=== PATIENT | female | born 1945 | race American Indian/Alaskan Native ===

== ENCOUNTER 2018-09-14 03:13 | Inpatient (IN) | payer MEDICARE, OTHER ==
[2018-09-14 03:15] VITALS: BMI 18.8
--- NOTE | 2018-09-14 03:23 | ED PDOC ---
Arrival/HPI - General Time Seen by Provider: 09/14/18 03:14 Historian: Patient, [facility], EMS - History of Present Illness Narrative History of Present Illness (Text): 09/14/18 03:20 Krysten Hernandez is a 73 year old female, whose past medical history includes diabetes and hypertension, who presents to the ED sent from long term after patient was found lying on the floor next to her bed tonight. As per EMS, patient was noted to be hypoglycemic with a blood sugar of 20 and hypotensive. Patient was given 1 amp of D50 and IV fluids in the field. On arrival, patient's blood sugar was 160, Patient states she does not recall what happened. Patient denies any chest pain, abdominal pain, back pain, neck pain, headache, or any other complaints. Time/Duration: Other (tonight) Symptom Course: Unchanged Activities at Onset: Light Context: Home (prison) Past Medical History - Provider Review Nursing Documentation Reviewed: Yes Family/Social History - Physician Review Nursing Documentation Reviewed: Yes Family/Social History: No Known Family HX Allergies/Home Meds Allergies/Adverse Reactions: Allergies iodine Allergy (Verified 09/14/18 03:18) ANAPHYLAXIS shellfish derived Allergy (Verified 09/14/18 03:18) ANAPHYLAXIS Home Medications: Home Meds Medication Instructions Recorded Confirmed Amino Acids/Protein Hydr/Fiber 30 ml PO BID 09/14/18 09/14/18 [Pro-Stat with Fiber Liquid Pkt] Hydrochlorothiazide [Microzide] 12.5 mg PO DAILY 09/14/18 09/14/18 Insulin Aspart [Novolog Flexpen] 12 unit SQ BID 09/14/18 09/14/18 Insulin Glargine, Recombina 20 unit SQ HS 09/14/18 09/14/18 [Lantus] Mirtazapine [Remeron] 7.5 mg PO DAILY 09/14/18 09/14/18 RX: Acetaminophen [Athenol] 2 tab PO Q6 PRN 09/14/18 09/14/18 RX: Acetaminophen [Pain Reliever] 2 tab PO Q6 PRN 09/14/18 09/14/18 RX: Losartan [Cozaar] 25 mg PO DAILY 09/14/18 09/14/18 RX: Magnesium Hydroxide [Milk of 30 ml PO PRN PRN 09/14/18 09/14/18 Magnesia] RX: Pantoprazole Sodium [Protonix] 40 mg PO DAILY 09/14/18 09/14/18 RX: Sitagliptin Phos/Metformin HCl 1 tab PO DAILY 09/14/18 09/14/18 [Janumet 50-500 mg Tablet] RX: Vitamin B Complex [Balance 1 tab PO DAILY 09/14/18 09/14/18 B-100] RX: amLODIPine [Norvasc] 10 mg PO DAILY 09/14/18 09/14/18 metFORMIN [glucOPHAGE] 500 mg PO BID 09/14/18 09/14/18 Review of Systems - Physician Review All systems were reviewed & negative as marked: Yes - Review of Systems Cardiovascular: Other (+hypotensive). absent: Chest Pain Gastrointestinal: absent: Abdominal Pain Musculoskeletal: absent: Back Pain, Neck Pain Neurological: absent: Headache Endocrine: Other (+hypoglycemia) Physical Exam Vital Signs Reviewed: Yes Temperature: Hypothermic Blood Pressure: Hypotensive Pulse: Regular Respiratory Rate: Normal Appearance: Positive for: Well-Appearing, Non-Toxic, Comfortable Pain Distress: None Mental Status: Positive for: Alert and Oriented X 3 - Systems Exam Head: Present: Atraumatic, Normocephalic Pupils: Present: PERRL Extroacular Muscles: Present: EOMI Conjunctiva: Present: Normal Mouth: Present: Moist Mucous Membranes Neck: Present: Normal Range of Motion Respiratory/Chest: Present: Clear to Auscultation, Good Air Exchange. No: Respiratory Distress, Accessory Muscle Use Cardiovascular: Present: Regular Rate and Rhythm, Normal S1, S2. No: Murmurs Abdomen: No: Tenderness, Distention, Peritoneal Signs Back: Present: Normal Inspection Upper Extremity: Present: Normal Inspection. No: Cyanosis, Edema Lower Extremity: Present: Normal Inspection. No: Edema Neurological: Present: GCS=15, CN II-XII Intact, Speech Normal Skin: Present: Warm, Dry, Normal Color. No: Rashes Psychiatric: Present: Alert, Normal Insight, Normal Concentration Medical Decision Making ED Course and Treatment: 09/14/18 03:20 Impression: 73 year old female sent from long term for hypoglycemia and hypotension. Plan: -- CT Head w/o contrast -- EKG -- Chest X-ray -- Labs, VBG, blood cultures -- Urinalysis, urine cultures -- Lactated Ringer's -- Reassess and disposition Prior Visits: Notes and results from previous visits were reviewed. Progress Notes: Pt noted to be hypothermic at 93F rectal, bear hugger ordered. 09/14/18 04:11 Labs reviewed, lactate: 4.3. Pt hypotensive, hypothermic, and tachycardic. Code Sepsis called. 09/14/18 04:22 Reviewed EKG, NSR at 85 bpm. Non-specific T wave changes. Chest X-ray reviewed, shows no acute processes. 09/14/18 05:[address] Woodruff, mud mixer, who is aware and agrees to evaluate pt for possible ICU admission. sr vice president notified. 09/14/18 05:13 Repeat blood glucose < 20. 1 amp of D50 ordered. Pt placed on D10 drip. 09/14/18 05:[address] Woodruff, present in ED to evaluate pt. Pt will be admitted to the ICU for sepsis, hypoglycemia, hypotension, and hypothermia under the hospitalist service. 09/14/18 05:47 CT Head: There is normal configuration of sella turcica. There are no intra or extra- axial collections. There is no mass effect or midline shift. There is no evidence of hematoma formation. No hydrocephalus is present. The ventricles are symmetrical. No abnormal calcifications are present. There is diffuse age-appropriate cerebellar and cerebral atrophy with proportionally dilated ventricles and cortical sulci. There are bilateral periventricular and subcortical white matter hypolucencies compatible with mild chronic microvascular disease. Otherwise, no significant focal abnormalities are seen either in the posterior fossa or supratentorial compartment. IMPRESSION: 1. Age-appropriate cerebellar and cerebral atrophy. 2. Mild chronic microvascular disease. 3. No evidence of acute intracranial pathology. Thank you for your kind referral of this patient. Electronically signed on September 14, 2018 5:46:22 AM EDT by: Neri Galindo M.D., Certified by [facility], MSK, Neuroradiology - Critical Care Critical Care Minutes: 45 minutes - Lab Interpretations I have reviewed the lab results: Yes - RAD Interpretation Funeral Arranger: ED Physician, Radiologist - EKG Interpretation Interpreted by ED Physician: Yes Type: 12 lead EKG - Scribe Statement The provider has reviewed the documentation as recorded by the Renate Merino Provider Scribe Attestation: All medical record entries made by the Scribe were at my direction and personally dictated by me. I have reviewed the chart and agree that the record accurately reflects my personal performance of the history, physical exam, medical decision making, and the department course for this patient. I have also personally directed, reviewed, and agree with the discharge instructions and disposition. Disposition/Present on Arrival - Present on Arrival Any Indicators Present on Arrival: No History of DVT/PE: No History of Uncontrolled Diabetes: No Urinary Catheter: No History of Decub. Ulcer: No History Surgical Site Infection Following: None - Disposition Have Diagnosis and Disposition been Completed?: Yes Diagnosis: Sepsis, Hypotension, Hypothermia, Hypoglycemia Disposition: HOSPITALIZED Disposition Time: 05:29 Patient Plan: ICU Patient Problems: Current Active Problems Problem Status Onset Hypoglycemia Acute Hypotension Acute Hypothermia Acute Sepsis Acute Condition: GUARDED
[2018-09-14 03:48] LABS: VENOUS BLOOD GAS BASE EXCESS -1.5 mmol/L (0.0-2.0); VENOUS BLOOD GAS PO2 20 mm/Hg (30-55); VENOUS BLOOD PH 7.22 (7.32-7.43)
[2018-09-14 04:19] LABS: INR 1.09; PARTIAL THROMBOPLASTIN TIME 34.5 Seconds (26.9-38.3); PROTHROMBIN TIME 12.1 SECONDS (9.4-12.5)
[2018-09-14] MEDS ORDERED: Sodium Chloride 0.9% 1,000 ML IV SCH (04:30)
[2018-09-14 04:35] LABS: BLOOD UREA NITROGEN 15 mg/dL (7-21); CALCIUM 8.4 mg/dL (8.4-10.5); GFR NON-AFRICAN AMERICAN > 60
[2018-09-14 04:51] LABS: HEMOGLOBIN 10.9 g/dL (12.0-16.0); MEAN CELL VOLUME 93.1 fl (80.0-105.0); MEAN CORPUSCULAR HEMOGLOBIN 32.7 pg (25.0-35.0); MEAN CORPUSCULAR HGB CONC 35.2 g/dl (31.0-37.0); MEAN PLATELET VOLUME 11.7 fl (7.0-11.0); MONO % 4.7 % (1.0-6.0); RBC 3.33 10^6/uL (3.5-6.1); RED CELL DISTRIBUTION WIDTH 12.8 % (11.5-14.5)
[2018-09-14 04:52] LABS: BASO # 0.02 K/mm3 (0.0-2.0); BASO % 0.2 % (0.0-3.0); EOS % 0.4 % (1.5-5.0); MONO # 0.5 (0.1-0.6)
[2018-09-14 04:55] LABS: ALB/GLOB RATIO 0.9 (1.1-1.8); ALT/SGPT 15 U/L (7-56); AST/SGOT 69 U/L (14-36)
[2018-09-14] MEDS ORDERED: Piperacillin/Tazobact 3.375 gm 100 ML IV STA (04:59)
[2018-09-14] MEDS ORDERED: Sodium Chloride 0.9% 1,000 ML IV STA (05:11)
[2018-09-14] MEDS ORDERED: Dextrose 50% SYRINGE Inj (50 ml) IVP ONE ×2 (05:11→11:08)
[2018-09-14] MEDS ORDERED: Dextrose 50% SYRINGE Inj (50 ml) ONE (05:15)
[2018-09-14 05:49] LABS: PH,URINE 6.5 (4.7-8.0); URINE BILIRUBIN NEGATIVE (NEGATIVE); URINE BLOOD NEGATIVE (NEGATIVE); URINE GLUCOSE (UA) NEGATIVE (NEGATIVE); URINE LEUKOCYTE ESTERASE NEGATIVE Leu/uL (NEGATIVE); URINE PROTEIN NEGATIVE mg/dL (<30 mg/dL); URINE UROBILINOGEN 0.2 E.U./dL (<1 E.U./dL)
[2018-09-14 05:54] LABS: URINE APPEARANCE CLEAR (CLEAR); URINE COLOR YELLOW (YELLOW)
--- NOTE | 2018-09-14 05:54 | CP.PCM.HP ---
<Daniel Wyman - Last Filed: 09/14/18 06:44> History of Present Illness - History of Present Illness History of Present Illness: PGY-1 Medicine H&P for Dr. Woodruff CC: Hypoglycemia HPI: Patient is a 73 year old female with a past medical history includes diabetes, COPD, and hypertension, who presents to the ED sent from retirement after patient was found lying on the floor next to her bed tonight. As per EMS, patient was noted to be hypoglycemic with a blood sugar of 20 and hypotensive. Patient was given 1 amp of D50 and IV fluids in the field. On arrival, patient's blood sugar was 160, Patient states she does not recall what happened. Patient denies any chest pain, abdominal pain, back pain, neck pain, headache, or any other complaints. ROS and HPI limited due to patient's clinical condition. History obtained from EMS and chart review. PMH: hypertension, DM-2, COPD PSH: denies Allergies: No known allergies Social Hx: Smokes 1/4 PPD for 50 years. Prior alcohol abuse history. Denies drug use. Lives in [facility]. Family Hx: denies Medications: see JUL PMD: Dr. Sebastien Almeida Present on Admission - Present on Admission Any Indicators Present on Admission: No History of DVT/PE: No History of Uncontrolled Diabetes: No Urinary Catheter: No Decubitus Ulcer Present: No Review of Systems - Review of Systems Systems not reviewed;Unavailable: Acuity of Condition Past Patient History - Past Social History Smoking Status: Unknown If Ever Smoked - CARDIAC Hx Hypertension: Yes - NEUROLOGICAL Hx Syncope: Yes - ENDOCRINE/METABOLIC Hx Diabetes Mellitus Type 2: Yes - MUSCULOSKELETAL/RHEUMATOLOGICAL Hx Falls: Yes Hx Fractures: Yes (bimalleolar fx of lower leg) - PSYCHIATRIC Hx Substance Use: No Meds Allergies/Adverse Reactions: Allergies Allergy/AdvReac Type Severity Reaction Status Date / Time iodine Allergy ANAPHYLAXIS Verified 09/14/18 03:18 shellfish derived Allergy ANAPHYLAXIS Verified 09/14/18 03:18 Physical Exam - Constitutional Appears: No Acute Distress - Head Exam Head Exam: ATRAUMATIC, NORMAL INSPECTION - Eye Exam Eye Exam: EOMI, Normal appearance, PERRL - ENT Exam ENT Exam: Mucous Membranes Dry - Neck Exam Neck exam: Positive for: Normal Inspection - Respiratory Exam Respiratory Exam: Clear to Auscultation Bilateral, NORMAL BREATHING PATTERN. absent: Rales, Rhonchi, Wheezes, Respiratory Distress - Cardiovascular Exam Cardiovascular Exam: REGULAR RHYTHM, +S1, +S2. absent: Bradycardia, Tachycardia, Gallop, Rubs, Systolic Murmur - GI/Abdominal Exam GI & Abdominal Exam: Normal Bowel Sounds, Soft. absent: Distended, Firm, Guarding, Tenderness - Extremities Exam Extremities exam: Positive for: normal inspection. Negative for: calf tenderness, pedal edema - Neurological Exam Additional comments: Neurological exam limited due to patient's clinical condition - Psychiatric Exam Psychiatric exam: Flat Affect - Skin Skin Exam: Dry, Intact, Pallor Results - Vital Signs Recent Vital Signs: Last Vital Signs Temp 92.5 F L 09/14/18 05:45 Pulse 106 H 09/14/18 05:45 Resp 13 09/14/18 05:45 BP 99/56 L 09/14/18 05:45 Pulse Ox 98 09/14/18 05:45 - Labs Result Diagrams: 09/14/18 03:34 09/14/18 03:34 Labs: Laboratory Results - last 24 hr 09/14/18 09/14/18 09/14/18 03:34 03:34 03:34 WBC 11.0 RBC 3.33 L Hgb 10.9 L Hct 31.0 L MCV 93.1 MCH 32.7 MCHC 35.2 RDW 12.8 Plt Count 316 MPV 11.7 H Neut % (Auto) 76.7 H Lymph % (Auto) 18.0 L [place] % (Auto) 4.7 Eos % (Auto) 0.4 L Baso % (Auto) 0.2 Lymph # (Auto) 2.0 [place] # (Auto) 0.5 Eos # (Auto) 0.0 Baso # (Auto) 0.02 Absolute Neuts (auto) 8.42 H PT 12.1 INR 1.09 APTT 34.5 pO2 VBG pH VBG pCO2 VBG HCO3 VBG Total CO2 VBG O2 Sat (Calc) VBG Base Excess VBG Potassium Glucose Lactate FiO2 Crit Value Called To Crit Value Called By Blood Gas Notified Time Sodium 138 Potassium 5.1 H Chloride 105 Carbon Dioxide 27 Anion Gap 11 BUN 15 Creatinine 0.7 Est GFR ( Amer) > 60 Est GFR (Non-Af Amer) > 60 POC Glucose (mg/dL) Random Glucose 69 L Calcium 8.4 Phosphorus 4.1 Magnesium 1.9 Total Bilirubin 1.3 AST 69 H ALT 15 Alkaline Phosphatase 76 Total Protein 6.2 Albumin 3.0 Globulin 3.2 Albumin/Globulin Ratio 0.9 L Venous Blood Potassium 09/14/18 09/14/18 03:40 05:10 WBC RBC Hgb Hct MCV MCH MCHC RDW Plt Count MPV Neut % (Auto) Lymph % (Auto) [place] % (Auto) Eos % (Auto) Baso % (Auto) Lymph # (Auto) [place] # (Auto) Eos # (Auto) Baso # (Auto) Absolute Neuts (auto) PT INR APTT pO2 20 L VBG pH 7.22 L VBG pCO2 68.0 H* VBG HCO3 27.8 VBG Total CO2 29.9 H VBG O2 Sat (Calc) 35.4 L VBG Base Excess -1.5 L VBG Potassium 4.2 Glucose 72 Lactate 4.3 H* FiO2 21.0 Crit Value Called To [place] Crit Value Called By [facility] Blood Gas Notified Time 347 Sodium 137.0 Potassium Chloride 105.0 Carbon Dioxide Anion Gap BUN Creatinine Est GFR ( Amer) Est GFR (Non-Af Amer) POC Glucose (mg/dL) < 20 L* Random Glucose Calcium Phosphorus Magnesium Total Bilirubin AST ALT Alkaline Phosphatase Total Protein Albumin Globulin Albumin/Globulin Ratio Venous Blood Potassium 4.2 Assessment & Plan - Assessment and Plan (Free Text) Assessment: Patient is a 73 year old female with a past medical history includes diabetes, COPD, and hypertension, presenting with hypoglycemia. Patient will be admitted to the ICU for hypoglycemia and sepsis. Plan: SIRS, likely sepsis - Lactate: 4.3. Pt hypotensive, hypothermic, and tachycardic. Code Sepsis called in ED - Start Levophed drip, titrate to MAP>65 - 1 X bolus of NS and LR given in ED - Follow up blood and urine cultures - CXR: pending official read - UA: negative - Start Vancomycin and Zosyn - ID consulted, Dr. Ruffin Hypoglycemia - Patient on D5 drip - Hypoglycemia protocol - Accuchecks Q4H Mechanical fall: - Head CT: No evidence of acute intracranial pathology. - Neurological ecam limited due to patient's condition - Repeat neuro exam once patient's condition improved Lactic acidosis - 2/2 to sepsis vs Metformin use - Consider discontinuing Metformin upon discharge Respiratory acidosis, resolved - Start patient on BIPAP - Keep O2 >92% COPD - Duoneb Q4 PRN for SOB Prophylaxis: - DVT: Lovenox 40mg SC - GI: Protonix 40mg IVP QD Case discussed with attending, Dr. Woodruff. Daniel Wyman, PGY-1 <Wendie Woodruff - Last Filed: 09/15/18 06:07> Results - Vital Signs Recent Vital Signs: Last Vital Signs Temp 97.5 F L 09/15/18 05:00 Pulse 79 09/15/18 05:40 Resp 19 09/15/18 05:40 BP 107/53 L 09/15/18 05:40 Pulse Ox 100 09/14/18 18:10 - Labs Result Diagrams: 09/14/18 03:34 09/14/18 23:56 Labs: Laboratory Results - last 24 hr 09/14/18 09/14/18 09/14/18 06:35 06:54 07:28 pO2 34 VBG pH 7.37 VBG pCO2 43.0 VBG HCO3 24.9 VBG Total CO2 26.2 VBG O2 Sat (Calc) 58.1 VBG Base Excess -0.6 L VBG Potassium 6.6 H* Sodium 134.0 Chloride 108.0 H Glucose 58 L Lactate 2.3 H FiO2 21.0 Crit Value Called To Andres Crit Value Called By [facility] Blood Gas Notified Time 643 Potassium Carbon Dioxide Anion Gap BUN Creatinine Est GFR ( Amer) Est GFR (Non-Af Amer) POC Glucose (mg/dL) 62 L 131 H Random Glucose Calcium Procalcitonin Free T4 Free T3 pg/mL TSH 3rd Generation Venous Blood Potassium 6.6 H* 09/14/18 09/14/18 09/14/18 09:00 10:40 11:57 pO2 49 VBG pH 7.40 VBG pCO2 44.0 VBG HCO3 27.3 VBG Total CO2 28.7 H VBG O2 Sat (Calc) 88.7 H VBG Base Excess 2.0 VBG Potassium 3.1 L Sodium 136.0 Chloride 108.0 H Glucose 30 L* D Lactate 1.0 FiO2 21.0 Crit Value Called To Crit Value Called By [facility] Blood Gas Notified Time 1102 Potassium Carbon Dioxide Anion Gap BUN Creatinine Est GFR ( Amer) Est GFR (Non-Af Amer) POC Glucose (mg/dL) 138 H Random Glucose Calcium Procalcitonin Free T4 Free T3 pg/mL TSH 3rd Generation 5.93 H Venous Blood Potassium 3.1 L 09/14/18 09/14/18 09/14/18 12:58 14:09 15:00 pO2 VBG pH VBG pCO2 VBG HCO3 VBG Total CO2 VBG O2 Sat (Calc) VBG Base Excess VBG Potassium Sodium Chloride Glucose Lactate FiO2 Crit Value Called To Crit Value Called By Blood Gas Notified Time Potassium Carbon Dioxide Anion Gap BUN Creatinine Est GFR ( Amer) Est GFR (Non-Af Amer) POC Glucose (mg/dL) 77 98 113 H Random Glucose Calcium Procalcitonin Free T4 Free T3 pg/mL TSH 3rd Generation Venous Blood Potassium 09/14/18 09/14/18 09/14/18 15:20 15:20 15:20 pO2 VBG pH VBG pCO2 VBG HCO3 VBG Total CO2 VBG O2 Sat (Calc) VBG Base Excess VBG Potassium Sodium 133 Chloride 105 Glucose Lactate FiO2 Crit Value Called To Crit Value Called By Blood Gas Notified Time Potassium 2.8 L* D Carbon Dioxide 24 Anion Gap 7 L BUN 10 Creatinine 0.5 L Est GFR ( Amer) > 60 Est GFR (Non-Af Amer) > 60 POC Glucose (mg/dL) Random Glucose 94 Calcium 6.9 L* Procalcitonin 0.98 H Free T4 0.78 Free T3 pg/mL 2.63 L TSH 3rd Generation Venous Blood Potassium 09/14/18 09/14/18 09/14/18 16:00 18:12 20:23 pO2 VBG pH VBG pCO2 VBG HCO3 VBG Total CO2 VBG O2 Sat (Calc) VBG Base Excess VBG Potassium Sodium Chloride Glucose Lactate FiO2 Crit Value Called To Crit Value Called By Blood Gas Notified Time Potassium Carbon Dioxide Anion Gap BUN Creatinine Est GFR ( Amer) Est GFR (Non-Af Amer) POC Glucose (mg/dL) 137 H 204 H 285 H Random Glucose Calcium Procalcitonin Free T4 Free T3 pg/mL TSH 3rd Generation Venous Blood Potassium 09/14/18 09/14/18 21:57 23:56 pO2 VBG pH VBG pCO2 VBG HCO3 VBG Total CO2 VBG O2 Sat (Calc) VBG Base Excess VBG Potassium Sodium 128 L Chloride 102 Glucose Lactate FiO2 Crit Value Called To Crit Value Called By Blood Gas Notified Time Potassium 4.4 Carbon Dioxide 21 Anion Gap 10 BUN 8 Creatinine 0.6 L Est GFR ( Amer) > 60 Est GFR (Non-Af Amer) > 60 POC Glucose (mg/dL) 283 H Random Glucose 340 H* D Calcium 7.2 L Procalcitonin Free T4 Free T3 pg/mL TSH 3rd Generation Venous Blood Potassium Attending/Attestation - Attestation I have personally seen and examined this patient.: Yes I have fully participated in the care of the patient.: Yes I have reviewed all pertinent clinical information: Yes Notes (Text): 09/15/18 06:05 Seen and examined. Discussed with resident. Admit to ICU. Lactic acidosis can be due to sepsis or metformin side effects. started on Levophed and gave another 1 L bolus NS. On broad spectrum ABX.
[2018-09-14] MEDS: Vancomycin 1gm in NS 250ml 1 GM/250 ML BAG IVPB STA ×2 (06:19→06:34)
[2018-09-14] MEDS: NOREPINEPHRINE BIT/0.9 % NACL 4 MG/250 ML BAG IV PRN ×3 (06:19→20:40)
--- NOTE | 2018-09-14 06:29 | PCM.PROC ---
<Gustavo Adamson - Last Filed: 09/14/18 06:48> Procedures Attestation:: I certify that I have explained the specified Operation(s) or Procedure(s), risks, benefits and reasonable alternatives to the Patient and/or other person responsible. The opportunity was given to ask questions and all questions answered - Central Line Placement Right Internal Jugular Triple Lumen Catheter Aseptic technique was employed throughout the procedure: Hand Hygiene done prior to procedure, Full sterile barriers (mask, hair cover, sterile gown, sterile gloves), Full body sterile drape, Chloraprep Antiseptic: 30 second prep for IJ or SC sites CVP Time Out Performed: Yes Pt. Placed on Pulse Ox Monitor: Yes Central Line Prep: Chlorhexidine-Alcohol Combination Local Anesthesia Used: Lidocaine 1% Amount of Anesthesia Used (mls): 5 Ultrasound Used for Placement: Yes Central Line Lumen Inserted: triple Central Line Length: 20 cm Post Procedure: Sutured in Place, Good Blood Return, All Ports Aspirated, Flushed, Capped, Sterile Dressing Applied Secured by: Securement device (sutured) Post procedure dressing: Clear vapor permeable, Chlorhexidine disc (Biopatch) Post Procedure X-Ray: Yes Patient Tolerated Procedure: Well Immediate Complications: None <Wendie Woodruff - Last Filed: 09/15/18 06:08> Attending/Attestation - Attestation I have personally seen and examined this patient.: Yes I have fully participated in the care of the patient.: Yes I have reviewed all pertinent clinical information, including history, physical exam and plan: Yes
[2018-09-14 06:43] LABS: VENOUS BLOOD GAS BASE EXCESS -0.6 mmol/L (0.0-2.0); VENOUS BLOOD GAS PO2 34 mm/Hg (30-55); VENOUS BLOOD PH 7.37 (7.32-7.43)
[2018-09-14] MEDS ORDERED: Albuterol-Ipratrop 3 mg / 0.5 (3 ml) UD IH PRN (06:49)
--- NOTE | 2018-09-14 09:40 | CT ---
Date of service: 09/14/2018 PROCEDURE: CT HEAD WITHOUT CONTRAST. HISTORY: syncope COMPARISON: None available. TECHNIQUE: Axial computed tomography images were obtained through the head/brain without intravenous contrast. Radiation dose: Total exam DLP = 907.12 mGy-cm. This CT exam was performed using one or more of the following dose reduction techniques: Automated exposure control, adjustment of the mA and/or kV according to patient size, and/or use of iterative reconstruction technique. FINDINGS: HEMORRHAGE: No intracranial hemorrhage. BRAIN: No mass effect or edema. Moderate atrophy. Mild microvascular changes VENTRICLES: Unremarkable. No hydrocephalus. CALVARIUM: Unremarkable. PARANASAL SINUSES: Unremarkable as visualized. No significant inflammatory changes. MASTOID AIR CELLS: Unremarkable as visualized. No inflammatory changes. OTHER FINDINGS: The report concurs with the preliminary [facility] report IMPRESSION: No acute intracranial findings
[2018-09-14] MEDS ORDERED: Dextrose 5%/0.45% NS 1,000 ML IV SCH (10:00)
--- NOTE | 2018-09-14 10:19 | RAD ---
Date of service: 09/14/2018 HISTORY: TLC placement COMPARISON: 09/14/2018 TECHNIQUE: 1 view obtained. FINDINGS: LUNGS: No active pulmonary disease. PLEURA: No significant pleural effusion identified, no pneumothorax apparent. CARDIOVASCULAR: No aortic atherosclerotic calcification present. Normal cardiac size. No pulmonary vascular congestion. OSSEOUS STRUCTURES: No significant abnormalities. VISUALIZED UPPER ABDOMEN: Normal. OTHER FINDINGS: None. IMPRESSION: Right IJ line at the junction of the SVC and right atrium. No pneumothorax
--- NOTE | 2018-09-14 10:19 | RAD ---
Date of service: 09/14/2018 HISTORY: Sepsis Patient COMPARISON: No prior. TECHNIQUE: 1 view obtained. FINDINGS: LUNGS: No active pulmonary disease. PLEURA: No significant pleural effusion identified, no pneumothorax apparent. CARDIOVASCULAR: No aortic atherosclerotic calcification present. Normal cardiac size. No pulmonary vascular congestion. OSSEOUS STRUCTURES: No significant abnormalities. VISUALIZED UPPER ABDOMEN: Normal. OTHER FINDINGS: None. IMPRESSION: No active disease.
[2018-09-14] MEDS: Enoxaparin 40 mg Syringe SC SCH (10:27)
--- NOTE | 2018-09-14 10:47 | CARD ---
APPROVED REPORT Date of service: 09/14/2018 EKG Measurement Heart [id number] <Conclusion> Normal sinus rhythm Nonspecific T wave abnormality Abnormal ECG
[2018-09-14 11:05] LABS: VENOUS BLOOD GAS PO2 49 mm/Hg (30-55)
--- NOTE | 2018-09-14 11:20 | CP.CCUPN ---
<ToreyRománlyudmila Delacruz - Last Filed: 09/14/18 12:36> CCU Subjective - Physician Review Events Since Last Encounter (Free Text): 09/14/18 11:02 pt brought into the ED and admitted to the ICU Subjective (Free Text): 09/14/18 11:02 Pt seen and examined this morning at bedside, no new complaints at this time CCU Objective - Vital Signs / Intake & Output Vital Signs (Last 4 hours): Vital Signs Temp Pulse Resp BP Pulse Ox 09/14/18 09:05 87 09/14/18 08:44 97.5 F L 94 H 100 09/14/18 08:40 90 15 102/49 L 100 09/14/18 08:30 93 H 13 100 09/14/18 08:20 94 H 15 106/51 L 100 09/14/18 08:11 99 H 23 107/55 L 100 09/14/18 08:10 106 H 09/14/18 08:07 84 43 H 09/14/18 07:45 93 H 14 103/49 L 100 09/14/18 07:37 89 18 94/56 L 100 09/14/18 07:25 95.9 F L 94 H 20 86/52 L 100 09/14/18 07:14 87 18 91/53 L 100 Intake and Output (Last 8hrs): Intake & Output 09/13/18 09/14/18 09/14/18 22:59 06:59 14:59 Output Total 700 Balance -700 Weight 110 lb Output: Urine 700 - Physical Exam Head: Positive for: Atraumatic, Normocephalic Pupils: Positive for: PERRL Extroacular Muscles: Positive for: EOMI Conjunctiva: Positive for: Normal Mouth: Positive for: Moist Mucous Membranes Neck: Positive for: Normal Range of Motion Respiratory/Chest: Positive for: Clear to Auscultation, Good Air Exchange. Negative for: Respiratory Distress, Accessory Muscle Use Cardiovascular: Positive for: Regular Rate and Rhythm, Normal S1, S2. Negative for: Murmurs Abdomen: Negative for: Tenderness, Distention, Peritoneal Signs Back: Positive for: Normal Inspection Upper Extremity: Positive for: Normal Inspection. Negative for: Cyanosis, Edema Lower Extremity: Positive for: Normal Inspection. Negative for: Edema Neurological: Positive for: GCS=15, CN II-XII Intact, Speech Normal Skin: Positive for: Warm, Dry, Normal Color. Negative for: Rashes Psychiatric: Positive for: Alert, Normal Insight, Normal Concentration - Medications Active Medications: Active Medications Generic Name Dose Route Start Last Admin Trade Name Freq PRN Reason Stop Dose Admin Albuterol/Ipratropium 3 ml 09/14/18 06:49 Duoneb 3 Mg/0.5 Mg (3 Ml) Ud IH Q4H PRN Shortness of Breath Dextrose 0 ml 09/14/18 06:29 Dextrose 50% Inj IV STAT PRN Hypoglycemia Protocol Protocol Enoxaparin Sodium 40 mg 09/14/18 10:00 09/14/18 10:27 Lovenox SC 40 mg DAILY ALFREDO Administration Protocol Hydrocortisone Sodium Succinate 100 mg 09/14/18 10:00 09/14/18 10:33 Solu-Cortef IVP 100 mg Q8 ALFREDO Administration NOREPINEPHRINE BIT/0.9 % NACL 4 mg in 250 mls @ 18.75 mls/hr 09/14/18 05:25 09/14/18 06:55 Levophed 4 Mg/ 250 Ml Ns Premixed IV 5 mcg/min .[id number] PRN 18.75 mls/hr TITRATE PER MD ORDER Administration Protocol 5 MCG/MIN Vancomycin HCl 1 gm in 250 mls @ 167 mls/hr 09/15/18 10:00 Vancomycin 1gm IVPB DAILY ALFREDO Protocol Piperacillin Sod/Tazobactam Sod 100 mls @ 25 mls/hr 09/14/18 14:00 Zosyn 3.375 In Ns 100ml IVPB 09/15/18 01:59 Q8 ALFREDO Protocol Dextrose 1,000 mls @ 0 mls/hr 09/14/18 06:29 Dextrose 5% In Water 1000 Ml IV .Q0M PRN Hypoglycemia Protocol Protocol Per Protocol Dextrose/Sodium Chloride 1,000 mls @ 100 mls/hr 09/14/18 10:00 09/14/18 10:33 Dextrose 5%/0.45% Ns 1000 Ml IV 100 mls/hr .Q10H ALFREDO Administration Pantoprazole Sodium 40 mg 09/14/18 10:00 09/14/18 10:27 Protonix Inj IVP 40 mg DAILY ALFREDO Administration - Patient Studies Lab Studies: Lab Studies 09/14/18 09/14/18 09/14/18 Range/Units 09:00 07:28 06:54 WBC (4.5-11.0) 10^3/uL RBC (3.5-6.1) 10^6/uL Hgb (12.0-16.0) g/dL Hct (36.0-48.0) % MCV (80.0-105.0) fl MCH (25.0-35.0) pg MCHC (31.0-37.0) g/dl RDW (11.5-14.5) % Plt Count (120.0-450.0) 10^3/uL MPV (7.0-11.0) fl Neut % (Auto) (50.0-68.0) % Lymph % (Auto) (22.0-35.0) % [place] % (Auto) (1.0-6.0) % Eos % (Auto) (1.5-5.0) % Baso % (Auto) (0.0-3.0) % Lymph # (Auto) (1.2-3.4) [place] # (Auto) (0.1-0.6) Eos # (Auto) (0.0-0.7) Baso # (Auto) (0.0-2.0) K/mm3 Absolute Neuts (auto) (1.4-6.5) PT (9.4-12.5) SECONDS INR APTT (26.9-38.3) Seconds pO2 (30-55) mm/Hg VBG pH (7.32-7.43) VBG pCO2 (40-60) VBG HCO3 (21-28) mmol/l VBG Total CO2 (22-28) mmol.L VBG O2 Sat (Calc) (40-65) % VBG Base Excess (0.0-2.0) mmol/L VBG Potassium (3.6-5.2) mmol/L Glucose (65-105) mg/dl Lactate (0.7-2.1) mmol/L FiO2 % Crit Value Called To Crit Value Called By Blood Gas Notified Time Sodium (132-148) mmol/L Potassium (3.6-5.0) mmol/L Chloride (98-107) mmol/L Carbon Dioxide (21-33) mmol/L Anion Gap (10-20) BUN (7-21) mg/dL Creatinine (0.7-1.2) mg/dl Est GFR ( Amer) Est GFR (Non-Af Amer) POC Glucose (mg/dL) 131 H 62 L (65-110) mg/dL Random Glucose (70-110) mg/dL Calcium (8.4-10.5) mg/dL Phosphorus (2.5-4.5) mg/dL Magnesium (1.7-2.2) mg/dL Total Bilirubin (0.2-1.3) mg/dL AST (14-36) U/L ALT (7-56) U/L Alkaline Phosphatase (38-126) U/L Total Protein (5.8-8.3) g/dL Albumin (3.0-4.8) g/dL Globulin gm/dL Albumin/Globulin Ratio (1.1-1.8) TSH 3rd Generation 5.93 H (0.46-4.68) mIU/mL Venous Blood Potassium (3.6-5.2) mmol/L Urine Color (YELLOW) Urine Appearance (CLEAR) Urine pH (4.7-8.0) Ur Specific [place] (1.005-1.035) Urine Protein (<30 mg/dL) mg/dL Urine Glucose (UA) (NEGATIVE) mg/dL Urine Ketones (NEGATIVE) mg/dL Urine Blood (NEGATIVE) Urine Nitrate (NEGATIVE) Urine Bilirubin (NEGATIVE) Urine Urobilinogen (<1 E.U./dL) E.U./dL Ur Leukocyte Esterase (NEGATIVE) Zoya/uL 09/14/18 09/14/18 09/14/18 Range/Units 06:35 05:10 04:00 WBC (4.5-11.0) 10^3/uL RBC (3.5-6.1) 10^6/uL Hgb (12.0-16.0) g/dL Hct (36.0-48.0) % MCV (80.0-105.0) fl MCH (25.0-35.0) pg MCHC (31.0-37.0) g/dl RDW (11.5-14.5) % Plt Count (120.0-450.0) 10^3/uL MPV (7.0-11.0) fl Neut % (Auto) (50.0-68.0) % Lymph % (Auto) (22.0-35.0) % [place] % (Auto) (1.0-6.0) % Eos % (Auto) (1.5-5.0) % Baso % (Auto) (0.0-3.0) % Lymph # (Auto) (1.2-3.4) [place] # (Auto) (0.1-0.6) Eos # (Auto) (0.0-0.7) Baso # (Auto) (0.0-2.0) K/mm3 Absolute Neuts (auto) (1.4-6.5) PT (9.4-12.5) SECONDS INR APTT (26.9-38.3) Seconds pO2 34 (30-55) mm/Hg VBG pH 7.37 (7.32-7.43) VBG pCO2 43.0 (40-60) VBG HCO3 24.9 (21-28) mmol/l VBG Total CO2 26.2 (22-28) mmol.L VBG O2 Sat (Calc) 58.1 (40-65) % VBG Base Excess -0.6 L (0.0-2.0) mmol/L VBG Potassium 6.6 H* (3.6-5.2) mmol/L Glucose 58 L (65-105) mg/dl Lactate 2.3 H (0.7-2.1) mmol/L FiO2 21.0 % Crit Value Called To Andres Crit Value Called By [facility] Blood Gas Notified Time 643 Sodium 134.0 (132-148) mmol/L Potassium (3.6-5.0) mmol/L Chloride 108.0 H (98-107) mmol/L Carbon Dioxide (21-33) mmol/L Anion Gap (10-20) BUN (7-21) mg/dL Creatinine (0.7-1.2) mg/dl Est GFR ( Amer) Est GFR (Non-Af Amer) POC Glucose (mg/dL) < 20 L* (65-110) mg/dL Random Glucose (70-110) mg/dL Calcium (8.4-10.5) mg/dL Phosphorus (2.5-4.5) mg/dL Magnesium (1.7-2.2) mg/dL Total Bilirubin (0.2-1.3) mg/dL AST (14-36) U/L ALT (7-56) U/L Alkaline Phosphatase (38-126) U/L Total Protein (5.8-8.3) g/dL Albumin (3.0-4.8) g/dL Globulin gm/dL Albumin/Globulin Ratio (1.1-1.8) TSH 3rd Generation (0.46-4.68) mIU/mL Venous Blood Potassium 6.6 H* (3.6-5.2) mmol/L Urine Color Yellow (YELLOW) Urine Appearance Clear (CLEAR) Urine pH 6.5 (4.7-8.0) Ur Specific [place] <= 1.005 (1.005-1.035) Urine Protein Negative (<30 mg/dL) mg/dL Urine Glucose (UA) Negative (NEGATIVE) mg/dL Urine Ketones Negative (NEGATIVE) mg/dL Urine Blood Negative (NEGATIVE) Urine Nitrate Negative (NEGATIVE) Urine Bilirubin Negative (NEGATIVE) Urine Urobilinogen 0.2 (<1 E.U./dL) E.U./dL Ur Leukocyte Esterase Negative (NEGATIVE) Zoya/uL 09/14/18 09/14/18 09/14/18 Range/Units 03:40 03:34 03:34 WBC (4.5-11.0) 10^3/uL RBC (3.5-6.1) 10^6/uL Hgb (12.0-16.0) g/dL Hct (36.0-48.0) % MCV (80.0-105.0) fl MCH (25.0-35.0) pg MCHC (31.0-37.0) g/dl RDW (11.5-14.5) % Plt Count (120.0-450.0) 10^3/uL MPV (7.0-11.0) fl Neut % (Auto) (50.0-68.0) % Lymph % (Auto) (22.0-35.0) % [place] % (Auto) (1.0-6.0) % Eos % (Auto) (1.5-5.0) % Baso % (Auto) (0.0-3.0) % Lymph # (Auto) (1.2-3.4) [place] # (Auto) (0.1-0.6) Eos # (Auto) (0.0-0.7) Baso # (Auto) (0.0-2.0) K/mm3 Absolute Neuts (auto) (1.4-6.5) PT 12.1 (9.4-12.5) SECONDS INR 1.09 APTT 34.5 (26.9-38.3) Seconds pO2 20 L (30-55) mm/Hg VBG pH 7.22 L (7.32-7.43) VBG pCO2 68.0 H* (40-60) VBG HCO3 27.8 (21-28) mmol/l VBG Total CO2 29.9 H (22-28) mmol.L VBG O2 Sat (Calc) 35.4 L (40-65) % VBG Base Excess -1.5 L (0.0-2.0) mmol/L VBG Potassium 4.2 (3.6-5.2) mmol/L Glucose 72 (65-105) mg/dl Lactate 4.3 H* (0.7-2.1) mmol/L FiO2 21.0 % Crit Value Called To Su Crit Value Called By [facility] Blood Gas Notified Time 347 Sodium 137.0 138 (132-148) mmol/L Potassium 5.1 H (3.6-5.0) mmol/L Chloride 105.0 105 (98-107) mmol/L Carbon Dioxide 27 (21-33) mmol/L Anion Gap 11 (10-20) BUN 15 (7-21) mg/dL Creatinine 0.7 (0.7-1.2) mg/dl Est GFR ( Amer) > 60 Est GFR (Non-Af Amer) > 60 POC Glucose (mg/dL) (65-110) mg/dL Random Glucose 69 L (70-110) mg/dL Calcium 8.4 (8.4-10.5) mg/dL Phosphorus 4.1 (2.5-4.5) mg/dL Magnesium 1.9 (1.7-2.2) mg/dL Total Bilirubin 1.3 (0.2-1.3) mg/dL AST 69 H (14-36) U/L ALT 15 (7-56) U/L Alkaline Phosphatase 76 (38-126) U/L Total Protein 6.2 (5.8-8.3) g/dL Albumin 3.0 (3.0-4.8) g/dL Globulin 3.2 gm/dL Albumin/Globulin Ratio 0.9 L (1.1-1.8) TSH 3rd Generation (0.46-4.68) mIU/mL Venous Blood Potassium 4.2 (3.6-5.2) mmol/L Urine Color (YELLOW) Urine Appearance (CLEAR) Urine pH (4.7-8.0) Ur Specific [place] (1.005-1.035) Urine Protein (<30 mg/dL) mg/dL Urine Glucose (UA) (NEGATIVE) mg/dL Urine Ketones (NEGATIVE) mg/dL Urine Blood (NEGATIVE) Urine Nitrate (NEGATIVE) Urine Bilirubin (NEGATIVE) Urine Urobilinogen (<1 E.U./dL) E.U./dL Ur Leukocyte Esterase (NEGATIVE) Zoya/uL 09/14/18 Range/Units 03:34 WBC 11.0 (4.5-11.0) 10^3/uL RBC 3.33 L (3.5-6.1) 10^6/uL Hgb 10.9 L (12.0-16.0) g/dL Hct 31.0 L (36.0-48.0) % MCV 93.1 (80.0-105.0) fl MCH 32.7 (25.0-35.0) pg MCHC 35.2 (31.0-37.0) g/dl RDW 12.8 (11.5-14.5) % Plt Count 316 (120.0-450.0) 10^3/uL MPV 11.7 H (7.0-11.0) fl Neut % (Auto) 76.7 H (50.0-68.0) % Lymph % (Auto) 18.0 L (22.0-35.0) % [place] % (Auto) 4.7 (1.0-6.0) % Eos % (Auto) 0.4 L (1.5-5.0) % Baso % (Auto) 0.2 (0.0-3.0) % Lymph # (Auto) 2.0 (1.2-3.4) [place] # (Auto) 0.5 (0.1-0.6) Eos # (Auto) 0.0 (0.0-0.7) Baso # (Auto) 0.02 (0.0-2.0) K/mm3 Absolute Neuts (auto) 8.42 H (1.4-6.5) PT (9.4-12.5) SECONDS INR APTT (26.9-38.3) Seconds pO2 (30-55) mm/Hg VBG pH (7.32-7.43) VBG pCO2 (40-60) VBG HCO3 (21-28) mmol/l VBG Total CO2 (22-28) mmol.L VBG O2 Sat (Calc) (40-65) % VBG Base Excess (0.0-2.0) mmol/L VBG Potassium (3.6-5.2) mmol/L Glucose (65-105) mg/dl Lactate (0.7-2.1) mmol/L FiO2 % Crit Value Called To Crit Value Called By Blood Gas Notified Time Sodium (132-148) mmol/L Potassium (3.6-5.0) mmol/L Chloride (98-107) mmol/L Carbon Dioxide (21-33) mmol/L Anion Gap (10-20) BUN (7-21) mg/dL Creatinine (0.7-1.2) mg/dl Est GFR ( Amer) Est GFR (Non-Af Amer) POC Glucose (mg/dL) (65-110) mg/dL Random Glucose (70-110) mg/dL Calcium (8.4-10.5) mg/dL Phosphorus (2.5-4.5) mg/dL Magnesium (1.7-2.2) mg/dL Total Bilirubin (0.2-1.3) mg/dL AST (14-36) U/L ALT (7-56) U/L Alkaline Phosphatase (38-126) U/L Total Protein (5.8-8.3) g/dL Albumin (3.0-4.8) g/dL Globulin gm/dL Albumin/Globulin Ratio (1.1-1.8) TSH 3rd Generation (0.46-4.68) mIU/mL Venous Blood Potassium (3.6-5.2) mmol/L Urine Color (YELLOW) Urine Appearance (CLEAR) Urine pH (4.7-8.0) Ur Specific [place] (1.005-1.035) Urine Protein (<30 mg/dL) mg/dL Urine Glucose (UA) (NEGATIVE) mg/dL Urine Ketones (NEGATIVE) mg/dL Urine Blood (NEGATIVE) Urine Nitrate (NEGATIVE) Urine Bilirubin (NEGATIVE) Urine Urobilinogen (<1 E.U./dL) E.U./dL Ur Leukocyte Esterase (NEGATIVE) Zoya/uL Laboratory Results - last 24 hr 09/14/18 09/14/18 09/14/18 03:34 03:34 03:34 WBC 11.0 RBC 3.33 L Hgb 10.9 L Hct 31.0 L MCV 93.1 MCH 32.7 MCHC 35.2 RDW 12.8 Plt Count 316 MPV 11.7 H Neut % (Auto) 76.7 H Lymph % (Auto) 18.0 L [place] % (Auto) 4.7 Eos % (Auto) 0.4 L Baso % (Auto) 0.2 Lymph # (Auto) 2.0 [place] # (Auto) 0.5 Eos # (Auto) 0.0 Baso # (Auto) 0.02 Absolute Neuts (auto) 8.42 H PT 12.1 INR 1.09 APTT 34.5 pO2 VBG pH VBG pCO2 VBG HCO3 VBG Total CO2 VBG O2 Sat (Calc) VBG Base Excess VBG Potassium Glucose Lactate FiO2 Crit Value Called To Crit Value Called By Blood Gas Notified Time Sodium 138 Potassium 5.1 H Chloride 105 Carbon Dioxide 27 Anion Gap 11 BUN 15 Creatinine 0.7 Est GFR ( Amer) > 60 Est GFR (Non-Af Amer) > 60 POC Glucose (mg/dL) Random Glucose 69 L Calcium 8.4 Phosphorus 4.1 Magnesium 1.9 Total Bilirubin 1.3 AST 69 H ALT 15 Alkaline Phosphatase 76 Total Protein 6.2 Albumin 3.0 Globulin 3.2 Albumin/Globulin Ratio 0.9 L TSH 3rd Generation Venous Blood Potassium Urine Color Urine Appearance Urine pH Ur Specific [place] Urine Protein Urine Glucose (UA) Urine Ketones Urine Blood Urine Nitrate Urine Bilirubin Urine Urobilinogen Ur Leukocyte Esterase 09/14/18 09/14/18 09/14/18 03:40 04:00 05:10 WBC RBC Hgb Hct MCV MCH MCHC RDW Plt Count MPV Neut % (Auto) Lymph % (Auto) [place] % (Auto) Eos % (Auto) Baso % (Auto) Lymph # (Auto) [place] # (Auto) Eos # (Auto) Baso # (Auto) Absolute Neuts (auto) PT INR APTT pO2 20 L VBG pH 7.22 L VBG pCO2 68.0 H* VBG HCO3 27.8 VBG Total CO2 29.9 H VBG O2 Sat (Calc) 35.4 L VBG Base Excess -1.5 L VBG Potassium 4.2 Glucose 72 Lactate 4.3 H* FiO2 21.0 Crit Value Called To Su Crit Value Called By [facility] Blood Gas Notified Time 347 Sodium 137.0 Potassium Chloride 105.0 Carbon Dioxide Anion Gap BUN Creatinine Est GFR ( Amer) Est GFR (Non-Af Amer) POC Glucose (mg/dL) < 20 L* Random Glucose Calcium Phosphorus Magnesium Total Bilirubin AST ALT Alkaline Phosphatase Total Protein Albumin Globulin Albumin/Globulin Ratio TSH 3rd Generation Venous Blood Potassium 4.2 Urine Color Yellow Urine Appearance Clear Urine pH 6.5 Ur Specific [place] <= 1.005 Urine Protein Negative Urine Glucose (UA) Negative Urine Ketones Negative Urine Blood Negative Urine Nitrate Negative Urine Bilirubin Negative Urine Urobilinogen 0.2 Ur Leukocyte Esterase Negative 09/14/18 09/14/18 09/14/18 06:35 06:54 07:28 WBC RBC Hgb Hct MCV MCH MCHC RDW Plt Count MPV Neut % (Auto) Lymph % (Auto) [place] % (Auto) Eos % (Auto) Baso % (Auto) Lymph # (Auto) [place] # (Auto) Eos # (Auto) Baso # (Auto) Absolute Neuts (auto) PT INR APTT pO2 34 VBG pH 7.37 VBG pCO2 43.0 VBG HCO3 24.9 VBG Total CO2 26.2 VBG O2 Sat (Calc) 58.1 VBG Base Excess -0.6 L VBG Potassium 6.6 H* Glucose 58 L Lactate 2.3 H FiO2 21.0 Crit Value Called To Andres Crit Value Called By [facility] Blood Gas Notified Time 643 Sodium 134.0 Potassium Chloride 108.0 H Carbon Dioxide Anion Gap BUN Creatinine Est GFR ( Amer) Est GFR (Non-Af Amer) POC Glucose (mg/dL) 62 L 131 H Random Glucose Calcium Phosphorus Magnesium Total Bilirubin AST ALT Alkaline Phosphatase Total Protein Albumin Globulin Albumin/Globulin Ratio TSH 3rd Generation Venous Blood Potassium 6.6 H* Urine Color Urine Appearance Urine pH Ur Specific [place] Urine Protein Urine Glucose (UA) Urine Ketones Urine Blood Urine Nitrate Urine Bilirubin Urine Urobilinogen Ur Leukocyte Esterase 09/14/18 09:00 WBC RBC Hgb Hct MCV MCH MCHC RDW Plt Count MPV Neut % (Auto) Lymph % (Auto) [place] % (Auto) Eos % (Auto) Baso % (Auto) Lymph # (Auto) [place] # (Auto) Eos # (Auto) Baso # (Auto) Absolute Neuts (auto) PT INR APTT pO2 VBG pH VBG pCO2 VBG HCO3 VBG Total CO2 VBG O2 Sat (Calc) VBG Base Excess VBG Potassium Glucose Lactate FiO2 Crit Value Called To Crit Value Called By Blood Gas Notified Time Sodium Potassium Chloride Carbon Dioxide Anion Gap BUN Creatinine Est GFR ( Amer) Est GFR (Non-Af Amer) POC Glucose (mg/dL) Random Glucose Calcium Phosphorus Magnesium Total Bilirubin AST ALT Alkaline Phosphatase Total Protein Albumin Globulin Albumin/Globulin Ratio TSH 3rd Generation 5.93 H Venous Blood Potassium Urine Color Urine Appearance Urine pH Ur Specific [place] Urine Protein Urine Glucose (UA) Urine Ketones Urine Blood Urine Nitrate Urine Bilirubin Urine Urobilinogen Ur Leukocyte Esterase Radiology Impressions: Radiology Impressions Chest X-Ray 09/14/18 03:29 IMPRESSION: No active disease. Head CT 09/14/18 04:25 IMPRESSION: No acute intracranial findings Chest X-Ray 09/14/18 06:18 IMPRESSION: Right IJ line at the junction of the SVC and right atrium. No pneumothorax EKG/Cardiology Studies: Cardiology / EKG Studies 09/14/18 03:29 ELECTROCARDIOGRAM Stat Comment: Reason For Exam: Sepsis Patient Fingerstick Blood Sugar Results: 131 Critical Care Progress Note - Nutrition Nutrition: Nutrition Category Date Time Status NPO Diet [DIET] Diets 09/14/18 Breakfast Ordered Assessment/Plan - Assessment and Plan (Free Text) Assessment: Pt is a 73 yo female with a PMH of DM, COPD, and HTN, who was found down by her and brought in by EMS and was later found to be hypoglycemic and hypotensive. Plan: Neuro - continue to monitor neuro status - Head CT: No evidence of acute intracranial pathology. Cardio - HTN - pt on levophed drip - started hydrocortisone 100 q8, possible renal insufficiency - digoxin <0.4 Pulm - COPD - duonebs GI - protonix Nephro/ - BUN/Cr 18/0.6 - continue to monitor electrolytes Endo - DM - hypoglycemia on admission - accuchecks q1 - HA1C 6.9 - pt started on D10, given 1 amp of D50, will continue to monitor and adjust PRN Heme/ Onc - lovenox ID - Sepsis Vs adrenal insufficiency - Lactate: 4.3. Pt hypotensive, hypothermic, and tachycardic. Code Sepsis called in ED - blood cultures follow up - UA: negative - Vanc - Zosyn - ID consulted, Dr. Ruffin Pt seen, examined, assessment and plan discussed with Dr Leland Lema PGY1 - Date & Time Date: 09/14/18 Time: 08:00 <Jonny Ha - Last Filed: 09/14/18 14:21> CCU Objective - Vital Signs / Intake & Output Intake and Output (Last 8hrs): Intake & Output 09/13/18 09/14/18 09/14/18 22:59 06:59 14:59 Output Total 700 Balance -700 Weight 110 lb 110 lb Output: Urine 700 Other: Voiding Method Indwelling Catheter - Medications Active Medications: Active Medications Generic Name Dose Route Start Last Admin Trade Name Freq PRN Reason Stop Dose Admin Albuterol/Ipratropium 3 ml 09/14/18 06:49 Duoneb 3 Mg/0.5 Mg (3 Ml) Ud IH Q4H PRN Shortness of Breath Dextrose 0 ml 09/14/18 06:29 Dextrose 50% Inj IV STAT PRN Hypoglycemia Protocol Protocol Enoxaparin Sodium 40 mg 09/14/18 10:00 09/14/18 10:27 Lovenox SC 40 mg DAILY ALFREDO Administration Protocol Hydrocortisone Sodium Succinate 100 mg 09/14/18 10:09/14/18 10:33 Solu-Cortef IVP 100 mg Q8 ALFREDO Administration NOREPINEPHRINE BIT/0.9 % NACL 4 mg in 250 mls @ 18.75 mls/hr 09/14/18 05:25 09/14/18 06:55 Levophed 4 Mg/ 250 Ml Ns Premixed IV 5 mcg/min .[id number] PRN 18.75 mls/hr TITRATE PER MD ORDER Administration Protocol 5 MCG/MIN Vancomycin HCl 1 gm in 250 mls @ 167 mls/hr 09/15/18 10:00 Vancomycin 1gm IVPB DAILY ALFREDO Protocol Piperacillin Sod/Tazobactam Sod 100 mls @ 25 mls/hr 09/14/18 14:00 Zosyn 3.375 In Ns 100ml IVPB 09/15/18 01:59 Q8 ALFREDO Protocol Dextrose 500 mls @ 125 mls/hr 09/14/18 12:00 09/14/18 12:50 Dextrose 10% In Water IV 125 mls/hr .Q4H ALFREDO Administration Pantoprazole Sodium 40 mg 09/14/18 10:00 09/14/18 10:27 Protonix Inj IVP 40 mg DAILY ALFREDO Administration - Patient Studies Lab Studies: Lab Studies 09/14/18 09/14/18 09/14/18 Range/Units 11:57 10:40 09:00 WBC (4.5-11.0) 10^3/uL RBC (3.5-6.1) 10^6/uL Hgb (12.0-16.0) g/dL Hct (36.0-48.0) % MCV (80.0-105.0) fl MCH (25.0-35.0) pg MCHC (31.0-37.0) g/dl RDW (11.5-14.5) % Plt Count (120.0-450.0) 10^3/uL MPV (7.0-11.0) fl Neut % (Auto) (50.0-68.0) % Lymph % (Auto) (22.0-35.0) % [place] % (Auto) (1.0-6.0) % Eos % (Auto) (1.5-5.0) % Baso % (Auto) (0.0-3.0) % Lymph # (Auto) (1.2-3.4) [place] # (Auto) (0.1-0.6) Eos # (Auto) (0.0-0.7) Baso # (Auto) (0.0-2.0) K/mm3 Absolute Neuts (auto) (1.4-6.5) PT (9.4-12.5) SECONDS INR APTT (26.9-38.3) Seconds pO2 49 (30-55) mm/Hg VBG pH 7.40 (7.32-7.43) VBG pCO2 44.0 (40-60) VBG HCO3 27.3 (21-28) mmol/l VBG Total CO2 28.7 H (22-28) mmol.L VBG O2 Sat (Calc) 88.7 H (40-65) % VBG Base Excess 2.0 (0.0-2.0) mmol/L VBG Potassium 3.1 L (3.6-5.2) mmol/L Glucose 30 L* D (65-105) mg/dl Lactate 1.0 (0.7-2.1) mmol/L FiO2 21.0 % Crit Value Called To Crit Value Called By Guillermo Blood Gas Notified Time 1102 Sodium 136.0 (132-148) mmol/L Potassium (3.6-5.0) mmol/L Chloride 108.0 H (98-107) mmol/L Carbon Dioxide (21-33) mmol/L Anion Gap (10-20) BUN (7-21) mg/dL Creatinine (0.7-1.2) mg/dl Est GFR ( Amer) Est GFR (Non-Af Amer) POC Glucose (mg/dL) 138 H (65-110) mg/dL Random Glucose (70-110) mg/dL Calcium (8.4-10.5) mg/dL Phosphorus (2.5-4.5) mg/dL Magnesium (1.7-2.2) mg/dL Total Bilirubin (0.2-1.3) mg/dL AST (14-36) U/L ALT (7-56) U/L Alkaline Phosphatase (38-126) U/L Total Protein (5.8-8.3) g/dL Albumin (3.0-4.8) g/dL Globulin gm/dL Albumin/Globulin Ratio (1.1-1.8) TSH 3rd Generation 5.93 H (0.46-4.68) mIU/mL Venous Blood Potassium 3.1 L (3.6-5.2) mmol/L Urine Color (YELLOW) Urine Appearance (CLEAR) Urine pH (4.7-8.0) Ur Specific [place] (1.005-1.035) Urine Protein (<30 mg/dL) mg/dL Urine Glucose (UA) (NEGATIVE) mg/dL Urine Ketones (NEGATIVE) mg/dL Urine Blood (NEGATIVE) Urine Nitrate (NEGATIVE) Urine Bilirubin (NEGATIVE) Urine Urobilinogen (<1 E.U./dL) E.U./dL Ur Leukocyte Esterase (NEGATIVE) Zoya/uL 09/14/18 09/14/18 09/14/18 Range/Units 07:28 06:54 06:35 WBC (4.5-11.0) 10^3/uL RBC (3.5-6.1) 10^6/uL Hgb (12.0-16.0) g/dL Hct (36.0-48.0) % MCV (80.0-105.0) fl MCH (25.0-35.0) pg MCHC (31.0-37.0) g/dl RDW (11.5-14.5) % Plt Count (120.0-450.0) 10^3/uL MPV (7.0-11.0) fl Neut % (Auto) (50.0-68.0) % Lymph % (Auto) (22.0-35.0) % [place] % (Auto) (1.0-6.0) % Eos % (Auto) (1.5-5.0) % Baso % (Auto) (0.0-3.0) % Lymph # (Auto) (1.2-3.4) [place] # (Auto) (0.1-0.6) Eos # (Auto) (0.0-0.7) Baso # (Auto) (0.0-2.0) K/mm3 Absolute Neuts (auto) (1.4-6.5) PT (9.4-12.5) SECONDS INR APTT (26.9-38.3) Seconds pO2 34 (30-55) mm/Hg VBG pH 7.37 (7.32-7.43) VBG pCO2 43.0 (40-60) VBG HCO3 24.9 (21-28) mmol/l VBG Total CO2 26.2 (22-28) mmol.L VBG O2 Sat (Calc) 58.1 (40-65) % VBG Base Excess -0.6 L (0.0-2.0) mmol/L VBG Potassium 6.6 H* (3.6-5.2) mmol/L Glucose 58 L (65-105) mg/dl Lactate 2.3 H (0.7-2.1) mmol/L FiO2 21.0 % Crit Value Called To Andres Crit Value Called By [facility] Blood Gas Notified Time 643 Sodium 134.0 (132-148) mmol/L Potassium (3.6-5.0) mmol/L Chloride 108.0 H (98-107) mmol/L Carbon Dioxide (21-33) mmol/L Anion Gap (10-20) BUN (7-21) mg/dL Creatinine (0.7-1.2) mg/dl Est GFR ( Amer) Est GFR (Non-Af Amer) POC Glucose (mg/dL) 131 H 62 L (65-110) mg/dL Random Glucose (70-110) mg/dL Calcium (8.4-10.5) mg/dL Phosphorus (2.5-4.5) mg/dL Magnesium (1.7-2.2) mg/dL Total Bilirubin (0.2-1.3) mg/dL AST (14-36) U/L ALT (7-56) U/L Alkaline Phosphatase (38-126) U/L Total Protein (5.8-8.3) g/dL Albumin (3.0-4.8) g/dL Globulin gm/dL Albumin/Globulin Ratio (1.1-1.8) TSH 3rd Generation (0.46-4.68) mIU/mL Venous Blood Potassium 6.6 H* (3.6-5.2) mmol/L Urine Color (YELLOW) Urine Appearance (CLEAR) Urine pH (4.7-8.0) Ur Specific [place] (1.005-1.035) Urine Protein (<30 mg/dL) mg/dL Urine Glucose (UA) (NEGATIVE) mg/dL Urine Ketones (NEGATIVE) mg/dL Urine Blood (NEGATIVE) Urine Nitrate (NEGATIVE) Urine Bilirubin (NEGATIVE) Urine Urobilinogen (<1 E.U./dL) E.U./dL Ur Leukocyte Esterase (NEGATIVE) Zoya/uL 09/14/18 09/14/18 09/14/18 Range/Units 05:10 04:00 03:40 WBC (4.5-11.0) 10^3/uL RBC (3.5-6.1) 10^6/uL Hgb (12.0-16.0) g/dL Hct (36.0-48.0) % MCV (80.0-105.0) fl MCH (25.0-35.0) pg MCHC (31.0-37.0) g/dl RDW (11.5-14.5) % Plt Count (120.0-450.0) 10^3/uL MPV (7.0-11.0) fl Neut % (Auto) (50.0-68.0) % Lymph % (Auto) (22.0-35.0) % [place] % (Auto) (1.0-6.0) % Eos % (Auto) (1.5-5.0) % Baso % (Auto) (0.0-3.0) % Lymph # (Auto) (1.2-3.4) [place] # (Auto) (0.1-0.6) Eos # (Auto) (0.0-0.7) Baso # (Auto) (0.0-2.0) K/mm3 Absolute Neuts (auto) (1.4-6.5) PT (9.4-12.5) SECONDS INR APTT (26.9-38.3) Seconds pO2 20 L (30-55) mm/Hg VBG pH 7.22 L (7.32-7.43) VBG pCO2 68.0 H* (40-60) VBG HCO3 27.8 (21-28) mmol/l VBG Total CO2 29.9 H (22-28) mmol.L VBG O2 Sat (Calc) 35.4 L (40-65) % VBG Base Excess -1.5 L (0.0-2.0) mmol/L VBG Potassium 4.2 (3.6-5.2) mmol/L Glucose 72 (65-105) mg/dl Lactate 4.3 H* (0.7-2.1) mmol/L FiO2 21.0 % Crit Value Called To Su Crit Value Called [facility] [facility] Blood Gas Notified Time 347 Sodium 137.0 (132-148) mmol/L Potassium (3.6-5.0) mmol/L Chloride 105.0 (98-107) mmol/L Carbon Dioxide (21-33) mmol/L Anion Gap (10-20) BUN (7-21) mg/dL Creatinine (0.7-1.2) mg/dl Est GFR ( Amer) Est GFR (Non-Af Amer) POC Glucose (mg/dL) < 20 L* (65-110) mg/dL Random Glucose (70-110) mg/dL Calcium (8.4-10.5) mg/dL Phosphorus (2.5-4.5) mg/dL Magnesium (1.7-2.2) mg/dL Total Bilirubin (0.2-1.3) mg/dL AST (14-36) U/L ALT (7-56) U/L Alkaline Phosphatase (38-126) U/L Total Protein (5.8-8.3) g/dL Albumin (3.0-4.8) g/dL Globulin gm/dL Albumin/Globulin Ratio (1.1-1.8) TSH 3rd Generation (0.46-4.68) mIU/mL Venous Blood Potassium 4.2 (3.6-5.2) mmol/L Urine Color Yellow (YELLOW) Urine Appearance Clear (CLEAR) Urine pH 6.5 (4.7-8.0) Ur Specific [place] <= 1.005 (1.005-1.035) Urine Protein Negative (<30 mg/dL) mg/dL Urine Glucose (UA) Negative (NEGATIVE) mg/dL Urine Ketones Negative (NEGATIVE) mg/dL Urine Blood Negative (NEGATIVE) Urine Nitrate Negative (NEGATIVE) Urine Bilirubin Negative (NEGATIVE) Urine Urobilinogen 0.2 (<1 E.U./dL) E.U./dL Ur Leukocyte Esterase Negative (NEGATIVE) Zoya/uL 09/14/18 09/14/18 09/14/18 Range/Units 03:34 03:34 03:34 WBC 11.0 (4.5-11.0) 10^3/uL RBC 3.33 L (3.5-6.1) 10^6/uL Hgb 10.9 L (12.0-16.0) g/dL Hct 31.0 L (36.0-48.0) % MCV 93.1 (80.0-105.0) fl MCH 32.7 (25.0-35.0) pg MCHC 35.2 (31.0-37.0) g/dl RDW 12.8 (11.5-14.5) % Plt Count 316 (120.0-450.0) 10^3/uL MPV 11.7 H (7.0-11.0) fl Neut % (Auto) 76.7 H (50.0-68.0) % Lymph % (Auto) 18.0 L (22.0-35.0) % [place] % (Auto) 4.7 (1.0-6.0) % Eos % (Auto) 0.4 L (1.5-5.0) % Baso % (Auto) 0.2 (0.0-3.0) % Lymph # (Auto) 2.0 (1.2-3.4) [place] # (Auto) 0.5 (0.1-0.6) Eos # (Auto) 0.0 (0.0-0.7) Baso # (Auto) 0.02 (0.0-2.0) K/mm3 Absolute Neuts (auto) 8.42 H (1.4-6.5) PT 12.1 (9.4-12.5) SECONDS INR 1.09 APTT 34.5 (26.9-38.3) Seconds pO2 (30-55) mm/Hg VBG pH (7.32-7.43) VBG pCO2 (40-60) VBG HCO3 (21-28) mmol/l VBG Total CO2 (22-28) mmol.L VBG O2 Sat (Calc) (40-65) % VBG Base Excess (0.0-2.0) mmol/L VBG Potassium (3.6-5.2) mmol/L Glucose (65-105) mg/dl Lactate (0.7-2.1) mmol/L FiO2 % Crit Value Called To Crit Value Called By Blood Gas Notified Time Sodium 138 (132-148) mmol/L Potassium 5.1 H (3.6-5.0) mmol/L Chloride 105 (98-107) mmol/L Carbon Dioxide 27 (21-33) mmol/L Anion Gap 11 (10-20) BUN 15 (7-21) mg/dL Creatinine 0.7 (0.7-1.2) mg/dl Est GFR ( Amer) > 60 Est GFR (Non-Af Amer) > 60 POC Glucose (mg/dL) (65-110) mg/dL Random Glucose 69 L (70-110) mg/dL Calcium 8.4 (8.4-10.5) mg/dL Phosphorus 4.1 (2.5-4.5) mg/dL Magnesium 1.9 (1.7-2.2) mg/dL Total Bilirubin 1.3 (0.2-1.3) mg/dL AST 69 H (14-36) U/L ALT 15 (7-56) U/L Alkaline Phosphatase 76 (38-126) U/L Total Protein 6.2 (5.8-8.3) g/dL Albumin 3.0 (3.0-4.8) g/dL Globulin 3.2 gm/dL Albumin/Globulin Ratio 0.9 L (1.1-1.8) TSH 3rd Generation (0.46-4.68) mIU/mL Venous Blood Potassium (3.6-5.2) mmol/L Urine Color (YELLOW) Urine Appearance (CLEAR) Urine pH (4.7-8.0) Ur Specific [place] (1.005-1.035) Urine Protein (<30 mg/dL) mg/dL Urine Glucose (UA) (NEGATIVE) mg/dL Urine Ketones (NEGATIVE) mg/dL Urine Blood (NEGATIVE) Urine Nitrate (NEGATIVE) Urine Bilirubin (NEGATIVE) Urine Urobilinogen (<1 E.U./dL) E.U./dL Ur Leukocyte Esterase (NEGATIVE) Zoya/uL Laboratory Results - last 24 hr 09/14/18 09/14/18 09/14/18 03:34 03:34 03:34 WBC 11.0 RBC 3.33 L Hgb 10.9 L Hct 31.0 L MCV 93.1 MCH 32.7 MCHC 35.2 RDW 12.8 Plt Count 316 MPV 11.7 H Neut % (Auto) 76.7 H Lymph % (Auto) 18.0 L [place] % (Auto) 4.7 Eos % (Auto) 0.4 L Baso % (Auto) 0.2 Lymph # (Auto) 2.0 [place] # (Auto) 0.5 Eos # (Auto) 0.0 Baso # (Auto) 0.02 Absolute Neuts (auto) 8.42 H PT 12.1 INR 1.09 APTT 34.5 pO2 VBG pH VBG pCO2 VBG HCO3 VBG Total CO2 VBG O2 Sat (Calc) VBG Base Excess VBG Potassium Glucose Lactate FiO2 Crit Value Called To Crit Value Called By Blood Gas Notified Time Sodium 138 Potassium 5.1 H Chloride 105 Carbon Dioxide 27 Anion Gap 11 BUN 15 Creatinine 0.7 Est GFR ( Amer) > 60 Est GFR (Non-Af Amer) > 60 POC Glucose (mg/dL) Random Glucose 69 L Calcium 8.4 Phosphorus 4.1 Magnesium 1.9 Total Bilirubin 1.3 AST 69 H ALT 15 Alkaline Phosphatase 76 Total Protein 6.2 Albumin 3.0 Globulin 3.2 Albumin/Globulin Ratio 0.9 L TSH 3rd Generation Venous Blood Potassium Urine Color Urine Appearance Urine pH Ur Specific [place] Urine Protein Urine Glucose (UA) Urine Ketones Urine Blood Urine Nitrate Urine Bilirubin Urine Urobilinogen Ur Leukocyte Esterase 09/14/18 09/14/18 09/14/18 03:40 04:00 05:10 WBC RBC Hgb Hct MCV MCH MCHC RDW Plt Count MPV Neut % (Auto) Lymph % (Auto) [place] % (Auto) Eos % (Auto) Baso % (Auto) Lymph # (Auto) [place] # (Auto) Eos # (Auto) Baso # (Auto) Absolute Neuts (auto) PT INR APTT pO2 20 L VBG pH 7.22 L VBG pCO2 68.0 H* VBG HCO3 27.8 VBG Total CO2 29.9 H VBG O2 Sat (Calc) 35.4 L VBG Base Excess -1.5 L VBG Potassium 4.2 Glucose 72 Lactate 4.3 H* FiO2 21.0 Crit Value Called To Su Crit Value Called By [facility] Blood Gas Notified Time 347 Sodium 137.0 Potassium Chloride 105.0 Carbon Dioxide Anion Gap BUN Creatinine Est GFR ( Amer) Est GFR (Non-Af Amer) POC Glucose (mg/dL) < 20 L* Random Glucose Calcium Phosphorus Magnesium Total Bilirubin AST ALT Alkaline Phosphatase Total Protein Albumin Globulin Albumin/Globulin Ratio TSH 3rd Generation Venous Blood Potassium 4.2 Urine Color Yellow Urine Appearance Clear Urine pH 6.5 Ur Specific [place] <= 1.005 Urine Protein Negative Urine Glucose (UA) Negative Urine Ketones Negative Urine Blood Negative Urine Nitrate Negative Urine Bilirubin Negative Urine Urobilinogen 0.2 Ur Leukocyte Esterase Negative 09/14/18 09/14/18 09/14/18 06:35 06:54 07:28 WBC RBC Hgb Hct MCV MCH MCHC RDW Plt Count MPV Neut % (Auto) Lymph % (Auto) [place] % (Auto) Eos % (Auto) Baso % (Auto) Lymph # (Auto) [place] # (Auto) Eos # (Auto) Baso # (Auto) Absolute Neuts (auto) PT INR APTT pO2 34 VBG pH 7.37 VBG pCO2 43.0 VBG HCO3 24.9 VBG Total CO2 26.2 VBG O2 Sat (Calc) 58.1 VBG Base Excess -0.6 L VBG Potassium 6.6 H* Glucose 58 L Lactate 2.3 H FiO2 21.0 Crit Value Called To Andres Crit Value Called By [facility] Blood Gas Notified Time 643 Sodium 134.0 Potassium Chloride 108.0 H Carbon Dioxide Anion Gap BUN Creatinine Est GFR ( Amer) Est GFR (Non-Af Amer) POC Glucose (mg/dL) 62 L 131 H Random Glucose Calcium Phosphorus Magnesium Total Bilirubin AST ALT Alkaline Phosphatase Total Protein Albumin Globulin Albumin/Globulin Ratio TSH 3rd Generation Venous Blood Potassium 6.6 H* Urine Color Urine Appearance Urine pH Ur Specific [place] Urine Protein Urine Glucose (UA) Urine Ketones Urine Blood Urine Nitrate Urine Bilirubin Urine Urobilinogen Ur Leukocyte Esterase 09/14/18 09/14/18 09/14/18 09:00 10:40 11:57 WBC RBC Hgb Hct MCV MCH MCHC RDW Plt Count MPV Neut % (Auto) Lymph % (Auto) [place] % (Auto) Eos % (Auto) Baso % (Auto) Lymph # (Auto) [place] # (Auto) Eos # (Auto) Baso # (Auto) Absolute Neuts (auto) PT INR APTT pO2 49 VBG pH 7.40 VBG pCO2 44.0 VBG HCO3 27.3 VBG Total CO2 28.7 H VBG O2 Sat (Calc) 88.7 H VBG Base Excess 2.0 VBG Potassium 3.1 L Glucose 30 L* D Lactate 1.0 FiO2 21.0 Crit Value Called To Crit Value Called By Guillermo Blood Gas Notified Time 1102 Sodium 136.0 Potassium Chloride 108.0 H Carbon Dioxide Anion Gap BUN Creatinine Est GFR ( Amer) Est GFR (Non-Af Amer) POC Glucose (mg/dL) 138 H Random Glucose Calcium Phosphorus Magnesium Total Bilirubin AST ALT Alkaline Phosphatase Total Protein Albumin Globulin Albumin/Globulin Ratio TSH 3rd Generation 5.93 H Venous Blood Potassium 3.1 L Urine Color Urine Appearance Urine pH Ur Specific [place] Urine Protein Urine Glucose (UA) Urine Ketones Urine Blood Urine Nitrate Urine Bilirubin Urine Urobilinogen Ur Leukocyte Esterase Radiology Impressions: Radiology Impressions Chest X-Ray 09/14/18 03:29 IMPRESSION: No active disease. Head CT 09/14/18 04:25 IMPRESSION: No acute intracranial findings Chest X-Ray 09/14/18 06:18 IMPRESSION: Right IJ line at the junction of the SVC and right atrium. No pneumothorax EKG/Cardiology Studies: Cardiology / EKG Studies 09/14/18 03:29 ELECTROCARDIOGRAM Stat Comment: Reason For Exam: Sepsis Patient Assessment/Plan - Assessment and Plan (Free Text) Plan: I saw and examined the patient on rounds with the resident, agree with note with following additions/exceptions: Patient is 73 yo female with a PMH of DM, COPD, and HTN, who was found down, on presentation was found to be hypothermic, hypoglycemic, and hypotensive. Given 3L NS bolus, started on D10W drip, with improvement in FS Patient also given stress dose steroids, and placed on Vasopressor support, Levophed 5mcg/min Patient is currently afebrile, HD stable MAP ranging 65-75, awake, alert CTH negative CXR no focal consolidation, UA negative, no clear source of infection Shock, likely Septic Shock Dehydration Hypothermia Hypoglycemia AMS, resolved rule out Adrenal inefficiency DM Recommend: - cont with supp o2 as needed, DC BIPAP - Broad spectrum Abx, Vanco, Zosyn, follow up ID consult, obtain Procal - HOLD BP meds - IVF, D5NS - stress dose steroids, Hydrocortisone 100mg q8hr - FS monitoring, q1hr - Endo eval - check Free T3 T4 - Obtain ECHO - Vasopressor support, goal MAP 65 - I/Os - GI ppx - DVT ppx - Monitor in MICU critical care time 40 minutes
--- NOTE | 2018-09-14 13:39 | PCM.SEPTIC ---
<Torres Stille - Last Filed: 09/14/18 13:37> Sepsis Progress Note - Reassessment Type Date of Evaluation: 09/14/18 Time of Evaluation: 06:00 Reassessment Type: Non-invasive reassessment - Non Invasive Reassessment Were the most recent vital sign reviewed: Yes Vital Sign (Latest): Temp Pulse Resp BP Pulse Ox 97.5 F L 87 15 102/49 L 100 09/14/18 08:44 09/14/18 09:05 09/14/18 08:40 09/14/18 08:40 09/14/18 08:44 Cardiovascular: Yes: Regular Rate, Rhythm. No: Murmur Respiratory: Yes: Normal Breath Sounds. No: Rales, Rhonchi, Wheezing Capillary Refill: Normal (Less than 2 sec) Pulses: Normal Radial, Normal Dorsalis Pedis, Normal Posterior Tibialis Skin: Warm <Wendie Woodruff - Last Filed: 09/15/18 06:07> Sepsis Progress Note - Non Invasive Reassessment Vital Sign (Latest): Temp Pulse Resp BP Pulse Ox 97.5 F L 79 19 107/53 L 100 09/15/18 05:00 09/15/18 05:40 09/15/18 05:40 09/15/18 05:40 09/14/18 18:10 Attending/Attestation - Attestation I have personally seen and examined this patient.: Yes I have fully participated in the care of the patient.: Yes I have reviewed all pertinent clinical information, including history, physical exam and plan: Yes
[2018-09-14] MEDS ORDERED: Piperacillin/Tazobact 3.375 gm 100 ML IVPB SCH (14:00)
[2018-09-14 15:47] LABS: BLOOD UREA NITROGEN 10 mg/dL (7-21); CALCIUM 6.9 mg/dL (8.4-10.5); GFR NON-AFRICAN AMERICAN > 60
--- NOTE | 2018-09-14 17:34 | US ---
Date of service: 09/14/2018 HISTORY: Bedside- r/o cholecystitis COMPARISON: None. TECHNIQUE: Sonographic evaluation of the right upper quadrant of the abdomen. FINDINGS: LIVER: Measures 13.1 cm in length. There is diffuse increased echogenicity of the liver parenchyma. No mass. No intrahepatic bile duct dilatation. GALLBLADDER: There are multiple gallstones. No wall thickening or pericholecystic fluid. The sonographic Allison's sign is negative. COMMON BILE DUCT: Measures 6.5 mm. No stones. No dilatation. PANCREAS: Unremarkable as visualized. No mass. No ductal dilatation. RIGHT KIDNEY: Measures 9.0 cm in length. Normal echogenicity. No calculus, mass, or hydronephrosis. AORTA: No aneurysmal dilatation. IVC: Unremarkable. OTHER FINDINGS: None . IMPRESSION: Cholelithiasis. No sonographic evidence for acute cholecystitis or biliary dilatation. Diffuse increased echogenicity in the liver may reflect hepatic steatosis however parenchymal infectious/ inflammatory etiologies cannot be entirely excluded. Clinical and laboratory correlation is advised.
[2018-09-14] MEDS: Vancomycin 1gm in NS 250ml 1 GM/250 ML BAG IVPB SCH (23:12)
[2018-09-15 00:45] LABS: BLOOD UREA NITROGEN 8 mg/dL (7-21); CALCIUM 7.2 mg/dL (8.4-10.5); GFR NON-AFRICAN AMERICAN > 60
[2018-09-15] MEDS ORDERED: Insulin Reg-HIGH-Coverage IV STA (02:36)
[2018-09-15 06:06] LABS: HEMOGLOBIN 9.9 g/dL (12.0-16.0); LYMPH % 16.7 % (22.0-35.0); MEAN CORPUSCULAR HEMOGLOBIN 31.7 pg (25.0-35.0); MEAN CORPUSCULAR HGB CONC 34.5 g/dl (31.0-37.0); MEAN PLATELET VOLUME 9.3 fl (7.0-11.0); MONO # 0.2 (0.1-0.6); RBC 3.12 10^6/uL (3.5-6.1); RED CELL DISTRIBUTION WIDTH 12.6 % (11.5-14.5); WHITE BLOOD COUNT 12.2 10^3/uL (4.5-11.0)
[2018-09-15] MEDS: Piperacill/Tazo 4.5gm in NS 4.5 GM/100 ML BAG IVPB SCH ×3 (06:06→23:27)
[2018-09-15 06:10] LABS: VENOUS BLOOD GAS BASE EXCESS -6.5 mmol/L (0.0-2.0); VENOUS BLOOD GAS PO2 53 mm/Hg (30-55); VENOUS BLOOD PH 7.26 (7.32-7.43)
[2018-09-15 06:43] LABS: ALB/GLOB RATIO 0.8 (1.1-1.8); ALBUMIN 2.2 g/dL (3.0-4.8); ALT/SGPT 29 U/L (7-56); AST/SGOT 36 U/L (14-36); BLOOD UREA NITROGEN 8 mg/dL (7-21); CALCIUM 7.3 mg/dL (8.4-10.5); GFR NON-AFRICAN AMERICAN > 60
[2018-09-15] MEDS: NOREPINEPHRINE BIT/0.9 % NACL 4 MG/250 ML BAG IV PRN (07:46)
[2018-09-15] MEDS ORDERED: Sodium Chloride 0.9% 1,000 ML IV STA (09:26)
[2018-09-15] MEDS ORDERED: Sodium Chloride 0.9% 1,000 ML IV SCH (09:30)
[2018-09-15] MEDS: Enoxaparin 40 mg Syringe SC SCH (09:55)
[2018-09-15] MEDS: Vancomycin 1gm in NS 250ml 1 GM/250 ML BAG IVPB SCH (09:55)
[2018-09-15] MEDS ORDERED: Vancomycin 1gm in NS 250ml 1 GM/250 ML BAG IVPB SCH (10:00)
[2018-09-15] MEDS ORDERED: Barium Sulfate Susp 2.1% w/v, 2.0% w/w 450 mL Bottle PO ONE (10:02)
--- NOTE | 2018-09-15 10:12 | CP.CCUPN ---
<ToreyRomán Jayme - Last Filed: 09/15/18 10:30> CCU Subjective - Physician Review Events Since Last Encounter (Free Text): 09/15/18 10:10 pt was hyperglycemic last night, will stop D10, no acute events Subjective (Free Text): 09/14/18 11:02 Pt seen and examined this morning at bedside, no new complaints at this time 09/15/18 10:11 seen and examined, no new complaints CCU Objective - Vital Signs / Intake & Output Vital Signs (Last 4 hours): Vital Signs Pulse Resp BP 09/15/18 07:10 70 22 09/15/18 07:00 65 20 107/54 L 09/15/18 06:50 71 15 09/15/18 06:40 71 12 111/45 L 09/15/18 06:30 67 14 09/15/18 06:20 68 14 111/55 L 09/15/18 06:10 66 11 L Intake and Output (Last 8hrs): Intake & Output 09/14/18 09/15/18 09/15/18 22:59 06:59 14:59 Intake Total 5770 2206 Output Total 701 900 Balance 5069 1306 Intake: IV 5770 2206 Left Hand 0 Right Internal Jugular 5500 1976 Oral 0 0 Output: Urine 700 900 Urethral (Pacheco) 700 900 Stool 1 Other: # Bowel Movements 1 3 - Physical Exam Head: Positive for: Atraumatic, Normocephalic Pupils: Positive for: PERRL Extroacular Muscles: Positive for: EOMI Conjunctiva: Positive for: Normal Mouth: Positive for: Moist Mucous Membranes Neck: Positive for: Normal Range of Motion Respiratory/Chest: Positive for: Clear to Auscultation, Good Air Exchange. Negative for: Respiratory Distress, Accessory Muscle Use Cardiovascular: Positive for: Regular Rate and Rhythm, Normal S1, S2. Negative for: Murmurs Abdomen: Negative for: Tenderness, Distention, Peritoneal Signs Back: Positive for: Normal Inspection Upper Extremity: Positive for: Normal Inspection. Negative for: Cyanosis, Edema Lower Extremity: Positive for: Normal Inspection. Negative for: Edema Neurological: Positive for: Speech Normal Skin: Positive for: Warm, Dry, Normal Color. Negative for: Rashes Psychiatric: Positive for: Alert, Normal Insight, Normal Concentration - Medications Active Medications: Active Medications Generic Name Dose Route Start Last Admin Trade Name Freq PRN Reason Stop Dose Admin Albuterol/Ipratropium 3 ml 09/14/18 06:49 Duoneb 3 Mg/0.5 Mg (3 Ml) Ud IH Q4H PRN Shortness of Breath Dextrose 0 ml 09/14/18 06:29 Dextrose 50% Inj IV STAT PRN Hypoglycemia Protocol Protocol Enoxaparin Sodium 40 mg 09/14/18 10:00 09/15/18 09:55 Lovenox SC 40 mg DAILY ALFREDO Administration Protocol Hydrocortisone Sodium Succinate 50 mg 09/15/18 10:00 09/15/18 09:55 Solu-Cortef IVP 50 mg Q12 ALFREDO Administration Vancomycin HCl 1 gm in 250 mls @ 167 mls/hr 09/14/18 22:30 09/15/18 09:55 Vancomycin 1gm IVPB 09/23/18 22:31 167 mls/hr Q12H ALFREDO Administration Protocol Piperacillin Sod/Tazobactam Sod 4.5 gm in 100 mls @ 25 mls/hr 09/15/18 06:00 09/15/18 06:06 Zosyn 4.5 Gm In Ns 100ml IVPB 09/24/18 06:01 25 mls/hr Q8 ALFREDO Administration Protocol Sodium Chloride 1,000 mls @ 100 mls/hr 09/15/18 09:30 09/15/18 09:45 Sodium Chloride 0.9% IV 100 mls/hr .Q10H ALFREDO Administration Sodium Chloride 1,000 mls @ 999 mls/hr 09/15/18 09:26 09/15/18 09:45 Sodium Chloride 0.9% IV 09/15/18 10:26 999 mls/hr .Q1H1M STA Administration Pantoprazole Sodium 40 mg 09/14/18 10:00 09/15/18 09:54 Protonix Inj IVP 40 mg DAILY ALFREDO Administration - Patient Studies Lab Studies: Microbiology Studies 09/14/18 03:29 Urine Culture - Final Urine,Catheterized No Growth (<1,000 CFU/ML) 09/14/18 04:20 Blood Culture - Preliminary Blood NO GROWTH AFTER 24 HOURS 09/14/18 03:34 Blood Culture - Preliminary Blood NO GROWTH AFTER 24 HOURS Lab Studies 09/15/18 09/15/18 09/15/18 Range/Units 08:00 05:15 05:15 WBC (4.5-11.0) 10^3/uL RBC (3.5-6.1) 10^6/uL Hgb (12.0-16.0) g/dL Hct (36.0-48.0) % MCV (80.0-105.0) fl MCH (25.0-35.0) pg MCHC (31.0-37.0) g/dl RDW (11.5-14.5) % Plt Count (120.0-450.0) 10^3/uL MPV (7.0-11.0) fl Neut % (Auto) (50.0-68.0) % Lymph % (Auto) (22.0-35.0) % [place] % (Auto) (1.0-6.0) % Eos % (Auto) (1.5-5.0) % Baso % (Auto) (0.0-3.0) % Lymph # (Auto) (1.2-3.4) [place] # (Auto) (0.1-0.6) Eos # (Auto) (0.0-0.7) Baso # (Auto) (0.0-2.0) K/mm3 Absolute Neuts (auto) (1.4-6.5) pO2 53 (30-55) mm/Hg VBG pH 7.26 L (7.32-7.43) VBG pCO2 46.0 (40-60) VBG HCO3 20.6 L (21-28) mmol/l VBG Total CO2 22.0 (22-28) mmol.L VBG O2 Sat (Calc) 85.3 H (40-65) % VBG Base Excess -6.5 L (0.0-2.0) mmol/L VBG Potassium 5.2 (3.6-5.2) mmol/L Sodium 133.0 133 (132-148) mmol/L Chloride 105.0 105 (98-107) mmol/L Glucose 279 H (65-105) mg/dl Lactate 4.1 H* (0.7-2.1) mmol/L FiO2 21.0 % Crit Value Called To Lisa guajardo rn icu Crit Value Called By Zach Blood Gas Notified Time 610 Potassium 4.8 (3.6-5.0) mmol/L Carbon Dioxide 20 L (21-33) mmol/L Anion Gap 12 (10-20) BUN 8 (7-21) mg/dL Creatinine 0.5 L (0.7-1.2) mg/dl Est GFR ( Amer) > 60 Est GFR (Non-Af Amer) > 60 POC Glucose (mg/dL) 303 H (65-110) mg/dL Random Glucose 249 H (70-110) mg/dL Calcium 7.3 L (8.4-10.5) mg/dL Phosphorus 2.6 (2.5-4.5) mg/dL Magnesium 1.6 L (1.7-2.2) mg/dL Total Bilirubin 0.4 (0.2-1.3) mg/dL AST 36 D (14-36) U/L ALT 29 (7-56) U/L Alkaline Phosphatase 78 (38-126) U/L Total Protein 5.1 L (5.8-8.3) g/dL Albumin 2.2 L (3.0-4.8) g/dL Globulin 2.9 gm/dL Albumin/Globulin Ratio 0.8 L (1.1-1.8) Procalcitonin (0.19-0.49) NG/ML Free T4 (0.78-2.19) ng/dL Free T3 pg/mL (2.77-5.27) pg/mL Venous Blood Potassium 5.2 (3.6-5.2) mmol/L 09/15/18 09/15/18 09/15/18 Range/Units 05:15 04:10 02:11 WBC 12.2 H (4.5-11.0) 10^3/uL RBC 3.12 L (3.5-6.1) 10^6/uL Hgb 9.9 L (12.0-16.0) g/dL Hct 28.7 L (36.0-48.0) % MCV 92.0 (80.0-105.0) fl MCH 31.7 (25.0-35.0) pg MCHC 34.5 (31.0-37.0) g/dl RDW 12.6 (11.5-14.5) % Plt Count 305 (120.0-450.0) 10^3/uL MPV 9.3 (7.0-11.0) fl Neut % (Auto) 81.3 H (50.0-68.0) % Lymph % (Auto) 16.7 L (22.0-35.0) % [place] % (Auto) 2.0 (1.0-6.0) % Eos % (Auto) 0.0 L (1.5-5.0) % Baso % (Auto) 0.0 (0.0-3.0) % Lymph # (Auto) 2.0 (1.2-3.4) [place] # (Auto) 0.2 (0.1-0.6) Eos # (Auto) 0.0 (0.0-0.7) Baso # (Auto) 0.00 (0.0-2.0) K/mm3 Absolute Neuts (auto) 9.92 H (1.4-6.5) pO2 (30-55) mm/Hg VBG pH (7.32-7.43) VBG pCO2 (40-60) VBG HCO3 (21-28) mmol/l VBG Total CO2 (22-28) mmol.L VBG O2 Sat (Calc) (40-65) % VBG Base Excess (0.0-2.0) mmol/L VBG Potassium (3.6-5.2) mmol/L Sodium (132-148) mmol/L Chloride (98-107) mmol/L Glucose (65-105) mg/dl Lactate (0.7-2.1) mmol/L FiO2 % Crit Value Called To Crit Value Called By Blood Gas Notified Time Potassium (3.6-5.0) mmol/L Carbon Dioxide (21-33) mmol/L Anion Gap (10-20) BUN (7-21) mg/dL Creatinine (0.7-1.2) mg/dl Est GFR ( Amer) Est GFR (Non-Af Amer) POC Glucose (mg/dL) 362 H 377 H (65-110) mg/dL Random Glucose (70-110) mg/dL Calcium (8.4-10.5) mg/dL Phosphorus (2.5-4.5) mg/dL Magnesium (1.7-2.2) mg/dL Total Bilirubin (0.2-1.3) mg/dL AST (14-36) U/L ALT (7-56) U/L Alkaline Phosphatase (38-126) U/L Total Protein (5.8-8.3) g/dL Albumin (3.0-4.8) g/dL Globulin gm/dL Albumin/Globulin Ratio (1.1-1.8) Procalcitonin (0.19-0.49) NG/ML Free T4 (0.78-2.19) ng/dL Free T3 pg/mL (2.77-5.27) pg/mL Venous Blood Potassium (3.6-5.2) mmol/L 09/15/18 09/14/18 09/14/18 Range/Units 00:32 23:56 21:57 WBC (4.5-11.0) 10^3/uL RBC (3.5-6.1) 10^6/uL Hgb (12.0-16.0) g/dL Hct (36.0-48.0) % MCV (80.0-105.0) fl MCH (25.0-35.0) pg MCHC (31.0-37.0) g/dl RDW (11.5-14.5) % Plt Count (120.0-450.0) 10^3/uL MPV (7.0-11.0) fl Neut % (Auto) (50.0-68.0) % Lymph % (Auto) (22.0-35.0) % [place] % (Auto) (1.0-6.0) % Eos % (Auto) (1.5-5.0) % Baso % (Auto) (0.0-3.0) % Lymph # (Auto) (1.2-3.4) [place] # (Auto) (0.1-0.6) Eos # (Auto) (0.0-0.7) Baso # (Auto) (0.0-2.0) K/mm3 Absolute Neuts (auto) (1.4-6.5) pO2 (30-55) mm/Hg VBG pH (7.32-7.43) VBG pCO2 (40-60) VBG HCO3 (21-28) mmol/l VBG Total CO2 (22-28) mmol.L VBG O2 Sat (Calc) (40-65) % VBG Base Excess (0.0-2.0) mmol/L VBG Potassium (3.6-5.2) mmol/L Sodium 128 L (132-148) mmol/L Chloride 102 (98-107) mmol/L Glucose (65-105) mg/dl Lactate (0.7-2.1) mmol/L FiO2 % Crit Value Called To Crit Value Called By Blood Gas Notified Time Potassium 4.4 (3.6-5.0) mmol/L Carbon Dioxide 21 (21-33) mmol/L Anion Gap 10 (10-20) BUN 8 (7-21) mg/dL Creatinine 0.6 L (0.7-1.2) mg/dl Est GFR ( Amer) > 60 Est GFR (Non-Af Amer) > 60 POC Glucose (mg/dL) 418 H* 283 H (65-110) mg/dL Random Glucose 340 H* D (70-110) mg/dL Calcium 7.2 L (8.4-10.5) mg/dL Phosphorus (2.5-4.5) mg/dL Magnesium (1.7-2.2) mg/dL Total Bilirubin (0.2-1.3) mg/dL AST (14-36) U/L ALT (7-56) U/L Alkaline Phosphatase (38-126) U/L Total Protein (5.8-8.3) g/dL Albumin (3.0-4.8) g/dL Globulin gm/dL Albumin/Globulin Ratio (1.1-1.8) Procalcitonin (0.19-0.49) NG/ML Free T4 (0.78-2.19) ng/dL Free T3 pg/mL (2.77-5.27) pg/mL Venous Blood Potassium (3.6-5.2) mmol/L 09/14/18 09/14/18 09/14/18 Range/Units 20:23 18:12 16:00 WBC (4.5-11.0) 10^3/uL RBC (3.5-6.1) 10^6/uL Hgb (12.0-16.0) g/dL Hct (36.0-48.0) % MCV (80.0-105.0) fl MCH (25.0-35.0) pg MCHC (31.0-37.0) g/dl RDW (11.5-14.5) % Plt Count (120.0-450.0) 10^3/uL MPV (7.0-11.0) fl Neut % (Auto) (50.0-68.0) % Lymph % (Auto) (22.0-35.0) % [place] % (Auto) (1.0-6.0) % Eos % (Auto) (1.5-5.0) % Baso % (Auto) (0.0-3.0) % Lymph # (Auto) (1.2-3.4) [place] # (Auto) (0.1-0.6) Eos # (Auto) (0.0-0.7) Baso # (Auto) (0.0-2.0) K/mm3 Absolute Neuts (auto) (1.4-6.5) pO2 (30-55) mm/Hg VBG pH (7.32-7.43) VBG pCO2 (40-60) VBG HCO3 (21-28) mmol/l VBG Total CO2 (22-28) mmol.L VBG O2 Sat (Calc) (40-65) % VBG Base Excess (0.0-2.0) mmol/L VBG Potassium (3.6-5.2) mmol/L Sodium (132-148) mmol/L Chloride (98-107) mmol/L Glucose (65-105) mg/dl Lactate (0.7-2.1) mmol/L FiO2 % Crit Value Called To Crit Value Called By Blood Gas Notified Time Potassium (3.6-5.0) mmol/L Carbon Dioxide (21-33) mmol/L Anion Gap (10-20) BUN (7-21) mg/dL Creatinine (0.7-1.2) mg/dl Est GFR ( Amer) Est GFR (Non-Af Amer) POC Glucose (mg/dL) 285 H 204 H 137 H (65-110) mg/dL Random Glucose (70-110) mg/dL Calcium (8.4-10.5) mg/dL Phosphorus (2.5-4.5) mg/dL Magnesium (1.7-2.2) mg/dL Total Bilirubin (0.2-1.3) mg/dL AST (14-36) U/L ALT (7-56) U/L Alkaline Phosphatase (38-126) U/L Total Protein (5.8-8.3) g/dL Albumin (3.0-4.8) g/dL Globulin gm/dL Albumin/Globulin Ratio (1.1-1.8) Procalcitonin (0.19-0.49) NG/ML Free T4 (0.78-2.19) ng/dL Free T3 pg/mL (2.77-5.27) pg/mL Venous Blood Potassium (3.6-5.2) mmol/L 09/14/18 09/14/18 09/14/18 Range/Units 15:20 15:20 15:20 WBC (4.5-11.0) 10^3/uL RBC (3.5-6.1) 10^6/uL Hgb (12.0-16.0) g/dL Hct (36.0-48.0) % MCV (80.0-105.0) fl MCH (25.0-35.0) pg MCHC (31.0-37.0) g/dl RDW (11.5-14.5) % Plt Count (120.0-450.0) 10^3/uL MPV (7.0-11.0) fl Neut % (Auto) (50.0-68.0) % Lymph % (Auto) (22.0-35.0) % [place] % (Auto) (1.0-6.0) % Eos % (Auto) (1.5-5.0) % Baso % (Auto) (0.0-3.0) % Lymph # (Auto) (1.2-3.4) [place] # (Auto) (0.1-0.6) Eos # (Auto) (0.0-0.7) Baso # (Auto) (0.0-2.0) K/mm3 Absolute Neuts (auto) (1.4-6.5) pO2 (30-55) mm/Hg VBG pH (7.32-7.43) VBG pCO2 (40-60) VBG HCO3 (21-28) mmol/l VBG Total CO2 (22-28) mmol.L VBG O2 Sat (Calc) (40-65) % VBG Base Excess (0.0-2.0) mmol/L VBG Potassium (3.6-5.2) mmol/L Sodium 133 (132-148) mmol/L Chloride 105 (98-107) mmol/L Glucose (65-105) mg/dl Lactate (0.7-2.1) mmol/L FiO2 % Crit Value Called To Crit Value Called By Blood Gas Notified Time Potassium 2.8 L* D (3.6-5.0) mmol/L Carbon Dioxide 24 (21-33) mmol/L Anion Gap 7 L (10-20) BUN 10 (7-21) mg/dL Creatinine 0.5 L (0.7-1.2) mg/dl Est GFR ( Amer) > 60 Est GFR (Non-Af Amer) > 60 POC Glucose (mg/dL) (65-110) mg/dL Random Glucose 94 (70-110) mg/dL Calcium 6.9 L* (8.4-10.5) mg/dL Phosphorus (2.5-4.5) mg/dL Magnesium (1.7-2.2) mg/dL Total Bilirubin (0.2-1.3) mg/dL AST (14-36) U/L ALT (7-56) U/L Alkaline Phosphatase (38-126) U/L Total Protein (5.8-8.3) g/dL Albumin (3.0-4.8) g/dL Globulin gm/dL Albumin/Globulin Ratio (1.1-1.8) Procalcitonin 0.98 H (0.19-0.49) NG/ML Free T4 0.78 (0.78-2.19) ng/dL Free T3 pg/mL 2.63 L (2.77-5.27) pg/mL Venous Blood Potassium (3.6-5.2) mmol/L 09/14/18 09/14/18 09/14/18 Range/Units 15:00 14:09 12:58 WBC (4.5-11.0) 10^3/uL RBC (3.5-6.1) 10^6/uL Hgb (12.0-16.0) g/dL Hct (36.0-48.0) % MCV (80.0-105.0) fl MCH (25.0-35.0) pg MCHC (31.0-37.0) g/dl RDW (11.5-14.5) % Plt Count (120.0-450.0) 10^3/uL MPV (7.0-11.0) fl Neut % (Auto) (50.0-68.0) % Lymph % (Auto) (22.0-35.0) % [place] % (Auto) (1.0-6.0) % Eos % (Auto) (1.5-5.0) % Baso % (Auto) (0.0-3.0) % Lymph # (Auto) (1.2-3.4) [place] # (Auto) (0.1-0.6) Eos # (Auto) (0.0-0.7) Baso # (Auto) (0.0-2.0) K/mm3 Absolute Neuts (auto) (1.4-6.5) pO2 (30-55) mm/Hg VBG pH (7.32-7.43) VBG pCO2 (40-60) VBG HCO3 (21-28) mmol/l VBG Total CO2 (22-28) mmol.L VBG O2 Sat (Calc) (40-65) % VBG Base Excess (0.0-2.0) mmol/L VBG Potassium (3.6-5.2) mmol/L Sodium (132-148) mmol/L Chloride (98-107) mmol/L Glucose (65-105) mg/dl Lactate (0.7-2.1) mmol/L FiO2 % Crit Value Called To Crit Value Called By Blood Gas Notified Time Potassium (3.6-5.0) mmol/L Carbon Dioxide (21-33) mmol/L Anion Gap (10-20) BUN (7-21) mg/dL Creatinine (0.7-1.2) mg/dl Est GFR ( Amer) Est GFR (Non-Af Amer) POC Glucose (mg/dL) 113 H 98 77 (65-110) mg/dL Random Glucose (70-110) mg/dL Calcium (8.4-10.5) mg/dL Phosphorus (2.5-4.5) mg/dL Magnesium (1.7-2.2) mg/dL Total Bilirubin (0.2-1.3) mg/dL AST (14-36) U/L ALT (7-56) U/L Alkaline Phosphatase (38-126) U/L Total Protein (5.8-8.3) g/dL Albumin (3.0-4.8) g/dL Globulin gm/dL Albumin/Globulin Ratio (1.1-1.8) Procalcitonin (0.19-0.49) NG/ML Free T4 (0.78-2.19) ng/dL Free T3 pg/mL (2.77-5.27) pg/mL Venous Blood Potassium (3.6-5.2) mmol/L 09/14/18 09/14/18 09/14/18 Range/Units 11:57 10:40 07:28 WBC (4.5-11.0) 10^3/uL RBC (3.5-6.1) 10^6/uL Hgb (12.0-16.0) g/dL Hct (36.0-48.0) % MCV (80.0-105.0) fl MCH (25.0-35.0) pg MCHC (31.0-37.0) g/dl RDW (11.5-14.5) % Plt Count (120.0-450.0) 10^3/uL MPV (7.0-11.0) fl Neut % (Auto) (50.0-68.0) % Lymph % (Auto) (22.0-35.0) % [place] % (Auto) (1.0-6.0) % Eos % (Auto) (1.5-5.0) % Baso % (Auto) (0.0-3.0) % Lymph # (Auto) (1.2-3.4) [place] # (Auto) (0.1-0.6) Eos # (Auto) (0.0-0.7) Baso # (Auto) (0.0-2.0) K/mm3 Absolute Neuts (auto) (1.4-6.5) pO2 49 (30-55) mm/Hg VBG pH 7.40 (7.32-7.43) VBG pCO2 44.0 (40-60) VBG HCO3 27.3 (21-28) mmol/l VBG Total CO2 28.7 H (22-28) mmol.L VBG O2 Sat (Calc) 88.7 H (40-65) % VBG Base Excess 2.0 (0.0-2.0) mmol/L VBG Potassium 3.1 L (3.6-5.2) mmol/L Sodium 136.0 (132-148) mmol/L Chloride 108.0 H (98-107) mmol/L Glucose 30 L* D (65-105) mg/dl Lactate 1.0 (0.7-2.1) mmol/L FiO2 21.0 % Crit Value Called To Crit Value Called By Guillermo Blood Gas Notified Time 1102 Potassium (3.6-5.0) mmol/L Carbon Dioxide (21-33) mmol/L Anion Gap (10-20) BUN (7-21) mg/dL Creatinine (0.7-1.2) mg/dl Est GFR ( Amer) Est GFR (Non-Af Amer) POC Glucose (mg/dL) 138 H 131 H (65-110) mg/dL Random Glucose (70-110) mg/dL Calcium (8.4-10.5) mg/dL Phosphorus (2.5-4.5) mg/dL Magnesium (1.7-2.2) mg/dL Total Bilirubin (0.2-1.3) mg/dL AST (14-36) U/L ALT (7-56) U/L Alkaline Phosphatase (38-126) U/L Total Protein (5.8-8.3) g/dL Albumin (3.0-4.8) g/dL Globulin gm/dL Albumin/Globulin Ratio (1.1-1.8) Procalcitonin (0.19-0.49) NG/ML Free T4 (0.78-2.19) ng/dL Free T3 pg/mL (2.77-5.27) pg/mL Venous Blood Potassium 3.1 L (3.6-5.2) mmol/L Laboratory Results - last 24 hr 05/06/0409/14/18 09/14/18 07:28 10:40 11:57 WBC RBC Hgb Hct MCV MCH MCHC RDW Plt Count MPV Neut % (Auto) Lymph % (Auto) [place] % (Auto) Eos % (Auto) Baso % (Auto) Lymph # (Auto) [place] # (Auto) Eos # (Auto) Baso # (Auto) Absolute Neuts (auto) pO2 49 VBG pH 7.40 VBG pCO2 44.0 VBG HCO3 27.3 VBG Total CO2 28.7 H VBG O2 Sat (Calc) 88.7 H VBG Base Excess 2.0 VBG Potassium 3.1 L Sodium 136.0 Chloride 108.0 H Glucose 30 L* D Lactate 1.0 FiO2 21.0 Crit Value Called To Crit Value Called By Guillermo Blood Gas Notified Time 1102 Potassium Carbon Dioxide Anion Gap BUN Creatinine Est GFR ( Amer) Est GFR (Non-Af Amer) POC Glucose (mg/dL) 131 H 138 H Random Glucose Calcium Phosphorus Magnesium Total Bilirubin AST ALT Alkaline Phosphatase Total Protein Albumin Globulin Albumin/Globulin Ratio Procalcitonin Free T4 Free T3 pg/mL Venous Blood Potassium 3.1 L 09/14/18 09/14/18 09/14/18 12:58 14:09 15:00 WBC RBC Hgb Hct MCV MCH MCHC RDW Plt Count MPV Neut % (Auto) Lymph % (Auto) [place] % (Auto) Eos % (Auto) Baso % (Auto) Lymph # (Auto) [place] # (Auto) Eos # (Auto) Baso # (Auto) Absolute Neuts (auto) pO2 VBG pH VBG pCO2 VBG HCO3 VBG Total CO2 VBG O2 Sat (Calc) VBG Base Excess VBG Potassium Sodium Chloride Glucose Lactate FiO2 Crit Value Called To Crit Value Called By Blood Gas Notified Time Potassium Carbon Dioxide Anion Gap BUN Creatinine Est GFR ( Amer) Est GFR (Non-Af Amer) POC Glucose (mg/dL) 77 98 113 H Random Glucose Calcium Phosphorus Magnesium Total Bilirubin AST ALT Alkaline Phosphatase Total Protein Albumin Globulin Albumin/Globulin Ratio Procalcitonin Free T4 Free T3 pg/mL Venous Blood Potassium 09/14/18 09/14/18 09/14/18 15:20 15:20 15:20 WBC RBC Hgb Hct MCV MCH MCHC RDW Plt Count MPV Neut % (Auto) Lymph % (Auto) [place] % (Auto) Eos % (Auto) Baso % (Auto) Lymph # (Auto) [place] # (Auto) Eos # (Auto) Baso # (Auto) Absolute Neuts (auto) pO2 VBG pH VBG pCO2 VBG HCO3 VBG Total CO2 VBG O2 Sat (Calc) VBG Base Excess VBG Potassium Sodium 133 Chloride 105 Glucose Lactate FiO2 Crit Value Called To Crit Value Called By Blood Gas Notified Time Potassium 2.8 L* D Carbon Dioxide 24 Anion Gap 7 L BUN 10 Creatinine 0.5 L Est GFR ( Amer) > 60 Est GFR (Non-Af Amer) > 60 POC Glucose (mg/dL) Random Glucose 94 Calcium 6.9 L* Phosphorus Magnesium Total Bilirubin AST ALT Alkaline Phosphatase Total Protein Albumin Globulin Albumin/Globulin Ratio Procalcitonin 0.98 H Free T4 0.78 Free T3 pg/mL 2.63 L Venous Blood Potassium 09/14/18 09/14/18 09/14/18 16:00 18:12 20:23 WBC RBC Hgb Hct MCV MCH MCHC RDW Plt Count MPV Neut % (Auto) Lymph % (Auto) [place] % (Auto) Eos % (Auto) Baso % (Auto) Lymph # (Auto) [place] # (Auto) Eos # (Auto) Baso # (Auto) Absolute Neuts (auto) pO2 VBG pH VBG pCO2 VBG HCO3 VBG Total CO2 VBG O2 Sat (Calc) VBG Base Excess VBG Potassium Sodium Chloride Glucose Lactate FiO2 Crit Value Called To Crit Value Called By Blood Gas Notified Time Potassium Carbon Dioxide Anion Gap BUN Creatinine Est GFR ( Amer) Est GFR (Non-Af Amer) POC Glucose (mg/dL) 137 H 204 H 285 H Random Glucose Calcium Phosphorus Magnesium Total Bilirubin AST ALT Alkaline Phosphatase Total Protein Albumin Globulin Albumin/Globulin Ratio Procalcitonin Free T4 Free T3 pg/mL Venous Blood Potassium 09/14/18 09/14/18 09/15/18 21:57 23:56 00:32 WBC RBC Hgb Hct MCV MCH MCHC RDW Plt Count MPV Neut % (Auto) Lymph % (Auto) [place] % (Auto) Eos % (Auto) Baso % (Auto) Lymph # (Auto) [place] # (Auto) Eos # (Auto) Baso # (Auto) Absolute Neuts (auto) pO2 VBG pH VBG pCO2 VBG HCO3 VBG Total CO2 VBG O2 Sat (Calc) VBG Base Excess VBG Potassium Sodium 128 L Chloride 102 Glucose Lactate FiO2 Crit Value Called To Crit Value Called By Blood Gas Notified Time Potassium 4.4 Carbon Dioxide 21 Anion Gap 10 BUN 8 Creatinine 0.6 L Est GFR ( Amer) > 60 Est GFR (Non-Af Amer) > 60 POC Glucose (mg/dL) 283 H 418 H* Random Glucose 340 H* D Calcium 7.2 L Phosphorus Magnesium Total Bilirubin AST ALT Alkaline Phosphatase Total Protein Albumin Globulin Albumin/Globulin Ratio Procalcitonin Free T4 Free T3 pg/mL Venous Blood Potassium 09/15/18 09/15/18 09/15/18 02:11 04:10 05:15 WBC 12.2 H RBC 3.12 L Hgb 9.9 L Hct 28.7 L MCV 92.0 MCH 31.7 MCHC 34.5 RDW 12.6 Plt Count 305 MPV 9.3 Neut % (Auto) 81.3 H Lymph % (Auto) 16.7 L [place] % (Auto) 2.0 Eos % (Auto) 0.0 L Baso % (Auto) 0.0 Lymph # (Auto) 2.0 [place] # (Auto) 0.2 Eos # (Auto) 0.0 Baso # (Auto) 0.00 Absolute Neuts (auto) 9.92 H pO2 VBG pH VBG pCO2 VBG HCO3 VBG Total CO2 VBG O2 Sat (Calc) VBG Base Excess VBG Potassium Sodium Chloride Glucose Lactate FiO2 Crit Value Called To Crit Value Called By Blood Gas Notified Time Potassium Carbon Dioxide Anion Gap BUN Creatinine Est GFR ( Amer) Est GFR (Non-Af Amer) POC Glucose (mg/dL) 377 H 362 H Random Glucose Calcium Phosphorus Magnesium Total Bilirubin AST ALT Alkaline Phosphatase Total Protein Albumin Globulin Albumin/Globulin Ratio Procalcitonin Free T4 Free T3 pg/mL Venous Blood Potassium 09/15/18 09/15/18 09/15/18 05:15 05:15 08:00 WBC RBC Hgb Hct MCV MCH MCHC RDW Plt Count MPV Neut % (Auto) Lymph % (Auto) [place] % (Auto) Eos % (Auto) Baso % (Auto) Lymph # (Auto) [place] # (Auto) Eos # (Auto) Baso # (Auto) Absolute Neuts (auto) pO2 53 VBG pH 7.26 L VBG pCO2 46.0 VBG HCO3 20.6 L VBG Total CO2 22.0 VBG O2 Sat (Calc) 85.3 H VBG Base Excess -6.5 L VBG Potassium 5.2 Sodium 133 133.0 Chloride 105 105.0 Glucose 279 H Lactate 4.1 H* FiO2 21.0 Crit Value Called To Lisa guajardo rn icu Crit Value Called By Zach Blood Gas Notified Time 610 Potassium 4.8 Carbon Dioxide 20 L Anion Gap 12 BUN 8 Creatinine 0.5 L Est GFR ( Amer) > 60 Est GFR (Non-Af Amer) > 60 POC Glucose (mg/dL) 303 H Random Glucose 249 H Calcium 7.3 L Phosphorus 2.6 Magnesium 1.6 L Total Bilirubin 0.4 AST 36 D ALT 29 Alkaline Phosphatase 78 Total Protein 5.1 L Albumin 2.2 L Globulin 2.9 Albumin/Globulin Ratio 0.8 L Procalcitonin Free T4 Free T3 pg/mL Venous Blood Potassium 5.2 Radiology Impressions: Radiology Impressions Chest X-Ray 09/14/18 03:29 IMPRESSION: No active disease. Chest X-Ray 09/14/18 06:18 IMPRESSION: Right IJ line at the junction of the SVC and right atrium. No pneumothorax Gallbladder Ultrasound 09/14/18 15:50 IMPRESSION: Cholelithiasis. No sonographic evidence for acute cholecystitis or biliary dilatation. Diffuse increased echogenicity in the liver may reflect hepatic steatosis however parenchymal infectious/ inflammatory etiologies cannot be entirely excluded. Clinical and laboratory correlation is advised. Fingerstick Blood Sugar Results: 377 Assessment/Plan - Assessment and Plan (Free Text) Assessment: Pt is a 73 yo female with a PMH of DM, COPD, and HTN, who was found down by her and brought in by EMS and was later found to be hypoglycemic and hypotensive. Plan: Neuro - continue to monitor neuro status - Head CT: No evidence of acute intracranial pathology Cardio - HTN - discontinue levophed - steroids tapered down to 50 q12 - digoxin <0.4 Pulm - COPD - duonebs PRN GI - protonix Nephro/ - BUN/Cr 8/0.5 - continue to monitor electrolytes - Ca replete PRN - Mg replete PRN Endo - DM - hypoglycemia on admission - accuchecks q1 - HA1C 6.9 - pt started on D10, given 1 amp of D50, will continue to monitor and adjust PRN - D10 discontinued, will give 1L NS - CTAP PO contrast, follow up Heme/ Onc - lovenox ID - Sepsis Vs adrenal insufficiency - Pt hypotensive, hypothermic, and tachycardic on admission. Code Sepsis called in ED - blood cultures NGTD - UA: negative - Vanc - Zosyn - ID consulted, Dr. Ruffin Dispo: transfer pt to Med surg later this afternoon Pt seen, examined, assessment and plan discussed with Dr Leland Lema PGY1 - Date & Time Date: 09/15/18 Time: 10:13 <Jonny Ha - Last Filed: 09/15/18 13:31> CCU Objective - Vital Signs / Intake & Output Intake and Output (Last 8hrs): Intake & Output 09/14/18 09/15/18 09/15/18 22:59 06:59 14:59 Intake Total 5770 2206 Output Total 701 900 Balance 5069 1306 Intake: IV 5770 2206 Left Hand 0 Right Internal Jugular 5500 1976 Oral 0 0 Output: Urine 700 900 Urethral ([place]) 700 900 Stool 1 Other: # Bowel Movements 1 3 - Medications Active Medications: Active Medications Generic Name Dose Route Start Last Admin Trade Name Freq PRN Reason Stop Dose Admin Albuterol/Ipratropium 3 ml 09/14/18 06:49 Duoneb 3 Mg/0.5 Mg (3 Ml) Ud IH Q4H PRN Shortness of Breath Dextrose 0 ml 09/14/18 06:29 Dextrose 50% Inj IV STAT PRN Hypoglycemia Protocol Protocol Enoxaparin Sodium 40 mg 09/14/18 10:00 09/15/18 09:55 Lovenox SC 40 mg DAILY ALFREDO Administration Protocol Hydrocortisone Sodium Succinate 50 mg 09/15/18 10:00 09/15/18 09:55 Solu-Cortef IVP 50 mg Q12 ALFREDO Administration Vancomycin HCl 1 gm in 250 mls @ 167 mls/hr 09/14/18 22:30 09/15/18 09:55 Vancomycin 1gm IVPB 09/23/18 22:31 167 mls/hr Q12H ALFREDO Administration Protocol Piperacillin Sod/Tazobactam Sod 4.5 gm in 100 mls @ 25 mls/hr 09/15/18 06:00 09/15/18 06:06 Zosyn 4.5 Gm In Ns 100ml IVPB 09/24/18 06:01 25 mls/hr Q8 ALFREDO Administration Protocol Sodium Chloride 1,000 mls @ 100 mls/hr 09/15/18 09:30 09/15/18 09:45 Sodium Chloride 0.9% IV 100 mls/hr .Q10H ALFREDO Administration Insulin Human Regular 0 units 09/15/18 12:00 [facility] Q6 ALFREDO Protocol Pantoprazole Sodium 40 mg 09/14/18 10:00 09/15/18 09:54 Protonix Inj IVP 40 mg DAILY ALFREDO Administration - Patient Studies Lab Studies: Microbiology Studies 09/14/18 08:20 MRSA Culture (Admit) - Final Naris MRSA NOT DETECTED 09/14/18 03:29 Urine Culture - Final Urine,Catheterized No Growth (<1,000 CFU/ML) 09/14/18 04:20 Blood Culture - Preliminary Blood NO GROWTH AFTER 24 HOURS 09/14/18 03:34 Blood Culture - Preliminary Blood NO GROWTH AFTER 24 HOURS Lab Studies 09/15/18 09/15/18 09/15/18 Range/Units 12:30 12:30 12:30 WBC (4.5-11.0) 10^3/uL RBC (3.5-6.1) 10^6/uL Hgb (12.0-16.0) g/dL Hct (36.0-48.0) % MCV (80.0-105.0) fl MCH (25.0-35.0) pg MCHC (31.0-37.0) g/dl RDW (11.5-14.5) % Plt Count (120.0-450.0) 10^3/uL MPV (7.0-11.0) fl Neut % (Auto) (50.0-68.0) % Lymph % (Auto) (22.0-35.0) % [place] % (Auto) (1.0-6.0) % Eos % (Auto) (1.5-5.0) % Baso % (Auto) (0.0-3.0) % Lymph # (Auto) (1.2-3.4) [place] # (Auto) (0.1-0.6) Eos # (Auto) (0.0-0.7) Baso # (Auto) (0.0-2.0) K/mm3 Absolute Neuts (auto) (1.4-6.5) pO2 47 (30-55) mm/Hg VBG pH 7.34 (7.32-7.43) VBG pCO2 38.0 L (40-60) VBG HCO3 20.5 L (21-28) mmol/l VBG Total CO2 21.7 L (22-28) mmol.L VBG O2 Sat (Calc) 83.0 H (40-65) % VBG Base Excess -4.8 L (0.0-2.0) mmol/L VBG Potassium 3.8 (3.6-5.2) mmol/L Glucose 181 H (65-105) mg/dl Lactate 1.7 (0.7-2.1) mmol/L FiO2 21.0 % Crit Value Called To Crit Value Called By Blood Gas Notified Time Sodium 133.0 133 (132-148) mmol/L Potassium 3.8 (3.6-5.0) mmol/L Chloride 108.0 H 109 H (98-107) mmol/L Carbon Dioxide 21 (21-33) mmol/L Anion Gap 7 L (10-20) BUN 7 (7-21) mg/dL Creatinine 0.5 L (0.7-1.2) mg/dl Est GFR ( Amer) > 60 Est GFR (Non-Af Amer) > 60 POC Glucose (mg/dL) (65-110) mg/dL Random Glucose 169 H (70-110) mg/dL Lactic Acid 1.6 (0.7-2.1) mmol/L Calcium 6.7 L* (8.4-10.5) mg/dL Phosphorus (2.5-4.5) mg/dL Magnesium (1.7-2.2) mg/dL Total Bilirubin (0.2-1.3) mg/dL AST (14-36) U/L ALT (7-56) U/L Alkaline Phosphatase (38-126) U/L Total Protein (5.8-8.3) g/dL Albumin (3.0-4.8) g/dL Globulin gm/dL Albumin/Globulin Ratio (1.1-1.8) Procalcitonin (0.19-0.49) NG/ML Free T4 (0.78-2.19) ng/dL Free T3 pg/mL (2.77-5.27) pg/mL Venous Blood Potassium 3.8 (3.6-5.2) mmol/L Influenza Typ A,B (EIA) (NEGATIVE) 09/15/18 09/15/18 09/15/18 Range/Units 10:45 10:35 10:09 WBC (4.5-11.0) 10^3/uL RBC (3.5-6.1) 10^6/uL Hgb (12.0-16.0) g/dL Hct (36.0-48.0) % MCV (80.0-105.0) fl MCH (25.0-35.0) pg MCHC (31.0-37.0) g/dl RDW (11.5-14.5) % Plt Count (120.0-450.0) 10^3/uL MPV (7.0-11.0) fl Neut % (Auto) (50.0-68.0) % Lymph % (Auto) (22.0-35.0) % [place] % (Auto) (1.0-6.0) % Eos % (Auto) (1.5-5.0) % Baso % (Auto) (0.0-3.0) % Lymph # (Auto) (1.2-3.4) [place] # (Auto) (0.1-0.6) Eos # (Auto) (0.0-0.7) Baso # (Auto) (0.0-2.0) K/mm3 Absolute Neuts (auto) (1.4-6.5) pO2 33 (30-55) mm/Hg VBG pH 7.36 (7.32-7.43) VBG pCO2 36.0 L (40-60) VBG HCO3 20.3 L (21-28) mmol/l VBG Total CO2 21.4 L (22-28) mmol.L VBG O2 Sat (Calc) 62.6 (40-65) % VBG Base Excess -4.5 L (0.0-2.0) mmol/L VBG Potassium 3.9 (3.6-5.2) mmol/L Glucose 215 H (65-105) mg/dl Lactate 2.0 (0.7-2.1) mmol/L FiO2 21.0 % Crit Value Called To Crit Value Called By Blood Gas Notified Time Sodium 132.0 (132-148) mmol/L Potassium (3.6-5.0) mmol/L Chloride 108.0 H (98-107) mmol/L Carbon Dioxide (21-33) mmol/L Anion Gap (10-20) BUN (7-21) mg/dL Creatinine (0.7-1.2) mg/dl Est GFR ( Amer) Est GFR (Non-Af Amer) POC Glucose (mg/dL) 460 H* (65-110) mg/dL Random Glucose (70-110) mg/dL Lactic Acid (0.7-2.1) mmol/L Calcium (8.4-10.5) mg/dL Phosphorus (2.5-4.5) mg/dL Magnesium (1.7-2.2) mg/dL Total Bilirubin (0.2-1.3) mg/dL AST (14-36) U/L ALT (7-56) U/L Alkaline Phosphatase (38-126) U/L Total Protein (5.8-8.3) g/dL Albumin (3.0-4.8) g/dL Globulin gm/dL Albumin/Globulin Ratio (1.1-1.8) Procalcitonin (0.19-0.49) NG/ML Free T4 (0.78-2.19) ng/dL Free T3 pg/mL (2.77-5.27) pg/mL Venous Blood Potassium 3.9 (3.6-5.2) mmol/L Influenza Typ A,B (EIA) Negative for flu a/b (NEGATIVE) 09/15/18 09/15/18 09/15/18 Range/Units 08:00 05:15 05:15 WBC (4.5-11.0) 10^3/uL RBC (3.5-6.1) 10^6/uL Hgb (12.0-16.0) g/dL Hct (36.0-48.0) % MCV (80.0-105.0) fl MCH (25.0-35.0) pg MCHC (31.0-37.0) g/dl RDW (11.5-14.5) % Plt Count (120.0-450.0) 10^3/uL MPV (7.0-11.0) fl Neut % (Auto) (50.0-68.0) % Lymph % (Auto) (22.0-35.0) % [place] % (Auto) (1.0-6.0) % Eos % (Auto) (1.5-5.0) % Baso % (Auto) (0.0-3.0) % Lymph # (Auto) (1.2-3.4) [place] # (Auto) (0.1-0.6) Eos # (Auto) (0.0-0.7) Baso # (Auto) (0.0-2.0) K/mm3 Absolute Neuts (auto) (1.4-6.5) pO2 53 (30-55) mm/Hg VBG pH 7.26 L (7.32-7.43) VBG pCO2 46.0 (40-60) VBG HCO3 20.6 L (21-28) mmol/l VBG Total CO2 22.0 (22-28) mmol.L VBG O2 Sat (Calc) 85.3 H (40-65) % VBG Base Excess -6.5 L (0.0-2.0) mmol/L VBG Potassium 5.2 (3.6-5.2) mmol/L Glucose 279 H (65-105) mg/dl Lactate 4.1 H* (0.7-2.1) mmol/L FiO2 21.0 % Crit Value Called To Lisa guajardo rn icu Crit Value Called By [facility] Blood Gas Notified Time 610 Sodium 133.0 133 (132-148) mmol/L Potassium 4.8 (3.6-5.0) mmol/L Chloride 105.0 105 (98-107) mmol/L Carbon Dioxide 20 L (21-33) mmol/L Anion Gap 12 (10-20) BUN 8 (7-21) mg/dL Creatinine 0.5 L (0.7-1.2) mg/dl Est GFR ( Amer) > 60 Est GFR (Non-Af Amer) > 60 POC Glucose (mg/dL) 303 H (65-110) mg/dL Random Glucose 249 H (70-110) mg/dL Lactic Acid (0.7-2.1) mmol/L Calcium 7.3 L (8.4-10.5) mg/dL Phosphorus 2.6 (2.5-4.5) mg/dL Magnesium 1.6 L (1.7-2.2) mg/dL Total Bilirubin 0.4 (0.2-1.3) mg/dL AST 36 D (14-36) U/L ALT 29 (7-56) U/L Alkaline Phosphatase 78 (38-126) U/L Total Protein 5.1 L (5.8-8.3) g/dL Albumin 2.2 L (3.0-4.8) g/dL Globulin 2.9 gm/dL Albumin/Globulin Ratio 0.8 L (1.1-1.8) Procalcitonin (0.19-0.49) NG/ML Free T4 (0.78-2.19) ng/dL Free T3 pg/mL (2.77-5.27) pg/mL Venous Blood Potassium 5.2 (3.6-5.2) mmol/L Influenza Typ A,B (EIA) (NEGATIVE) 09/15/18 09/15/18 09/15/18 Range/Units 05:15 04:10 02:11 WBC 12.2 H (4.5-11.0) 10^3/uL RBC 3.12 L (3.5-6.1) 10^6/uL Hgb 9.9 L (12.0-16.0) g/dL Hct 28.7 L (36.0-48.0) % MCV 92.0 (80.0-105.0) fl MCH 31.7 (25.0-35.0) pg MCHC 34.5 (31.0-37.0) g/dl RDW 12.6 (11.5-14.5) % Plt Count 305 (120.0-450.0) 10^3/uL MPV 9.3 (7.0-11.0) fl Neut % (Auto) 81.3 H (50.0-68.0) % Lymph % (Auto) 16.7 L (22.0-35.0) % [place] % (Auto) 2.0 (1.0-6.0) % Eos % (Auto) 0.0 L (1.5-5.0) % Baso % (Auto) 0.0 (0.0-3.0) % Lymph # (Auto) 2.0 (1.2-3.4) [place] # (Auto) 0.2 (0.1-0.6) Eos # (Auto) 0.0 (0.0-0.7) Baso # (Auto) 0.00 (0.0-2.0) K/mm3 Absolute Neuts (auto) 9.92 H (1.4-6.5) pO2 (30-55) mm/Hg VBG pH (7.32-7.43) VBG pCO2 (40-60) VBG HCO3 (21-28) mmol/l VBG Total CO2 (22-28) mmol.L VBG O2 Sat (Calc) (40-65) % VBG Base Excess (0.0-2.0) mmol/L VBG Potassium (3.6-5.2) mmol/L Glucose (65-105) mg/dl Lactate (0.7-2.1) mmol/L FiO2 % Crit Value Called To Crit Value Called By Blood Gas Notified Time Sodium (132-148) mmol/L Potassium (3.6-5.0) mmol/L Chloride (98-107) mmol/L Carbon Dioxide (21-33) mmol/L Anion Gap (10-20) BUN (7-21) mg/dL Creatinine (0.7-1.2) mg/dl Est GFR ( Amer) Est GFR (Non-Af Amer) POC Glucose (mg/dL) 362 H 377 H (65-110) mg/dL Random Glucose (70-110) mg/dL Lactic Acid (0.7-2.1) mmol/L Calcium (8.4-10.5) mg/dL Phosphorus (2.5-4.5) mg/dL Magnesium (1.7-2.2) mg/dL Total Bilirubin (0.2-1.3) mg/dL AST (14-36) U/L ALT (7-56) U/L Alkaline Phosphatase (38-126) U/L Total Protein (5.8-8.3) g/dL Albumin (3.0-4.8) g/dL Globulin gm/dL Albumin/Globulin Ratio (1.1-1.8) Procalcitonin (0.19-0.49) NG/ML Free T4 (0.78-2.19) ng/dL Free T3 pg/mL (2.77-5.27) pg/mL Venous Blood Potassium (3.6-5.2) mmol/L Influenza Typ A,B (EIA) (NEGATIVE) 09/15/18 09/14/18 09/14/18 Range/Units 00:32 23:56 21:57 WBC (4.5-11.0) 10^3/uL RBC (3.5-6.1) 10^6/uL Hgb (12.0-16.0) g/dL Hct (36.0-48.0) % MCV (80.0-105.0) fl MCH (25.0-35.0) pg MCHC (31.0-37.0) g/dl RDW (11.5-14.5) % Plt Count (120.0-450.0) 10^3/uL MPV (7.0-11.0) fl Neut % (Auto) (50.0-68.0) % Lymph % (Auto) (22.0-35.0) % [place] % (Auto) (1.0-6.0) % Eos % (Auto) (1.5-5.0) % Baso % (Auto) (0.0-3.0) % Lymph # (Auto) (1.2-3.4) [place] # (Auto) (0.1-0.6) Eos # (Auto) (0.0-0.7) Baso # (Auto) (0.0-2.0) K/mm3 Absolute Neuts (auto) (1.4-6.5) pO2 (30-55) mm/Hg VBG pH (7.32-7.43) VBG pCO2 (40-60) VBG HCO3 (21-28) mmol/l VBG Total CO2 (22-28) mmol.L VBG O2 Sat (Calc) (40-65) % VBG Base Excess (0.0-2.0) mmol/L VBG Potassium (3.6-5.2) mmol/L Glucose (65-105) mg/dl Lactate (0.7-2.1) mmol/L FiO2 % Crit Value Called To Crit Value Called By Blood Gas Notified Time Sodium 128 L (132-148) mmol/L Potassium 4.4 (3.6-5.0) mmol/L Chloride 102 (98-107) mmol/L Carbon Dioxide 21 (21-33) mmol/L Anion Gap 10 (10-20) BUN 8 (7-21) mg/dL Creatinine 0.6 L (0.7-1.2) mg/dl Est GFR ( Amer) > 60 Est GFR (Non-Af Amer) > 60 POC Glucose (mg/dL) 418 H* 283 H (65-110) mg/dL Random Glucose 340 H* D (70-110) mg/dL Lactic Acid (0.7-2.1) mmol/L Calcium 7.2 L (8.4-10.5) mg/dL Phosphorus (2.5-4.5) mg/dL Magnesium (1.7-2.2) mg/dL Total Bilirubin (0.2-1.3) mg/dL AST (14-36) U/L ALT (7-56) U/L Alkaline Phosphatase (38-126) U/L Total Protein (5.8-8.3) g/dL Albumin (3.0-4.8) g/dL Globulin gm/dL Albumin/Globulin Ratio (1.1-1.8) Procalcitonin (0.19-0.49) NG/ML Free T4 (0.78-2.19) ng/dL Free T3 pg/mL (2.77-5.27) pg/mL Venous Blood Potassium (3.6-5.2) mmol/L Influenza Typ A,B (EIA) (NEGATIVE) 09/14/18 09/14/18 09/14/18 Range/Units 20:23 18:12 16:00 WBC (4.5-11.0) 10^3/uL RBC (3.5-6.1) 10^6/uL Hgb (12.0-16.0) g/dL Hct (36.0-48.0) % MCV (80.0-105.0) fl MCH (25.0-35.0) pg MCHC (31.0-37.0) g/dl RDW (11.5-14.5) % Plt Count (120.0-450.0) 10^3/uL MPV (7.0-11.0) fl Neut % (Auto) (50.0-68.0) % Lymph % (Auto) (22.0-35.0) % [place] % (Auto) (1.0-6.0) % Eos % (Auto) (1.5-5.0) % Baso % (Auto) (0.0-3.0) % Lymph # (Auto) (1.2-3.4) [place] # (Auto) (0.1-0.6) Eos # (Auto) (0.0-0.7) Baso # (Auto) (0.0-2.0) K/mm3 Absolute Neuts (auto) (1.4-6.5) pO2 (30-55) mm/Hg VBG pH (7.32-7.43) VBG pCO2 (40-60) VBG HCO3 (21-28) mmol/l VBG Total CO2 (22-28) mmol.L VBG O2 Sat (Calc) (40-65) % VBG Base Excess (0.0-2.0) mmol/L VBG Potassium (3.6-5.2) mmol/L Glucose (65-105) mg/dl Lactate (0.7-2.1) mmol/L FiO2 % Crit Value Called To Crit Value Called By Blood Gas Notified Time Sodium (132-148) mmol/L Potassium (3.6-5.0) mmol/L Chloride (98-107) mmol/L Carbon Dioxide (21-33) mmol/L Anion Gap (10-20) BUN (7-21) mg/dL Creatinine (0.7-1.2) mg/dl Est GFR ( Amer) Est GFR (Non-Af Amer) POC Glucose (mg/dL) 285 H 204 H 137 H (65-110) mg/dL Random Glucose (70-110) mg/dL Lactic Acid (0.7-2.1) mmol/L Calcium (8.4-10.5) mg/dL Phosphorus (2.5-4.5) mg/dL Magnesium (1.7-2.2) mg/dL Total Bilirubin (0.2-1.3) mg/dL AST (14-36) U/L ALT (7-56) U/L Alkaline Phosphatase (38-126) U/L Total Protein (5.8-8.3) g/dL Albumin (3.0-4.8) g/dL Globulin gm/dL Albumin/Globulin Ratio (1.1-1.8) Procalcitonin (0.19-0.49) NG/ML Free T4 (0.78-2.19) ng/dL Free T3 pg/mL (2.77-5.27) pg/mL Venous Blood Potassium (3.6-5.2) mmol/L Influenza Typ A,B (EIA) (NEGATIVE) 09/14/18 09/14/18 09/14/18 Range/Units 15:20 15:20 15:20 WBC (4.5-11.0) 10^3/uL RBC (3.5-6.1) 10^6/uL Hgb (12.0-16.0) g/dL Hct (36.0-48.0) % MCV (80.0-105.0) fl MCH (25.0-35.0) pg MCHC (31.0-37.0) g/dl RDW (11.5-14.5) % Plt Count (120.0-450.0) 10^3/uL MPV (7.0-11.0) fl Neut % (Auto) (50.0-68.0) % Lymph % (Auto) (22.0-35.0) % [place] % (Auto) (1.0-6.0) % Eos % (Auto) (1.5-5.0) % Baso % (Auto) (0.0-3.0) % Lymph # (Auto) (1.2-3.4) [place] # (Auto) (0.1-0.6) Eos # (Auto) (0.0-0.7) Baso # (Auto) (0.0-2.0) K/mm3 Absolute Neuts (auto) (1.4-6.5) pO2 (30-55) mm/Hg VBG pH (7.32-7.43) VBG pCO2 (40-60) VBG HCO3 (21-28) mmol/l VBG Total CO2 (22-28) mmol.L VBG O2 Sat (Calc) (40-65) % VBG Base Excess (0.0-2.0) mmol/L VBG Potassium (3.6-5.2) mmol/L Glucose (65-105) mg/dl Lactate (0.7-2.1) mmol/L FiO2 % Crit Value Called To Crit Value Called By Blood Gas Notified Time Sodium 133 (132-148) mmol/L Potassium 2.8 L* D (3.6-5.0) mmol/L Chloride 105 (98-107) mmol/L Carbon Dioxide 24 (21-33) mmol/L Anion Gap 7 L (10-20) BUN 10 (7-21) mg/dL Creatinine 0.5 L (0.7-1.2) mg/dl Est GFR ( Amer) > 60 Est GFR (Non-Af Amer) > 60 POC Glucose (mg/dL) (65-110) mg/dL Random Glucose 94 (70-110) mg/dL Lactic Acid (0.7-2.1) mmol/L Calcium 6.9 L* (8.4-10.5) mg/dL Phosphorus (2.5-4.5) mg/dL Magnesium (1.7-2.2) mg/dL Total Bilirubin (0.2-1.3) mg/dL AST (14-36) U/L ALT (7-56) U/L Alkaline Phosphatase (38-126) U/L Total Protein (5.8-8.3) g/dL Albumin (3.0-4.8) g/dL Globulin gm/dL Albumin/Globulin Ratio (1.1-1.8) Procalcitonin 0.98 H (0.19-0.49) NG/ML Free T4 0.78 (0.78-2.19) ng/dL Free T3 pg/mL 2.63 L (2.77-5.27) pg/mL Venous Blood Potassium (3.6-5.2) mmol/L Influenza Typ A,B (EIA) (NEGATIVE) 09/14/18 09/14/18 09/14/18 Range/Units 15:00 14:09 12:58 WBC (4.5-11.0) 10^3/uL RBC (3.5-6.1) 10^6/uL Hgb (12.0-16.0) g/dL Hct (36.0-48.0) % MCV (80.0-105.0) fl MCH (25.0-35.0) pg MCHC (31.0-37.0) g/dl RDW (11.5-14.5) % Plt Count (120.0-450.0) 10^3/uL MPV (7.0-11.0) fl Neut % (Auto) (50.0-68.0) % Lymph % (Auto) (22.0-35.0) % [place] % (Auto) (1.0-6.0) % Eos % (Auto) (1.5-5.0) % Baso % (Auto) (0.0-3.0) % Lymph # (Auto) (1.2-3.4) [place] # (Auto) (0.1-0.6) Eos # (Auto) (0.0-0.7) Baso # (Auto) (0.0-2.0) K/mm3 Absolute Neuts (auto) (1.4-6.5) pO2 (30-55) mm/Hg VBG pH (7.32-7.43) VBG pCO2 (40-60) VBG HCO3 (21-28) mmol/l VBG Total CO2 (22-28) mmol.L VBG O2 Sat (Calc) (40-65) % VBG Base Excess (0.0-2.0) mmol/L VBG Potassium (3.6-5.2) mmol/L Glucose (65-105) mg/dl Lactate (0.7-2.1) mmol/L FiO2 % Crit Value Called To Crit Value Called By Blood Gas Notified Time Sodium (132-148) mmol/L Potassium (3.6-5.0) mmol/L Chloride (98-107) mmol/L Carbon Dioxide (21-33) mmol/L Anion Gap (10-20) BUN (7-21) mg/dL Creatinine (0.7-1.2) mg/dl Est GFR ( Amer) Est GFR (Non-Af Amer) POC Glucose (mg/dL) 113 H 98 77 (65-110) mg/dL Random Glucose (70-110) mg/dL Lactic Acid (0.7-2.1) mmol/L Calcium (8.4-10.5) mg/dL Phosphorus (2.5-4.5) mg/dL Magnesium (1.7-2.2) mg/dL Total Bilirubin (0.2-1.3) mg/dL AST (14-36) U/L ALT (7-56) U/L Alkaline Phosphatase (38-126) U/L Total Protein (5.8-8.3) g/dL Albumin (3.0-4.8) g/dL Globulin gm/dL Albumin/Globulin Ratio (1.1-1.8) Procalcitonin (0.19-0.49) NG/ML Free T4 (0.78-2.19) ng/dL Free T3 pg/mL (2.77-5.27) pg/mL Venous Blood Potassium (3.6-5.2) mmol/L Influenza Typ A,B (EIA) (NEGATIVE) Laboratory Results - last 24 hr 09/14/18 09/14/18 09/14/18 12:58 14:09 15:00 WBC RBC Hgb Hct MCV MCH MCHC RDW Plt Count MPV Neut % (Auto) Lymph % (Auto) [place] % (Auto) Eos % (Auto) Baso % (Auto) Lymph # (Auto) [place] # (Auto) Eos # (Auto) Baso # (Auto) Absolute Neuts (auto) pO2 VBG pH VBG pCO2 VBG HCO3 VBG Total CO2 VBG O2 Sat (Calc) VBG Base Excess VBG Potassium Glucose Lactate FiO2 Crit Value Called To Crit Value Called By Blood Gas Notified Time Sodium Potassium Chloride Carbon Dioxide Anion Gap BUN Creatinine Est GFR ( Amer) Est GFR (Non-Af Amer) POC Glucose (mg/dL) 77 98 113 H Random Glucose Lactic Acid Calcium Phosphorus Magnesium Total Bilirubin AST ALT Alkaline Phosphatase Total Protein Albumin Globulin Albumin/Globulin Ratio Procalcitonin Free T4 Free T3 pg/mL Venous Blood Potassium Influenza Typ A,B (EIA) 09/14/18 09/14/18 09/14/18 15:20 15:20 15:20 WBC RBC Hgb Hct MCV MCH MCHC RDW Plt Count MPV Neut % (Auto) Lymph % (Auto) [place] % (Auto) Eos % (Auto) Baso % (Auto) Lymph # (Auto) [place] # (Auto) Eos # (Auto) Baso # (Auto) Absolute Neuts (auto) pO2 VBG pH VBG pCO2 VBG HCO3 VBG Total CO2 VBG O2 Sat (Calc) VBG Base Excess VBG Potassium Glucose Lactate FiO2 Crit Value Called To Crit Value Called By Blood Gas Notified Time Sodium 133 Potassium 2.8 L* D Chloride 105 Carbon Dioxide 24 Anion Gap 7 L BUN 10 Creatinine 0.5 L Est GFR ( Amer) > 60 Est GFR (Non-Af Amer) > 60 POC Glucose (mg/dL) Random Glucose 94 Lactic Acid Calcium 6.9 L* Phosphorus Magnesium Total Bilirubin AST ALT Alkaline Phosphatase Total Protein Albumin Globulin Albumin/Globulin Ratio Procalcitonin 0.98 H Free T4 0.78 Free T3 pg/mL 2.63 L Venous Blood Potassium Influenza Typ A,B (EIA) 09/14/18 09/14/18 09/14/18 16:00 18:12 20:23 WBC RBC Hgb Hct MCV MCH MCHC RDW Plt Count MPV Neut % (Auto) Lymph % (Auto) [place] % (Auto) Eos % (Auto) Baso % (Auto) Lymph # (Auto) [place] # (Auto) Eos # (Auto) Baso # (Auto) Absolute Neuts (auto) pO2 VBG pH VBG pCO2 VBG HCO3 VBG Total CO2 VBG O2 Sat (Calc) VBG Base Excess VBG Potassium Glucose Lactate FiO2 Crit Value Called To Crit Value Called By Blood Gas Notified Time Sodium Potassium Chloride Carbon Dioxide Anion Gap BUN Creatinine Est GFR ( Amer) Est GFR (Non-Af Amer) POC Glucose (mg/dL) 137 H 204 H 285 H Random Glucose Lactic Acid Calcium Phosphorus Magnesium Total Bilirubin AST ALT Alkaline Phosphatase Total Protein Albumin Globulin Albumin/Globulin Ratio Procalcitonin Free T4 Free T3 pg/mL Venous Blood Potassium Influenza Typ A,B (EIA) 09/14/18 09/14/18 09/15/18 21:57 23:56 00:32 WBC RBC Hgb Hct MCV MCH MCHC RDW Plt Count MPV Neut % (Auto) Lymph % (Auto) [place] % (Auto) Eos % (Auto) Baso % (Auto) Lymph # (Auto) [place] # (Auto) Eos # (Auto) Baso # (Auto) Absolute Neuts (auto) pO2 VBG pH VBG pCO2 VBG HCO3 VBG Total CO2 VBG O2 Sat (Calc) VBG Base Excess VBG Potassium Glucose Lactate FiO2 Crit Value Called To Crit Value Called By Blood Gas Notified Time Sodium 128 L Potassium 4.4 Chloride 102 Carbon Dioxide 21 Anion Gap 10 BUN 8 Creatinine 0.6 L Est GFR ( Amer) > 60 Est GFR (Non-Af Amer) > 60 POC Glucose (mg/dL) 283 H 418 H* Random Glucose 340 H* D Lactic Acid Calcium 7.2 L Phosphorus Magnesium Total Bilirubin AST ALT Alkaline Phosphatase Total Protein Albumin Globulin Albumin/Globulin Ratio Procalcitonin Free T4 Free T3 pg/mL Venous Blood Potassium Influenza Typ A,B (EIA) 09/15/18 09/15/18 09/15/18 02:11 04:10 05:15 WBC 12.2 H RBC 3.12 L Hgb 9.9 L Hct 28.7 L MCV 92.0 MCH 31.7 MCHC 34.5 RDW 12.6 Plt Count 305 MPV 9.3 Neut % (Auto) 81.3 H Lymph % (Auto) 16.7 L [place] % (Auto) 2.0 Eos % (Auto) 0.0 L Baso % (Auto) 0.0 Lymph # (Auto) 2.0 [place] # (Auto) 0.2 Eos # (Auto) 0.0 Baso # (Auto) 0.00 Absolute Neuts (auto) 9.92 H pO2 VBG pH VBG pCO2 VBG HCO3 VBG Total CO2 VBG O2 Sat (Calc) VBG Base Excess VBG Potassium Glucose Lactate FiO2 Crit Value Called To Crit Value Called By Blood Gas Notified Time Sodium Potassium Chloride Carbon Dioxide Anion Gap BUN Creatinine Est GFR ( Amer) Est GFR (Non-Af Amer) POC Glucose (mg/dL) 377 H 362 H Random Glucose Lactic Acid Calcium Phosphorus Magnesium Total Bilirubin AST ALT Alkaline Phosphatase Total Protein Albumin Globulin Albumin/Globulin Ratio Procalcitonin Free T4 Free T3 pg/mL Venous Blood Potassium Influenza Typ A,B (EIA) 09/15/18 09/15/18 09/15/18 05:15 05:15 08:00 WBC RBC Hgb Hct MCV MCH MCHC RDW Plt Count MPV Neut % (Auto) Lymph % (Auto) [place] % (Auto) Eos % (Auto) Baso % (Auto) Lymph # (Auto) [place] # (Auto) Eos # (Auto) Baso # (Auto) Absolute Neuts (auto) pO2 53 VBG pH 7.26 L VBG pCO2 46.0 VBG HCO3 20.6 L VBG Total CO2 22.0 VBG O2 Sat (Calc) 85.3 H VBG Base Excess -6.5 L VBG Potassium 5.2 Glucose 279 H Lactate 4.1 H* FiO2 21.0 Crit Value Called To Lisa guajardo varnish inspector Crit Value Called By m Blood Gas Notified Time 610 Sodium 133 133.0 Potassium 4.8 Chloride 105 105.0 Carbon Dioxide 20 L Anion Gap 12 BUN 8 Creatinine 0.5 L Est GFR ( Amer) > 60 Est GFR (Non-Af Amer) > 60 POC Glucose (mg/dL) 303 H Random Glucose 249 H Lactic Acid Calcium 7.3 L Phosphorus 2.6 Magnesium 1.6 L Total Bilirubin 0.4 AST 36 D ALT 29 Alkaline Phosphatase 78 Total Protein 5.1 L Albumin 2.2 L Globulin 2.9 Albumin/Globulin Ratio 0.8 L Procalcitonin Free T4 Free T3 pg/mL Venous Blood Potassium 5.2 Influenza Typ A,B (EIA) 09/15/18 09/15/18 09/15/18 10:09 10:35 10:45 WBC RBC Hgb Hct MCV MCH MCHC RDW Plt Count MPV Neut % (Auto) Lymph % (Auto) [place] % (Auto) Eos % (Auto) Baso % (Auto) Lymph # (Auto) [place] # (Auto) Eos # (Auto) Baso # (Auto) Absolute Neuts (auto) pO2 33 VBG pH 7.36 VBG pCO2 36.0 L VBG HCO3 20.3 L VBG Total CO2 21.4 L VBG O2 Sat (Calc) 62.6 VBG Base Excess -4.5 L VBG Potassium 3.9 Glucose 215 H Lactate 2.0 FiO2 21.0 Crit Value Called To Crit Value Called By Blood Gas Notified Time Sodium 132.0 Potassium Chloride 108.0 H Carbon Dioxide Anion Gap BUN Creatinine Est GFR ( Amer) Est GFR (Non-Af Amer) POC Glucose (mg/dL) 460 H* Random Glucose Lactic Acid Calcium Phosphorus Magnesium Total Bilirubin AST ALT Alkaline Phosphatase Total Protein Albumin Globulin Albumin/Globulin Ratio Procalcitonin Free T4 Free T3 pg/mL Venous Blood Potassium 3.9 Influenza Typ A,B (EIA) Negative for flu a/b 09/15/18 09/15/18 09/15/18 12:30 12:30 12:30 WBC RBC Hgb Hct MCV MCH MCHC RDW Plt Count MPV Neut % (Auto) Lymph % (Auto) [place] % (Auto) Eos % (Auto) Baso % (Auto) Lymph # (Auto) [place] # (Auto) Eos # (Auto) Baso # (Auto) Absolute Neuts (auto) pO2 47 VBG pH 7.34 VBG pCO2 38.0 L VBG HCO3 20.5 L VBG Total CO2 21.7 L VBG O2 Sat (Calc) 83.0 H VBG Base Excess -4.8 L VBG Potassium 3.8 Glucose 181 H Lactate 1.7 FiO2 21.0 Crit Value Called To Crit Value Called By Blood Gas Notified Time Sodium 133 133.0 Potassium 3.8 Chloride 109 H 108.0 H Carbon Dioxide 21 Anion Gap 7 L BUN 7 Creatinine 0.5 L Est GFR ( Amer) > 60 Est GFR (Non-Af Amer) > 60 POC Glucose (mg/dL) Random Glucose 169 H Lactic Acid 1.6 Calcium 6.7 L* Phosphorus Magnesium Total Bilirubin AST ALT Alkaline Phosphatase Total Protein Albumin Globulin Albumin/Globulin Ratio Procalcitonin Free T4 Free T3 pg/mL Venous Blood Potassium 3.8 Influenza Typ A,B (EIA) Radiology Impressions: Radiology Impressions Gallbladder Ultrasound 09/14/18 15:50 IMPRESSION: Cholelithiasis. No sonographic evidence for acute cholecystitis or biliary dilatation. Diffuse increased echogenicity in the liver may reflect hepatic steatosis however parenchymal infectious/ inflammatory etiologies cannot be entirely excluded. Clinical and laboratory correlation is advised. Critical Care Progress Note - Nutrition Nutrition: Nutrition Category Date Time Status NPO Diet [DIET] Diets 09/15/18 Dinner Ordered Assessment/Plan - Assessment and Plan (Free Text) Plan: I saw and examined the patient on rounds with the resident, agree with note with following additions/exceptions: Patient is 73 yo female with a PMH of DM, COPD, and HTN, who was found down, on presentation was found to be hypothermic, hypoglycemic, and hypotensive. Given 3L NS bolus, started on D10W drip, with improvement in FS Patient also given stress dose steroids, and placed on Vasopressor support, Levophed Patient is currently afebrile, HD stable SBP 90-110, OFF vasopressor support, awake, alert CTH negative CXR no focal consolidation, UA negative, no clear source of infection CT A/P pending Repeat BMP with NO AG Shock, likely Septic Shock, resolved Dehydration Hypothermia, resolved Hypoglycemia, resolved AMS, resolved rule out Adrenal inefficiency DM Recommend: - cont with supp o2 as needed - Broad spectrum Abx, Vanco, Zosyn, follow up ID consult - HOLD BP meds - IVF, NS 100cc/hr - stress dose steroids, Hydrocortisone 50 q12hr - FS control, sliding scale - DC D10w drip - CT A/P without IV contrast - Endo eval - Obtain ECHO - I/Os - GI ppx - DVT ppx - Monitor in MICU
[2018-09-15 10:44] LABS: VENOUS BLOOD GAS BASE EXCESS -4.5 mmol/L (0.0-2.0); VENOUS BLOOD GAS PO2 33 mm/Hg (30-55); VENOUS BLOOD PH 7.36 (7.32-7.43)
[2018-09-15] MEDS ORDERED: Insulin Regular 1 UNITS/0.01 ML ML SC ONE (11:10)
[2018-09-15] MEDS ORDERED: Insulin Reg-MEDIUM-Coverage SC SCH (12:00)
--- NOTE | 2018-09-15 12:26 | CP.PCM.PN ---
<Colton Still - Last Filed: 09/15/18 12:30> Subjective - Date & Time of Evaluation Date of Evaluation: 09/15/18 Time of Evaluation: 12:21 - Subjective Subjective: Medicine Progress Note for Dr. Roche Patient seen and examined at bedside. No acute overnight events. Patient awake and alert. Cannot recall the events leading up to her admission. Patient denies CP, SOB, n/v/d, abdominal pain, fever, chills PIRES, or dizziness. Objective - Vital Signs/Intake and Output Vital Signs (last 24 hours): Temp Pulse Resp BP Pulse Ox 97.5 F L 70 22 107/54 L 100 09/15/18 05:00 09/15/18 07:10 09/15/18 07:10 09/15/18 07:00 09/14/18 18:10 Intake and Output: 09/15/18 09/15/18 06:59 18:59 Intake Total 2476 Output Total 900 Balance 1576 - Medications Medications: Current Medications Albuterol/Ipratropium (Duoneb 3 Mg/0.5 Mg (3 Ml) Ud) 3 ml IH Q4H PRN PRN Reason: Shortness of Breath Dextrose (Dextrose 50% Inj) 0 ml IV STAT PRN; Protocol PRN Reason: Hypoglycemia Protocol Enoxaparin Sodium (Lovenox) 40 mg SC DAILY ALFREDO; Protocol Last Admin: 09/15/18 09:55 Dose: 40 mg Hydrocortisone Sodium Succinate (Solu-Cortef) 50 mg IVP Q12 ALFREDO Last Admin: 09/15/18 09:55 Dose: 50 mg Vancomycin HCl (Vancomycin 1gm) 1 gm in 250 mls @ 167 mls/hr IVPB Q12H ALFREDO; Pr otocol Stop: 09/23/18 22:31 Last Admin: 09/15/18 09:55 Dose: 167 mls/hr Piperacillin Sod/Tazobactam Sod (Zosyn 4.5 Gm In Ns 100ml) 4.5 gm in 100 mls @ 25 mls/hr IVPB Q8 ALFREDO; Protocol Stop: 09/24/18 06:01 Last Admin: 09/15/18 06:06 Dose: 25 mls/hr Sodium Chloride (Sodium Chloride 0.9%) 1,000 mls @ 100 mls/hr IV .Q10H ALFREDO Last Admin: 09/15/18 09:45 Dose: 100 mls/hr Insulin Human Regular (Humulin R Med) 0 units SC Q6 ALFREDO; Protocol Pantoprazole Sodium (Protonix Inj) 40 mg IVP DAILY ALFREDO Last Admin: 09/15/18 09:54 Dose: 40 mg - Labs Labs: 09/15/18 05:15 09/15/18 05:15 PT 12.1 SECONDS (9.4-12.5) 09/14/18 03:34 INR 1.09 09/14/18 03:34 APTT 34.5 Seconds (26.9-38.3) 09/14/18 03:34 - Constitutional Appears: No Acute Distress - Head Exam Head Exam: NORMAL INSPECTION - Eye Exam Eye Exam: Normal appearance - ENT Exam ENT Exam: Mucous Membranes Dry - Respiratory Exam Respiratory Exam: Clear to Ausculation Bilateral. absent: Rales, Rhonchi, Wheezes - Cardiovascular Exam Cardiovascular Exam: RRR. absent: Diastolic murmur, Gallop, Rubs, Murmur - GI/Abdominal Exam GI & Abdominal Exam: Soft. absent: Distended, Guarding, Tenderness, Rebound - Extremities Exam Extremities Exam: Normal Inspection - Back Exam Back Exam: NORMAL INSPECTION - Neurological Exam Neurological Exam: Alert, Awake - Psychiatric Exam Psychiatric exam: Normal Affect, Normal Mood - Skin Skin Exam: Normal Color, Warm Assessment and Plan - Assessment and Plan (Free Text) Assessment: Patient is a 73 year old female with a past medical history includes diabetes, COPD, and hypertension, presenting with hypoglycemia. Patient will be admitted to the ICU for hypoglycemia and shock. Plan: Shock, likely sepsis - No clear source thus far, possibly adrenal insufficiency - Hypothermia resolved - Elevated lactate overnight possibly due to hypotension; improved after fluid bolus - 1L NS bolus then NS at 100 cc/hr - Currently off pressors; maintain MAP>65 - Stress steroids tapered per ICU to Solucortef 50 mg q12h - Blood and urine cultures negative after 24 hrs - Flu negative - CXR negative - UA: negative - RUQ US showed cholelithiasis - CT abd/pelvis ordered - Cont Vancomycin and Zosyn - ID consulted, Dr. Ruffin Hypoglycemia, resolved - DC D10 gtt - Hyperglycemic now - NS started - Accuchecks Q4H - Endo consulted Dehydration - Cont NS COPD - Duoneb Q4 PRN for SOB H/o HTN - Holding all antihypertensives due to hypotension H/o DM - Holding antihyperglycemics due to hypoglycemia Prophylaxis: - DVT: Lovenox 40mg SC - GI: Protonix 40mg IVP QD Patient seen and discussed in detail with Dr. Roche. Cristian Still, DO PGY2 <Alida Roche - Last Filed: 09/17/18 15:38> Objective - Vital Signs/Intake and Output Vital Signs (last 24 hours): Temp Pulse Resp BP Pulse Ox 97.6 F 77 16 92/49 L 100 09/17/18 06:00 09/17/18 06:00 09/17/18 06:00 09/17/18 06:00 09/17/18 09:42 Intake and Output: 09/17/18 09/17/18 06:59 18:59 Intake Total 480 720 Balance 480 720 - Medications Medications: Current Medications Albuterol/Ipratropium (Duoneb 3 Mg/0.5 Mg (3 Ml) Ud) 3 ml IH Q4H PRN PRN Reason: Shortness of Breath Dextrose (Dextrose 50% Inj) 0 ml IV STAT PRN; Protocol PRN Reason: Hypoglycemia Protocol Last Admin: 09/17/18 06:58 Dose: 50 ml Enoxaparin Sodium (Lovenox) 40 mg SC DAILY ALFREDO; Protocol Last Admin: 09/17/18 11:03 Dose: 40 mg Piperacillin Sod/Tazobactam Sod (Zosyn 4.5 Gm In Ns 100ml) 4.5 gm in 100 mls @ 25 mls/hr IVPB Q8 ALFREDO; Protocol Stop: 09/24/18 06:01 Last Admin: 09/17/18 14:07 Dose: 25 mls/hr Insulin Detemir (Levemir) 12 unit SC HS ALFREDO Insulin Human Lispro (Humalog Low) 0 units SC ACHS ALFREDO; Protocol Last Admin: 09/17/18 11:47 Dose: Not Given Insulin Human Lispro (Humalog) 3 units SC AC ALFREDO Last Admin: 09/17/18 12:16 Dose: 3 units Pantoprazole Sodium (Protonix Susp) 40 mg PO 0600 ALFREDO Last Admin: 09/17/18 11:03 Dose: 40 mg - Labs Labs: 09/17/18 07:00 09/17/18 07:00 PT 12.1 SECONDS (9.4-12.5) 09/14/18 03:34 INR 1.09 09/14/18 03:34 APTT 34.5 Seconds (26.9-38.3) 09/14/18 03:34 Attending/Attestation - Attestation I have personally seen and examined this patient.: Yes I have fully participated in the care of the patient.: Yes I have reviewed all pertinent clinical information, including history, physical exam and plan: Yes Notes (Text): 09/17/18 15:38 Medical record note made by the resident after discussion with my direction and input after the patient was personally seen and examined by me. I have reviewed the chart and agree that the record accurately reflects by personal performance of the history, physical exam, data review, and medical decision-making, in the course for the patient. I have also personally directed the plan of care.
[2018-09-15 12:39] LABS: VENOUS BLOOD GAS BASE EXCESS -4.8 mmol/L (0.0-2.0); VENOUS BLOOD GAS PO2 47 mm/Hg (30-55); VENOUS BLOOD PH 7.34 (7.32-7.43)
--- NOTE | 2018-09-15 12:44 | PCM.PCON ---
History of Present Illness - History of Present Illness History of Present Illness: Palliative consult requested by Dr Jody Roche Reason: Goals of care This is a 73 year old female with history of DM, COPD, and hypertension who [facility] after patient was found lying on the floor next to her bed. As per EMS, patient was found be hypotensive/ hypoglycemic, blood sugar of 20. She was given 1 amp of D50 and IV fluids in the field. On arrival, patient's blood sugar was 160. Patient denies any chest pain, abdominal pain, back pain, neck pain, headache, or any other complaints. Chest x ray:No active disease Head CT: No acute intracranial findings. Gall Bladder US: Diffuse increased echogenicity in the liver may reflect hepatic steatosis, however infectious etologies can not be ruled out. Labs:WBC 12.2, Hgb 9.9, Plt 305,NA 133,K 4.8,BUN 8, Meat Counter Worker 0.5, Glucose 249, AST 36,ALT 29,Alb 2.2. Urine negative. H Flu negative. PMH: HTN, DM-2, COPD PSH: denies Social History: Smokes 1/4 PPD for 50 years, alcohol abuse,no illicit drug use. Lives in [facility]. Family History: Denies Advance Care Planning: The patient has a POLST, she is full code status. [employer]ie [employer] Systems: As per HPI, denies all other compaints, 12 point ROS negative Physical Exam - Constitutional Appears: No Acute Distress, Chronically Ill - Head Exam Head Exam: NORMOCEPHALIC - Eye Exam Eye Exam: Normal appearance, PERRL - ENT Exam ENT Exam: Mucous Membranes Moist - Respiratory Exam Respiratory Exam: Clear to Auscultation Bilateral, NORMAL BREATHING PATTERN - Cardiovascular Exam Cardiovascular Exam: REGULAR RHYTHM, +S1, +S2 - GI/Abdominal Exam GI & Abdominal Exam: Normal Bowel Sounds, Soft - Extremities Exam Extremities exam: Positive for: normal capillary refill, normal inspection - Back Exam Back exam: NORMAL INSPECTION - Neurological Exam Neurological exam: Alert Additional comments: oriented to self an place - Skin Skin Exam: Dry, Pallor - Additional Findings Additional findings: Palliative performance scale rating 50% Palliative Care Assessment - Modified MRC Dyspnea Scale Modified MRC Dyspnea Scale: Short of Breath when hurrying or walking up a slight hill Grade: 2 - Pain Scale Pain Score: 0 Pain Scale Used: Numeric - Jeovany Scale Sensory Perception: Slightly Limited Moisture: Occasionally Moist Activity: Walks Occasionally Mobility: Slightly Impaired Nutrition: Adequate Friction & Shear: Potential Problem Total Score - Skin Risk Assessment: 17 - Psychosocial Distress Patient screened for psychosocial distress: No Palliative Care - Goals Treatment Goal(s): Improve quality of life End of life care discussed: Yes End of life discussion: Patient has POLST. Benefits of CPR/intubation discussed. Patient verbalized understanding of this and wants to be Full Code. Her daughter Steffi is her health care POA. - Plan Interdisciplinary involved: Nurse, computer networker, pit manager ([place] resident) Assessment & Plan - Assessment and Plan (Free Text) Assessment: 73 year old female with history of COPD,HTN,DM who was admitted with hypoglycemia/hypotension which have since resolved Plan: Goals of care and advance care planning Sepsi: sams cultures negative, on Zosyn and Vancomycin DM; Fingersticks ACHS , R Insulin as ordered COPD: Duonebs,Solu Cortef DVT prpohylaxis Lovenox
[2018-09-15 13:11] LABS: BLOOD UREA NITROGEN 7 mg/dL (7-21); CALCIUM 6.7 mg/dL (8.4-10.5); GFR NON-AFRICAN AMERICAN > 60
--- NOTE | 2018-09-15 14:37 | CT ---
Date of service: 09/15/2018 PROCEDURE: CT Abdomen and Pelvis without intravenous contrast HISTORY: abd pain COMPARISON: None. TECHNIQUE: Without contrast.. Contrast dose: Radiation dose: Total exam DLP = 226.28 mGy-cm. This CT exam was performed using one or more of the following dose reduction techniques: Automated exposure control, adjustment of the mA and/or kV according to patient size, and/or use of iterative reconstruction technique. FINDINGS: LOWER THORAX: Small pleural effusions. Minimal atelectasis at both lung bases. LIVER: There is severe fatty infiltration of the liver and hepatomegaly. GALLBLADDER AND BILE DUCTS: Small gallstones PANCREAS: The pancreas is calcified and atrophic. SPLEEN: Unremarkable. ADRENALS: Unremarkable. No mass. KIDNEYS AND URETERS: Unremarkable. No hydronephrosis. No solid mass. VASCULATURE: Unremarkable. No aortic aneurysm. Aortic calcification BOWEL: Unremarkable. No obstruction. No gross mural thickening. APPENDIX: Unremarkable. Normal appendix. PERITONEUM: Unremarkable. No free fluid. No free air. LYMPH NODES: Unremarkable. No enlarged lymph nodes. BLADDER: Unremarkable. REPRODUCTIVE: Unremarkable. BONES: No acute fracture. OTHER FINDINGS: None. IMPRESSION: Severe fatty infiltration of the liver with hepatomegaly. Gallstones. Atrophy and calcification of the pancreas.
[2018-09-15] MEDS: Insulin Lispro (humaLOG) LOW Coverage SC SCH ×2 (17:29→22:02)
[2018-09-15] MEDS ORDERED: Insulin Detemir 100 units/ml Vial (Levemir) SC SCH (22:00)
--- NOTE | 2018-09-16 04:53 | CON ---
DATE: 09/15/2018 LOCATION: The patient seen in 128, bed 5. CHIEF COMPLAINT: Low blood sugar. HISTORY OF PRESENT ILLNESS: This is a 73-year-old female, a alf patient, with diabetes mellitus, hypertension, COPD, was admitted with low blood sugar and infectious disease consultation requested. The patient on admission had a low temperature of 92.5 and the patient was hypotensive, was placed on pressors. The patient does not , does not have any chest pain, shortness of breath, nausea, vomiting, abdominal pain, fever, or chills. PAST MEDICAL HISTORY: Significant for diabetes mellitus, hypertension, COPD. PAST SURGICAL HISTORY: Noncontributory. ALLERGIES: THE PATIENT HAS ALLERGY TO IODINE AND SHELLFISH. MEDICATIONS AT HOME: Reveals the patient to be on metformin, amlodipine, vitamin D. PHYSICAL EXAMINATION: VITAL SIGNS: The patient's temperature is 97, temperature was 92 on admission; respiratory rate of 26; heart rate of 99; blood pressure, on pressors, was as low as 86/40. HEENT: Unremarkable. NECK: Supple. LUNGS: Decreased breath sounds. HEART: Normal S1, S2. ABDOMEN: Soft, nontender. LABORATORY EXAMINATION: Reveals a white count of 12,200 and a hemoglobin of 10, platelets of 316. BUN of 7, creatinine of 0.7, calcium is 6.7, glucose . Procalcitonin 0.98. Urinalysis is noted. Serology is reviewed. Influenza is negative. Microbiology reveals the blood culture is negative. Urine culture is negative. Nares, MRSA is negative. CAT scan of the abdomen and pelvis, severe fatty infiltration of liver with hepatomegaly. Small gallstones in gallbladder. Lower thoraces, atelectasis. Ultrasound of the gallbladder is noted. CAT scan of the head is negative. Chest x-ray is negative. ASSESSMENT AND PLAN: A 73-year-old female, alf patient, with diabetes mellitus with chronic obstructive pulmonary disease, hypertension, diabetes, admitted with hypoglycemia, hypotension, septic shock. Probable GI is the source versus , although the urinalysis is unremarkable. We will continue the patient with Zosyn, and since the blood cultures are negative, methicillin-resistant Staphylococcus aureus screen is negative, we will discontinue the vancomycin. With negative blood cultures, negative urine cultures, normal urinalysis, becomes less likely. Concerned about GI, although the CAT scan is reported to be negative. We will continue Zosyn. The patient appears to be improving. Pancho Perez MD
[2018-09-16] MEDS: Piperacill/Tazo 4.5gm in NS 4.5 GM/100 ML BAG IVPB SCH ×3 (05:59→21:43)
--- NOTE | 2018-09-16 06:38 | CON ---
DATE: 09/15/2018 ENDOCRINOLOGY CONSULTATION LOCATION: ICU #128, Room #5. HISTORY OF PRESENT ILLNESS: This is a 73-year-old female with recent uncontrolled type 2 insulin-requiring diabetes who presented here with symptomatic hypoglycemia and glucose values of 20 mg/dL as per the random glucose done by the paramedics at the senior care and has now been admitted for further evaluation and management and also because she had an accidental fall and was found on the floor at the senior care facility and will be also undergoing neurological workup and management. PAST MEDICAL HISTORY: As mentioned above, history of type 2 insulin-requiring diabetes, on a combination of Lantus given as 20 units subcu at bedtime daily, with NovoLog given as 12 units b.i.d. with Janumet given as 50/500 once daily and metformin given as 500 mg b.i.d. at the senior care facility. History of hypertension and dyslipidemia, history of chronic obstructive lung disease with previous admissions for exacerbations of the same. FAMILY HISTORY: Positive for diabetes and hypertension. SOCIAL HISTORY: The patient has a significant history of nicotine dependence and smoked half a pack a day for over 50 years with chronic alcoholism also. She currently lives in the [facility] as noted, and is followed by her primary physician, Dr. Sebastien Almeida. REVIEW OF SYSTEMS: Admits to occasional bouts of dizziness and lightheadedness, worse in the last week or so prior to admission. Also admits to occasional bifrontal headaches and visual blurring as noted. No chest pains or palpitations or PNDs. Her oral intake has been variable with suboptimal meal portions and occasional dyspepsia. Also admits to habitual constipation. PHYSICAL EXAMINATION: GENERAL: This is an average-built female, in no apparent distress. VITAL SIGNS: Blood pressure initially of 90/60 and repeat levels of 140/80, pulse of 100 beats per minute, regular, temperature 98, respirations 20, height is 5 feet 4 inches, weight is 110 pounds. HEENT: Head normocephalic. Eyes anicteric with pink conjunctivae. Funduscopy not possible at this time. Ears, nose, and throat otherwise normal. NECK: Supple. Thyroid gland is normal in size. No carotid bruits or any cervical adenopathy. CARDIOPULMONARY: Some adynamic precordium. S1, S2 are rapid and regular. LUNGS: Clear to auscultation. ABDOMEN: Flat, soft with positive bowel sounds. EXTREMITIES: No peripheral edema. Pulses are +2 bilaterally. LABORATORY DATA: Her chemistries showed a BUN initially of 15, sodium 138, potassium 5.1, chloride 105, CO2 of 27, glucose 69, and creatinine 0.7. Her calcium level is 6.7 with an albumin level of 2.2 and corrected calcium of 8.5. Her TSH is 5.93 with a free T4 of 0.78. Her subsequent glucose levels today are elevated and ranging from 303-460 mg/dL. ASSESSMENT: This is a 73-year-old female with uncontrolled and decompensated type 2 insulin-requiring diabetes, now presenting here with symptomatic hypoglycemia and an apparent syncopal episode at the senior care facility and is now being referred for diabetic evaluation and management. At this time, she now has developed supervening hyperglycemic accelerations as noted thereof. PLAN OF MANAGEMENT: The patient has been kept n.p.o. pending the completion of the swallowing evaluation to be undertaken today as noted. She has also been placed on IV steroid therapy as noted with Solu-Cortef given as 50 mg IV every 12 hours with expected transient hyperglycemic elevations as noted thereof. We will continue the coverage scale using Humalog insulin with a medium dose algorithm as ordered every 4 hours at this time. We will also add basal insulin given as Levemir at 12 units subcu; we will also add Levemir given as 12 units subcu at bedtime daily to start tonight as ordered. We will titrate incrementally as indicated to optimize metabolic control. As her oral intake is advanced, then we can start her back on a more physiologic basal and bolus insulin drug combination and we will add Humalog insulin preprandially tomorrow as indicated. We will obtain serial chemistries and supplement accordingly as needed. We will also continue the IV hydration with normal saline infusion as discussed with the nursing staff thereof. We will obtain serial chemistries and supplement accordingly as needed. We will follow with you. Maida Altamirano MD
[2018-09-16 08:04] LABS: HEMOGLOBIN 8.7 g/dL (12.0-16.0); LYMPH # 2.1 (1.2-3.4); LYMPH % 15.9 % (22.0-35.0); MEAN CELL VOLUME 91.2 fl (80.0-105.0); MEAN CORPUSCULAR HGB CONC 35.1 g/dl (31.0-37.0); MEAN PLATELET VOLUME 9.2 fl (7.0-11.0); MONO # 0.3 (0.1-0.6); MONO % 2.2 % (1.0-6.0); RBC 2.72 10^6/uL (3.5-6.1); RED CELL DISTRIBUTION WIDTH 12.8 % (11.5-14.5); WHITE BLOOD COUNT 13.1 10^3/uL (4.5-11.0)
[2018-09-16] MEDS: Insulin Lispro (humaLOG) LOW Coverage SC SCH ×4 (08:18→22:03)
[2018-09-16 08:26] LABS: ALB/GLOB RATIO 0.8 (1.1-1.8); ALBUMIN 1.9 g/dL (3.0-4.8); ALT/SGPT 31 U/L (7-56); AST/SGOT 31 U/L (14-36); BLOOD UREA NITROGEN 7 mg/dL (7-21); GFR NON-AFRICAN AMERICAN > 60
[2018-09-16] MEDS: Enoxaparin 40 mg Syringe SC SCH (09:32)
--- NOTE | 2018-09-16 10:03 | CP.PCM.PN ---
Subjective - Date & Time of Evaluation Date of Evaluation: 09/16/18 Time of Evaluation: 10:02 - Subjective Subjective: PGY-[address] Altamirano, Lynda Pt resting comfortably in bed. She remembered what meds she is taking but does not remember what brought her to hospital. No acute complaints. tolerated meals Objective - Vital Signs/Intake and Output Vital Signs (last 24 hours): Temp Pulse Resp BP Pulse Ox 97.4 F L 74 18 91/45 L 100 09/16/18 06:00 09/16/18 06:00 09/16/18 06:00 09/16/18 06:00 09/16/18 06:00 Intake and Output: 09/16/18 09/16/18 06:59 18:59 Intake Total 3590 Output Total 1650 Balance 1940 - Medications Medications: Current Medications Albuterol/Ipratropium (Duoneb 3 Mg/0.5 Mg (3 Ml) Ud) 3 ml IH Q4H PRN PRN Reason: Shortness of Breath Dextrose (Dextrose 50% Inj) 0 ml IV STAT PRN; Protocol PRN Reason: Hypoglycemia Protocol Enoxaparin Sodium (Lovenox) 40 mg SC DAILY ALFREDO; Protocol Last Admin: 09/16/18 09:32 Dose: 40 mg Hydrocortisone Sodium Succinate (Solu-Cortef) 50 mg IVP DAILY ALFREDO Last Admin: 09/16/18 09:32 Dose: 50 mg Piperacillin Sod/Tazobactam Sod (Zosyn 4.5 Gm In Ns 100ml) 4.5 gm in 100 mls @ 25 mls/hr IVPB Q8 ALFREDO; Protocol Stop: 09/24/18 06:01 Last Admin: 09/16/18 05:59 Dose: 25 mls/hr Sodium Chloride (Sodium Chloride 0.9%) 1,000 mls @ 100 mls/hr IV .Q10H ALFREDO Last Admin: 09/15/18 09:45 Dose: 100 mls/hr Insulin Detemir (Levemir) 12 unit SC HS ALFREDO Last Admin: 09/15/18 22:09 Dose: Not Given Insulin Human Lispro (Humalog Low) 0 units SC ACHS ALFREDO; Protocol Last Admin: 09/16/18 08:18 Dose: Not Given Pantoprazole Sodium (Protonix Inj) 40 mg IVP DAILY ALFREDO Last Admin: 09/16/18 09:32 Dose: 40 mg - Labs Labs: 09/16/18 05:00 09/16/18 07:30 PT 12.1 SECONDS (9.4-12.5) 09/14/18 03:34 INR 1.09 09/14/18 03:34 APTT 34.5 Seconds (26.9-38.3) 09/14/18 03:34 - Constitutional Appears: No Acute Distress - Head Exam Head Exam: ATRAUMATIC, NORMAL INSPECTION, NORMOCEPHALIC - Eye Exam Eye Exam: EOMI, Normal appearance, PERRL. absent: Scleral icterus Pupil Exam: NORMAL ACCOMODATION - ENT Exam ENT Exam: Mucous Membranes Moist - Neck Exam Additional comments: supple - Respiratory Exam Respiratory Exam: Clear to Ausculation Bilateral, NORMAL BREATHING PATTERN. absent: Rales, Rhonchi, Wheezes - Cardiovascular Exam Cardiovascular Exam: REGULAR RHYTHM, +S1, +S2 - GI/Abdominal Exam GI & Abdominal Exam: Soft, Normal Bowel Sounds. absent: Guarding, Rigid, Tenderness - Extremities Exam Extremities Exam: absent: Calf Tenderness, Pedal Edema - Back Exam Back Exam: CVA tenderness (L), CVA tenderness (R) - Neurological Exam Neurological Exam: Alert, Awake, CN II-XII Intact Neuro motor strength exam: Left Upper Extremity: 5, Right Upper Extremity: 5, Left Lower Extremity: 5, Right Lower Extremity: 5 - Psychiatric Exam Psychiatric exam: Normal Affect, Normal Mood - Skin Skin Exam: Dry, Warm Assessment and Plan - Assessment and Plan (Free Text) Plan: Ms Hernandez, 73F, with PMHx uncontrolled IDDM-2, COPD was admitted for fall likely from syncope and symptpmatic hypoglycemia [facility] [address]. She was found to be in septic shock on zosyn, NS@100, solucortef. CT A/P negative, pending cultures Supervening hyperglycemic acceleation due to IV solucortef 50 IVq12 yesterday, tapering to daily today - Start mechanical chopped diet last night - Levemir 12 HS, ISSS-med starting at BS300 - Pending Hb a1c - (Home: Metformin 500 BID, Januvia 100 daily, Aspart 12 BID, Glargine 20 HS) Calcium 6.9, albumin 1.9, corrected Ca 9 - No need for Ca supplement for now, continue to trend labs TSH 5.93, Free T4 0.78, likely sick euthyroid s/r/d/w Dr Altamirano
--- NOTE | 2018-09-16 13:18 | PN ---
DATE: 09/16/2018 SUBJECTIVE: The patient is in bed, in no acute distress, was seen this morning. She is eating breakfast, doing well, in 577, bed 1. No fevers, no chills. PHYSICAL EXAMINATION: VITAL SIGNS: Temperature is 98, blood pressure is 100/40, respiratory rate of 18, heart rate of 104. HEENT: Unremarkable. NECK: Supple. LUNGS: Have decreased breath sounds. HEART: Normal S1, S2. ABDOMEN: Soft, nontender. LABORATORY DATA: Laboratory examination reveals a white count of 12,200, is up to 13,100 today, hemoglobin of 8, platelets of 284. Chemistries reveals a BUN of 7, creatinine of 0.7, and procalcitonin 0.98. Influenza is negative and naris' MRSA is not detected. Blood cultures are negative. Urine cultures are negative.. ASSESSMENT AND PLAN: This is a 73-year-old female, senior living patient, with diabetes, hypertension, chronic obstructive lung disease, admitted with low blood sugar and had a temperature of 92, hypothermia and hypotensive requiring pressors. The patient with chronic obstructive lung disease, hypertension, diabetes and septic shock with negative CT scan of the day of abdomen and pelvis and negative blood cultures, negative MRSA screen, negative urine cultures, source of this septic shock is not entirely clear. With negative cultures did have a positive procalcitonin, although the chest x-ray is reported to be negative and a CT scan of the abdomen and pelvis is negative and lower thorax, small effusion, minimal atelectasis at the bases with cultures are negative. We will discontinue the Zosyn within the next 24 hours. The patient is also on Solu-Cortef. Appears to be improving. Would complete a short course of antibiotics, may switch to p.o. antibiotics. Pancho Perez MD
--- NOTE | 2018-09-16 13:31 | CP.PCM.PN ---
<Colton Still - Last Filed: 09/16/18 13:27> Subjective - Date & Time of Evaluation Date of Evaluation: 09/16/18 Time of Evaluation: 13:28 - Subjective Subjective: Medicine Progress Note for Dr. Roche Patient seen and examined at bedside. No acute overnight events. Patient offers no complaints. Patient is OOB to chair and tolerating diet well. Objective - Vital Signs/Intake and Output Vital Signs (last 24 hours): Temp Pulse Resp BP Pulse Ox 97.4 F L 74 18 91/45 L 100 09/16/18 06:00 09/16/18 06:00 09/16/18 06:00 09/16/18 06:00 09/16/18 06:00 Intake and Output: 09/16/18 09/16/18 06:59 18:59 Intake Total 3590 Output Total 1650 Balance 1940 - Medications Medications: Current Medications Albuterol/Ipratropium (Duoneb 3 Mg/0.5 Mg (3 Ml) Ud) 3 ml IH Q4H PRN PRN Reason: Shortness of Breath Dextrose (Dextrose 50% Inj) 0 ml IV STAT PRN; Protocol PRN Reason: Hypoglycemia Protocol Enoxaparin Sodium (Lovenox) 40 mg SC DAILY [facility]; Protocol Last Admin: 09/16/18 09:32 Dose: 40 mg Piperacillin Sod/Tazobactam Sod (Zosyn 4.5 Gm In Ns 100ml) 4.5 gm in 100 mls @ 25 mls/hr IVPB Q8 [facility]; Protocol Stop: 09/24/18 06:01 Last Admin: 09/16/18 05:59 Dose: 25 mls/hr Sodium Chloride (Sodium Chloride 0.9%) 1,000 mls @ 100 mls/hr IV .Q10H [facility] Last Admin: 09/15/18 09:45 Dose: 100 mls/hr Insulin Detemir (Levemir) 12 unit SC HS [facility] Last Admin: 09/15/18 22:09 Dose: Not Given Insulin Human Lispro (Humalog Low) 0 units SC ACHS [facility]; Protocol Last Admin: 09/16/18 11:48 Dose: 2 u Pantoprazole Sodium (Protonix Inj) 40 mg IVP DAILY [facility] Last Admin: 09/16/18 09:32 Dose: 40 mg - Labs Labs: 09/16/18 05:00 05/03/19 07:30 PT 12.1 SECONDS (9.4-12.5) 09/14/18 03:34 INR 1.09 09/14/18 03:34 APTT 34.5 Seconds (26.9-38.3) 09/14/18 03:34 - Constitutional Appears: No Acute Distress - Head Exam Head Exam: NORMAL INSPECTION - Eye Exam Eye Exam: Normal appearance - ENT Exam ENT Exam: Mucous Membranes Moist, Normal Exam - Neck Exam Neck Exam: Normal Inspection - Respiratory Exam Respiratory Exam: Clear to Ausculation Bilateral. absent: Rales, Rhonchi, Wheezes - Cardiovascular Exam Cardiovascular Exam: RRR, +S1, +S2. absent: Gallop, Rubs, Murmur - GI/Abdominal Exam GI & Abdominal Exam: Soft. absent: Distended, Guarding, Tenderness, Rebound - Extremities Exam Extremities Exam: Normal Inspection - Back Exam Back Exam: NORMAL INSPECTION - Neurological Exam Neurological Exam: Alert, Awake, Oriented x3 - Psychiatric Exam Psychiatric exam: Normal Affect, Normal Mood - Skin Skin Exam: Normal Color, Warm Assessment and Plan - Assessment and Plan (Free Text) Assessment: Patient is a 73 year old female with a past medical history includes diabetes, COPD, and hypertension, presenting with hypoglycemia. Patient will be admitted to the ICU for hypoglycemia and shock. Patient was hemodynamically stabilized in the ICU and transferred to floor. Will monitor patient overnight and plan to transfer back to [facility] tomorrow if clinically stable overnight. Plan: Shock, likely sepsis; resolved - No clear source thus far, possibly adrenal insufficiency - Hypothermia resolved - D/c IVF and solu-cortef - Blood and urine cultures negative - Flu negative - CXR negative - UA: negative - RUQ US showed cholelithiasis - CT abd/pelvis showed fatty liver and cholelithiasis - Cont Zosyn - ID consulted Insulin Dependent Diabetes Mellitus - Hypoglycemia resolved - Levemir 12 units HS - ISS - Accuchecks - Endo consulted Dehydration, resolved - D/C IVF COPD - Duoneb Q4 PRN for SOB H/o HTN - Holding all antihypertensives due to hypotension Prophylaxis: - DVT: Lovenox 40mg SC - GI: Protonix 40mg IVP QD Patient seen and discussed in detail with Dr. Roche. Cristian Still, DO PGY2 <Alida Roche - Last Filed: 09/17/18 15:37> Objective - Vital Signs/Intake and Output Vital Signs (last 24 hours): Temp Pulse Resp BP Pulse Ox 97.6 F 77 16 92/49 L 100 09/17/18 06:00 09/17/18 06:00 09/17/18 06:00 09/17/18 06:00 09/17/18 09:42 Intake and Output: 09/17/18 09/17/18 06:59 18:59 Intake Total 480 720 Balance 480 720 - Medications Medications: Current Medications Albuterol/Ipratropium (Duoneb 3 Mg/0.5 Mg (3 Ml) Ud) 3 ml IH Q4H PRN PRN Reason: Shortness of Breath Dextrose (Dextrose 50% Inj) 0 ml IV STAT PRN; Protocol PRN Reason: Hypoglycemia Protocol Last Admin: 09/17/18 06:58 Dose: 50 ml Enoxaparin Sodium (Lovenox) 40 mg SC DAILY [facility]; Protocol Last Admin: 09/17/18 11:03 Dose: 40 mg Piperacillin Sod/Tazobactam Sod (Zosyn 4.5 Gm In Ns 100ml) 4.5 gm in 100 mls @ 25 mls/hr IVPB Q8 [facility]; Protocol Stop: 09/24/18 06:01 Last Admin: 09/17/18 14:07 Dose: 25 mls/hr Insulin Detemir (Levemir) 12 unit SC HS [facility] Insulin Human Lispro (Humalog Low) 0 units SC ACHS [facility]; Protocol Last Admin: 09/17/18 11:47 Dose: Not Given Insulin Human Lispro (Humalog) 3 units SC AC [facility] Last Admin: 09/17/18 12:16 Dose: 3 units Pantoprazole Sodium (Protonix Susp) 40 mg PO 0600 [facility] Last Admin: 09/17/18 11:03 Dose: 40 mg - Labs Labs: 09/17/18 07:00 09/17/18 07:00 PT 12.1 SECONDS (9.4-12.5) 09/14/18 03:34 INR 1.09 09/14/18 03:34 APTT 34.5 Seconds (26.9-38.3) 09/14/18 03:34 Attending/Attestation - Attestation I have personally seen and examined this patient.: Yes I have fully participated in the care of the patient.: Yes I have reviewed all pertinent clinical information, including history, physical exam and plan: Yes Notes (Text): 09/17/18 15:37 Medical record note made by the resident after discussion with my direction and input after the patient was personally seen and examined by me. I have reviewed the chart and agree that the record accurately reflects by personal performance of the history, physical exam, data review, and medical decision-making, in the course for the patient. I have also personally directed the plan of care.
[2018-09-16 14:32] LABS: CALCIUM 6.9 mg/dL (8.4-10.5)
[2018-09-16] MEDS: Insulin Lispro 1 UNITS/0.01 ML SC SCH (16:52)
--- NOTE | 2018-09-16 17:18 | PN ---
DATE: 09/16/2018 ENDO FOLLOWUP NOTE SUBJECTIVE: She was transferred now to room 577. This is a 73-year-old female with recent uncontrolled type 2 insulin-requiring diabetes, presenting here with symptomatic hypoglycemia and also an accidental fall and also a syncopal episode [facility] and is now being followed closely for metabolic management. She was also found to be in septic shock and was started on IV steroid therapy as noted. Her glycemic levels overnight have ranged from 133, 276 and 338 mg/dL. Her chemistry showed a BUN of 7, sodium 135, potassium 4.6, chloride 112, CO2 of 22, glucose 128 and creatinine 0.7. ASSESSMENT: This is a 73-year-old female with uncontrolled and decompensated type 2 insulin-requiring diabetes and is now being followed closely for metabolic management. She presented here with a syncopal episode and sustained an accidental fall related to symptomatic hypoglycemia as noted thereof. PLAN OF MANAGEMENT: We will wean add prandial insulin given as 6 units t.i.d. with meals as ordered. We will continue the low-dose correction scale using Humalog insulin to obviate hypoglycemia and detailed orders have been given. We will also increase her basal insulin with Levemir to be given as 14 units subcu at bedtime daily to start tonight. We will titrate incrementally as indicated to optimize metabolic control. We will obtain serial chemistries and supplement accordingly as needed. We will also continue the IV hydration as given. We will follow. Maida Altamirano MD
[2018-09-16] MEDS ORDERED: Insulin Lispro 1 UNITS/0.01 ML SC ONE (18:10)
[2018-09-16] MEDS ORDERED: Insulin Detemir 100 units/ml Vial (Levemir) SC SCH (22:00)
[2018-09-17] MEDS: Dextrose 50% SYRINGE Inj (50 ml) IV PRN (06:58)
[2018-09-17 07:33] LABS: HEMOGLOBIN 9.7 g/dL (12.0-16.0); LYMPH # 4.3 (1.2-3.4); LYMPH % 31.2 % (22.0-35.0); MEAN CELL VOLUME 92.1 fl (80.0-105.0); MEAN CORPUSCULAR HEMOGLOBIN 31.9 pg (25.0-35.0); MEAN CORPUSCULAR HGB CONC 34.6 g/dl (31.0-37.0); MEAN PLATELET VOLUME 9.2 fl (7.0-11.0); MONO # 0.4 (0.1-0.6); MONO % 3.1 % (1.0-6.0); RBC 3.04 10^6/uL (3.5-6.1); RED CELL DISTRIBUTION WIDTH 12.9 % (11.5-14.5); WHITE BLOOD COUNT 13.9 10^3/uL (4.5-11.0)
[2018-09-17 08:16] LABS: BLOOD UREA NITROGEN 9 mg/dL (7-21); CALCIUM 7.2 mg/dL (8.4-10.5); GFR NON-AFRICAN AMERICAN > 60
[2018-09-17 08:17] LABS: ALB/GLOB RATIO 0.8 (1.1-1.8); ALT/SGPT 34 U/L (7-56); AST/SGOT 32 U/L (14-36)
[2018-09-17] MEDS: Insulin Lispro (humaLOG) LOW Coverage SC SCH ×4 (08:21→22:10)
[2018-09-17] MEDS: Insulin Lispro 1 UNITS/0.01 ML SC SCH ×3 (08:21→16:11)
[2018-09-17] MEDS ORDERED: Insulin Detemir 100 units/ml Vial (Levemir) SC SCH (09:45)
[2018-09-17] MEDS: Enoxaparin 40 mg Syringe SC SCH (11:03)
[2018-09-17] MEDS: Pantoprazole 40 mg Susp UD PO SCH (11:03)
--- NOTE | 2018-09-17 13:24 | PN ---
DATE: 09/17/2018 ENDOCRINOLOGY FOLLOWUP NOTE LOCATION: Room 577 SUBJECTIVE: This is a 73-year-old female presenting here with symptomatic hypoglycemia from [facility] and is now being followed closely for metabolic management. She has had extremes of glycemic fluctuations with marked hyperglycemic accelerations all day yesterday and glucose levels ranging from 411 to 464 and 496 mg/dl. It was 411 at bedtime last night and early this morning was less than 20 mg/dl. Her latest glucose now is 134 mg/dl. LABORATORY DATA: Her chemistry showed a BUN of 9, sodium 138, potassium 3.5, chloride 112, CO2 of 21, glucose 105 and creatinine 0.9. ASSESSMENT AND PLAN: So at this time, we will modify once again her basal and bolus insulin regimen also because of the variability of her oral intake as noted. Humalog was lowered to 3 units subcu t.i.d. before meals as ordered. We will continue the low-dose correction scale using Humalog insulin as given. Concur also with the lowering of the basal insulin with Levemir to be given as 12 units subcu at bedtime daily. We will observe her glycemic fluctuations thereof and adjust her dose regimen accordingly. We will obtain serial chemistries and supplement accordingly needed. We will follow. Maida Altamirano MD
--- NOTE | 2018-09-17 13:54 | CP.PCM.PN ---
<Dany De - Last Filed: 09/17/18 13:51> Subjective - Date & Time of Evaluation Date of Evaluation: 09/17/18 Time of Evaluation: 08:00 - Subjective Subjective: Dany De PGY1 Medicine Progress Note for Dr. Roche Patient seen at bedside. Vital signs stable overnight. Overnight, patient was hypoglycemic with blood sugars <20. She was given a total of 30 unit of insulin overnight, which is higher than she normally is on. This morning, patient is AAOx3. She denies cp, sob, n/v/d. A full 12 point ROS was conducted and unremarkable except as stated above. Objective - Vital Signs/Intake and Output Vital Signs (last 24 hours): Temp Pulse Resp BP Pulse Ox 97.6 F 77 16 92/49 L 100 09/17/18 06:00 09/17/18 06:00 09/17/18 06:00 09/17/18 06:00 09/17/18 09:42 Intake and Output: 09/17/18 09/17/18 06:59 18:59 Intake Total 480 720 Balance 480 720 - Medications Medications: Current Medications Albuterol/Ipratropium (Duoneb 3 Mg/0.5 Mg (3 Ml) Ud) 3 ml IH Q4H PRN PRN Reason: Shortness of Breath Dextrose (Dextrose 50% Inj) 0 ml IV STAT PRN; Protocol PRN Reason: Hypoglycemia Protocol Last Admin: 09/17/18 06:58 Dose: 50 ml Enoxaparin Sodium (Lovenox) 40 mg SC DAILY [facility]; Protocol Last Admin: 09/17/18 11:03 Dose: 40 mg Piperacillin Sod/Tazobactam Sod (Zosyn 4.5 Gm In Ns 100ml) 4.5 gm in 100 mls @ 25 mls/hr IVPB Q8 [facility]; Protocol Stop: 09/24/18 06:01 Last Admin: 09/16/18 21:43 Dose: 25 mls/hr Insulin Detemir (Levemir) 12 unit SC HS [facility] Insulin Human Lispro (Humalog Low) 0 units SC ACHS [facility]; Protocol Last Admin: 09/17/18 11:47 Dose: Not Given Insulin Human Lispro (Humalog) 3 units SC AC [facility] Last Admin: 09/17/18 12:16 Dose: 3 units Pantoprazole Sodium (Protonix Susp) 40 mg PO 0600 [facility] Last Admin: 09/17/18 11:03 Dose: 40 mg - Labs Labs: 09/17/18 07:00 09/17/18 07:00 PT 12.1 SECONDS (9.4-12.5) 09/14/18 03:34 INR 1.09 09/14/18 03:34 APTT 34.5 Seconds (26.9-38.3) 09/14/18 03:34 - Constitutional Appears: No Acute Distress - Head Exam Head Exam: NORMAL INSPECTION - Eye Exam Eye Exam: Normal appearance - ENT Exam ENT Exam: Mucous Membranes Moist, Normal Exam - Neck Exam Neck Exam: Normal Inspection - Respiratory Exam Respiratory Exam: Clear to Ausculation Bilateral. absent: Rales, Rhonchi, Wheezes - Cardiovascular Exam Cardiovascular Exam: RRR, +S1, +S2. absent: Gallop, Rubs, Murmur - GI/Abdominal Exam GI & Abdominal Exam: Soft. absent: Distended, Guarding, Tenderness, Rebound - Extremities Exam Extremities Exam: Normal Inspection - Back Exam Back Exam: NORMAL INSPECTION - Neurological Exam Neurological Exam: Alert, Awake, Oriented x3 - Psychiatric Exam Psychiatric exam: Normal Affect, Normal Mood - Skin Skin Exam: Normal Color, Warm Assessment and Plan - Assessment and Plan (Free Text) Assessment: Patient is a 73 year old female with a past medical history includes diabetes, COPD, and hypertension, presenting with hypoglycemia. Patient was admitted to the ICU for hypoglycemia and shock, likely sepsis with no clear source. Patient was hemodynamically stabilized in the ICU and transferred to floor. Plan is to transfer patient back to [facility]. Plan: Shock, likely sepsis - resolved - No clear source thus far since blood cx and urine cx has been negative. Consider adrenal insufficiency. - Hypothermia resolved. Patient is off IVF. - c/w zosyn - Flu negative - CXR negative - UA: negative - RUQ US showed cholelithiasis - CT abd/pelvis showed fatty liver and cholelithiasis - ID consulted Episode of Hypoglycemia with Hx Insulin Dependent Diabetes Mellitus - Hypoglycemia overnight (sugars <20) due to excess insulin administration. Adjusted insulin this morning, will f/u endo recs. - Decreased Levemir to 12 units HS - Decreased Lispro to 3 units AC - ISS (low) - Accuchecks - Endo on consult (Dr. Cam). Recs appreciated. COPD - c/w Duonebs Q4 PRN for SOB HTN - Holding all antihypertensives due to hypotension Prophylaxis: - DVT: Lovenox 40mg SC - GI: Protonix 40mg IVP QD Dispo: Patient was hypoglycemic overnight. Insulin medication was adjusted. Given that patient was hypoglycemic, will monitor overnight to see if blood sugars are improved. Pending discharge back to [facility]. Case was discussed and reviewed with Attending Physician, Dr. Roche. <Alida Roche - Last Filed: 09/17/18 15:37> Objective - Vital Signs/Intake and Output Vital Signs (last 24 hours): Temp Pulse Resp BP Pulse Ox 97.6 F 77 16 92/49 L 100 09/17/18 06:00 09/17/18 06:00 09/17/18 06:00 09/17/18 06:00 09/17/18 09:42 Intake and Output: 09/17/18 09/17/18 06:59 18:59 Intake Total 480 720 Balance 480 720 - Medications Medications: Current Medications Albuterol/Ipratropium (Duoneb 3 Mg/0.5 Mg (3 Ml) Ud) 3 ml IH Q4H PRN PRN Reason: Shortness of Breath Dextrose (Dextrose 50% Inj) 0 ml IV STAT PRN; Protocol PRN Reason: Hypoglycemia Protocol Last Admin: 09/17/18 06:58 Dose: 50 ml Enoxaparin Sodium (Lovenox) 40 mg SC DAILY [facility]; Protocol Last Admin: 09/17/18 11:03 Dose: 40 mg Piperacillin Sod/Tazobactam Sod (Zosyn 4.5 Gm In Ns 100ml) 4.5 gm in 100 mls @ 25 mls/hr IVPB Q8 [facility]; Protocol Stop: 09/24/18 06:01 Last Admin: 09/17/18 14:07 Dose: 25 mls/hr Insulin Detemir (Levemir) 12 unit SC HS [facility] Insulin Human Lispro (Humalog Low) 0 units SC ACHS [facility]; Protocol Last Admin: 09/17/18 11:47 Dose: Not Given Insulin Human Lispro (Humalog) 3 units SC AC [facility] Last Admin: 09/17/18 12:16 Dose: 3 units Pantoprazole Sodium (Protonix Susp) 40 mg PO 0600 [facility] Last Admin: 09/17/18 11:03 Dose: 40 mg - Labs Labs: 09/17/18 07:00 09/17/18 07:00 PT 12.1 SECONDS (9.4-12.5) 09/14/18 03:34 INR 1.09 09/14/18 03:34 APTT 34.5 Seconds (26.9-38.3) 09/14/18 03:34 Attending/Attestation - Attestation I have personally seen and examined this patient.: Yes I have fully participated in the care of the patient.: Yes I have reviewed all pertinent clinical information, including history, physical exam and plan: Yes Notes (Text): 09/17/18 15:30 Patient was seen and examined with medical front desk specialist. 73 year old female with a past medical history includes diabetes, COPD, and hypertension, was dmitted with change of menatl status, severe hypoglycemia and hypotension likely due to sepsis and dehydration.. Patient was admitted to the ICU and was treated with IV fluid, broad spectrum antibiotics and was also on pressors.Patient was also given IV steroid in ICU.Patient responded well to therapy, hypoglycemia was resolved.Blood pressure improved and patient was transferred to medical floor.Etiology of sepsis is unkown, cultures remain negative.Chest X ray, UA, Abdominal USG and CT of abdomen and pelvis was negative for any possible etiology. Patient is currently on IV zosyn as per ID. Patient had episode of hypoglycemia today due to increase insulin.Patient has brittle DM.We will monitor blood sugars and adjust medication. Management plan was discussed in detail with patient. Education was provided. 09/17/18 15:34
[2018-09-17] MEDS: Piperacill/Tazo 4.5gm in NS 4.5 GM/100 ML BAG IVPB SCH ×2 (14:07→22:11)
--- NOTE | 2018-09-18 01:28 | PN ---
DATE: 09/17/2018 SUBJECTIVE: The patient is in bed in no acute distress. OBJECTIVE: VITAL SIGNS: On exam; temperature is 98, blood pressure is 92/40, respiratory rate of 18. HEENT: Unremarkable. NECK: Supple. LUNGS: Have decreased breath sounds. HEART: Normal S1, S2. ABDOMEN:: Soft. LABORATORY EXAMINATION: Reveals a white count 13,900, hemoglobin of 9, platelets of 291. Chemistries are noted. Procalcitonin 0.98. Urinalysis is noted. Serology is noted. Blood cultures and naris cultures are negative. ASSESSMENT AND PLAN: This is a 73-year-old female, fdc patient, diabetes, hypertension, chronic obstructive lung disease, admitted with a low blood sugar and temperature of 92, hypothermia, hypotensive, requiring pressors and chronic obstructive lung disease, hypertension, diabetes and septic shock with negative CT scan of the abdomen and pelvis, negative cultures, negative MRSA screen, negative urine culture; cirrhosis, septic shock not entirely clear. She did have a positive procalcitonin, on Zosyn, appears to be improving. We will be discontinuing the antibiotics within the next 24 hours. Pancho Perez MD
[2018-09-18] MEDS: Pantoprazole 40 mg Susp UD PO SCH (05:43)
[2018-09-18] MEDS: Piperacill/Tazo 4.5gm in NS 4.5 GM/100 ML BAG IVPB SCH ×2 (05:43→13:57)
[2018-09-18 07:40] LABS: HEMOGLOBIN 9.3 g/dL (12.0-16.0); MEAN CELL VOLUME 90.4 fl (80.0-105.0); MEAN CORPUSCULAR HEMOGLOBIN 31.7 pg (25.0-35.0); MEAN CORPUSCULAR HGB CONC 35.1 g/dl (31.0-37.0); MEAN PLATELET VOLUME 9.1 fl (7.0-11.0); RBC 2.93 10^6/uL (3.5-6.1); RED CELL DISTRIBUTION WIDTH 12.7 % (11.5-14.5); WHITE BLOOD COUNT 9.4 10^3/uL (4.5-11.0)
[2018-09-18] MEDS: Insulin Lispro (humaLOG) LOW Coverage SC SCH ×4 (08:11→22:06)
[2018-09-18 08:16] LABS: ALB/GLOB RATIO 0.8 (1.1-1.8); ALBUMIN 1.8 g/dL (3.0-4.8); ALT/SGPT 34 U/L (7-56); AST/SGOT 32 U/L (14-36); BLOOD UREA NITROGEN 8 mg/dL (7-21); GFR NON-AFRICAN AMERICAN > 60
[2018-09-18] MEDS: Enoxaparin 40 mg Syringe SC SCH (10:10)
--- NOTE | 2018-09-18 12:07 | PN ---
DATE: 09/18/2018 ENDOCRINOLOGY FOLLOWUP NOTE SUBJECTIVE: This is a 73-year-old female with recent uncontrolled type 2 insulin-requiring diabetes, presenting here with symptomatic hypoglycemia and an apparent syncopal episode and is now being followed closely for metabolic management. Once again, her oral intake is quite variable with suboptimal meal portions as noted. Her glycemic levels are fluctuating but improved, and the glucose values overnight have ranged from 144-159 and 193 mg/dL. Her chemistries showed a BUN of 8, sodium 137, potassium 4.1, chloride 112, CO2 25, glucose 126 and creatinine 0.8. ASSESSMENT This is a 73-year-old female with uncontrolled and decompensated type 2 insulin-requiring diabetes, presenting here with symptomatic hypoglycemia and associated neuroglycopenic and hyperadrenergic manifestations with a brief bout of unresponsiveness and a syncopal episode thereof. PLAN OF MANAGEMENT: We will discontinue all the basal and bolus insulin regimen as given at the intermediate facility and switch her over to oral hypoglycemic drug therapy, and we will titrate incrementally as indicated to optimize metabolic control. We will continue the Amaryl given as 2 mg b.i.d. before breakfast and dinner as ordered. We will also continue the low-dose correction scale using Humalog insulin as given. We will obtain serial chemistries and supplement accordingly as needed. We will follow. Maida Altamirano MD
--- NOTE | 2018-09-18 14:11 | CP.PCM.PN ---
<Dany De - Last Filed: 09/18/18 14:01> Subjective - Date & Time of Evaluation Date of Evaluation: 09/18/18 Time of Evaluation: 08:00 - Subjective Subjective: Dany De PGY1 Medicine Progress Note for Dr. Roche Patient seen at bedside. Vital signs stable overnight. Blood sugars were 90-159 overnight. This morning, patient is AAOx3. She denies cp, sob, n/v/d. A full 12 point ROS was conducted and unremarkable except as stated above. Objective - Vital Signs/Intake and Output Vital Signs (last 24 hours): Temp Pulse Resp BP Pulse Ox 98 F 72 20 115/64 100 09/18/18 06:00 09/18/18 06:00 09/18/18 06:00 09/18/18 06:00 09/18/18 06:00 Intake and Output: 09/18/18 09/18/18 06:59 18:59 Intake Total 900 Balance 900 - Medications Medications: Current Medications Albuterol/Ipratropium (Duoneb 3 Mg/0.5 Mg (3 Ml) Ud) 3 ml IH Q4H PRN PRN Reason: Shortness of Breath Dextrose (Dextrose 50% Inj) 0 ml IV STAT PRN; Protocol PRN Reason: Hypoglycemia Protocol Last Admin: 09/17/18 06:58 Dose: 50 ml Enoxaparin Sodium (Lovenox) 40 mg SC DAILY [facility]; Protocol Last Admin: 09/18/18 10:10 Dose: 40 mg Glimepiride (Amaryl) 2 mg PO ACBD [facility] Last Admin: 09/18/18 10:10 Dose: 2 mg Piperacillin Sod/Tazobactam Sod (Zosyn 4.5 Gm In Ns 100ml) 4.5 gm in 100 mls @ 25 mls/hr IVPB Q8 [facility]; Protocol Stop: 09/24/18 06:01 Last Admin: 09/18/18 13:57 Dose: 25 mls/hr Insulin Human Lispro (Humalog Low) 0 units SC ACHS [facility]; Protocol Last Admin: 09/18/18 11:43 Dose: Not Given Pantoprazole Sodium (Protonix Susp) 40 mg PO 0600 [facility] Last Admin: 09/18/18 05:43 Dose: 40 mg - Labs Labs: 09/18/18 06:30 09/18/18 06:30 PT 12.1 SECONDS (9.4-12.5) 09/14/18 03:34 INR 1.09 09/14/18 03:34 APTT 34.5 Seconds (26.9-38.3) 09/14/18 03:34 - Constitutional Appears: No Acute Distress - Head Exam Head Exam: NORMAL INSPECTION - Eye Exam Eye Exam: Normal appearance - ENT Exam ENT Exam: Mucous Membranes Moist, Normal Exam - Neck Exam Neck Exam: Normal Inspection - Respiratory Exam Respiratory Exam: Clear to Ausculation Bilateral. absent: Rales, Rhonchi, Wheezes - Cardiovascular Exam Cardiovascular Exam: RRR, +S1, +S2. absent: Gallop, Rubs, Murmur - GI/Abdominal Exam GI & Abdominal Exam: Soft. absent: Distended, Guarding, Tenderness, Rebound - Extremities Exam Extremities Exam: Normal Inspection - Back Exam Back Exam: NORMAL INSPECTION - Neurological Exam Neurological Exam: Alert, Awake, Oriented x3 - Psychiatric Exam Psychiatric exam: Normal Affect, Normal Mood - Skin Skin Exam: Normal Color, Warm Assessment and Plan - Assessment and Plan (Free Text) Assessment: Patient is a 73 year old female with a past medical history includes diabetes, COPD, and hypertension, presenting with hypoglycemia. Patient was admitted to the ICU for hypoglycemia and shock, likely sepsis with no clear source. Patient was hemodynamically stabilized in the ICU and transferred to floor. Plan is to transfer patient back to [facility]. Plan: Shock, likely sepsis and dehydration - resolved - No clear source thus far since pancx has been negative. - Hypothermia resolved. Patient is off IVF. - c/w zosyn as per ID recs. Consider discontinuation of antibiotics given pancx is negative. - Flu negative - CXR negative - UA: negative - RUQ US showed cholelithiasis - CT abd/pelvis showed fatty liver and cholelithiasis - ID consulted. Recs appreciated. Episode of Hypoglycemia with Hx Insulin Dependent Diabetes Mellitus - Endo adjusted meds to Glimepiride 2mg PO ACBD - Blood sugars improving - Episode of Hypoglycemia overnight (sugars <20) due to excess insulin administration - Endo on consult (Dr. Altamirano). Recs appreciated. - ISS (low) - Accuchecks COPD - c/w Duonebs Q4 PRN for SOB HTN - Holding all antihypertensives due to hypotension Prophylaxis: - DVT: Lovenox 40mg SC - GI: Protonix 40mg PO Dispo: Patient is being monitored on med/surg at this time. Anticipate discharge to [facility] tomorrow. Case was discussed and reviewed with Attending Physician, Dr. Roche. <Alida Roche - Last Filed: 09/18/18 15:03> Objective - Vital Signs/Intake and Output Vital Signs (last 24 hours): Temp Pulse Resp BP Pulse Ox 98.4 F 71 19 105/60 99 09/18/18 14:00 09/18/18 14:00 09/18/18 14:00 09/18/18 14:00 09/18/18 14:00 Intake and Output: 09/18/18 09/18/18 06:59 18:59 Intake Total 900 420 Balance 900 420 - Medications Medications: Current Medications Albuterol/Ipratropium (Duoneb 3 Mg/0.5 Mg (3 Ml) Ud) 3 ml IH Q4H PRN PRN Reason: Shortness of Breath Dextrose (Dextrose 50% Inj) 0 ml IV STAT PRN; Protocol PRN Reason: Hypoglycemia Protocol Last Admin: 09/17/18 06:58 Dose: 50 ml Enoxaparin Sodium (Lovenox) 40 mg SC DAILY [facility]; Protocol Last Admin: 09/18/18 10:10 Dose: 40 mg Glimepiride (Amaryl) 2 mg PO ACBD [facility] Last Admin: 09/18/18 10:10 Dose: 2 mg Piperacillin Sod/Tazobactam Sod (Zosyn 4.5 Gm In Ns 100ml) 4.5 gm in 100 mls @ 25 mls/hr IVPB Q8 [facility]; Protocol Stop: 09/24/18 06:01 Last Admin: 09/18/18 13:57 Dose: 25 mls/hr Insulin Human Lispro (Humalog Low) 0 units SC ACHS [facility]; Protocol Last Admin: 09/18/18 11:43 Dose: Not Given Pantoprazole Sodium (Protonix Susp) 40 mg PO 0600 [facility] Last Admin: 09/18/18 05:43 Dose: 40 mg - Labs Labs: 09/18/18 06:30 09/18/18 06:30 PT 12.1 SECONDS (9.4-12.5) 09/14/18 03:34 INR 1.09 09/14/18 03:34 APTT 34.5 Seconds (26.9-38.3) 09/14/18 03:34 Attending/Attestation - Attestation I have personally seen and examined this patient.: Yes I have fully participated in the care of the patient.: Yes I have reviewed all pertinent clinical information, including history, physical exam and plan: Yes Notes (Text): 09/18/18 15:02 Medical record note made by the resident after discussion with my direction and input after the patient was personally seen and examined by me. I have reviewed the chart and agree that the record accurately reflects by personal performance of the history, physical exam, data review, and medical decision-making, in the course for the patient. I have also personally directed the plan of care. 73 year old female OR resident with a past medical history of diabetes, COPD, and hypertension, was admitted with change of menatl status, severe hypoglycemia ,hypothermia and hypotension likely due to sepsis and dehydration. Patient was admitted to the ICU and was treated with IV fluid, broad spectrum antibiotics and was also on pressors.Patient was also given IV steroid in ICU.Patient responded well to therapy, hypoglycemia was resolved. Blood pressure improved and patient was transferred to medical floor. Etiology of sepsis is unknown, cultures remain negative. Chest X ray, UA, Abdominal USG and CT of abdomen and pelvis was negative for any possible etiology. Patient is currently on IV zosyn as per ID.Antibiotics can be discontinued after today. Patient had episode of hypoglycemia yesterday morning due to increase insulin.Patient has brittle DM.Endo has stopped Insulin, started on oral hyp oglycemia, we will monitor blood sugar, If patient remain stable, she can go back to OR on Wednesday, she is at her base line at this time. Prognosis is guarded.
--- NOTE | 2018-09-18 20:52 | PN ---
DATE: 09/18/2018 SUBJECTIVE: The patient is seen in bed, no acute distress, and nontoxic. PHYSICAL EXAMINATION: VITAL SIGNS: Temperature is 98, blood pressure is 105/60, and respiratory rate of 18. HEENT: Unremarkable. NECK: Supple. LUNGS: Decreased breath sounds. HEART: Normal S1 and S2. ABDOMEN: Soft. LABORATORY DATA: Reveals a white count of 9.4 and hemoglobin of 9. Chemistries are noted. Urinalysis is noted. Serology is reviewed. Influenza is negative. Microbiology reveals a blood cultures are negative. Urine culture is negative. MRSA screen is negative. The patient is on Zosyn. ASSESSMENT AND PLAN: A 73-year-old female who is a long-term patient with diabetes, hypertension, chronic obstructive lung disease, admitted with hypoglycemia, hypothermia, hypotension, requiring pressors, diabetes, hypertension, septic shock with negative CAT scan of the abdomen and pelvis, negative cultures, negative methicillin-resistant Staphylococcus aureus, septic shock entirely clear. The patient is doing well. Dr. Roche's note is reviewed. We will discontinue his Zosyn and follow the patient closely, no obvious source. Pancho Perez MD
[2018-09-19] MEDS: Pantoprazole 40 mg Susp UD PO SCH (06:06)
[2018-09-19 09:11] LABS: BASO # 0.01 K/mm3 (0.0-2.0); BASO % 0.1 % (0.0-3.0); EOS # 0.1 (0.0-0.7); HEMOGLOBIN 9.4 g/dL (12.0-16.0); LYMPH # 3.1 (1.2-3.4); LYMPH % 28.6 % (22.0-35.0); MEAN CELL VOLUME 91.6 fl (80.0-105.0); MEAN CORPUSCULAR HEMOGLOBIN 31.6 pg (25.0-35.0); MEAN CORPUSCULAR HGB CONC 34.6 g/dl (31.0-37.0); MEAN PLATELET VOLUME 9.3 fl (7.0-11.0); MONO # 0.3 (0.1-0.6); MONO % 2.6 % (1.0-6.0); RBC 2.97 10^6/uL (3.5-6.1); RED CELL DISTRIBUTION WIDTH 12.9 % (11.5-14.5); WHITE BLOOD COUNT 10.9 10^3/uL (4.5-11.0)
[2018-09-19 09:38] LABS: ALB/GLOB RATIO 0.8 (1.1-1.8); ALBUMIN 1.9 g/dL (3.0-4.8); ALT/SGPT 31 U/L (7-56); AST/SGOT 26 U/L (14-36); BLOOD UREA NITROGEN 6 mg/dL (7-21); GFR NON-AFRICAN AMERICAN > 60
[2018-09-19] MEDS: Insulin Lispro (humaLOG) LOW Coverage SC SCH ×4 (10:16→22:13)
[2018-09-19] MEDS: Enoxaparin 40 mg Syringe SC SCH (10:44)
[2018-09-19] MEDS ORDERED: Alum-Mag Hydrox-Simethicone Susp (30 mL) PO PRN (14:34)
--- NOTE | 2018-09-19 14:43 | CP.PCM.PN ---
<Lucía Salas - Last Filed: 09/19/18 14:39> Subjective - Date & Time of Evaluation Date of Evaluation: 09/19/18 Time of Evaluation: 14:40 - Subjective Subjective: Lucía Salas, PGY-1, Internal Medicine Progress Note for Dr. Manuel Patient seen and evaluated at bedside. Patient had no acute events overnight. Patient was curled into a ball at bedside and was nonverbal this morning. However, this is her baseline. As the day progressed, patient was verbal but was speaking very quietly. She had no acute complaints this time. 12-point ROS was unattainable due to patient's mental status and condition. Objective - Vital Signs/Intake and Output Vital Signs (last 24 hours): Temp Pulse Resp BP Pulse Ox 98.5 F 80 18 104/61 100 09/19/18 14:00 09/19/18 14:00 09/19/18 14:00 09/19/18 14:00 09/19/18 14:00 Intake and Output: 09/19/18 09/19/18 06:59 18:59 Intake Total 240 Balance 240 - Medications Medications: Current Medications Al Hydrox/Mg Hydrox/Simethicone (Maalox Plus 30 Ml) 30 ml PO DAILY PRN PRN Reason: Indigestion / Heartburn Albuterol/Ipratropium (Duoneb 3 Mg/0.5 Mg (3 Ml) Ud) 3 ml IH Q4H PRN PRN Reason: Shortness of Breath Dextrose (Dextrose 50% Inj) 0 ml IV STAT PRN; Protocol PRN Reason: Hypoglycemia Protocol Last Admin: 09/17/18 06:58 Dose: 50 ml Enoxaparin Sodium (Lovenox) 40 mg SC DAILY [facility]; Protocol Last Admin: 09/19/18 10:44 Dose: 40 mg Glimepiride (Amaryl) 2 mg PO ACBD [facility] Last Admin: 09/19/18 10:43 Dose: 2 mg Insulin Human Lispro (Humalog Low) 0 units SC ACHS [facility]; Protocol Last Admin: 09/19/18 12:01 Dose: 4 units Pantoprazole Sodium (Protonix Susp) 40 mg PO 0600 [facility] Last Admin: 09/19/18 06:06 Dose: 40 mg - Labs Labs: 09/19/18 09:00 09/19/18 09:00 PT 12.1 SECONDS (9.4-12.5) 09/14/18 03:34 INR 1.09 09/14/18 03:34 APTT 34.5 Seconds (26.9-38.3) 09/14/18 03:34 - Constitutional Appears: Well, Non-toxic, No Acute Distress - Head Exam Head Exam: ATRAUMATIC, NORMAL INSPECTION, NORMOCEPHALIC - Eye Exam Eye Exam: EOMI Pupil Exam: PERRL - ENT Exam ENT Exam: Mucous Membranes Moist - Respiratory Exam Respiratory Exam: Clear to Ausculation Bilateral, NORMAL BREATHING PATTERN - Cardiovascular Exam Cardiovascular Exam: REGULAR RHYTHM, RRR, +S1, +S2. absent: Clicks, Gallop, Rubs - GI/Abdominal Exam GI & Abdominal Exam: Soft, Normal Bowel Sounds. absent: Distended, Firm, Guarding, Tenderness - Extremities Exam Extremities Exam: Normal Capillary Refill, Normal Inspection - Neurological Exam Neurological Exam: Alert, Awake, CN II-XII Intact, Oriented x3 - Psychiatric Exam Psychiatric exam: Normal Affect, Normal Mood - Skin Skin Exam: Dry, Intact, Normal Color Assessment and Plan - Assessment and Plan (Free Text) Assessment: 73 year old female with a past medical history of diabetes mellitus type II, COPD, and hypertension presented with hypoglycemia. Patient was admitted to the ICU for hypoglycemia and shock, likely sepsis with no clear source. Patient was hemodynamically stabilized in the ICU and transferred to floor. Plan is to transfer patient back to [facility]. Plan: Septic vs. hypovolemic shock-resolved -Hypothermia and hypotension resolved -Blood culture: negative -Urine culture: negative -Chest X ray shows no acute effusions or consolidations -Urinanalysis: negative nitrate and leukocyte esterase -Right upper quadrant ultrasound showed cholelithiasis -CT Abdomen and Pelvis showed fatty liver and cholelithiasis -As patient has no source of infection at this time, currently not on antibiotics Insulin dependent diabetes mellitus -Patient had episode of hypoglycemia (Glucose<20) due to excess insulin on admission and on 09/17 -HgbA1c: 9.3 -Blood glucose ranging from 233-454 over past 24 hours -Started levemir 20 U HS -Started lispro 20 HS -Continue glimepiride 2 ACBD -Continue low SSI -Accuchecks ACHS COPD -Continue with duonebs Q4PRN Hypertension -Holding all antihypertensives due to hypotension GI prophylaxis: protonix DVT prophylaxis: lovenox Disposition: awaiting PT for discharge recommendations Patient plan discussed with Dr. Manuel. <Lani Manuel - Last Filed: 09/19/18 15:00> Objective - Vital Signs/Intake and Output Vital Signs (last 24 hours): Temp Pulse Resp BP Pulse Ox 98.5 F 80 18 104/61 100 09/19/18 14:00 09/19/18 14:00 09/19/18 14:00 09/19/18 14:00 09/19/18 14:00 Intake and Output: 09/19/18 09/19/18 06:59 18:59 Intake Total 240 480 Balance 240 480 - Medications Medications: Current Medications Al Hydrox/Mg Hydrox/Simethicone (Maalox Plus 30 Ml) 30 ml PO DAILY PRN PRN Reason: Indigestion / Heartburn Albuterol/Ipratropium (Duoneb 3 Mg/0.5 Mg (3 Ml) Ud) 3 ml IH Q4H PRN PRN Reason: Shortness of Breath Dextrose (Dextrose 50% Inj) 0 ml IV STAT PRN; Protocol PRN Reason: Hypoglycemia Protocol Last Admin: 09/17/18 06:58 Dose: 50 ml Enoxaparin Sodium (Lovenox) 40 mg SC DAILY [facility]; Protocol Last Admin: 09/19/18 10:44 Dose: 40 mg Glimepiride (Amaryl) 2 mg PO ACBD [facility] Last Admin: 09/19/18 10:43 Dose: 2 mg Insulin Detemir (Levemir) 20 unit SC HS [facility] Insulin Human Lispro (Humalog Low) 0 units SC ACHS [facility]; Protocol Last Admin: 09/19/18 12:01 Dose: 4 units Insulin Human Lispro (Humalog) 12 units SC AC [facility] Pantoprazole Sodium (Protonix Susp) 40 mg PO 0600 [facility] Last Admin: 09/19/18 06:06 Dose: 40 mg - Labs Labs: 09/19/18 09:00 09/19/18 09:00 PT 12.1 SECONDS (9.4-12.5) 09/14/18 03:34 INR 1.09 09/14/18 03:34 APTT 34.5 Seconds (26.9-38.3) 09/14/18 03:34 Attending/Attestation - Attestation I have personally seen and examined this patient.: Yes I have fully participated in the care of the patient.: Yes I have reviewed all pertinent clinical information, including history, physical exam and plan: Yes Notes (Text): 09/19/18 14:54 73 year old female with past medical history of diabetes, COPD and hypertension who presented with altered mental status from [place]. She was found to have hypothermia, hypoglycemia and hypotension and started on iv fluids and antibiotics for possible sepsis. However workup including CT/US and cultures were negative for infectious etiology and antibiotics were discontinued. Her BP improved and her FS have now been hyperglycemic today. Endocrinology is follow ing as started levemir. Monitor closely for hypoglycemia. PT evaluation is requested. D/c planning to [facility]. Family is at bedside and questions were answered. Lani Manuel MD Hospitalist.
[2018-09-19] MEDS: Insulin Lispro 1 UNITS/0.01 ML SC SCH (17:27)
--- NOTE | 2018-09-19 21:15 | PN ---
DATE: 09/19/2018 ENDOCRINOLOGY FOLLOWUP NOTE LOCATION: Room 577. SUBJECTIVE: This is a 73-year-old female with recent uncontrolled type 2 insulin-requiring diabetes, now being followed closely for metabolic management. She presented here with possible symptomatic hypoglycemia and associated neuroglycopenic and hyperadrenergic manifestations of the same and now has developed supervening hyperglycemic accelerations overnight with improved oral intake as noted. LABORATORY DATA: Her glucose levels today have ranged from 265 to 454 mg/dL. Her chemistry showed a BUN of 6, sodium 136, potassium 4, chloride 110, CO2 of 23, glucose 314 and creatinine 0.7. ASSESSMENT: This is a 73-year-old female with uncontrolled and decompensated type 2 insulin-requiring diabetes with extremes of glycemic fluctuations related to the variability of her oral intake as noted thereof. She presented here with symptomatic hypoglycemia and associated neuroglycopenic and hyperadrenergic manifestations for the same and now overnight has developed marked hyperglycemic accelerations with improved oral intake as noted. PLAN OF MANAGEMENT: We will resume her basal and bolus insulin regimen as previously ordered from the [facility] and start her on Humalog given as 12 units t.i.d. before meals to start today as ordered. We will modify the coverage scale to obviate hypoglycemia and detailed orders have been given. We will also add basal insulin with Levemir to be given as 24 units subcu at bedtime daily to start tonight. We will obtain serial chemistries and supplement accordingly as needed. We will follow with you. Maida Altamirano MD
[2018-09-19] MEDS: Dextrose 50% SYRINGE Inj (50 ml) IV PRN (22:17)
[2018-09-19] MEDS: Insulin Detemir 100 units/ml Vial (Levemir) SC SCH (22:17)
--- NOTE | 2018-09-19 23:59 | PN ---
DATE: 09/19/2018 SUBJECTIVE: The patient is in bed, in no acute distress, nontoxic. PHYSICAL EXAMINATION VITAL SIGNS: The patient's temperature is 98, blood pressure is 104/60, respiratory rate of 18. HEENT: Unremarkable. NECK: Supple. LUNGS: Have decreased breath sounds. HEART: Normal S1, S2. ABDOMEN: Soft. LABORATORY DATA: Reveals a white count of 10,000, hemoglobin of 9. Chemistries reveal a BUN of 6, creatinine of 0.7. Urinalysis is noted. Serology is noted. Microbiology reveals the nares is negative. Blood cultures are negative. Urine cultures are negative. REVIEW OF ORDERS: Reveals the patient is off of antibiotics. ASSESSMENT AND PLAN: A 73-year-old female, a [place] [facility] patient with diabetes, hypertension, chronic obstructive lung disease, admitted with hypoglycemia, hypothermia, hypotension requiring vasopressors, diabetes and hypertensive septic shock with negative CT scan of the abdomen and pelvis, negative cultures, negative methicillin-resistant Staphylococcus aureus screen, etiology of which is not clear. The patient is doing well, afebrile. Normal white count of 10,900 today. Negative pancultures. Negative CT scan so we will discontinue antibiotics. The patient is in fact off of antibiotics. The patient is at risk for developing nosocomial infections. Pancho Perez MD
[2018-09-20] MEDS: Pantoprazole 40 mg Susp UD PO SCH (05:23)
[2018-09-20 07:18] LABS: BASO # 0.01 K/mm3 (0.0-2.0); BASO % 0.1 % (0.0-3.0); EOS # 0.1 (0.0-0.7); EOS % 0.6 % (1.5-5.0); LYMPH # 3.7 (1.2-3.4); LYMPH % 40.1 % (22.0-35.0); MEAN CELL VOLUME 89.7 fl (80.0-105.0); MEAN CORPUSCULAR HEMOGLOBIN 31.9 pg (25.0-35.0); MEAN CORPUSCULAR HGB CONC 35.6 g/dl (31.0-37.0); MEAN PLATELET VOLUME 8.9 fl (7.0-11.0); MONO # 0.3 (0.1-0.6); MONO % 3.2 % (1.0-6.0); RBC 2.82 10^6/uL (3.5-6.1); RED CELL DISTRIBUTION WIDTH 12.8 % (11.5-14.5); WHITE BLOOD COUNT 9.3 10^3/uL (4.5-11.0)
[2018-09-20 08:01] LABS: ALB/GLOB RATIO 0.7 (1.1-1.8); ALBUMIN 1.7 g/dL (3.0-4.8); ALT/SGPT 30 U/L (7-56); AST/SGOT 24 U/L (14-36); BLOOD UREA NITROGEN 5 mg/dL (7-21); CALCIUM 6.9 mg/dL (8.4-10.5); GFR NON-AFRICAN AMERICAN > 60
[2018-09-20] MEDS: Insulin Lispro 1 UNITS/0.01 ML SC SCH ×3 (08:22→17:26)
[2018-09-20] MEDS: Insulin Lispro (humaLOG) LOW Coverage SC SCH ×4 (08:22→22:21)
[2018-09-20] MEDS: Enoxaparin 40 mg Syringe SC SCH (09:25)
--- NOTE | 2018-09-20 11:55 | CP.PCM.PN ---
<Lucía Salas - Last Filed: 09/20/18 11:52> Subjective - Date & Time of Evaluation Date of Evaluation: 09/20/18 Time of Evaluation: 11:52 - Subjective Subjective: Lucía Salas, PGY-1, Internal Medicine Progress Note for Dr. Manuel Patient seen and evaluated at bedside. Patient had blood glucose of 20 last night and was given dextrose 50% injection. Patient had period of confusion at this time which resolved after hypoglycemia resolved. This morning, she complained of vague abdominal discomfort. She reported maalox helped with the discomfort. She denied any other symptoms including chest pain, shortness of breath, nausea, vomiting, constipation, diarrhea, dysuria, hematuria, fever, chills. 12-point ROS was unremarkable except for what was mentioned above. Objective - Vital Signs/Intake and Output Vital Signs (last 24 hours): Temp Pulse Resp BP Pulse Ox 97.5 F L 61 20 114/68 98 09/20/18 06:00 09/20/18 06:00 09/20/18 06:00 09/20/18 06:00 09/20/18 06:00 Intake and Output: 09/20/18 09/20/18 06:59 18:59 Intake Total 120 Balance 120 - Medications Medications: Current Medications Al Hydrox/Mg Hydrox/Simethicone (Maalox Plus 30 Ml) 30 ml PO DAILY PRN PRN Reason: Indigestion / Heartburn Last Admin: 09/19/18 17:29 Dose: 30 ml Albuterol/Ipratropium (Duoneb 3 Mg/0.5 Mg (3 Ml) Ud) 3 ml IH Q4H PRN PRN Reason: Shortness of Breath Dextrose (Dextrose 50% Inj) 0 ml IV STAT PRN; Protocol PRN Reason: Hypoglycemia Protocol Last Admin: 09/19/18 22:17 Dose: 50 ml Enoxaparin Sodium (Lovenox) 40 mg SC DAILY [facility]; Protocol Last Admin: 09/20/18 09:25 Dose: 40 mg Glimepiride (Amaryl) 2 mg PO ACBD [facility] Last Admin: 09/20/18 09:00 Dose: 2 mg Insulin Detemir (Levemir) 20 unit SC HS [facility] Last Admin: 09/19/18 22:17 Dose: Not Given Insulin Human Lispro (Humalog Low) 0 units SC [facility]; Protocol Last Admin: 09/20/18 11:36 Dose: 2 units Insulin Human Lispro (Humalog) 8 units SC AC [facility] Pantoprazole Sodium (Protonix Susp) 40 mg PO 0600 [facility] Last Admin: 09/20/18 05:23 Dose: 40 mg - Labs Labs: 09/20/18 07:00 09/20/18 07:00 PT 12.1 SECONDS (9.4-12.5) 09/14/18 03:34 INR 1.09 09/14/18 03:34 APTT 34.5 Seconds (26.9-38.3) 09/14/18 03:34 - Constitutional Appears: Well, Non-toxic, No Acute Distress - Head Exam Head Exam: ATRAUMATIC, NORMAL INSPECTION, NORMOCEPHALIC - Eye Exam Eye Exam: EOMI Pupil Exam: PERRL - ENT Exam ENT Exam: Mucous Membranes Moist - Respiratory Exam Respiratory Exam: Clear to Ausculation Bilateral, NORMAL BREATHING PATTERN - Cardiovascular Exam Cardiovascular Exam: REGULAR RHYTHM, RRR, +S1, +S2. absent: Clicks, Gallop, Rubs - GI/Abdominal Exam GI & Abdominal Exam: Soft, Normal Bowel Sounds. absent: Distended, Firm, Guarding, Tenderness - Extremities Exam Extremities Exam: Normal Capillary Refill, Normal Inspection - Neurological Exam Neurological Exam: Alert, Awake, CN II-XII Intact, Oriented x3, Minimal Conversation - Psychiatric Exam Psychiatric exam: Normal Affect, Normal Mood - Skin Skin Exam: Dry, Intact, Normal Color Assessment and Plan - Assessment and Plan (Free Text) Assessment: 73 year old female with a past medical history of diabetes mellitus type II, COPD, and hypertension presented with hypoglycemia. Patient was admitted to the ICU for hypoglycemia and shock, likely sepsis with no clear source. Patient was hemodynamically stabilized in the ICU and transferred to floor. Plan is to transfer patient back to [facility]. Plan: Insulin dependent diabetes mellitus -Patient had episode of hypoglycemia overnight with administration of D50 with resolution -HgbA1c: 9.3 -Blood glucose ranging from 20-454 over the past 24 hours -Continue levemir 20 U HS, lispro 8 U AC -Consider discontinuing amaryl as this leads to a higher incidence of hypoglycemia -Continue with low SSI -Will need to adjust diabetes medication appropriately prior to discharge to avoid further hypoglycemic episodes. -Accuchecks ACHS Septic vs. hypovolemic shock-resolved -Afebrile and no leukocytosis -Blood culture: negative since 09/14 -Urine culture: negative -MRSA: negative -Chest X ray 09/14: shows no acute effusions or consolidations -Urinanalysis 09/14: negative nitrate and leukocyte esterase -Right upper quadrant ultrasound 09/15: showed cholelithiasis -CT Abdomen and Pelvis 09/15: fatty liver and cholelithiasis -As patient has no known source of infection, currently not on antibiotics COPD -Continue with duonebs Q4PRN for shortness of breath Hypertension -Holding all antihypertensives due to reduced blood pressure Abdominal pain likely 2/2 to gastritis -Likely mild gastritis due to poor PO intake -Continue with maalax and protonix. Disposition: Patient recommends discharge to [facility] with PT/OT services. GI prophylaxis: protonix DVT prophylaxis: lovenox Patient plan discussed with Dr. Manuel. <Lani Manuel - Last Filed: 09/20/18 12:46> Objective - Vital Signs/Intake and Output Vital Signs (last 24 hours): Temp Pulse Resp BP Pulse Ox 97.5 F L 61 20 114/68 98 09/20/18 06:00 09/20/18 06:00 09/20/18 06:00 09/20/18 06:00 09/20/18 06:00 Intake and Output: 09/20/18 09/20/18 06:59 18:59 Intake Total 120 Balance 120 - Medications Medications: Current Medications Al Hydrox/Mg Hydrox/Simethicone (Maalox Plus 30 Ml) 30 ml PO DAILY PRN PRN Reason: Indigestion / Heartburn Last Admin: 09/19/18 17:29 Dose: 30 ml Albuterol/Ipratropium (Duoneb 3 Mg/0.5 Mg (3 Ml) Ud) 3 ml IH Q4H PRN PRN Reason: Shortness of Breath Dextrose (Dextrose 50% Inj) 0 ml IV STAT PRN; Protocol PRN Reason: Hypoglycemia Protocol Last Admin: 09/19/18 22:17 Dose: 50 ml Enoxaparin Sodium (Lovenox) 40 mg SC DAILY [facility]; Protocol Last Admin: 09/20/18 09:25 Dose: 40 mg Glimepiride (Amaryl) 2 mg PO ACBD [facility] Last Admin: 09/20/18 09:00 Dose: 2 mg Insulin Detemir (Levemir) 20 unit SC HS [facility] Last Admin: 09/19/18 22:17 Dose: Not Given Insulin Human Lispro (Humalog Low) 0 units SC ACHS [facility]; Protocol Last Admin: 09/20/18 11:36 Dose: 2 units Insulin Human Lispro (Humalog) 8 units SC AC [facility] Pantoprazole Sodium (Protonix Susp) 40 mg PO 0600 [facility] Last Admin: 09/20/18 05:23 Dose: 40 mg - Labs Labs: 09/20/18 07:00 09/20/18 07:00 PT 12.1 SECONDS (9.4-12.5) 09/14/18 03:34 INR 1.09 09/14/18 03:34 APTT 34.5 Seconds (26.9-38.3) 09/14/18 03:34 Attending/Attestation - Attestation I have personally seen and examined this patient.: Yes I have fully participated in the care of the patient.: Yes I have reviewed all pertinent clinical information, including history, physical exam and plan: Yes Notes (Text): 09/20/18 12:43 73 year old female with past medical history of diabetes, COPD and hypertension who presented with altered mental status from [place]. She was found to have hypothermia, hypoglycemia and hypotension and started on iv fluids and antibiotics for possible sepsis. However workup including CT/US and cultures were negative for infectious etiology and antibiotics were discontinued. Her FS continue to be labile ranging from 454 yesterday to 20 this morning. Will discuss with endocrinology to adjust medications. Continue to monitor fingersticks closely and adjust regimen accordingly. PT evaluation was appreciated. D/c planning to [place] possibly tomorrow if fingersticks are better controlled. Lani Manuel MD Hospitalist.
--- NOTE | 2018-09-20 15:45 | PN ---
DATE: 09/20/2018 ENDO FOLLOWUP NOTE LOCATION: Room 577. SUBJECTIVE: This is a 73-year-old female with recent uncontrolled type 2 insulin-requiring diabetes, now being followed closely for metabolic management. Her glycemic levels are fluctuating as noted initially and are slowly improving as her oral intake improves accordingly. Her glucose levels today have ranged from 142-193 mg/dL. Her fasting glucose levels actually dropped to 20 at bedtime last night and her fasting glucose levels today have improved accordingly as her oral intake improves remarkably. PLAN OF MANAGEMENT: We will modify her current basal and bolus insulin regimen and lower the Humalog to 8 units t.i.d. before meals to start today as ordered. However, we will continue the basal insulin given as Levemir at 20 units subcutaneously at bedtime daily as given as her oral intake has been quite variable as noted thereof. We will obtain serial chemistries accordingly. Maida Altamirano MD
[2018-09-20] MEDS: Insulin Detemir 100 units/ml Vial (Levemir) SC SCH (22:20)
--- NOTE | 2018-09-20 22:20 | PN ---
DATE: 09/20/2018 SUBJECTIVE: The patient is in bed in no acute distress, nontoxic. PHYSICAL EXAMINATION VITAL SIGNS: Temperature of 98, blood pressure is 91/60, respiratory rate of 20, heart rate of 94. HEENT: Unremarkable. NECK: Supple. LUNGS: Decreased breath sounds. HEART: Normal S1, S2. ABDOMEN: Soft, nontender. LABORATORY DATA: There is a white count of 9.3, hemoglobin of 9. Chemistries reveals a BUN of 5, creatinine of 0.6. MEDICATIONS: Review of the medications reveals the patient is off of antibiotics and Dr. Manuel's note is reviewed. ASSESSMENT AND PLAN: This is a 73-year-old female seen earlier this morning in 577, bed 1. long-term patient with diabetes, hypertension and chronic obstructive pulmonary disease is admitted with hypoglycemia, hypothermia, hypotension requiring vasopressors, diabetes, hypotensive septic shock, negative imaging, negative cultures, currently off of antibiotics, afebrile and with normal white count. We will follow with you. The patient is at risk for developing nosocomial infections. Pancho Perez MD
[2018-09-21] MEDS: Pantoprazole 40 mg Susp UD PO SCH (05:34)
[2018-09-21] MEDS ORDERED: Dextrose 50% SYRINGE Inj (50 ml) IV PRN (06:59)
[2018-09-21 07:38] LABS: BASO # 0.03 K/mm3 (0.0-2.0); BASO % 0.2 % (0.0-3.0); EOS % 0.3 % (1.5-5.0); HEMOGLOBIN 9.5 g/dL (12.0-16.0); LYMPH # 3.6 (1.2-3.4); LYMPH % 29.5 % (22.0-35.0); MEAN CELL VOLUME 90.6 fl (80.0-105.0); MEAN CORPUSCULAR HEMOGLOBIN 31.9 pg (25.0-35.0); MEAN CORPUSCULAR HGB CONC 35.2 g/dl (31.0-37.0); MONO # 0.6 (0.1-0.6); MONO % 4.5 % (1.0-6.0); RBC 2.98 10^6/uL (3.5-6.1); RED CELL DISTRIBUTION WIDTH 13.2 % (11.5-14.5); WHITE BLOOD COUNT 12.3 10^3/uL (4.5-11.0)
[2018-09-21 08:07] LABS: ALB/GLOB RATIO 0.8 (1.1-1.8); ALBUMIN 1.9 g/dL (3.0-4.8); ALT/SGPT 29 U/L (7-56); AST/SGOT 31 U/L (14-36); BLOOD UREA NITROGEN 5 mg/dL (7-21); CALCIUM 7.1 mg/dL (8.4-10.5); GFR NON-AFRICAN AMERICAN > 60
[2018-09-21] MEDS: Insulin Lispro 1 UNITS/0.01 ML SC SCH ×3 (08:37→17:21)
[2018-09-21] MEDS: Insulin Lispro (humaLOG) LOW Coverage SC SCH ×3 (08:37→22:03)
[2018-09-21] MEDS ORDERED: Insulin Detemir 100 units/ml Vial (Levemir) SC SCH (08:43)
[2018-09-21] MEDS: Potassium Chloride 40 mEq/30 ml LIQ UD PO SCH ×2 (10:20→18:03)
[2018-09-21] MEDS: Enoxaparin 40 mg Syringe SC SCH (10:21)
--- NOTE | 2018-09-21 13:10 | CP.PCM.PN ---
<Lucía Salas - Last Filed: 09/21/18 13:04> Subjective - Date & Time of Evaluation Date of Evaluation: 09/21/18 Time of Evaluation: 13:04 - Subjective Subjective: Lucía Salas, PGY-1, Internal Medicine Progress Note for Dr. Manuel Patient seen and evaluated at bedside. Patient had no acute complaints overnight. This morning, blood glucose was 28 and was given orange juice and D50 this morning with subsequent improvement of glucose to 92. After speaking to nurse, family has been bringing in food from extraneous locations including [employer] likely resulting in her hyperglycemic episodes during the day. At bedside, patient was awake and alert. Patient denied any complaints at this time. 12-point ROS was unremarkable except for what was mentioned above. Objective - Vital Signs/Intake and Output Vital Signs (last 24 hours): Temp Pulse Resp BP Pulse Ox 98.3 F 90 17 136/64 98 09/21/18 06:00 09/21/18 06:00 09/21/18 06:00 09/21/18 06:00 09/21/18 06:00 Intake and Output: 09/21/18 09/21/18 06:59 18:59 Intake Total 320 Balance 320 - Medications Medications: Current Medications Al Hydrox/Mg Hydrox/Simethicone (Maalox Plus 30 Ml) 30 ml PO DAILY PRN PRN Reason: Indigestion / Heartburn Last Admin: 09/19/18 17:29 Dose: 30 ml Albuterol/Ipratropium (Duoneb 3 Mg/0.5 Mg (3 Ml) Ud) 3 ml IH Q4H PRN PRN Reason: Shortness of Breath Dextrose (Dextrose 50% Inj) 0 ml IV STAT PRN; Protocol PRN Reason: Hypoglycemia Protocol Enoxaparin Sodium (Lovenox) 40 mg SC DAILY [facility]; Protocol Last Admin: 09/21/18 10:21 Dose: 40 mg Dextrose (Dextrose 5% In Water 1000 Ml) 1,000 mls @ 0 mls/hr IV .Q0M PRN; Protocol PRN Reason: Hypoglycemia Protocol Insulin Detemir (Levemir) 12 unit SC HS [facility] Insulin Human Lispro (Humalog Low) 0 units SC ACHS [facility]; Protocol Last Admin: 09/21/18 08:37 Dose: Not Given Insulin Human Lispro (Humalog) 8 units SC AC [facility] Last Admin: 09/21/18 08:37 Dose: Not Given Pantoprazole Sodium (Protonix Susp) 40 mg PO 0600 [facility] Last Admin: 09/21/18 05:34 Dose: 40 mg Potassium Chloride (Potassium Chloride Oral Soln) 40 meq PO BID [facility] Stop: 09/21/18 18:01 Last Admin: 09/21/18 10:20 Dose: 40 meq - Labs Labs: 09/21/18 07:00 09/21/18 07:00 PT 12.1 SECONDS (9.4-12.5) 09/14/18 03:34 INR 1.09 09/14/18 03:34 APTT 34.5 Seconds (26.9-38.3) 09/14/18 03:34 - Constitutional Appears: Well, Non-toxic, No Acute Distress - Head Exam Head Exam: ATRAUMATIC, NORMAL INSPECTION, NORMOCEPHALIC - Eye Exam Eye Exam: EOMI, PERRL - ENT Exam ENT Exam: Mucous Membranes Moist - Respiratory Exam Respiratory Exam: Clear to Ausculation Bilateral, NORMAL BREATHING PATTERN. absent: Rales, Rhonchi, Wheezes - Cardiovascular Exam Cardiovascular Exam: REGULAR RHYTHM, RRR, +S1, +S2. absent: Clicks, Gallop, Rubs - GI/Abdominal Exam GI & Abdominal Exam: Soft, Normal Bowel Sounds. absent: Distended, Firm, Guarding, Tenderness - Extremities Exam Extremities Exam: Full ROM, Normal Capillary Refill, Normal Inspection - Neurological Exam Neurological Exam: Alert, Awake, CN II-XII Intact, Oriented x3 - Psychiatric Exam Psychiatric exam: Normal Affect, Normal Mood - Skin Skin Exam: Dry, Intact, Normal Color Assessment and Plan - Assessment and Plan (Free Text) Assessment: 73 year old female with a past medical history of diabetes mellitus type II, COPD, and hypertension presented with hypoglycemia. Patient was admitted to the ICU for hypoglycemia and shock, likely sepsis with no clear source. Patient was hemodynamically stabilized in the ICU and transferred to floor. Plan is to transfer patient back to [facility]. Plan: Insulin dependent diabetes mellitus -Patient had episode of hypoglycemia this morning with administration of D50 and orange juice with resolution -HgbA1c: 9.3 -Blood glucose ranging from 28-355 over the past 24 hours -Reduced levemir to 12 U HS -Continue lispro 8 U AC -Continue amaryl -Continue with low SSI -Will need to adjust diabetes medication appropriately prior to discharge to avoid further hypoglycemic episodes. -Accuchecks ACHS Septic vs. hypovolemic shock-resolved -Afebrile and new leukocytosis at 12.3 -Blood culture: negative since 09/14 -Urine culture: negative -MRSA: negative -Chest X ray 09/14: shows no acute effusions or consolidations -Urinanalysis 09/14: negative nitrate and leukocyte esterase -Right upper quadrant ultrasound 09/15: showed cholelithiasis -CT Abdomen and Pelvis 09/15: fatty liver and cholelithiasis -As patient has no known source of infection, currently not on antibiotics Hypokalemia -Replete at necessary -Mg within normal limits but PO4 was reduced. Repleted PO4 Hypophosphatemia -Replete at necessary COPD -Continue with duonebs Q4PRN for shortness of breath Hypertension -Holding all antihypertensives due to reduced blood pressure Abdominal pain likely 2/2 to gastritis -Likely mild gastritis due to poor PO intake -Continue with maalax and protonix. Disposition: Discharge to [facility] possibly tomorrow if no more hypoglycemic episodes. GI prophylaxis: protonix DVT prophylaxis: lovenox Patient plan discussed with Dr. Manuel. <Lani Manuel - Last Filed: 09/21/18 13:54> Objective - Vital Signs/Intake and Output Vital Signs (last 24 hours): Temp Pulse Resp BP Pulse Ox 98.3 F 90 17 136/64 98 09/21/18 06:00 09/21/18 06:00 09/21/18 06:00 09/21/18 06:00 09/21/18 06:00 Intake and Output: 09/21/18 09/21/18 06:59 18:59 Intake Total 320 Balance 320 - Medications Medications: Current Medications Al Hydrox/Mg Hydrox/Simethicone (Maalox Plus 30 Ml) 30 ml PO DAILY PRN PRN Reason: Indigestion / Heartburn Last Admin: 09/19/18 17:29 Dose: 30 ml Albuterol/Ipratropium (Duoneb 3 Mg/0.5 Mg (3 Ml) Ud) 3 ml IH Q4H PRN PRN Reason: Shortness of Breath Dextrose (Dextrose 50% Inj) 0 ml IV STAT PRN; Protocol PRN Reason: Hypoglycemia Protocol Enoxaparin Sodium (Lovenox) 40 mg SC DAILY [facility]; Protocol Last Admin: 09/21/18 10:21 Dose: 40 mg Dextrose (Dextrose 5% In Water 1000 Ml) 1,000 mls @ 0 mls/hr IV .Q0M PRN; Protocol PRN Reason: Hypoglycemia Protocol Insulin Detemir (Levemir) 12 unit SC HS [facility] Insulin Human Lispro (Humalog Low) 0 units SC ACHS [facility]; Protocol Last Admin: 09/21/18 08:37 Dose: Not Given Insulin Human Lispro (Humalog) 8 units SC AC [facility] Last Admin: 09/21/18 08:37 Dose: Not Given Pantoprazole Sodium (Protonix Susp) 40 mg PO 0600 [facility] Last Admin: 09/21/18 05:34 Dose: 40 mg Potassium Chloride (Potassium Chloride Oral Soln) 40 meq PO BID [facility] Stop: 09/21/18 18:01 Last Admin: 09/21/18 10:20 Dose: 40 meq - Labs Labs: 09/21/18 07:00 09/21/18 07:00 PT 12.1 SECONDS (9.4-12.5) 09/14/18 03:34 INR 1.09 09/14/18 03:34 APTT 34.5 Seconds (26.9-38.3) 09/14/18 03:34 Attending/Attestation - Attestation I have personally seen and examined this patient.: Yes I have fully participated in the care of the patient.: Yes I have reviewed all pertinent clinical information, including history, physical exam and plan: Yes Notes (Text): 09/21/18 13:52 73 year old female with past medical history of diabetes, COPD and hypertension who presented with altered mental status from [place]. She was found to have hypothermia, hypoglycemia and hypotension and started on iv fluids and antibiotics for possible sepsis. However workup including CT/US and cultures were negative for infectious etiology and antibiotics were discontinued. Her fingersticks have been labile ranging from hyper-hypoglycemia. FS this morning was 28. Levemir for tonight is decreased. Amaryl will be held for now. Patient is also on lispro. Will discuss with endocrinology, continue to monitor fingersticks closely and adjust medications accordingly. PT evaluation was appreciated. D/c planning to [place] possibly tomorrow if fingersticks are better controlled. Lani Manuel MD Hospitalist.
[2018-09-21] MEDS ORDERED: Potassium & Sodium Phosphate PO ONE (13:17)
--- NOTE | 2018-09-21 22:02 | PN ---
DATE: 09/21/2018 ENDOCRINOLOGY FOLLOWUP NOTE LOCATION: In room 577. SUBJECTIVE: This is a 73-year-old female with extremes of glycemic fluctuations related to the variability of her oral intake as noted. Her glucose levels overnight were actually once again very low with symptomatic neuroglycopenic and hyperadrenergic manifestations of the same. 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 Her subsequent glucose is now 92 mg/dL. LABORATORY DATA: Her chemistry showed a BUN of 5, sodium 139, potassium 3.1, chloride 112, CO2 of 25, glucose is 29 and creatinine 0.6. ASSESSMENT: This is a 73-year-old female with uncontrolled and decompensated type 2 insulin-requiring diabetes with extremes of glycemic fluctuations ranging from symptomatic hypoglycemia with associated neuroglycopenic and hyperadrenergic manifestations related to variability of her oral intake and also presenting here with marked hyperglycemic accelerations thereof. PLAN OF MANAGEMENT: We will modify once again her basal and bolus insulin regimen and lower the Humalog to 4 units subcutaneously t.i.d. before meals to start today as ordered. We will also lower the basal insulin with Levemir to be given as 12 units subcutaneously at bedtime daily to start tonight. We will obtain serial chemistries and supplement accordingly as needed. We will also continue the very low-dose algorithm using Humalog insulin to obviate further hypoglycemia as noted. We will follow. Maida Altamirano MD
--- NOTE | 2018-09-22 00:59 | PN ---
DATE: 09/21/2018 SUBJECTIVE: The patient is in bed, in no acute distress, nontoxic. PHYSICAL EXAMINATION VITAL SIGNS: Temperature of 97, blood pressure of 98/60, respiratory rate of 18, heart rate of 51. HEENT: Unremarkable. NECK: Supple. LUNGS: Decreased breath sounds. HEART: Normal S1, S2. ABDOMEN: Soft. LABORATORY EXAMINATION: Reveals a white count of 12,300. Chemistry reveals a BUN of 5, creatinine 06. Procalcitonin is 0.98. Urinalysis is noted and serology is reviewed. ASSESSMENT AND PLAN: This is a 73-year-old female with care home patient with diabetes, hypertension, chronic obstructive lung disease is admitted with hypoglycemia, hypothermia, hypotension requiring vasopressors, diabetes, hypotensive shock versus septic shock, negative cultures, off of antibiotics, afebrile and normal white count. Dr. Manuel's note is reviewed. Pancho Perez MD
[2018-09-22] MEDS: Pantoprazole 40 mg Susp UD PO SCH (05:42)
[2018-09-22 07:40] LABS: BASO # 0.02 K/mm3 (0.0-2.0); BASO % 0.2 % (0.0-3.0); EOS # 0.1 (0.0-0.7); HEMOGLOBIN 8.3 g/dL (12.0-16.0); LYMPH # 2.8 (1.2-3.4); LYMPH % 32.1 % (22.0-35.0); MEAN CELL VOLUME 90.1 fl (80.0-105.0); MEAN CORPUSCULAR HEMOGLOBIN 31.6 pg (25.0-35.0); MEAN PLATELET VOLUME 8.8 fl (7.0-11.0); MONO # 0.4 (0.1-0.6); MONO % 4.3 % (1.0-6.0); RBC 2.63 10^6/uL (3.5-6.1); RED CELL DISTRIBUTION WIDTH 13.4 % (11.5-14.5); WHITE BLOOD COUNT 8.8 10^3/uL (4.5-11.0)
[2018-09-22 08:28] LABS: ALB/GLOB RATIO 0.7 (1.1-1.8); ALBUMIN 1.7 g/dL (3.0-4.8); ALT/SGPT 36 U/L (7-56); AST/SGOT 33 U/L (14-36); BLOOD UREA NITROGEN 6 mg/dL (7-21); CALCIUM 6.9 mg/dL (8.4-10.5); GFR NON-AFRICAN AMERICAN > 60
[2018-09-22 09:07] VITALS: RESP 18
[2018-09-22] MEDS: Insulin Lispro (humaLOG) LOW Coverage SC SCH ×3 (09:24→17:26)
[2018-09-22] MEDS: Insulin Lispro 1 UNITS/0.01 ML SC SCH ×3 (09:24→17:45)
[2018-09-22] MEDS: Enoxaparin 40 mg Syringe SC SCH (10:55)
--- NOTE | 2018-09-22 14:50 | CP.PCM.DIS ---
<Lucía Salas - Last Filed: 09/22/18 15:00> Provider - Provider Date of Admission: 09/14/18 05:24 Attending physician: Lani Manuel MD Consults: 09/14/18 06:28 Physician Consult Routine Comment: Consulting Provider: Cory Ruffin Consulting Physician: Cory Ruffin Reason for Consult: Sepsis 09/15/18 11:16 Endocrinology Consult Routine Comment: Consulting Provider: Maida Altamirano Consulting Physician: Maida Altamirano Reason for Consult: Intermittent hypoglycemia/hyperglycemia 09/15/18 19:40 Nursing Referral for Wound Care Routine Comment: Physician Instructions: Reason For Exam: open wound healing lateral aspect left foot 3cm by Time Spent in preparation of Discharge (in minutes): 60 Hospital Course - Lab Results Lab Results: Micro Results 09/14/18 04:20 Blood Blood Culture - Final NO GROWTH AFTER 5 DAYS 09/14/18 04:20 Blood Gram Stain - Final TEST NOT PERFORMED 09/14/18 03:34 Blood Blood Culture - Final NO GROWTH AFTER 5 DAYS 09/14/18 03:34 Blood Gram Stain - Final TEST NOT PERFORMED 09/14/18 08:20 Naris MRSA Culture (Admit) - Final MRSA NOT DETECTED 09/14/18 03:29 Urine,Catheterized Urine Culture - Final No Growth (<1,000 CFU/ML) Most Recent Lab Values WBC 8.8 10^3/uL (4.5-11.0) D 09/22/18 07:10 RBC 2.63 10^6/uL (3.5-6.1) L 09/22/18 07:10 Hgb 8.3 g/dL (12.0-16.0) L 09/22/18 07:10 Hct 23.7 % (36.0-48.0) L 09/22/18 07:10 MCV 90.1 fl (80.0-105.0) 09/22/18 07:10 MCH 31.6 pg (25.0-35.0) 09/22/18 07:10 MCHC 35.0 g/dl (31.0-37.0) 09/22/18 07:10 RDW 13.4 % (11.5-14.5) 09/22/18 07:10 Plt Count 327 10^3/uL (120.0-450.0) 09/22/18 07:10 MPV 8.8 fl (7.0-11.0) 09/22/18 07:10 Neut % (Auto) 62.4 % (50.0-68.0) 09/22/18 07:10 Lymph % (Auto) 32.1 % (22.0-35.0) 09/22/18 07:10 Charlton % (Auto) 4.3 % (1.0-6.0) 09/22/18 07:10 Eos % (Auto) 1.0 % (1.5-5.0) L 09/22/18 07:10 Baso % (Auto) 0.2 % (0.0-3.0) 09/22/18 07:10 Lymph # (Auto) 2.8 (1.2-3.4) 09/22/18 07:10 Charlton # (Auto) 0.4 (0.1-0.6) 09/22/18 07:10 Eos # (Auto) 0.1 (0.0-0.7) 09/22/18 07:10 Baso # (Auto) 0.02 K/mm3 (0.0-2.0) 09/22/18 07:10 Absolute Neuts (auto) 5.49 (1.4-6.5) 09/22/18 07:10 PT 12.1 SECONDS (9.4-12.5) 09/14/18 03:34 INR 1.09 09/14/18 03:34 APTT 34.5 Seconds (26.9-38.3) 09/14/18 03:34 pO2 47 mm/Hg (30-55) 09/15/18 12:30 VBG pH 7.34 (7.32-7.43) 09/15/18 12:30 VBG pCO2 38.0 (40-60) L 09/15/18 12:30 VBG HCO3 20.5 mmol/l (21-28) L 09/15/18 12:30 VBG Total CO2 21.7 mmol.L (22-28) L 09/15/18 12:30 VBG O2 Sat (Calc) 83.0 % (40-65) H 09/15/18 12:30 VBG Base Excess -4.8 mmol/L (0.0-2.0) L 09/15/18 12:30 VBG Potassium 3.8 mmol/L (3.6-5.2) 09/15/18 12:30 Sodium 133.0 mmol/L (132-148) 09/15/18 12:30 Chloride 108.0 mmol/L (98-107) H 09/15/18 12:30 Glucose 181 mg/dl (65-105) H 09/15/18 12:30 Lactate 1.7 mmol/L (0.7-2.1) 09/15/18 12:30 FiO2 21.0 % 09/15/18 12:30 Crit Value Called To Lisa guajardo rn icu 09/15/18 05:15 Crit Value Called By Zach 09/15/18 05:15 Blood Gas Notified Time 610 09/15/18 05:15 Sodium 137 mmol/L (132-148) 09/22/18 07:10 Potassium 4.7 mmol/L (3.6-5.0) 09/22/18 07:10 Chloride 111 mmol/L (98-107) H 09/22/18 07:10 Carbon Dioxide 26 mmol/L (21-33) 09/22/18 07:10 Anion Gap 4 (10-20) L 09/22/18 07:10 BUN 6 mg/dL (7-21) L 09/22/18 07:10 Creatinine 0.7 mg/dl (0.7-1.2) 09/22/18 07:10 Est GFR ( Amer) > 60 09/22/18 07:10 Est GFR (Non-Af Amer) > 60 09/22/18 07:10 POC Glucose (mg/dL) 198 mg/dL (65-110) H 09/22/18 11:11 Random Glucose 109 mg/dL (70-110) 09/22/18 07:10 Hemoglobin A1c 9.3 % (4.2-6.5) H 09/16/18 10:00 Lactic Acid 1.6 mmol/L (0.7-2.1) 09/15/18 12:30 Calcium 6.9 mg/dL (8.4-10.5) L* 09/22/18 07:10 Phosphorus 1.7 mg/dL (2.5-4.5) L 09/21/18 07:00 Magnesium 1.7 mg/dL (1.7-2.2) 09/21/18 07:00 Total Bilirubin 0.2 mg/dL (0.2-1.3) 09/22/18 07:10 AST 33 U/L (14-36) 09/22/18 07:10 ALT 36 U/L (7-56) 09/22/18 07:10 Alkaline Phosphatase 69 U/L (38-126) 09/22/18 07:10 Total Protein 3.9 g/dL (5.8-8.3) L 09/22/18 07:10 Albumin 1.7 g/dL (3.0-4.8) L 09/22/18 07:10 Globulin 2.2 gm/dL 09/22/18 07:10 Albumin/Globulin Ratio 0.7 (1.1-1.8) L 09/22/18 07:10 Procalcitonin 0.98 NG/ML (0.19-0.49) H 09/14/18 15:20 Free T4 0.78 ng/dL (0.78-2.19) 09/14/18 15:20 Free T3 pg/mL 2.63 pg/mL (2.77-5.27) L 09/14/18 15:20 TSH 3rd Generation 5.93 mIU/mL (0.46-4.68) H 09/14/18 09:00 Venous Blood Potassium 3.8 mmol/L (3.6-5.2) 09/15/18 12:30 Urine Color Yellow (YELLOW) 09/14/18 04:00 Urine Appearance Clear (CLEAR) 09/14/18 04:00 Urine pH 6.5 (4.7-8.0) 09/14/18 04:00 Ur Specific Witherbee <= 1.005 (1.005-1.035) 09/14/18 04:00 Urine Protein Negative mg/dL (<30 mg/dL) 09/14/18 04:00 Urine Glucose (UA) Negative mg/dL (NEGATIVE) 09/14/18 04:00 Urine Ketones Negative mg/dL (NEGATIVE) 09/14/18 04:00 Urine Blood Negative (NEGATIVE) 09/14/18 04:00 Urine Nitrate Negative (NEGATIVE) 09/14/18 04:00 Urine Bilirubin Negative (NEGATIVE) 09/14/18 04:00 Urine Urobilinogen 0.2 E.U./dL (<1 E.U./dL) 09/14/18 04:00 Ur Leukocyte Esterase Negative Zoya/uL (NEGATIVE) 09/14/18 04:00 Influenza Typ A,B (EIA) Negative for flu a/b (NEGATIVE) 09/15/18 10:09 - Hospital Course Hospital Course: Lucía Salas, PGY-1, Internal Medicine Discharge Summary for Dr. Manuel 73 year old female with past medical history of diabetes mellitus type II, COPD and HTN was sent to the ED from his alf after being found laying on the ground next to her bed. EMS noted she was hypotensive, hypothermic, and hypoglycemic with a blood sugar of 20 and proceeded to administer 1 amp of D50 and IV fluids. Upon arrival to the ED, her blood sugar was 160 and had no memory of what happened. CT showed no evidence of acute intracranial pathology from the fall. The patient was hypotensive, hypothermic and tachycardic so Code Sepsis was called and Vancomycin/Zosyn were started. Upon admission to the ICU, hypothermia resolved. Antihypertensives were held due to hypotension. Patient was initially given 2.5 L of fluids. Patient was started on midodrine and levophed with improvement of blood pressure. RUQ ultrasound showed cholelithiasis and CT Abdomen and Pelvis showed fatty liver and cholelithiasis. Blood/urine cultures were negative and no source of infection was identified so antibiotics were discontinued. Patient was placed on D5 drip, became hyperglycemic the following day, and switched to NS. Levemir and SSI were started. Overnight, the patient became hypoglycemic with blood sugar <20 and insulin doses were adjusted. The basal and bolus insulin regimen from alf was discontinued and switched to Glimepiride 2 mg PO ACBD before breakfast and dinner along with low-dose sliding scale insulin. Patient then became hyperglycemic and Levemir and Lispro standing were both started. The next night, the patient had another episode of hypoglycemia that resolved with administration of D50. It was noted the family had been bringing her soda and food from [employer], likely causing her hyperglycemic episodes during the day. Levemir was decreased, glimepiride was discontinued, and lispro was reduced. Overnight, patient did not have any hypoglycemic episodes and glucose was better controlled as blood glucose was euglycemic. Patient was found to be stable and ready for discharge. Patient was told to follow up with PCP within 3-5 days. Patient was told to follow up with GI physician if she continued to have abdominal discomfort. New insulin regimen was given to patient after consulting with Dr. Altamirano, Endocrinology. Patient was told to hold insulin if blood glucose was consistently under 200. Patient was told to revise diet to only include low fat and low carbohydrates. Patient was told to take all home medications as prescribed. Patient was told to return to the emergency department if he had any new or concerning symptoms. This is a brief summary of the events that transpired at the hospital. For more information, please refer to hospital documentation. Discharge diagnoses Insulin dependent diabetes mellitus Septic vs. hypovolemic shock Hypokalemia Hypophosphatemia COPD Gastritis - Date & Time of H&P Date of H&P: 09/14/18 Time of H&P: 05:53 Discharge Exam - Head Exam Head Exam: ATRAUMATIC, NORMAL INSPECTION, NORMOCEPHALIC - Eye Exam Eye Exam: EOMI Pupil Exam: NORMAL ACCOMODATION, PERRL - ENT Exam ENT Exam: Mucous Membranes Moist, Normal External Ear Exam - Respiratory Exam Respiratory Exam: Clear to PA & Lateral, NORMAL BREATHING PATTERN - Cardiovascular Exam Cardiovascular Exam: REGULAR RHYTHM, RRR, +S1, +S2. absent: Clicks, Gallop, JVD - GI/Abdominal Exam GI & Abdominal Exam: Normal Bowel Sounds, Soft. absent: Distended, Firm, Guarding, Tenderness - Extremities Exam Extremities exam: full ROM, normal capillary refill, normal inspection - Neurological Exam Neurological exam: Alert, CN II-XII Intact, Oriented x3 - Psychiatric Exam Psychiatric exam: Normal Affect, Normal Mood - Skin Skin Exam: Dry, Intact, Normal Color Discharge Plan - Discharge Medications Prescriptions: Insulin Detemir [Levemir] 10 unit SC HS #1 vial Insulin Lispro [Admelog] 4 unit SQ AC 30 Days #1 vial - Follow Up Plan Condition: GUARDED Disposition: HOME/ ROUTINE Additional Instructions: Please follow up with your primary care doctor within 3-5 days. Please follow up with a gastrointestinal physician if you continue to have symptoms of abdominal pain. Please hold insulin is blood glucose is consistently low and below 200 Please revise diet to only include low fat, low carbohydrates. Please take all medications as prescribed. Please return to the emergency department if you have any new or concerning symptoms. <Lani Manuel - Last Filed: 09/22/18 15:42> Provider - Provider Date of Admission: 09/14/18 05:24 Attending physician: Lani Manuel MD Consults: 09/14/18 06:28 Physician Consult Routine Comment: Consulting Provider: Cory Ruffin Consulting Physician: Cory Ruffin Reason for Consult: Sepsis 09/15/18 11:16 Endocrinology Consult Routine Comment: Consulting Provider: Maida Altamirano Consulting Physician: Maida Altamirano Reason for Consult: Intermittent hypoglycemia/hyperglycemia 09/15/18 19:40 Nursing Referral for Wound Care Routine Comment: Physician Instructions: Reason For Exam: open wound healing lateral aspect left foot 3cm by Hospital Course - Lab Results Lab Results: Micro Results 09/14/18 04:20 Blood Blood Culture - Final NO GROWTH AFTER 5 DAYS 09/14/18 04:20 Blood Gram Stain - Final TEST NOT PERFORMED 09/14/18 03:34 Blood Blood Culture - Final NO GROWTH AFTER 5 DAYS 09/14/18 03:34 Blood Gram Stain - Final TEST NOT PERFORMED 09/14/18 08:20 Naris MRSA Culture (Admit) - Final MRSA NOT DETECTED 09/14/18 03:29 Urine,Catheterized Urine Culture - Final No Growth (<1,000 CFU/ML) Most Recent Lab Values WBC 8.8 10^3/uL (4.5-11.0) D 09/22/18 07:10 RBC 2.63 10^6/uL (3.5-6.1) L 09/22/18 07:10 Hgb 8.3 g/dL (12.0-16.0) L 09/22/18 07:10 Hct 23.7 % (36.0-48.0) L 09/22/18 07:10 MCV 90.1 fl (80.0-105.0) 09/22/18 07:10 MCH 31.6 pg (25.0-35.0) 09/22/18 07:10 MCHC 35.0 g/dl (31.0-37.0) 09/22/18 07:10 RDW 13.4 % (11.5-14.5) 09/22/18 07:10 Plt Count 327 10^3/uL (120.0-450.0) 09/22/18 07:10 MPV 8.8 fl (7.0-11.0) 09/22/18 07:10 Neut % (Auto) 62.4 % (50.0-68.0) 09/22/18 07:10 Lymph % (Auto) 32.1 % (22.0-35.0) 09/22/18 07:10 Charlton % (Auto) 4.3 % (1.0-6.0) 09/22/18 07:10 Eos % (Auto) 1.0 % (1.5-5.0) L 09/22/18 07:10 Baso % (Auto) 0.2 % (0.0-3.0) 09/22/18 07:10 Lymph # (Auto) 2.8 (1.2-3.4) 09/22/18 07:10 Charlton # (Auto) 0.4 (0.1-0.6) 09/22/18 07:10 Eos # (Auto) 0.1 (0.0-0.7) 09/22/18 07:10 Baso # (Auto) 0.02 K/mm3 (0.0-2.0) 09/22/18 07:10 Absolute Neuts (auto) 5.49 (1.4-6.5) 09/22/18 07:10 PT 12.1 SECONDS (9.4-12.5) 09/14/18 03:34 INR 1.09 09/14/18 03:34 APTT 34.5 Seconds (26.9-38.3) 09/14/18 03:34 pO2 47 mm/Hg (30-55) 09/15/18 12:30 VBG pH 7.34 (7.32-7.43) 09/15/18 12:30 VBG pCO2 38.0 (40-60) L 09/15/18 12:30 VBG HCO3 20.5 mmol/l (21-28) L 09/15/18 12:30 VBG Total CO2 21.7 mmol.L (22-28) L 09/15/18 12:30 VBG O2 Sat (Calc) 83.0 % (40-65) H 09/15/18 12:30 VBG Base Excess -4.8 mmol/L (0.0-2.0) L 09/15/18 12:30 VBG Potassium 3.8 mmol/L (3.6-5.2) 09/15/18 12:30 Sodium 133.0 mmol/L (132-148) 09/15/18 12:30 Chloride 108.0 mmol/L (98-107) H 09/15/18 12:30 Glucose 181 mg/dl (65-105) H 09/15/18 12:30 Lactate 1.7 mmol/L (0.7-2.1) 09/15/18 12:30 FiO2 21.0 % 09/15/18 12:30 Crit Value Called To Lisa guajardo advisory intern 09/15/18 05:15 Crit Value Called By Zach 09/15/18 05:15 Blood Gas Notified Time 610 09/15/18 05:15 Sodium 137 mmol/L (132-148) 09/22/18 07:10 Potassium 4.7 mmol/L (3.6-5.0) 09/22/18 07:10 Chloride 111 mmol/L (98-107) H 09/22/18 07:10 Carbon Dioxide 26 mmol/L (21-33) 09/22/18 07:10 Anion Gap 4 (10-20) L 09/22/18 07:10 BUN 6 mg/dL (7-21) L 09/22/18 07:10 Creatinine 0.7 mg/dl (0.7-1.2) 09/22/18 07:10 Est GFR ( Amer) > 60 09/22/18 07:10 Est GFR (Non-Af Amer) > 60 09/22/18 07:10 POC Glucose (mg/dL) 198 mg/dL (65-110) H 09/22/18 11:11 Random Glucose 109 mg/dL (70-110) 09/22/18 07:10 Hemoglobin A1c 9.3 % (4.2-6.5) H 09/16/18 10:00 Lactic Acid 1.6 mmol/L (0.7-2.1) 09/15/18 12:30 Calcium 6.9 mg/dL (8.4-10.5) L* 09/22/18 07:10 Phosphorus 1.7 mg/dL (2.5-4.5) L 09/21/18 07:00 Magnesium 1.7 mg/dL (1.7-2.2) 09/21/18 07:00 Total Bilirubin 0.2 mg/dL (0.2-1.3) 09/22/18 07:10 AST 33 U/L (14-36) 09/22/18 07:10 ALT 36 U/L (7-56) 09/22/18 07:10 Alkaline Phosphatase 69 U/L (38-126) 09/22/18 07:10 Total Protein 3.9 g/dL (5.8-8.3) L 09/22/18 07:10 Albumin 1.7 g/dL (3.0-4.8) L 09/22/18 07:10 Globulin 2.2 gm/dL 09/22/18 07:10 Albumin/Globulin Ratio 0.7 (1.1-1.8) L 09/22/18 07:10 Procalcitonin 0.98 NG/ML (0.19-0.49) H 09/14/18 15:20 Free T4 0.78 ng/dL (0.78-2.19) 09/14/18 15:20 Free T3 pg/mL 2.63 pg/mL (2.77-5.27) L 09/14/18 15:20 TSH 3rd Generation 5.93 mIU/mL (0.46-4.68) H 09/14/18 09:00 Venous Blood Potassium 3.8 mmol/L (3.6-5.2) 09/15/18 12:30 Urine Color Yellow (YELLOW) 09/14/18 04:00 Urine Appearance Clear (CLEAR) 09/14/18 04:00 Urine pH 6.5 (4.7-8.0) 09/14/18 04:00 Ur Specific Witherbee <= 1.005 (1.005-1.035) 09/14/18 04:00 Urine Protein Negative mg/dL (<30 mg/dL) 09/14/18 04:00 Urine Glucose (UA) Negative mg/dL (NEGATIVE) 09/14/18 04:00 Urine Ketones Negative mg/dL (NEGATIVE) 09/14/18 04:00 Urine Blood Negative (NEGATIVE) 09/14/18 04:00 Urine Nitrate Negative (NEGATIVE) 09/14/18 04:00 Urine Bilirubin Negative (NEGATIVE) 09/14/18 04:00 Urine Urobilinogen 0.2 E.U./dL (<1 E.U./dL) 09/14/18 04:00 Ur Leukocyte Esterase Negative Zoya/uL (NEGATIVE) 09/14/18 04:00 Influenza Typ A,B (EIA) Negative for flu a/b (NEGATIVE) 09/15/18 10:09 Attending/Attestation - Attestation I have personally seen and examined this patient.: Yes I have fully participated in the care of the patient.: Yes I have reviewed all pertinent clinical information, including history, physical exam and plan: Yes Notes (Text): 09/22/18 15:37 73 year old female with past medical history of diabetes, COPD and hypertension who presented with altered mental status from [place]. She was found to have hypothermia, hypoglycemia and hypotension and started on iv fluids and antibiotics for possible sepsis. However workup including CT/US and cultures were negative for infectious etiology and antibiotics were discontinued. During hospital stay her fingersticks have been labile ranging from hyper- hypoglycemia. Levemir and lispro were decreased and amaryl is discontinued as per endocrinology recommendations. She also reports intermittent vague abdominal discomfort and has chronic anemia. If persistent consider outpatient GI evaluation and anemia workup. Patient is discharged back to [place]. Follow up with pmd. Monitor fingersticks closely. Adhere to carb consistent diet. Hold levemir/lispro if patient has poor appetite and sugars are low. BP medications are on hold; if hypertensive can resume norvasc. Lani Manuel MD Hospitalist.
[2018-09-22 15:26] VITALS: BP 110/69; PULSE 78; TEMP 98.5; O2SAT 100
--- NOTE | 2018-09-22 20:10 | PN ---
DATE: 09/22/2018 ENDOCRINOLOGY FOLLOWUP NOTE LOCATION: Room 577. SUBJECTIVE: This is a 73-year-old female, with recent uncontrolled type 2 insulin-requiring diabetes with extremes of glycemic fluctuations ranging from initial symptomatic hypoglycemia to supervening hyperglycemic accelerations as noted thereof. Her glucose levels overnight have ranged from 109 to 144 and 198 mg/dL. It was 118 at bedtime last night. LABORATORY DATA: Her chemistries showed a BUN of 6, sodium 137, potassium 4.7, chloride 111, CO2 of 26, glucose 109 and creatinine 0.7. ASSESSMENT: This is a 73-year-old female with recent uncontrolled type 2 insulin-requiring diabetes with extremes of glycemic fluctuations related to the variability of her oral intake, presenting here with symptomatic hypoglycemia and associated noted neuroglycopenic and hyperadrenergic manifestations of the same. Moreover, she has developed also supervening hyperglycemic accelerations with the variability of her oral intake as noted. PLAN OF MANAGEMENT: So at this time, we will modify once again her basal and bolus insulin regimen to adjust to the variability of her oral intake as noted. We will lower the Humalog to 4 units t.i.d. before meals to start today as ordered. We will also lower the basal insulin with Levemir to be given as a 6 units subcu at bedtime daily to start tonight. We will obtain serial chemistries and supplement accordingly as needed. We will follow. Maida Altamirano MD
[2018-09-22] MEDS ORDERED: Insulin Detemir 100 units/ml Vial (Levemir) SC SCH (22:00)
--- NOTE | 2018-09-22 22:44 | PN ---
DATE: 09/22/2018 SUBJECTIVE: The patient seen earlier today in 577, bed 1. She is awake and alert. She is doing well. No fevers and no chills. PHYSICAL EXAMINATION: VITAL SIGNS: Temperature 98, blood pressure is 110/50, respiratory rate of 18, heart rate is noted. HEENT: Unremarkable. NECK: Supple. LUNGS: Have decreased breath sounds. HEART: Normal S1, S2. ABDOMEN: Soft nontender. LABORATORY EXAMINATION: Reveals the patient to have a white count of 8.8 and hemoglobin of 8.3 and platelets of 327 with chemistries reveals a creatinine 0.7, BUN of 6. Urinalysis is noted. Serology is reviewed. Microbiology is noted. REVIEW OF ORDERS: Reveals the patient continues to remain off of antibiotics and Dr. Manuel's note is reviewed. ASSESSMENT AND PLAN: This is a 73-year-old female who was seen earlier today in 577, bed 1, a residential patient with diabetes, hypertension, chronic obstructive lung disease, admitted with hypoglycemia, hypothermia, hypotension requiring vasopressor, diabetes, hypotensive shock versus septic shock versus hypovolemic shock and off of antibiotics. The patient had been on antibiotics. All cultures negative. Currently off of antibiotics and the patient is at risk for developing nosocomial infections. Pancho Perez MD
== END 2018-09-22 19:30 | DRG 871 ==
LOC: ED 03:13 → ERH 05:24 → ICU 08:04 → 5RSO 09-15 19:50 → ICU 09-15 19:50 → UNDODISIN 09-18 15:19 → 5RSO 09-18 15:49
PROVIDERS: ADMIT Internal Medicine; ATTEND Internal Medicine
PROC: 02HV33Z Insertion of Infusion Device into Superior Vena Cava, Percutaneous Approach (ICD-10-PCS; principal; 2018-09-14)
PROC: B548ZZA Ultrasonography of Superior Vena Cava, Guidance (ICD-10-PCS; 2018-09-14)
PROC: 5A09357 Assistance with Respiratory Ventilation, Less than 24 Consecutive Hours, Continuous Positive Airway Pressure (ICD-10-PCS; 2018-09-14)
DX: A41.9 Sepsis, unspecified organism (principal); R65.21 Severe sepsis with septic shock; E87.2 Acidosis; E11.649 Type 2 diabetes mellitus with hypoglycemia without coma; I10 Essential (primary) hypertension; J44.9 Chronic obstructive pulmonary disease, unspecified; E86.0 Dehydration; E87.6 Hypokalemia; T49.0X5A Adverse effect of local antifungal, anti-infective and anti-inflammatory drugs, initial encounter; E11.65 Type 2 diabetes mellitus with hyperglycemia; E83.39 Other disorders of phosphorus metabolism; K29.70 Gastritis, unspecified, without bleeding; K76.0 Fatty (change of) liver, not elsewhere classified; K80.20 Calculus of gallbladder without cholecystitis without obstruction; T68.XXXA Hypothermia, initial encounter; W19.XXXA Unspecified fall, initial encounter; Y92.129 Unspecified place in nursing home as the place of occurrence of the external cause; Z79.4 Long term (current) use of insulin; Z87.891 Personal history of nicotine dependence

== ENCOUNTER 2018-10-08 12:17 | Inpatient (IN) | payer MEDICARE, OTHER ==
--- NOTE | 2018-10-08 12:39 | ED PDOC ---
Arrival/HPI - General Chief Complaint: Trauma Time Seen by Provider: 10/08/18 12:22 Historian: Patient - History of Present Illness Narrative History of Present Illness (Text): 10/08/18 12:35 A 73 year old female, whose past medical history includes diabetes and hypertension, sent from [facility] to the emergency department for possible head trauma s/p fall. Patient had a recent admission for sepsis and hypoglycemia. Patient reports having "fell out of bed earlier today" and possibly hit her head. Patient confirms she fell out of bed. Patient denies any headache, chest pain, shortness of breath, back pain, hip pain, syncope, LOC, or any other complaints at this time. No fever reported. Patient's blood sugar reportedly 81 at [facility] prior to arrival. PMD: Dr. Willie Almeida Past Medical History - Provider Review Nursing Documentation Reviewed: Yes - Infectious Disease Hx of Infectious Diseases: None - Cardiac Hx Congestive Heart Failure: Yes - Pulmonary Hx Chronic Obstructive Pulmonary Disease (COPD): Yes - Neurological Hx Syncope: Yes - HEENT Hx HEENT Disorder: No - Renal Hx Renal Disorder: No - Endocrine/Metabolic Hx Diabetes Mellitus Type 2: Yes - Hematological/Oncological Hx Blood Disorders: No - Integumentary Hx Dermatological Disorder: No - Musculoskeletal/Rheumatological Hx Falls: Yes Hx Fractures: Yes (HX:Right distal tib/fib; HX: LEFT ANKLE FRACTURE) - Gastrointestinal Hx Gastrointestinal Disorders: Yes Hx Gastroesophageal Reflux: Yes - Genitourinary/Gynecological Hx Genitourinary Disorders: No - Psychiatric Hx Substance Use: No - Surgical History Hx Orthopedic Surgery: Yes (Left ankle ORIF(02/19/17)) - Anesthesia Hx Anesthesia: Yes Family/Social History - Physician Review Nursing Documentation Reviewed: Yes Family/Social History: Unknown Family HX Smoking Status: Never Smoked Hx Alcohol Use: No Hx Substance Use: No Allergies/Home Meds Allergies/Adverse Reactions: Allergies Iodinated Contrast- Oral and IV Dye Allergy (Intermediate, Verified 10/08/18 15:13) ANAPHYLAXIS iodine Allergy (Verified 10/08/18 15:13) ANAPHYLAXIS shellfish derived Allergy (Verified 10/08/18 15:13) ANAPHYLAXIS Home Medications: Home Meds Medication Instructions Recorded Confirmed Acetaminophen 325 mg PO Q4 PRN 04/25/17 10/08/18 Pantoprazole [Protonix EC Tab] 40 mg PO DAILY 04/25/17 10/08/18 Magnesium Hydroxide [Milk of 30 ml PO PRN PRN 09/14/18 10/08/18 Magnesia] Mirtazapine [Remeron] 7.5 mg PO DAILY 09/14/18 10/08/18 Albuterol/Ipratropium [Duoneb 3 3 ml IH Q4H PRN 10/08/18 10/08/18 mg/0.5 mg (3 ml) UD] Amoxicillin/Clavulanate [Augmentin 1 tab PO BID 10/08/18 10/08/18 875 MG-125 MG Tab] Dextrose Oral [Glutose 15] 31 gm PO .ONCE PRN 10/08/18 10/08/18 Glucagon [Glucagen Diagnostic Kit] 1 mg IM .STAT PRN 10/08/18 10/08/18 Insulin Glargine, Recombina 10 unit SC HS 10/08/18 10/08/18 [Lantus] Insulin Lispro [Humalog (Insulin 1 unit SQ QID PRN 10/08/18 10/08/18 Lispro)] Mag Hydrox/Aluminum Hyd/Simeth 30 ml PO DAILY PRN 10/08/18 10/08/18 [Maalox Advanced Suspension] Review of Systems - Review of Systems Constitutional: absent: Fevers Respiratory: absent: SOB Cardiovascular: absent: Chest Pain Gastrointestinal: absent: Abdominal Pain, Hematochezia Musculoskeletal: absent: Back Pain Neurological: absent: Headache, Focal Weakness Physical Exam - Physical Exam Narrative Physical Exam (Text): Head: Atraumatic. No soft tissue swelling or bony deformities noted. Eyes: EOMI, visual acuity intact. ENT: Mucous membranes are moist and intact. Oropharynx is clear and symmetric. No facial bony deformities. Neck: Supple. Full ROM. No midline tenderness. Trachea midline. Cardiovascular: Regular rate. Regular rhythm. Systolic murmur. Distal pulses are 2+ and symmetric. Pulmonary/Chest: No evidence of respiratory distress. Clear to auscultation bilaterally. No wheezing, rales or rhonchi. No chest wall tenderness. Abdominal: Soft and non-distended. There is no tenderness. No rebound, guarding, or rigidity. Rectal: brown, heme negative stool Back: No midline tenderness or deformity. Extremities: No edema. No cyanosis. No clubbing. No hip pain. No shoulder pain. No elbow pain. No knee pain. Able to range hips with no discomfort. Skin: Skin is warm and dry. No petechiae. No purpura. No lacerations or ecchymosis. Neurological: Alert, awake. Answers questions appropriately. Slow speech but not slurred. No acute facial droop. Moves all four extremities with equal strength. Psychiatric: Poor eye contact. Vital Signs Temp 10/08/18 12:29 97.4 F L Medical Decision Making ED Course and Treatment: 10/08/18 12:39 Impression: 73 year old female brought in from [facility] for possible head trauma s/p fall. Plan: serial neuro checks, serial accu checks, monitoring of symptoms Prior Visits: Notes and results from previous visits were reviewed. Patient was last seen here in the emergency department on 09/14/2018 after being found lying on the floor at the [facility]. Patient was admitted for sepsis, hypoglycemia, hypotension at that time to the ICU. Progress Notes: Prior admission reviewed. Patient currently is afebrile. Blood pressure stable. Heart rate stable. She states she fell out of bed and [facility] reports that she may have hit her head although patient is not certain. She denies any pain or discomfort. Given risk factors and comorbities, will obtain labs, head ct, serial exams and monitoring. 10/08/2018 13:[address] IMPRESSION: Interval development of left cerebral convexity subdural hygroma with maximum depth 1.3 cm. No other significant interval change. Dictator: Jan Garcia MD 10/08/18 18:53 Patient with serial exams denies any pain or discomfort. She was noted to become hypoglycemic on re-evaluation, although she remained alert, awake, attentive and denies symptoms. She is not hypotensive or tachycardic. She is not febrile. Currently no indications of sepsis. CXR reviewed, there is suggestion of pulmonary vascular congestion, although patient exhibits no respiratory distress, no hypoxia, and has clear lungs. AMP D50 given and blood sugar improved. She has had no lethargy or focal weakness noted with serial exams. CT reading reviewed with [facility] neuro Dr. Goode. I have paged the oncjuany neurosurgeon for review of CT as well. This consult and communication endorsed to admitting team. Will admit to telemetry bed for history of hypoglycmia and on oral hypoglyecemics. Also for monitoring of symptoms. CT head requested to be repeated in AM. Patient admitted to hospitalist service, care turned over to hospitalist team. On re-exam, blood sugar is stable. Anemia noted, at baseline. No active bleeding noted currently. - Lab Interpretations I have reviewed the lab results: Yes - EKG Interpretation EKG Interpretation (Text): 10/08/18 12:55 EKG at 12:31 normal sinus rhythm, low voltage qrs, rate of 65 Interpreted by ED Physician: Yes Type: 12 lead EKG - Scribe Statement The provider has reviewed the documentation as recorded by the Supriyaibe Vernon Mcwilliams Provider Scribe Attestation: All medical record entries made by the Renate were at my direction and personally dictated by me. I have reviewed the chart and agree that the record accurately reflects my personal performance of the history, physical exam, medical decision making, and the department course for this patient. I have also personally directed, reviewed, and agree with the discharge instructions and disposition. Disposition/Present on Arrival - Present on Arrival Any Indicators Present on Arrival: Yes History of DVT/PE: No History of Uncontrolled Diabetes: Yes Urinary Catheter: No History of Decub. Ulcer: No History Surgical Site Infection Following: None - Disposition Have Diagnosis and Disposition been Completed?: Yes Diagnosis: Subdural hygroma, Fall, Hypoglycemia, Anemia Disposition: HOSPITALIZED Disposition Time: 14:10 Patient Plan: Admission, Telemetry Patient Problems: Current Active Problems Problem Status Onset Anemia Acute Fall Acute Hypoglycemia Acute Subdural hygroma Acute Condition: SERIOUS
[2018-10-08 13:12] LABS: VENOUS BLOOD GAS BASE EXCESS 2.5 mmol/L (0.0-2.0); VENOUS BLOOD GAS PO2 24 mm/Hg (30-55); VENOUS BLOOD PH 7.38 (7.32-7.43)
[2018-10-08 13:40] LABS: BASO # 0.01 K/mm3 (0.0-2.0); BASO % 0.2 % (0.0-3.0); EOS % 0.4 % (1.5-5.0); HEMOGLOBIN 8.8 g/dL (12.0-16.0); LYMPH # 1.8 (1.2-3.4); LYMPH % 34.2 % (22.0-35.0); MEAN CORPUSCULAR HEMOGLOBIN 31.3 pg (25.0-35.0); MEAN CORPUSCULAR HGB CONC 33.3 g/dl (31.0-37.0); MEAN PLATELET VOLUME 9.2 fl (7.0-11.0); MONO # 0.3 (0.1-0.6); MONO % 5.5 % (1.0-6.0); RBC 2.81 10^6/uL (3.5-6.1); RED CELL DISTRIBUTION WIDTH 13.9 % (11.5-14.5); WHITE BLOOD COUNT 5.3 10^3/uL (4.5-11.0)
[2018-10-08 13:44] LABS: INR 1.28; PARTIAL THROMBOPLASTIN TIME 22.2 Seconds (26.9-38.3); PROTHROMBIN TIME 14.5 SECONDS (9.4-12.5)
[2018-10-08 13:55] LABS: ALB/GLOB RATIO 0.8 (1.1-1.8); ALBUMIN 1.9 g/dL (3.0-4.8); ALT/SGPT 37 U/L (7-56); AST/SGOT 36 U/L (14-36); BLOOD UREA NITROGEN 5 mg/dL (7-21); CALCIUM 7.4 mg/dL (8.4-10.5); GFR NON-AFRICAN AMERICAN > 60
[2018-10-08 13:56] LABS: TROPONIN I < 0.01 ng/mL
--- NOTE | 2018-10-08 13:58 | CT ---
Date of service: 10/08/2018 PROCEDURE: CT HEAD WITHOUT CONTRAST. HISTORY: ams COMPARISON: CT head dated 09/14/2018. TECHNIQUE: Axial computed tomography images were obtained through the head/brain without intravenous contrast. Radiation dose: Total exam DLP = 853.45 mGy-cm. This CT exam was performed using one or more of the following dose reduction techniques: Automated exposure control, adjustment of the mA and/or kV according to patient size, and/or use of iterative reconstruction technique. FINDINGS: HEMORRHAGE: No intracranial hemorrhage. New left cerebral convexity subdural hygroma with maximum depth 1.3 cm BRAIN: No mass effect or edema. Atrophy. Chronic microvascular ischemic changes. VENTRICLES: Prominent patent cavum septum pellucidum and cavum vergae. No hydrocephalus. CALVARIUM: Unremarkable. PARANASAL SINUSES: Unremarkable as visualized. No significant inflammatory changes. MASTOID AIR CELLS: Unremarkable as visualized. No inflammatory changes. OTHER FINDINGS: None. IMPRESSION: Interval development of left cerebral convexity subdural hygroma with maximum depth 1.3 cm. No other significant interval change.
[2018-10-08] MEDS ORDERED: Dextrose 50% SYRINGE Inj (50 ml) ONE (14:02)
[2018-10-08] MEDS ORDERED: Dextrose 50% SYRINGE Inj (50 ml) IVP STA (14:07)
[2018-10-08] MEDS: Dextrose 5%/0.45% NS 1,000 ML IV SCH (14:17)
--- NOTE | 2018-10-08 15:19 | CP.PCM.HP ---
<Lucía Salas - Last Filed: 10/08/18 15:48> History of Present Illness - History of Present Illness History of Present Illness: Lucía Salas, PGY-1, Internal Medicine History and Physical for Dr. Manuel 73 year old female with past medical history of diabetes mellitus, COPD, hypertension, hypoglycemia presents status post fall at [facility]. As per ED note, patient fell out of bed earlier today and possible hit her head. Patient recently was admitted for sepsis with undetermined source and was found to be hypothermia and later had varying blood glucose levels between hypog lycemia and severe hyperglycemia. On this admission, patient was AAOx1 at bedside and had no complaints at bedside including headache, fever, chest pain, heart palpitations, shortness of breath, dizziness, hip pain, nausea, vomiting, constipation, diarrhea, loss of consciousness, dysuria, hematuria. In addition, patient did not remember falling from her bed. Prior to arrival at the hospital, patient's blood glucose was 81. 12-point ROS was unremarkable except for what was mentioned above. PMH: as stated above PSHx: denies Allergies: No known allergies SHx: Smokes 1/4 PPD for 50 years. Prior alcohol abuse history. Denies drug use. Lives in [facility]. FMHx: non-contributary PMD: Dr. Sebastien Almeida Ins: [facility] Pharmacy: unknown Home medications: obtained from documentation from [facility] History is limited due to patient's mental status. History was obtained from prior notes Present on Admission - Present on Admission Any Indicators Present on Admission: No Review of Systems - Review of Systems Review of Systems: except for what was mentioned above Past Patient History - Infectious Disease Hx of Infectious Diseases: None - Past Medical History & Family History Past Medical History?: Yes - Past Social History Smoking Status: Never Smoked - CARDIAC Hx Congestive Heart Failure: Yes - PULMONARY Hx Chronic Obstructive Pulmonary Disease (COPD): Yes - NEUROLOGICAL Hx Syncope: Yes - HEENT Hx HEENT Problems: No - RENAL Hx Chronic Kidney Disease: No - ENDOCRINE/METABOLIC Hx Diabetes Mellitus Type 2: Yes - HEMATOLOGICAL/ONCOLOGICAL Hx Blood Disorders: No - INTEGUMENTARY Hx Dermatological Problems: No - MUSCULOSKELETAL/RHEUMATOLOGICAL Hx Falls: Yes Hx Fractures: Yes (HX:Right distal tib/fib; HX: LEFT ANKLE FRACTURE) - GASTROINTESTINAL Hx Gastrointestinal Disorders: Yes Hx Gastroesophageal Reflux: Yes - GENITOURINARY/GYNECOLOGICAL Hx Genitourinary Disorders: No - PSYCHIATRIC Hx Substance Use: No - SURGICAL HISTORY Hx Orthopedic Surgery: Yes (Left ankle ORIF(02/19/17)) - ANESTHESIA Hx Anesthesia: Yes Meds Allergies/Adverse Reactions: Allergies Allergy/AdvReac Type Severity Reaction Status Date / Time Iodinated Contrast- Oral and Allergy Intermediate ANAPHYLAXIS Verified 10/08/18 15:13 IV Dye iodine Allergy ANAPHYLAXIS Verified 10/08/18 15:13 shellfish derived Allergy ANAPHYLAXIS Verified 10/08/18 15:13 Physical Exam - Constitutional Appears: Well, Non-toxic, No Acute Distress - Head Exam Head Exam: ATRAUMATIC, NORMAL INSPECTION, NORMOCEPHALIC - Eye Exam Eye Exam: EOMI, PERRL - ENT Exam ENT Exam: Mucous Membranes Moist - Neck Exam Neck exam: Positive for: Normal Inspection - Respiratory Exam Respiratory Exam: Clear to Auscultation Bilateral, NORMAL BREATHING PATTERN. absent: Rales, Rhonchi, Wheezes - Cardiovascular Exam Cardiovascular Exam: REGULAR RHYTHM, RRR, +S1, +S2. absent: Clicks, Gallop, Rubs - GI/Abdominal Exam GI & Abdominal Exam: Firm, Normal Bowel Sounds. absent: Distended, Guarding, Tenderness - Extremities Exam Extremities exam: Positive for: full ROM, pedal edema (+2), tenderness - Neurological Exam Additional comments: AAOx1, moving all extremities, CN II-XII grossly intact - Skin Skin Exam: Dry, Intact, Normal Color Results - Vital Signs Recent Vital Signs: Last Vital Signs Temp 98 F 10/08/18 15:11 Pulse 68 10/08/18 15:11 Resp 19 10/08/18 15:11 BP 121/59 L 10/08/18 15:11 Pulse Ox 98 10/08/18 15:11 - Labs Result Diagrams: 10/08/18 13:20 10/08/18 13:20 Labs: Laboratory Results - last 24 hr 10/08/18 10/08/18 10/08/18 12:36 13:00 13:20 WBC 5.3 D RBC 2.81 L Hgb 8.8 L Hct 26.4 L MCV 94.0 D MCH 31.3 MCHC 33.3 RDW 13.9 Plt Count 347 MPV 9.2 Neut % (Auto) 59.7 Lymph % (Auto) 34.2 [place] % (Auto) 5.5 Eos % (Auto) 0.4 L Baso % (Auto) 0.2 Lymph # (Auto) 1.8 [place] # (Auto) 0.3 Eos # (Auto) 0.0 Baso # (Auto) 0.01 Absolute Neuts (auto) 3.15 PT INR APTT pO2 24 L VBG pH 7.38 VBG pCO2 48.0 VBG HCO3 28.4 H VBG Total CO2 29.9 H VBG O2 Sat (Calc) 38.3 L VBG Base Excess 2.5 H VBG Potassium 4.5 Sodium 138.0 Chloride 111.0 H Glucose 45 L Lactate 1.5 FiO2 21.0 Crit Value Called To Felicia johnson Crit Value Called By Sharan rae Blood Gas Notified Time 1312 Potassium Carbon Dioxide Anion Gap BUN Creatinine Est GFR ( Amer) Est GFR (Non-Af Amer) POC Glucose (mg/dL) 75 Random Glucose Calcium Total Bilirubin AST ALT Alkaline Phosphatase Lactate Dehydrogenase Total Creatine Kinase Troponin I Total Protein Albumin Globulin Albumin/Globulin Ratio Venous Blood Potassium 4.5 10/08/18 10/08/18 13:20 13:20 WBC RBC Hgb Hct MCV MCH MCHC RDW Plt Count MPV Neut % (Auto) Lymph % (Auto) [place] % (Auto) Eos % (Auto) Baso % (Auto) Lymph # (Auto) [place] # (Auto) Eos # (Auto) Baso # (Auto) Absolute Neuts (auto) PT 14.5 H INR 1.28 APTT 22.2 L pO2 VBG pH VBG pCO2 VBG HCO3 VBG Total CO2 VBG O2 Sat (Calc) VBG Base Excess VBG Potassium Sodium 136 Chloride 112 H Glucose Lactate FiO2 Crit Value Called To Crit Value Called By Blood Gas Notified Time Potassium 4.4 Carbon Dioxide 23 Anion Gap 5 L BUN 5 L Creatinine 0.6 L Est GFR ( Amer) > 60 Est GFR (Non-Af Amer) > 60 POC Glucose (mg/dL) Random Glucose 43 L* D Calcium 7.4 L Total Bilirubin 0.4 AST 36 ALT 37 Alkaline Phosphatase 77 Lactate Dehydrogenase 559 Total Creatine Kinase < 20 L Troponin I < 0.01 Total Protein 4.4 L Albumin 1.9 L Globulin 2.5 Albumin/Globulin Ratio 0.8 L Venous Blood Potassium Assessment & Plan - Assessment and Plan (Free Text) Assessment: 73 year old female with past medical history of diabetes mellitus, COPD, hypertension, hypoglycemia presents status post fall at [facility]. Patient was admitted for evaluation status post fall and for subdural hygroma found on Head CT. Plan: Status post fall -Head CT: development of left cerebral convexity subdural hygroma with depth of 1.3 cm -EKG: NSR with heart rate of 65 -Chest X ray: no active disease -No signs of fracture or change in mental status -Dr. Goode, Neurology, and Dr. Brothers, Neurosurgery, consulted for recommendations. Subdural hygroma -Head CT: left cerebral convexity subdural hygroma with maximum depth of 1.3 cm -As per neurology, no recommendations at this time except to repeat head CT in the AM -Avoid anticoagulation at this time -Neurology, Dr. Goode, and Neurosurgery, Dr. Brothers, consulted for further recommendations. Diabetes mellitus -Patient has history of hypoglycemia mixed with periods of severe hyperglycemia -Patient had blood glucose of 80s at [facility] and on admission had blood glucose of 43 -Will continue to monitor blood glucose and obtain hemoglobin A1c -Will hold home levemir and amaryl -Will start medium sliding scale insulin -Accuchecks ACHS -Avoid hypoglycemia -Started hypoglycemia protocol -As patient has history of hypoglycemia and hypothermia, will obtain TSH History of hypertension -Normotensive at this time -Will hold off on antihypertensives History of UTI vs. asymptomatic bacteriuria -Patient had 4 days of augmentin at [facility] -Will obtain UA -Will follow up UCx -No need for antibiotics as patient is afebrile, has no leukocytosis, and has no symptoms of UTI at this time History of COPD -Start duonebs 3 Q4PRN for shortness of breath History of depression -Started home mirtazapine History of constipation -Started home milk of magnesia PRN History of GERD -Started home maalox PRN and protonix daily GI prophylaxis: protonix DVT prophylaxis: SCD Patient plan discussed with Dr. Manuel - Date & Time Date: 10/08/18 Time: 15:21 <Lani Manuel - Last Filed: 10/08/18 16:30> Results - Vital Signs Recent Vital Signs: Last Vital Signs Temp 98 F 10/08/18 15:11 Pulse 68 10/08/18 15:11 Resp 19 10/08/18 15:11 BP 121/59 L 10/08/18 15:11 Pulse Ox 98 10/08/18 15:11 - Labs Result Diagrams: 10/08/18 13:20 10/08/18 13:20 Labs: Laboratory Results - last 24 hr 10/08/18 10/08/18 10/08/18 12:36 13:00 13:20 WBC 5.3 D RBC 2.81 L Hgb 8.8 L Hct 26.4 L MCV 94.0 D MCH 31.3 MCHC 33.3 RDW 13.9 Plt Count 347 MPV 9.2 Neut % (Auto) 59.7 Lymph % (Auto) 34.2 [place] % (Auto) 5.5 Eos % (Auto) 0.4 L Baso % (Auto) 0.2 Lymph # (Auto) 1.8 [place] # (Auto) 0.3 Eos # (Auto) 0.0 Baso # (Auto) 0.01 Absolute Neuts (auto) 3.15 PT INR APTT pO2 24 L VBG pH 7.38 VBG pCO2 48.0 VBG HCO3 28.4 H VBG Total CO2 29.9 H VBG O2 Sat (Calc) 38.3 L VBG Base Excess 2.5 H VBG Potassium 4.5 Sodium 138.0 Chloride 111.0 H Glucose 45 L Lactate 1.5 FiO2 21.0 Crit Value Called To Felicia johnson Crit Value Called By Sharan rae Blood Gas Notified Time 1312 Potassium Carbon Dioxide Anion Gap BUN Creatinine Est GFR ( Amer) Est GFR (Non-Af Amer) POC Glucose (mg/dL) 75 Random Glucose Calcium Total Bilirubin AST ALT Alkaline Phosphatase Lactate Dehydrogenase Total Creatine Kinase Troponin I Total Protein Albumin Globulin Albumin/Globulin Ratio Venous Blood Potassium 4.5 Urine Color Urine Appearance Urine pH Ur Specific [place] Urine Protein Urine Glucose (UA) Urine Ketones Urine Blood Urine Nitrate Urine Bilirubin Urine Urobilinogen Ur Leukocyte Esterase Urine RBC Urine WBC Ur Epithelial Cells Urine Bacteria 10/08/18 10/08/18 10/08/18 13:20 13:20 15:00 WBC RBC Hgb Hct MCV MCH MCHC RDW Plt Count MPV Neut % (Auto) Lymph % (Auto) [place] % (Auto) Eos % (Auto) Baso % (Auto) Lymph # (Auto) [place] # (Auto) Eos # (Auto) Baso # (Auto) Absolute Neuts (auto) PT 14.5 H INR 1.28 APTT 22.2 L pO2 VBG pH VBG pCO2 VBG HCO3 VBG Total CO2 VBG O2 Sat (Calc) VBG Base Excess VBG Potassium Sodium 136 Chloride 112 H Glucose Lactate FiO2 Crit Value Called To Crit Value Called By Blood Gas Notified Time Potassium 4.4 Carbon Dioxide 23 Anion Gap 5 L BUN 5 L Creatinine 0.6 L Est GFR ( Amer) > 60 Est GFR (Non-Af Amer) > 60 POC Glucose (mg/dL) Random Glucose 43 L* D Calcium 7.4 L Total Bilirubin 0.4 AST 36 ALT 37 Alkaline Phosphatase 77 Lactate Dehydrogenase 559 Total Creatine Kinase < 20 L Troponin I < 0.01 Total Protein 4.4 L Albumin 1.9 L Globulin 2.5 Albumin/Globulin Ratio 0.8 L Venous Blood Potassium Urine Color Yellow Urine Appearance Clear Urine pH 7.0 Ur Specific [place] 1.015 Urine Protein 30 H Urine Glucose (UA) Negative Urine Ketones Negative Urine Blood Negative Urine Nitrate Negative Urine Bilirubin Negative Urine Urobilinogen 0.2 Ur Leukocyte Esterase Trace H Urine RBC None Urine WBC 2 - 5 Ur Epithelial Cells 10 - 12 H Urine Bacteria Mod 10/08/18 15:58 WBC RBC Hgb Hct MCV MCH MCHC RDW Plt Count MPV Neut % (Auto) Lymph % (Auto) [place] % (Auto) Eos % (Auto) Baso % (Auto) Lymph # (Auto) [place] # (Auto) Eos # (Auto) Baso # (Auto) Absolute Neuts (auto) PT INR APTT pO2 VBG pH VBG pCO2 VBG HCO3 VBG Total CO2 VBG O2 Sat (Calc) VBG Base Excess VBG Potassium Sodium Chloride Glucose Lactate FiO2 Crit Value Called To Crit Value Called By Blood Gas Notified Time Potassium Carbon Dioxide Anion Gap BUN Creatinine Est GFR ( Amer) Est GFR (Non-Af Amer) POC Glucose (mg/dL) 207 H Random Glucose Calcium Total Bilirubin AST ALT Alkaline Phosphatase Lactate Dehydrogenase Total Creatine Kinase Troponin I Total Protein Albumin Globulin Albumin/Globulin Ratio Venous Blood Potassium Urine Color Urine Appearance Urine pH Ur Specific [place] Urine Protein Urine Glucose (UA) Urine Ketones Urine Blood Urine Nitrate Urine Bilirubin Urine Urobilinogen Ur Leukocyte Esterase Urine RBC Urine WBC Ur Epithelial Cells Urine Bacteria Attending/Attestation - Attestation I have personally seen and examined this patient.: Yes I have fully participated in the care of the patient.: Yes I have reviewed all pertinent clinical information: Yes Notes (Text): 10/08/18 16:23 73 year old female with past medical history of diabetes, hypertension and COPD who was sent from [facility] after a fall from her bed. She was found to have hypoglycemia and subdural hygroma on CT head. Neurology and neurosurgery evaluations are requested. CT head follow test ordered. Will need PT evaluation as well. FS improved currently to 200s. Continue with insulin ss. Hold levemir and amaryl for now; consider resuming levemir if patient is hyperglycemic. Endocrinology evaluation is requested. Continue to monitor fingersticks closely and adjust diabetic regimen accordingly. Lani Manuel MD Hospitalist.
--- NOTE | 2018-10-08 15:20 | RAD ---
Date of service: 10/08/2018 PROCEDURE: CHEST RADIOGRAPH, 1 VIEW HISTORY: fall, weakness COMPARISON: Chest radiograph dated 09/14/2018. FINDINGS: LUNGS: Pulmonary vascular congestion. Right basilar atelectasis. PLEURA: Small right pleural effusion. No appreciable pneumothorax. CARDIOVASCULAR: Aortic atherosclerotic calcifications. Cardiomediastinal silhouette stably enlarged. OSSEOUS STRUCTURES: Unchanged. VISUALIZED UPPER ABDOMEN: Normal. OTHER FINDINGS: Removal of right internal jugular access central venous catheter.. IMPRESSION: Pulmonary vascular congestion with small right pleural effusion.
[2018-10-08] MEDS ORDERED: Alum-Mag Hydrox-Simethicone Susp (30 mL) PO PRN (15:30)
[2018-10-08] MEDS ORDERED: Magnesium Hydroxide Susp 30 ml UD PO PRN (15:30)
[2018-10-08 15:34] LABS: URINE BILIRUBIN NEGATIVE (NEGATIVE); URINE BLOOD NEGATIVE (NEGATIVE); URINE GLUCOSE (UA) NEGATIVE (NEGATIVE); URINE LEUKOCYTE ESTERASE TRACE Leu/uL (NEGATIVE); URINE PROTEIN 30 mg/dL (<30 mg/dL); URINE UROBILINOGEN 0.2 E.U./dL (<1 E.U./dL)
[2018-10-08 15:37] LABS: URINE APPEARANCE CLEAR (CLEAR); URINE COLOR YELLOW (YELLOW)
[2018-10-08 15:46] LABS: URINE BACTERIA MOD /hpf
[2018-10-08] MEDS ORDERED: Insulin Reg-MEDIUM-Coverage SC SCH (16:30)
[2018-10-08] MEDS: Insulin Lispro (humaLOG) LOW Coverage SC SCH ×2 (17:44→21:52)
[2018-10-08 18:26] VITALS: BMI 17.6
[2018-10-08] MEDS ORDERED: Pneumococcal 23-Valent Vaccine IM ONE (18:26)
--- NOTE | 2018-10-08 21:40 | CON ---
DATE OF CONSULTATION: 10/08/2018 LOCATION: Room 372. HISTORY OF PRESENT ILLNESS: This is a 73-year-old female with known history of type 2 diabetes and hypertension, presenting here with an accidental fall in the group home facility with supervening glycemic fluctuations and hypothermia and is now being referred for diabetic evaluation and management. PAST MEDICAL HISTORY: As mentioned above, history of type 2 diabetes off oral hypoglycemic therapy and currently only on a sliding scale coverage as noted, history of hypertension and dyslipidemia, history of chronic obstructive lung disease, history of coronary artery disease with previous admissions for congestive heart failure, history of reactive previous fractures in both the right and left ankle area and underwent a left ankle open reduction and internal fixation procedure about 2 years ago, history of generalized anxiety and depression, on psychotropic medications. FAMILY HISTORY: Positive for hypertension and heart disease. SOCIAL HISTORY: The patient has a previous history of smoking for over 50 years and also alcohol use, but has since then been discontinued at this time. She has a supportive family as noted. REVIEW OF SYSTEMS: Not possible at this time because of the patient's mental state, but the chart has been reviewed in detail and the consultants notes also reviewed in detail. PHYSICAL EXAMINATION: GENERAL: This is an average built female, in no apparent distress. VITAL SIGNS: Blood pressure of 140/80, pulse of 100 beats per minute and regular, temperature 98, respirations 20, height is 5 feet 6 inches, weight is 109 pounds. HEENT: Head normocephalic. Eyes anicteric with pink conjunctivae. Funduscopy not possible at this time. Ears, nose and throat otherwise normal. NECK: Supple. Thyroid gland is normal size. No carotid bruits or any cervical adenopathy. CARDIOPULMONARY: Some adynamic precordium. S1, S2 is rapid and regular. LUNGS: Clear to auscultation. ABDOMEN: Flat, soft with positive bowel sounds. EXTREMITIES: No peripheral edema. Pulses are +2 bilaterally. LABORATORY DATA: Her chemistries showed a BUN of 5, sodium 136, potassium 4.4, chloride 112, CO2 of 23, glucose 43, creatinine 0.6. The subsequent glucose levels are 207 to 273. Her TSH is 4.78. ASSESSMENT: This is a 73-year-old female with known history of type 2 diabetes and hypertension, admitted here with possible head trauma from an accidental fall at the [facility] and is also presenting here now with symptomatic hypoglycemia and associated neuroglycopenic and hyperadrenergic manifestations of the same. PLAN OF MANAGEMENT: We will modify her current insulin coverage scale and discontinue the medium dose algorithm to a very low-dose algorithm to obviate further hypoglycemic episodes. We will observe her glycemic fluctuations overnight and determine the need to start her on either a low-dose oral hypoglycemic therapy versus basal insulin therapy in combination with oral hypoglycemic drug therapy as indicated. A hemoglobin A1c will be done to confirm her prior glycemic control and baseline thyroid function studies will be repeated because of this slightly elevated TSH value as noted. We will obtain serial chemistries and supplement accordingly as needed. We will follow this. Maida Altamirano MD
[2018-10-09] MEDS: Pantoprazole 40 mg Susp UD PO SCH (05:28)
[2018-10-09] MEDS: Insulin Lispro (humaLOG) LOW Coverage SC SCH ×4 (08:17→21:44)
[2018-10-09 08:18] LABS: BASO # 0.02 K/mm3 (0.0-2.0); BASO % 0.4 % (0.0-3.0); EOS # 0.1 (0.0-0.7); EOS % 1.3 % (1.5-5.0); HEMOGLOBIN 8.1 g/dL (12.0-16.0); MEAN CELL VOLUME 93.1 fl (80.0-105.0); MEAN CORPUSCULAR HEMOGLOBIN 29.6 pg (25.0-35.0); MEAN CORPUSCULAR HGB CONC 31.8 g/dl (31.0-37.0); MEAN PLATELET VOLUME 8.8 fl (7.0-11.0); MONO # 0.2 (0.1-0.6); MONO % 4.6 % (1.0-6.0); RBC 2.74 10^6/uL (3.5-6.1); RED CELL DISTRIBUTION WIDTH 13.9 % (11.5-14.5); WHITE BLOOD COUNT 5.2 10^3/uL (4.5-11.0)
[2018-10-09] MEDS: Dextrose 5%/0.45% NS 1,000 ML IV SCH (08:21)
[2018-10-09 08:32] LABS: ALB/GLOB RATIO 0.7 (1.1-1.8); ALBUMIN 1.8 g/dL (3.0-4.8); ALT/SGPT 31 U/L (7-56); AST/SGOT 26 U/L (14-36); BLOOD UREA NITROGEN 4 mg/dL (7-21); CALCIUM 7.3 mg/dL (8.4-10.5); GFR NON-AFRICAN AMERICAN > 60; HDL CHOLESTEROL 31 mg/dL (29-60)
[2018-10-09 08:35] LABS: LDL CHOLESTEROL 37 mg/dL (0-129)
[2018-10-09 08:56] LABS: FREE T4 0.82 ng/dL (0.78-2.19)
--- NOTE | 2018-10-09 09:49 | CP.PCM.CON ---
History of Present Illness - History of Present Illness History of Present Illness: 73 yo [facility] res with mult med probs fall , hypoglycemia Unimpressive L convexity chronic subdural hygroma with no sig mass effect suggest f/u CT 10 - 14 days Past Patient History - Infectious Disease Hx of Infectious Diseases: None - Past Medical History & Family History Past Medical History?: Yes - Past Social History Smoking Status: Never Smoked - CARDIAC Hx Congestive Heart Failure: Yes - PULMONARY Hx Chronic Obstructive Pulmonary Disease (COPD): Yes - NEUROLOGICAL Hx Syncope: Yes - HEENT Hx HEENT Problems: No - RENAL Hx Chronic Kidney Disease: No - ENDOCRINE/METABOLIC Hx Diabetes Mellitus Type 2: Yes - HEMATOLOGICAL/ONCOLOGICAL Hx Blood Disorders: No - INTEGUMENTARY Hx Dermatological Problems: No - MUSCULOSKELETAL/RHEUMATOLOGICAL Hx Falls: Yes Hx Fractures: Yes (HX:Right distal tib/fib; HX: LEFT ANKLE FRACTURE) - GASTROINTESTINAL Hx Gastrointestinal Disorders: Yes Hx Gastroesophageal Reflux: Yes - GENITOURINARY/GYNECOLOGICAL Hx Genitourinary Disorders: No - PSYCHIATRIC Hx Substance Use: No - SURGICAL HISTORY Hx Orthopedic Surgery: Yes (Left ankle ORIF(02/19/17)) - ANESTHESIA Hx Anesthesia: Yes Meds Allergies/Adverse Reactions: Allergies Allergy/AdvReac Type Severity Reaction Status Date / Time Iodinated Contrast- Oral and Allergy Intermediate ANAPHYLAXIS Verified 10/08/18 15:13 IV Dye iodine Allergy ANAPHYLAXIS Verified 10/08/18 15:13 shellfish derived Allergy ANAPHYLAXIS Verified 10/08/18 15:13 - Medications Medications: Current Medications Acetaminophen (Tylenol 325mg Tab) 650 mg PO Q6H PRN PRN Reason: Fever >100.4 F Al Hydrox/Mg Hydrox/Simethicone (Maalox Plus 30 Ml) 30 ml PO DAILY PRN PRN Reason: Heartburn Dextrose (Dextrose 50% Inj) 0 ml IV STAT PRN; Protocol PRN Reason: Hypoglycemia Protocol Dextrose/Sodium Chloride (Dextrose 5%/0.45% Ns 1000 Ml) 1,000 mls @ 100 mls/hr IV .Q10H ALFREDO Last Admin: 10/09/18 08:21 Dose: 100 mls/hr Dextrose (Dextrose 5% In Water 1000 Ml) 1,000 mls @ 0 mls/hr IV .Q0M PRN; Protocol PRN Reason: Hypoglycemia Protocol Insulin Human Lispro (Humalog Low) 0 units SC ACHS ALFREDO; Protocol Last Admin: 10/09/18 08:17 Dose: Not Given Magnesium Hydroxide (Milk Of Magnesia) 30 ml PO DAILY PRN PRN Reason: Constipation Mirtazapine (Remeron) 7.5 mg PO HS [facility] Last Admin: 10/08/18 21:49 Dose: 7.5 mg Pantoprazole Sodium (Protonix Susp) 40 mg PO 0600 [facility] Last Admin: 10/09/18 05:28 Dose: 40 mg Results - Vital Signs Recent Vital Signs: Last Vital Signs Temp 98.1 F 10/09/18 00:01 Pulse 69 10/09/18 06:00 Resp 18 10/09/18 00:01 BP 131/67 10/09/18 00:01 Pulse Ox 99 10/09/18 00:01 - Labs Result Diagrams: 10/09/18 08:00 10/09/18 08:00 Labs: Laboratory Results - last 24 hr 10/08/18 10/08/18 10/08/18 12:36 13:00 13:20 WBC 5.3 D RBC 2.81 L Hgb 8.8 L Hct 26.4 L MCV 94.0 D MCH 31.3 MCHC 33.3 RDW 13.9 Plt Count 347 MPV 9.2 Neut % (Auto) 59.7 Lymph % (Auto) 34.2 [place] % (Auto) 5.5 Eos % (Auto) 0.4 L Baso % (Auto) 0.2 Lymph # (Auto) 1.8 [place] # (Auto) 0.3 Eos # (Auto) 0.0 Baso # (Auto) 0.01 Absolute Neuts (auto) 3.15 PT INR APTT pO2 24 L VBG pH 7.38 VBG pCO2 48.0 VBG HCO3 28.4 H VBG Total CO2 29.9 H VBG O2 Sat (Calc) 38.3 L VBG Base Excess 2.5 H VBG Potassium 4.5 Sodium 138.0 Chloride 111.0 H Glucose 45 L Lactate 1.5 FiO2 21.0 Crit Value Called To Felicia johnson Crit Value Called By Sharan rae Blood Gas Notified Time 1312 Potassium Carbon Dioxide Anion Gap BUN Creatinine Est GFR ( Amer) Est GFR (Non-Af Amer) POC Glucose (mg/dL) 75 Random Glucose Calcium Phosphorus Magnesium Total Bilirubin AST ALT Alkaline Phosphatase Lactate Dehydrogenase Total Creatine Kinase Troponin I Total Protein Albumin Globulin Albumin/Globulin Ratio Triglycerides Cholesterol LDL Cholesterol Direct HDL Cholesterol Free T4 Thyroxine (T4) TSH 3rd Generation Venous Blood Potassium 4.5 Urine Color Urine Appearance Urine pH Ur Specific [place] Urine Protein Urine Glucose (UA) Urine Ketones Urine Blood Urine Nitrate Urine Bilirubin Urine Urobilinogen Ur Leukocyte Esterase Urine RBC Urine WBC Ur Epithelial Cells Urine Bacteria 10/08/18 10/08/18 10/08/18 13:20 13:20 13:20 WBC RBC Hgb Hct MCV MCH MCHC RDW Plt Count MPV Neut % (Auto) Lymph % (Auto) [place] % (Auto) Eos % (Auto) Baso % (Auto) Lymph # (Auto) [place] # (Auto) Eos # (Auto) Baso # (Auto) Absolute Neuts (auto) PT 14.5 H INR 1.28 APTT 22.2 L pO2 VBG pH VBG pCO2 VBG HCO3 VBG Total CO2 VBG O2 Sat (Calc) VBG Base Excess VBG Potassium Sodium 136 Chloride 112 H Glucose Lactate FiO2 Crit Value Called To Crit Value Called By Blood Gas Notified Time Potassium 4.4 Carbon Dioxide 23 Anion Gap 5 L BUN 5 L Creatinine 0.6 L Est GFR ( Amer) > 60 Est GFR (Non-Af Amer) > 60 POC Glucose (mg/dL) Random Glucose 43 L* D Calcium 7.4 L Phosphorus Magnesium Total Bilirubin 0.4 AST 36 ALT 37 Alkaline Phosphatase 77 Lactate Dehydrogenase 559 Total Creatine Kinase < 20 L Troponin I < 0.01 Total Protein 4.4 L Albumin 1.9 L Globulin 2.5 Albumin/Globulin Ratio 0.8 L Triglycerides Cholesterol LDL Cholesterol Direct HDL Cholesterol Free T4 Thyroxine (T4) TSH 3rd Generation 4.78 H Venous Blood Potassium Urine Color Urine Appearance Urine pH Ur Specific [place] Urine Protein Urine Glucose (UA) Urine Ketones Urine Blood Urine Nitrate Urine Bilirubin Urine Urobilinogen Ur Leukocyte Esterase Urine RBC Urine WBC Ur Epithelial Cells Urine Bacteria 10/08/18 10/08/18 10/08/18 13:20 14:17 15:00 WBC RBC Hgb Hct MCV MCH MCHC RDW Plt Count MPV Neut % (Auto) Lymph % (Auto) [place] % (Auto) Eos % (Auto) Baso % (Auto) Lymph # (Auto) [place] # (Auto) Eos # (Auto) Baso # (Auto) Absolute Neuts (auto) PT INR APTT pO2 VBG pH VBG pCO2 VBG HCO3 VBG Total CO2 VBG O2 Sat (Calc) VBG Base Excess VBG Potassium Sodium Chloride Glucose Lactate FiO2 Crit Value Called To Crit Value Called By Blood Gas Notified Time Potassium Carbon Dioxide Anion Gap BUN Creatinine Est GFR ( Amer) Est GFR (Non-Af Amer) POC Glucose (mg/dL) 273 H Random Glucose Calcium Phosphorus 3.6 Magnesium 1.7 Total Bilirubin AST ALT Alkaline Phosphatase Lactate Dehydrogenase Total Creatine Kinase Troponin I Total Protein Albumin Globulin Albumin/Globulin Ratio Triglycerides Cholesterol LDL Cholesterol Direct HDL Cholesterol Free T4 Thyroxine (T4) TSH 3rd Generation Venous Blood Potassium Urine Color Yellow Urine Appearance Clear Urine pH 7.0 Ur Specific [place] 1.015 Urine Protein 30 H Urine Glucose (UA) Negative Urine Ketones Negative Urine Blood Negative Urine Nitrate Negative Urine Bilirubin Negative Urine Urobilinogen 0.2 Ur Leukocyte Esterase Trace H Urine RBC None Urine WBC 2 - 5 Ur Epithelial Cells 10 - 12 H Urine Bacteria Mod 10/08/18 10/08/18 10/09/18 15:58 21:03 07:44 WBC RBC Hgb Hct MCV MCH MCHC RDW Plt Count MPV Neut % (Auto) Lymph % (Auto) [place] % (Auto) Eos % (Auto) Baso % (Auto) Lymph # (Auto) [place] # (Auto) Eos # (Auto) Baso # (Auto) Absolute Neuts (auto) PT INR APTT pO2 VBG pH VBG pCO2 VBG HCO3 VBG Total CO2 VBG O2 Sat (Calc) VBG Base Excess VBG Potassium Sodium Chloride Glucose Lactate FiO2 Crit Value Called To Crit Value Called By Blood Gas Notified Time Potassium Carbon Dioxide Anion Gap BUN Creatinine Est GFR ( Amer) Est GFR (Non-Af Amer) POC Glucose (mg/dL) 207 H 158 H 73 Random Glucose Calcium Phosphorus Magnesium Total Bilirubin AST ALT Alkaline Phosphatase Lactate Dehydrogenase Total Creatine Kinase Troponin I Total Protein Albumin Globulin Albumin/Globulin Ratio Triglycerides Cholesterol LDL Cholesterol Direct HDL Cholesterol Free T4 Thyroxine (T4) TSH 3rd Generation Venous Blood Potassium Urine Color Urine Appearance Urine pH Ur Specific [place] Urine Protein Urine Glucose (UA) Urine Ketones Urine Blood Urine Nitrate Urine Bilirubin Urine Urobilinogen Ur Leukocyte Esterase Urine RBC Urine WBC Ur Epithelial Cells Urine Bacteria 10/09/18 10/09/18 10/09/18 08:00 08:00 08:00 WBC 5.2 RBC 2.74 L Hgb 8.1 L Hct 25.5 L MCV 93.1 MCH 29.6 MCHC 31.8 RDW 13.9 Plt Count 327 MPV 8.8 Neut % (Auto) 54.7 Lymph % (Auto) 39.0 H [place] % (Auto) 4.6 Eos % (Auto) 1.3 L Baso % (Auto) 0.4 Lymph # (Auto) 2.0 [place] # (Auto) 0.2 Eos # (Auto) 0.1 Baso # (Auto) 0.02 Absolute Neuts (auto) 2.85 PT INR APTT pO2 VBG pH VBG pCO2 VBG HCO3 VBG Total CO2 VBG O2 Sat (Calc) VBG Base Excess VBG Potassium Sodium 137 Chloride 110 H Glucose Lactate FiO2 Crit Value Called To Crit Value Called By Blood Gas Notified Time Potassium 4.2 Carbon Dioxide 27 Anion Gap 4 L BUN 4 L Creatinine 0.6 L Est GFR ( Amer) > 60 Est GFR (Non-Af Amer) > 60 POC Glucose (mg/dL) Random Glucose 57 L Calcium 7.3 L Phosphorus 3.0 Magnesium 1.6 L Total Bilirubin 0.6 AST 26 ALT 31 Alkaline Phosphatase 77 Lactate Dehydrogenase Total Creatine Kinase Troponin I Total Protein 4.2 L Albumin 1.8 L Globulin 2.4 Albumin/Globulin Ratio 0.7 L Triglycerides 47 Cholesterol 62 L LDL Cholesterol Direct 37 HDL Cholesterol 31 Free T4 0.82 Thyroxine (T4) 3.3 L TSH 3rd Generation 5.36 H Venous Blood Potassium Urine Color Urine Appearance Urine pH Ur Specific [place] Urine Protein Urine Glucose (UA) Urine Ketones Urine Blood Urine Nitrate Urine Bilirubin Urine Urobilinogen Ur Leukocyte Esterase Urine RBC Urine WBC Ur Epithelial Cells Urine Bacteria
[2018-10-09] MEDS ORDERED: Magnesium Sulfate 2 gm/50 ml 2 GM/50 ML BAG IVPB ONE (10:26)
--- NOTE | 2018-10-09 10:49 | CARD ---
APPROVED REPORT Date of service: 10/08/2018 EKG Measurement Heart [id number] <Conclusion> Normal sinus rhythm Low voltage QRS Borderline ECG
[2018-10-09] MEDS ORDERED: Albuterol-Ipratrop 3 mg / 0.5 (3 ml) UD IH PRN (12:17)
--- NOTE | 2018-10-09 12:21 | CP.PCM.PN ---
<Lucía Salas - Last Filed: 10/09/18 12:07> Subjective - Date & Time of Evaluation Date of Evaluation: 10/09/18 Time of Evaluation: 12:07 - Subjective Subjective: Lucía Salas, PGY-1, Internal Medicine Progress Note for Dr. Manuel Patient seen and evaluated at bedside. Patient had no acute overnight events. Patient is AAOx1 at bedside and reports no complaints today. She was walking with the help of physical therapy today with walker. 12-point ROS was incomplete due to patient's mental status. Objective - Vital Signs/Intake and Output Vital Signs (last 24 hours): Temp Pulse Resp BP Pulse Ox 98.2 F 72 18 120/65 100 10/09/18 06:00 10/09/18 06:00 10/09/18 06:00 10/09/18 06:00 10/09/18 06:00 - Medications Medications: Current Medications Acetaminophen (Tylenol 325mg Tab) 650 mg PO Q6H PRN PRN Reason: Fever >100.4 F Al Hydrox/Mg Hydrox/Simethicone (Maalox Plus 30 Ml) 30 ml PO DAILY PRN PRN Reason: Heartburn Dextrose (Dextrose 50% Inj) 0 ml IV STAT PRN; Protocol PRN Reason: Hypoglycemia Protocol Dextrose/Sodium Chloride (Dextrose 5%/0.45% Ns 1000 Ml) 1,000 mls @ 100 mls/hr IV .Q10H [facility] Last Admin: 10/09/18 08:21 Dose: 100 mls/hr Dextrose (Dextrose 5% In Water 1000 Ml) 1,000 mls @ 0 mls/hr IV .Q0M PRN; Protocol PRN Reason: Hypoglycemia Protocol Insulin Human Lispro (Humalog Low) 0 units SC ACHS ALFREDO; Protocol Last Admin: 10/09/18 11:23 Dose: Not Given Magnesium Hydroxide (Milk Of Magnesia) 30 ml PO DAILY PRN PRN Reason: Constipation Mirtazapine (Remeron) 7.5 mg PO HS [facility] Last Admin: 10/08/18 21:49 Dose: 7.5 mg Pantoprazole Sodium (Protonix Susp) 40 mg PO 0600 [facility] Last Admin: 10/09/18 05:28 Dose: 40 mg - Labs Labs: 10/09/18 08:00 10/09/18 08:00 PT 14.5 SECONDS (9.4-12.5) H 10/08/18 13:20 INR 1.28 10/08/18 13:20 APTT 22.2 Seconds (26.9-38.3) L 10/08/18 13:20 - Constitutional Appears: Well, Non-toxic, No Acute Distress - Head Exam Head Exam: ATRAUMATIC, NORMAL INSPECTION, NORMOCEPHALIC - Eye Exam Eye Exam: EOMI, PERRL - ENT Exam ENT Exam: Mucous Membranes Moist - Neck Exam Neck exam: Positive for: Normal Inspection - Respiratory Exam Respiratory Exam: Clear to Auscultation Bilateral, NORMAL BREATHING PATTERN. absent: Rales, Rhonchi, Wheezes - Cardiovascular Exam Cardiovascular Exam: REGULAR RHYTHM, RRR, +S1, +S2. absent: Clicks, Gallop, Rubs - GI/Abdominal Exam GI & Abdominal Exam: Firm, Normal Bowel Sounds. absent: Distended, Guarding, Tenderness - Extremities Exam Extremities exam: Positive for: full ROM, pedal edema (+2), tenderness - Neurological Exam Additional comments: AAOx1, moving all extremities, CN II-XII grossly intact - Skin Skin Exam: Dry, Intact, Normal Color Assessment and Plan - Assessment and Plan (Free Text) Assessment: 73 year old female with past medical history of diabetes mellitus, COPD, hypertension, hypoglycemia presents status post fall at [facility]. Patient was admitted for evaluation status post fall and for subdural hygroma found on Head CT. Plan: Subdural hygroma -Head CT 10/08: left cerebral convexity subdural hygroma with maximum depth of 1.3 cm -Will follow up repeat Head CT today -As per Neurosurgery, patient should have repeat head CT in 10-14 days as well -Avoid anticoagulation at this time -Neurology, Dr. Goode, and Neurosurgery, Dr. Brothers, consulted for further recommendations. Diabetes mellitus -Patient has history of hypoglycemia mixed with periods of severe hyperglycemia -Patient had blood glucose of 80s at [facility] and on admission had blood g lucose of 43 -Euglycemic at this time -Will continue to monitor blood glucose and follow up hemoglobin A1c -Will hold home levemir and amaryl -Will continue low sliding scale insulin -Accuchecks ACHS -Continue with Consistent carbohydrate diet -Avoid hypoglycemia -Continue hypoglycemia protocol Subclinical Hypothyroidism -TSH 5/26: 5.36 -Free T4: 0.82 -Asymptomatic at this time -No need for synthroid at this time Status post fall -Head CT 10/08: development of left cerebral convexity subdural hygroma with depth of 1.3 cm -EKG: NSR with heart rate of 65 -Chest X ray: no active disease -No signs of fracture or change in mental status -Dr. Goode, Neurology, and Dr. Brothers, Neurosurgery, consulted for recommendations. History of hypertension -Normotensive at this time -Will hold off on antihypertensives History of asymptomatic bacteriuria -Patient had 4 days of augmentin at [facility] -UA shows low probability of UTI -UCx: multiple species, possible contamination -No need for antibiotics as patient is afebrile, has no leukocytosis, and has no symptoms of UTI at this time History of COPD -Continue duonebs 3 Q4PRN for shortness of breath History of depression -Continue home mirtazapine History of constipation -Continue home milk of magnesia PRN History of GERD -Continue home maalox PRN and protonix daily GI prophylaxis: protonix DVT prophylaxis: SCD Patient plan discussed with Dr. Manuel <Lani Manuel - Last Filed: 10/09/18 12:32> Objective - Vital Signs/Intake and Output Vital Signs (last 24 hours): Temp Pulse Resp BP Pulse Ox 98.2 F 72 18 120/65 100 10/09/18 06:00 10/09/18 06:00 10/09/18 06:00 10/09/18 06:00 10/09/18 06:00 - Medications Medications: Current Medications Acetaminophen (Tylenol 325mg Tab) 650 mg PO Q6H PRN PRN Reason: Fever >100.4 F Al Hydrox/Mg Hydrox/Simethicone (Maalox Plus 30 Ml) 30 ml PO DAILY PRN PRN Reason: Heartburn Albuterol/Ipratropium (Duoneb 3 Mg/0.5 Mg (3 Ml) Ud) 3 ml IH Q4H PRN PRN Reason: Shortness of Breath Dextrose (Dextrose 50% Inj) 0 ml IV STAT PRN; Protocol PRN Reason: Hypoglycemia Protocol Dextrose/Sodium Chloride (Dextrose 5%/0.45% Ns 1000 Ml) 1,000 mls @ 100 mls/hr IV .Q10H [facility] Last Admin: 10/09/18 08:21 Dose: 100 mls/hr Dextrose (Dextrose 5% In Water 1000 Ml) 1,000 mls @ 0 mls/hr IV .Q0M PRN; Protocol PRN Reason: Hypoglycemia Protocol Insulin Human Lispro (Humalog Low) 0 units SC ACHS [facility]; Protocol Last Admin: 10/09/18 11:23 Dose: Not Given Magnesium Hydroxide (Milk Of Magnesia) 30 ml PO DAILY PRN PRN Reason: Constipation Mirtazapine (Remeron) 7.5 mg PO HS [facility] Last Admin: 10/08/18 21:49 Dose: 7.5 mg Pantoprazole Sodium (Protonix Susp) 40 mg PO 0600 [facility] Last Admin: 10/09/18 05:28 Dose: 40 mg - Labs Labs: 10/09/18 08:00 10/09/18 08:00 PT 14.5 SECONDS (9.4-12.5) H 10/08/18 13:20 INR 1.28 10/08/18 13:20 APTT 22.2 Seconds (26.9-38.3) L 10/08/18 13:20 Attending/Attestation - Attestation I have personally seen and examined this patient.: Yes I have fully participated in the care of the patient.: Yes I have reviewed all pertinent clinical information, including history, physical exam and plan: Yes Notes (Text): 10/09/18 12:26 73 year old female with past medical history of diabetes, hypertension and COPD who was sent from [place] after a fall from her bed. She was found to have hypoglycemia on labs and subdural hygroma on CT head. Repeat CT head for this morning is pending. Neurosurgery evaluation was appreciated who recommended to repeat CT head in 10-14 days. Neurology consult is pending. Patient was seen by PT who recommended LILIANA. Patient has been known to have fluctuant blood sugars ranging from hypoglycemia to hyperglycemia but currently has been relatively euglycemic in hospital off diabetic medications. A1c is pending. Endocrinology is following. Hemoglobin is 8.1 today. Anemia workup is ordered. Continue to monitor closely. TFTs suggestive of subclinical hypothyroidism. Suggest outpatient follow up. Lani Manuel MD Hospitalist.
[2018-10-09 12:30] LABS: IRON 67 ug/dL (45-180)
--- NOTE | 2018-10-09 12:32 | CT ---
Date of service: 10/09/2018 PROCEDURE: CT HEAD WITHOUT CONTRAST. HISTORY: subdural hygroma follow up COMPARISON: CT head dated 10/08/2018 TECHNIQUE: Axial computed tomography images were obtained through the head/brain without intravenous contrast. Radiation dose: Total exam DLP = 783.11 mGy-cm. This CT exam was performed using one or more of the following dose reduction techniques: Automated exposure control, adjustment of the mA and/or kV according to patient size, and/or use of iterative reconstruction technique. FINDINGS: HEMORRHAGE: No intracranial hemorrhage. Stable left cerebral convexity subdural hygroma without significant change BRAIN: No mass effect or edema. Atrophy. Chronic microvascular ischemic changes. VENTRICLES: Prominent. Patent cavum septum pellucidum and cavum vergae. No hydrocephalus. CALVARIUM: Unremarkable. PARANASAL SINUSES: Unremarkable as visualized. No significant inflammatory changes. MASTOID AIR CELLS: Unremarkable as visualized. No inflammatory changes. OTHER FINDINGS: None. IMPRESSION: Stable appearance of left cerebral convexity subdural hygroma without significant change. No significant interval change.
[2018-10-09 12:39] LABS: % IRON SATURATION 59 % (20-55); TOTAL IRON BINDING CAPACITY 113 ug/dL (265-497)
--- NOTE | 2018-10-09 14:05 | CP.PCM.CON ---
History of Present Illness - History of Present Illness History of Present Illness: Neurology consult dictated. Patient with mild dementia and now subdural hygroma who is here for evaluation. Patient is back to her baseline, and no surgical intervention is recommended. PlaN: 1. Repeat head CT in several weeks. 2. No recommendation for AEDS at this time. Dr. yu Neurology Past Patient History - Infectious Disease Hx of Infectious Diseases: None - Past Medical History & Family History Past Medical History?: Yes - Past Social History Smoking Status: Never Smoked - CARDIAC Hx Congestive Heart Failure: Yes Hx Hypertension: Yes - PULMONARY Hx Chronic Obstructive Pulmonary Disease (COPD): Yes - NEUROLOGICAL Hx Syncope: Yes - HEENT Hx HEENT Problems: No - RENAL Hx Chronic Kidney Disease: No - ENDOCRINE/METABOLIC Hx Diabetes Mellitus Type 2: Yes - HEMATOLOGICAL/ONCOLOGICAL Hx Blood Disorders: No - INTEGUMENTARY Hx Dermatological Problems: No - MUSCULOSKELETAL/RHEUMATOLOGICAL Hx Falls: Yes Hx Fractures: Yes (HX:Right distal tib/fib; HX: LEFT ANKLE FRACTURE) - GASTROINTESTINAL Hx Gastrointestinal Disorders: Yes Hx Gastroesophageal Reflux: Yes - GENITOURINARY/GYNECOLOGICAL Hx Genitourinary Disorders: No - PSYCHIATRIC Hx Substance Use: No - SURGICAL HISTORY Hx Orthopedic Surgery: Yes (Left ankle ORIF(02/19/17)) - ANESTHESIA Hx Anesthesia: Yes Meds Allergies/Adverse Reactions: Allergies Allergy/AdvReac Type Severity Reaction Status Date / Time Iodinated Contrast- Oral and Allergy Intermediate ANAPHYLAXIS Verified 10/08/18 15:13 IV Dye iodine Allergy ANAPHYLAXIS Verified 10/08/18 15:13 shellfish derived Allergy ANAPHYLAXIS Verified 10/08/18 15:13 - Medications Medications: Current Medications Acetaminophen (Tylenol 325mg Tab) 650 mg PO Q6H PRN PRN Reason: Fever >100.4 F Al Hydrox/Mg Hydrox/Simethicone (Maalox Plus 30 Ml) 30 ml PO DAILY PRN PRN Reason: Heartburn Albuterol/Ipratropium (Duoneb 3 Mg/0.5 Mg (3 Ml) Ud) 3 ml IH Q4H PRN PRN Reason: Shortness of Breath Last Admin: 10/09/18 13:35 Dose: 3 ml Dextrose (Dextrose 50% Inj) 0 ml IV STAT PRN; Protocol PRN Reason: Hypoglycemia Protocol Dextrose/Sodium Chloride (Dextrose 5%/0.45% Ns 1000 Ml) 1,000 mls @ 100 mls/hr IV .Q10H COUNTS INCLUDE 234 BEDS AT THE [facility] Last Admin: 10/09/18 08:21 Dose: 100 mls/hr Dextrose (Dextrose 5% In Water 1000 Ml) 1,000 mls @ 0 mls/hr IV .Q0M PRN; Protocol PRN Reason: Hypoglycemia Protocol Insulin Human Lispro (Humalog Low) 0 units SC ACHS COUNTS INCLUDE 234 BEDS AT THE [facility]; Protocol Last Admin: 10/09/18 11:23 Dose: Not Given Magnesium Hydroxide (Milk Of Magnesia) 30 ml PO DAILY PRN PRN Reason: Constipation Mirtazapine (Remeron) 7.5 mg PO HS COUNTS INCLUDE 234 BEDS AT THE [facility] Last Admin: 10/08/18 21:49 Dose: 7.5 mg Pantoprazole Sodium (Protonix Susp) 40 mg PO 0600 COUNTS INCLUDE 234 BEDS AT THE [facility] Last Admin: 10/09/18 05:28 Dose: 40 mg Results - Vital Signs Recent Vital Signs: Last Vital Signs Temp 98.2 F 10/09/18 06:00 Pulse 76 10/09/18 13:37 Resp 18 10/09/18 11:55 BP 119/65 10/09/18 11:55 Pulse Ox 97 10/09/18 11:55 - Labs Result Diagrams: 10/09/18 08:00 10/09/18 08:00 Labs: Laboratory Results - last 24 hr 10/08/18 10/08/18 10/08/18 13:20 13:20 13:20 WBC RBC Hgb Hct MCV MCH MCHC RDW Plt Count MPV Neut % (Auto) Lymph % (Auto) [place] % (Auto) Eos % (Auto) Baso % (Auto) Lymph # (Auto) [place] # (Auto) Eos # (Auto) Baso # (Auto) Absolute Neuts (auto) Sodium Potassium Chloride Carbon Dioxide Anion Gap BUN Creatinine Est GFR ( Amer) Est GFR (Non-Af Amer) POC Glucose (mg/dL) Random Glucose Hemoglobin A1c 7.7 H Calcium Phosphorus 3.6 Magnesium 1.7 Iron TIBC % Saturation Total Bilirubin AST ALT Alkaline Phosphatase Total Protein Albumin Globulin Albumin/Globulin Ratio Triglycerides Cholesterol LDL Cholesterol Direct HDL Cholesterol Free T4 Thyroxine (T4) TSH 3rd Generation 4.78 H Urine Color Urine Appearance Urine pH Ur Specific [place] Urine Protein Urine Glucose (UA) Urine Ketones Urine Blood Urine Nitrate Urine Bilirubin Urine Urobilinogen Ur Leukocyte Esterase Urine RBC Urine WBC Ur Epithelial Cells Urine Bacteria 10/08/18 10/08/18 10/08/18 14:17 15:00 15:58 WBC RBC Hgb Hct MCV MCH MCHC RDW Plt Count MPV Neut % (Auto) Lymph % (Auto) [place] % (Auto) Eos % (Auto) Baso % (Auto) Lymph # (Auto) [place] # (Auto) Eos # (Auto) Baso # (Auto) Absolute Neuts (auto) Sodium Potassium Chloride Carbon Dioxide Anion Gap BUN Creatinine Est GFR ( Amer) Est GFR (Non-Af Amer) POC Glucose (mg/dL) 273 H 207 H Random Glucose Hemoglobin A1c Calcium Phosphorus Magnesium Iron TIBC % Saturation Total Bilirubin AST ALT Alkaline Phosphatase Total Protein Albumin Globulin Albumin/Globulin Ratio Triglycerides Cholesterol LDL Cholesterol Direct HDL Cholesterol Free T4 Thyroxine (T4) TSH 3rd Generation Urine Color Yellow Urine Appearance Clear Urine pH 7.0 Ur Specific [place] 1.015 Urine Protein 30 H Urine Glucose (UA) Negative Urine Ketones Negative Urine Blood Negative Urine Nitrate Negative Urine Bilirubin Negative Urine Urobilinogen 0.2 Ur Leukocyte Esterase Trace H Urine RBC None Urine WBC 2 - 5 Ur Epithelial Cells 10 - 12 H Urine Bacteria Mod 10/08/18 10/09/18 10/09/18 21:03 07:00 07:44 WBC RBC Hgb Hct MCV MCH MCHC RDW Plt Count MPV Neut % (Auto) Lymph % (Auto) [place] % (Auto) Eos % (Auto) Baso % (Auto) Lymph # (Auto) [place] # (Auto) Eos # (Auto) Baso # (Auto) Absolute Neuts (auto) Sodium Potassium Chloride Carbon Dioxide Anion Gap BUN Creatinine Est GFR ( Amer) Est GFR (Non-Af Amer) POC Glucose (mg/dL) 158 H 73 Random Glucose Hemoglobin A1c Calcium Phosphorus Magnesium Iron 67 TIBC 113 L % Saturation 59 H Total Bilirubin AST ALT Alkaline Phosphatase Total Protein Albumin Globulin Albumin/Globulin Ratio Triglycerides Cholesterol LDL Cholesterol Direct HDL Cholesterol Free T4 Thyroxine (T4) TSH 3rd Generation Urine Color Urine Appearance Urine pH Ur Specific [place] Urine Protein Urine Glucose (UA) Urine Ketones Urine Blood Urine Nitrate Urine Bilirubin Urine Urobilinogen Ur Leukocyte Esterase Urine RBC Urine WBC Ur Epithelial Cells Urine Bacteria 10/09/18 10/09/18 10/09/18 08:00 08:00 08:00 WBC 5.2 RBC 2.74 L Hgb 8.1 L Hct 25.5 L MCV 93.1 MCH 29.6 MCHC 31.8 RDW 13.9 Plt Count 327 MPV 8.8 Neut % (Auto) 54.7 Lymph % (Auto) 39.0 H [place] % (Auto) 4.6 Eos % (Auto) 1.3 L Baso % (Auto) 0.4 Lymph # (Auto) 2.0 [place] # (Auto) 0.2 Eos # (Auto) 0.1 Baso # (Auto) 0.02 Absolute Neuts (auto) 2.85 Sodium 137 Potassium 4.2 Chloride 110 H Carbon Dioxide 27 Anion Gap 4 L BUN 4 L Creatinine 0.6 L Est GFR ( Amer) > 60 Est GFR (Non-Af Amer) > 60 POC Glucose (mg/dL) Random Glucose 57 L Hemoglobin A1c Calcium 7.3 L Phosphorus 3.0 Magnesium 1.6 L Iron TIBC % Saturation Total Bilirubin 0.6 AST 26 ALT 31 Alkaline Phosphatase 77 Total Protein 4.2 L Albumin 1.8 L Globulin 2.4 Albumin/Globulin Ratio 0.7 L Triglycerides 47 Cholesterol 62 L LDL Cholesterol Direct 37 HDL Cholesterol 31 Free T4 0.82 Thyroxine (T4) 3.3 L TSH 3rd Generation 5.36 H Urine Color Urine Appearance Urine pH Ur Specific [place] Urine Protein Urine Glucose (UA) Urine Ketones Urine Blood Urine Nitrate Urine Bilirubin Urine Urobilinogen Ur Leukocyte Esterase Urine RBC Urine WBC Ur Epithelial Cells Urine Bacteria 10/09/18 11:21 WBC RBC Hgb Hct MCV MCH MCHC RDW Plt Count MPV Neut % (Auto) Lymph % (Auto) [place] % (Auto) Eos % (Auto) Baso % (Auto) Lymph # (Auto) [place] # (Auto) Eos # (Auto) Baso # (Auto) Absolute Neuts (auto) Sodium Potassium Chloride Carbon Dioxide Anion Gap BUN Creatinine Est GFR ( Amer) Est GFR (Non-Af Amer) POC Glucose (mg/dL) 167 H Random Glucose Hemoglobin A1c Calcium Phosphorus Magnesium Iron TIBC % Saturation Total Bilirubin AST ALT Alkaline Phosphatase Total Protein Albumin Globulin Albumin/Globulin Ratio Triglycerides Cholesterol LDL Cholesterol Direct HDL Cholesterol Free T4 Thyroxine (T4) TSH 3rd Generation Urine Color Urine Appearance Urine pH Ur Specific [place] Urine Protein Urine Glucose (UA) Urine Ketones Urine Blood Urine Nitrate Urine Bilirubin Urine Urobilinogen Ur Leukocyte Esterase Urine RBC Urine WBC Ur Epithelial Cells Urine Bacteria
[2018-10-09 17:05] LABS: FOLATE 15.6 ng/mL
--- NOTE | 2018-10-09 18:40 | PN ---
DATE: 10/09/2018 ENDOCRINOLOGY FOLLOWUP NOTE LOCATION: Room 372. SUBJECTIVE: This is a 73-year-old female with recent uncontrolled type 2 diabetes on a slide scale coverage and has been off oral hypoglycemic therapy in the senior care and presented here with an accidental fall and an apparent hypoglycemic episode as noted thereof. She is being followed closely now for metabolic management. Her glycemic levels today have improved and have ranged from 73 to 158 and 167 mg/dL. LABORATORY DATA: Her chemistry shows a BUN of 4, sodium 137, potassium 4.2, chloride 110, CO2 of 27, glucose 57 and creatinine 0.6. Her TSH is 5.36 with a T4 of 3.3 and a free T4 of 0.82 indicative of early hypothyroidism. ASSESSMENT: This is a 73-year-old female with recent symptomatic hypoglycemia and associated neuroglycopenic and hyperadrenergic manifestations with an apparent syncopal episode and a fall at the senior care and is now being followed closely for metabolic management. She also has early hypothyroidism confirmed twice as noted and most likely related to autoimmune thyroiditis as noted thereof. PLAN OF MANAGEMENT: We will continue the glucose monitoring done 4 times a day with very low-dose coverage scale as ordered to obviate further hypoglycemia as noted. We will add a low-dose levothyroxine replacement therapy given as 25 mcg daily in the morning as ordered. We will obtain serial chemistries and supplement accordingly as needed. We will also obtain serial thyroid studies and titrate her dose regimen accordingly. Maida Altamirano MD
[2018-10-10] MEDS: Pantoprazole 40 mg Susp UD PO SCH (05:34)
[2018-10-10] MEDS: Levothyroxine 25 MCG TAB PO SCH (05:34)
[2018-10-10] MEDS: Dextrose 5%/0.45% NS 1,000 ML IV SCH (06:21)
[2018-10-10 06:41] LABS: BASO # 0.02 K/mm3 (0.0-2.0); BASO % 0.5 % (0.0-3.0); EOS # 0.1 (0.0-0.7); EOS % 1.1 % (1.5-5.0); HEMOGLOBIN 8.6 g/dL (12.0-16.0); LYMPH # 2.2 (1.2-3.4); LYMPH % 48.8 % (22.0-35.0); MEAN CELL VOLUME 93.2 fl (80.0-105.0); MEAN CORPUSCULAR HEMOGLOBIN 30.9 pg (25.0-35.0); MEAN CORPUSCULAR HGB CONC 33.2 g/dl (31.0-37.0); MEAN PLATELET VOLUME 9.3 fl (7.0-11.0); MONO # 0.3 (0.1-0.6); MONO % 5.9 % (1.0-6.0); RBC 2.78 10^6/uL (3.5-6.1); RED CELL DISTRIBUTION WIDTH 13.8 % (11.5-14.5); WHITE BLOOD COUNT 4.4 10^3/uL (4.5-11.0)
[2018-10-10 07:28] LABS: ALB/GLOB RATIO 0.7 (1.1-1.8); ALBUMIN 1.8 g/dL (3.0-4.8); ALT/SGPT 30 U/L (7-56); AST/SGOT 26 U/L (14-36); BLOOD UREA NITROGEN 3 mg/dL (7-21); CALCIUM 7.2 mg/dL (8.4-10.5); GFR NON-AFRICAN AMERICAN > 60
[2018-10-10] MEDS: Insulin Lispro (humaLOG) LOW Coverage SC SCH ×3 (08:11→22:01)
--- NOTE | 2018-10-10 11:46 | CP.PCM.PN ---
<Lucía Salas - Last Filed: 10/10/18 11:35> Subjective - Date & Time of Evaluation Date of Evaluation: 10/10/18 Time of Evaluation: 11:35 - Subjective Subjective: Lucía Salas, PGY-1, Internal Medicine Progress Note for Dr. Roche Patient seen and evaluated at bedside. Patient had no acute overnight events. Patient was eating breakfast at bedside. Patient denies any complaints at this time. 12-point ROS was unremarkable except for what was mentioned above. Objective - Vital Signs/Intake and Output Vital Signs (last 24 hours): Temp Pulse Resp BP Pulse Ox 98.0 F 68 20 119/59 L 99 10/10/18 06:00 10/10/18 06:00 10/10/18 06:00 10/10/18 06:00 10/10/18 06:00 Intake and Output: 10/10/18 10/10/18 06:59 18:59 Intake Total 120 Balance 120 - Medications Medications: Current Medications Acetaminophen (Tylenol 325mg Tab) 650 mg PO Q6H PRN PRN Reason: Fever >100.4 F Al Hydrox/Mg Hydrox/Simethicone (Maalox Plus 30 Ml) 30 ml PO DAILY PRN PRN Reason: Heartburn Albuterol/Ipratropium (Duoneb 3 Mg/0.5 Mg (3 Ml) Ud) 3 ml IH Q4H PRN PRN Reason: Shortness of Breath Last Admin: 10/09/18 13:35 Dose: 3 ml Dextrose (Dextrose 50% Inj) 0 ml IV STAT PRN; Protocol PRN Reason: Hypoglycemia Protocol Dextrose (Dextrose 5% In Water 1000 Ml) 1,000 mls @ 0 mls/hr IV .Q0M PRN; Protocol PRN Reason: Hypoglycemia Protocol Insulin Detemir (Levemir) 10 unit SC HS [facility] Insulin Human Lispro (Humalog Low) 0 units SC ACHS [facility]; Protocol Last Admin: 10/10/18 08:11 Dose: Not Given Insulin Human Lispro (Humalog) 4 units SC ACTID [facility]O Levothyroxine Sodium (Synthroid) 25 mcg PO 0600 [facility] Last Admin: 10/10/18 05:34 Dose: 25 mcg Magnesium Hydroxide (Milk Of Magnesia) 30 ml PO DAILY PRN PRN Reason: Constipation Mirtazapine (Remeron) 7.5 mg PO HS [facility] Last Admin: 10/09/18 21:41 Dose: 7.5 mg Pantoprazole Sodium (Protonix Susp) 40 mg PO 0600 [facility] Last Admin: 10/10/18 05:34 Dose: 40 mg - Labs Labs: 10/10/18 06:00 10/10/18 06:00 PT 14.5 SECONDS (9.4-12.5) H 10/08/18 13:20 INR 1.28 10/08/18 13:20 APTT 22.2 Seconds (26.9-38.3) L 10/08/18 13:20 - Constitutional Appears: Well, Non-toxic, No Acute Distress - Head Exam Head Exam: ATRAUMATIC, NORMAL INSPECTION, NORMOCEPHALIC - Eye Exam Eye Exam: EOMI, PERRL - ENT Exam ENT Exam: Mucous Membranes Moist - Neck Exam Neck exam: Positive for: Normal Inspection - Respiratory Exam Respiratory Exam: Clear to Auscultation Bilateral, NORMAL BREATHING PATTERN. absent: Rales, Rhonchi, Wheezes - Cardiovascular Exam Cardiovascular Exam: REGULAR RHYTHM, RRR, +S1, +S2. absent: Clicks, Gallop, Rub s - GI/Abdominal Exam GI & Abdominal Exam: Firm, Normal Bowel Sounds. absent: Distended, Guarding, Tenderness - Extremities Exam Extremities exam: Positive for: full ROM, pedal edema (+2), tenderness - Neurological Exam Additional comments: AAOx1, moving all extremities, CN II-XII grossly intact - Skin Skin Exam: Dry, Intact, Normal Color Assessment and Plan - Assessment and Plan (Free Text) Assessment: 73 year old female with past medical history of diabetes mellitus, COPD, hypertension, hypoglycemia presents status post fall at [facility]. Patient was admitted for evaluation status post fall and for subdural hygroma found on Head CT. Plan: Subdural hygroma -Head CT 10/08: left cerebral convexity subdural hygroma with maximum depth of 1.3 cm -Head CT 10/09: stable appearance of left cerebral convexity subdural hygroma without significant change. -As per Neurosurgery and Neurology, patient should have repeat head CT in few weeks for reevaluation -Avoid anticoagulation at this time -Neurology, Dr. Goode, and Neurosurgery, Dr. Brothers, consulted for further recommendations. Diabetes mellitus -Patient has history of hypoglycemia mixed with periods of severe hyperglycemia -Patient had blood glucose of 80s at longterm and on admission had blood glucose of 43 -Hyperglycemia overnight and into this morning at high 200s to 300s -HgbA1c: 7.7 -Will hold home amaryl -Start levemir 10 U HS -Start lispro 4 U ACTID -Will continue low sliding scale insulin -Accuchecks ACHS -Continue with Consistent carbohydrate diet -Avoid hypoglycemia -Continue hypoglycemia protocol -Follow recommendations as per endocrinology, Dr. Altamirano. Subclinical Hypothyroidism -TSH 10/09: 5.36 -Free T4: 0.82 -Asymptomatic at this time -Continue synthroid 25 mcg daily Status post fall -Head CT 10/08: development of left cerebral convexity subdural hygroma with depth of 1.3 cm -EKG: NSR with heart rate of 65 -Chest X ray: no active disease -No signs of fracture or change in mental status -Dr. Goode, Neurology, and Dr. Brothers, Neurosurgery, consulted for recommendations. History of hypertension -Normotensive at this time -Will hold off on antihypertensives History of asymptomatic bacteriuria -Patient had 4 days of augmentin at longterm -UA shows low probability of UTI -UCx: multiple species, possible contamination -No need for antibiotics as patient is afebrile, has no leukocytosis, and has no symptoms of UTI at this time History of COPD -Continue duonebs 3 Q4PRN for shortness of breath History of depression -Continue home mirtazapine History of constipation -Continue home milk of magnesia PRN History of GERD -Continue home maalox PRN and protonix daily GI prophylaxis: protonix DVT prophylaxis: SCD Patient plan discussed with Dr. Roche <Alida Roche - Last Filed: 10/15/18 11:06> Objective - Vital Signs/Intake and Output Vital Signs (last 24 hours): Temp Pulse Resp BP Pulse Ox 98.4 F 77 20 100/57 L 100 10/14/18 17:09 10/14/18 17:09 10/14/18 17:09 10/14/18 17:09 10/14/18 17:09 - Labs Labs: 10/14/18 09:30 10/14/18 09:30 PT 14.5 SECONDS (9.4-12.5) H 10/08/18 13:20 INR 1.28 10/08/18 13:20 APTT 22.2 Seconds (26.9-38.3) L 10/08/18 13:20 Attending/Attestation - Attestation I have personally seen and examined this patient.: Yes I have fully participated in the care of the patient.: Yes I have reviewed all pertinent clinical information, including history, physical exam and plan: Yes Notes (Text): 10/15/18 11:06 Medical record note made by the resident after discussion with my direction and input after the patient was personally seen and examined by me. I have reviewed the chart and agree that the record accurately reflects by personal performance of the history, physical exam, data review, and medical decision-making, in the course for the patient. I have also personally directed the plan of care.
[2018-10-10] MEDS: Insulin Lispro 1 UNITS/0.01 ML SC SCH (12:15)
--- NOTE | 2018-10-10 16:44 | PN ---
DATE: 10/10/2018 ENDOCRINOLOGY FOLLOWUP NOTE LOCATION: In room 372. SUBJECTIVE: This is a 73-year-old female with recent uncontrolled type 2 insulin-requiring diabetes, presenting here with symptomatic hypoglycemia related to variable oral intake and is now being followed closely for metabolic management. Her oral intake at this time has improved with no further dyspepsia or nausea or vomiting as noted. Her glucose values overnight have ranged from 239-263 and 387 mg/dL. LABORATORY DATA: Her chemistry showed a BUN of 3, sodium 136, potassium 5, chloride 108, CO2 of 26, glucose 201, and creatinine 0.6. ASSESSMENT: This is a 73-year-old female with recent uncontrolled type 2 insulin-requiring diabetes, presenting here with symptomatic hypoglycemia and associated neuroglycopenic and hyperadrenergic manifestations related to variable oral intake as noted. Her intake now in the hospital has improved remarkably with supervening hyperglycemic accelerations as expected. PLAN OF MANAGEMENT: We will restart her basal and bolus insulin regimen, which is actually more physiologic and start her on Levemir given as 10 units subcu at bedtime daily to start today. We will also add a low-dose prandial insulin with Humalog to be given as 4 units t.i.d. before meals to start at lunchtime today as ordered. We will modify the coverage scale to obviate hypoglycemia and detailed orders have been given for a very low-dose algorithm with Humalog insulin as given. We will obtain serial chemistries and supplement accordingly as needed. We will also continue the low-dose levothyroxine for early onset of hypothyroidism as noted. We will follow and advise accordingly. Maida Altamirano MD
[2018-10-10] MEDS ORDERED: Insulin Detemir 100 units/ml Vial (Levemir) SC SCH (22:00)
[2018-10-11] MEDS: Dextrose 50% SYRINGE Inj (50 ml) IV PRN ×2 (00:21→05:28)
[2018-10-11] MEDS: Levothyroxine 25 MCG TAB PO SCH (05:53)
[2018-10-11] MEDS: Pantoprazole 40 mg Susp UD PO SCH (05:53)
[2018-10-11 06:11] LABS: BASO # 0.01 K/mm3 (0.0-2.0); BASO % 0.2 % (0.0-3.0); EOS % 0.5 % (1.5-5.0); HEMOGLOBIN 8.7 g/dL (12.0-16.0); LYMPH # 2.3 (1.2-3.4); LYMPH % 37.4 % (22.0-35.0); MEAN CELL VOLUME 93.8 fl (80.0-105.0); MEAN CORPUSCULAR HEMOGLOBIN 31.5 pg (25.0-35.0); MEAN CORPUSCULAR HGB CONC 33.6 g/dl (31.0-37.0); MEAN PLATELET VOLUME 8.9 fl (7.0-11.0); MONO # 0.3 (0.1-0.6); MONO % 4.8 % (1.0-6.0); RBC 2.76 10^6/uL (3.5-6.1); RED CELL DISTRIBUTION WIDTH 13.9 % (11.5-14.5); WHITE BLOOD COUNT 6.3 10^3/uL (4.5-11.0)
[2018-10-11 07:14] LABS: ALB/GLOB RATIO 0.7 (1.1-1.8); ALBUMIN 1.7 g/dL (3.0-4.8); ALT/SGPT 29 U/L (7-56); AST/SGOT 23 U/L (14-36); BLOOD UREA NITROGEN 3 mg/dL (7-21); CALCIUM 7.2 mg/dL (8.4-10.5); GFR NON-AFRICAN AMERICAN > 60
[2018-10-11] MEDS: Insulin Lispro (humaLOG) LOW Coverage SC SCH ×4 (08:40→21:44)
[2018-10-11] MEDS: Insulin Lispro 1 UNITS/0.01 ML SC SCH ×3 (08:40→16:13)
[2018-10-11 09:06] LABS: FREE T4 1.37 ng/dL (0.78-2.19)
[2018-10-11] MEDS: Vancomycin 1gm in NS 250ml 1 GM/250 ML BAG IVPB SCH ×2 (11:42→22:07)
[2018-10-11 11:45] LABS: ARTERIAL BLOOD GAS HCO3 23.1 mmol/L (21-28); ARTERIAL BLOOD GAS O2 SAT 99.6 % (95-98); ARTERIAL BLOOD GAS PCO2 34 mm/Hg (35-45); ARTERIAL BLOOD GAS PH 7.44 (7.35-7.45); ARTERIAL BLOOD GAS TCO2 24.1 mmol.L (22-28)
[2018-10-11 12:35] LABS: URINE BILIRUBIN NEGATIVE (NEGATIVE); URINE BLOOD NEGATIVE (NEGATIVE); URINE GLUCOSE (UA) NEGATIVE (NEGATIVE); URINE LEUKOCYTE ESTERASE NEGATIVE Leu/uL (NEGATIVE); URINE PROTEIN NEGATIVE mg/dL (<30 mg/dL); URINE UROBILINOGEN 0.2 E.U./dL (<1 E.U./dL)
[2018-10-11 12:36] LABS: URINE APPEARANCE CLEAR (CLEAR); URINE COLOR YELLOW (YELLOW)
--- NOTE | 2018-10-11 12:45 | RAD ---
Date of service: 10/11/2018 HISTORY: r/o infiltrate COMPARISON: Comparison made with chest radiograph dated 10/08/2018. TECHNIQUE: 1 view obtained. FINDINGS: LUNGS: Hazy opacity again seen in the right lower lung field increased from prior study. Findings consistent with small to medium-sized right-sided effusion and right basilar atelectasis. Suspect minor left basilar atelectasis and questionable small left effusion. PLEURA: As above. No pneumothorax apparent. CARDIOVASCULAR: Minimal aortic atherosclerotic calcification present. Heart size borderline/mildly enlarged. No pulmonary vascular congestion. OSSEOUS STRUCTURES: No significant abnormalities. VISUALIZED UPPER ABDOMEN: Normal. OTHER FINDINGS: None. IMPRESSION: Hazy opacity again seen in the right lower lung field increased from prior study. Findings consistent with small to medium-sized right-sided effusion and right basilar atelectasis. Suspect minor left basilar atelectasis and questionable small left effusion.
[2018-10-11] MEDS ORDERED: Piperacillin/Tazobact 3.375 gm 100 ML IVPB SCH (14:00)
--- NOTE | 2018-10-11 15:46 | CP.PCM.PN ---
<Lucía Salas - Last Filed: 10/11/18 15:43> Subjective - Date & Time of Evaluation Date of Evaluation: 10/11/18 Time of Evaluation: 15:43 - Subjective Subjective: Lucía Salas, PGY-1, Internal Medicine Progress Note for Dr. Roche Patient seen and evaluated at bedside. Patient was found to be in atrial fibrillation at 6:00 this morning. Patient was given cardizem 10 mg IV which converted atrial fibrillation into normal sinus rhythm. In addition, patient was hypothermic this morning with rectal temperature of 93.6. Patient was hypoglycemic this morning as well. Patient is AAOx1 at bedside. Patient denied any symptoms at bedside. 12-point ROS was unremarkable except for what was mentioned above. Objective - Vital Signs/Intake and Output Vital Signs (last 24 hours): Temp Pulse Resp BP Pulse Ox 98.2 F 90 20 127/85 98 10/10/18 16:53 10/11/18 14:03 10/11/18 08:27 10/11/18 14:03 10/11/18 08:27 - Medications Medications: Current Medications Acetaminophen (Tylenol 325mg Tab) 650 mg PO Q6H PRN PRN Reason: Fever >100.4 F Al Hydrox/Mg Hydrox/Simethicone (Maalox Plus 30 Ml) 30 ml PO DAILY PRN PRN Reason: Heartburn Albuterol/Ipratropium (Duoneb 3 Mg/0.5 Mg (3 Ml) Ud) 3 ml IH Q4H PRN PRN Reason: Shortness of Breath Last Admin: 10/09/18 13:35 Dose: 3 ml Dextrose (Dextrose 50% Inj) 0 ml IV STAT PRN; Protocol PRN Reason: Hypoglycemia Protocol Last Admin: 10/11/18 05:28 Dose: 50 ml Diltiazem HCl (Cardizem) 30 mg PO TID ALFREDO Last Admin: 10/11/18 14:03 Dose: 30 mg Dextrose (Dextrose 5% In Water 1000 Ml) 1,000 mls @ 0 mls/hr IV .Q0M PRN; Protocol PRN Reason: Hypoglycemia Protocol Last Admin: 10/11/18 05:28 Dose: 100 mls/hr Vancomycin HCl (Vancomycin 1gm) 1 gm in 250 mls @ 167 mls/hr IVPB Q12H [facility]; Protocol Last Admin: 10/11/18 11:42 Dose: 167 mls/hr Piperacillin Sod/Tazobactam Sod (Zosyn 3.375 In Ns 100ml) 100 mls @ 25 mls/hr IVPB Q8 [facility]; Protocol Stop: 10/12/18 01:59 Last Admin: 10/11/18 14:03 Dose: 25 mls/hr Insulin Detemir (Levemir) 6 unit SC HS ALFREDO Insulin Human Lispro (Humalog Low) 0 units SC ACHS [facility]; Protocol Last Admin: 10/11/18 11:44 Dose: 2 units Insulin Human Lispro (Humalog) 4 units SC ACTID [facility] Last Admin: 10/11/18 11:44 Dose: 4 units Levothyroxine Sodium (Synthroid) 25 mcg PO 0600 [facility] Last Admin: 10/11/18 05:53 Dose: Not Given Magnesium Hydroxide (Milk Of Magnesia) 30 ml PO DAILY PRN PRN Reason: Constipation Mirtazapine (Remeron) 7.5 mg PO HS [facility] Last Admin: 10/10/18 21:33 Dose: 7.5 mg Pantoprazole Sodium (Protonix Susp) 40 mg PO 0600 [facility] Last Admin: 10/11/18 05:53 Dose: Not Given - Labs Labs: 10/11/18 05:30 10/11/18 05:30 PT 14.5 SECONDS (9.4-12.5) H 10/08/18 13:20 INR 1.28 10/08/18 13:20 APTT 22.2 Seconds (26.9-38.3) L 10/08/18 13:20 - Constitutional Appears: Well, Non-toxic, No Acute Distress - Head Exam Head Exam: ATRAUMATIC, NORMAL INSPECTION, NORMOCEPHALIC - Eye Exam Eye Exam: EOMI, PERRL - ENT Exam ENT Exam: Mucous Membranes Moist - Neck Exam Neck exam: Positive for: Normal Inspection - Respiratory Exam Respiratory Exam: Clear to Auscultation Bilateral, NORMAL BREATHING PATTERN. absent: Rales, Rhonchi, Wheezes - Cardiovascular Exam Cardiovascular Exam: REGULAR RHYTHM, RRR, +S1, +S2. absent: Clicks, Gallop, Rubs - GI/Abdominal Exam GI & Abdominal Exam: Firm, Normal Bowel Sounds. absent: Distended, Guarding, Tenderness - Extremities Exam Extremities exam: Positive for: full ROM, pedal edema (+2), tenderness - Neurological Exam Additional comments: AAOx1, moving all extremities, CN II-XII grossly intact - Skin Skin Exam: Dry, Intact, Normal Color Assessment and Plan - Assessment and Plan (Free Text) Assessment: 73 year old female with past medical history of diabetes mellitus, COPD, hypertension, hypoglycemia presents status post fall at [facility]. Patient was admitted for evaluation status post fall and for subdural hygroma fo und on Head CT. Patient had atrial fibrillation on 10/11 and converted back to normal sinus rhythm after administration of cardizem. Patient was hypothermic on 10/11 with rectal temperature of 93.6. Plan: Paroxysmal atrial fibrillation -Atrial fibrillation seen on 10/11 and converted to NSR after administration of cardizem 10 mg IV -Will follow up echocardiogram -Start cardizem 30 mg TID -Will hold off on anticoagulation due to subdural hygroma Sepsis with undetermined source -Patient was hypothermic and tachycardic on 10/11. Will perform sepsis workup -CXR 10/11: Hazy opacity in RLL increased from prior study. Consistent with small to medium sized right effusio nand right basilar atelectasis. Suspect minor left basilar atelectasis and questionable small left effusion -UA 10/11 shows no suspicion of UTI -Follow up blood and urine culture -Follow up procalcitonin -Start vancomycin and zosyn for empiric coverage started on 10/11 Hypothermia -Rectal temperature 93.6 on 10/11 -TSH 10/11: 8.15. Increased from 5.36 -Free T4 10/11: 1.37 -Free T3 10/11: low at 2.73 -Will follow up cortisol level -Continue synthroid 25 mcg daily Subdural hygroma -Head CT 10/08: left cerebral convexity subdural hygroma with maximum depth of 1.3 cm -Head CT 10/09: stable appearance of left cerebral convexity subdural hygroma without significant change. -As per Neurosurgery and Neurology, patient should have repeat head CT in few weeks for reevaluation -Avoid anticoagulation at this time -Neurology, Dr. Goode, and Neurosurgery, Dr. Brothers, consulted for further recommendations. Diabetes mellitus -Patient has history of hypoglycemia mixed with periods of severe hyperglycemia -Patient had blood glucose of 80s at alf and on admission had blood glucose of 43 -Hypoglycemic overnight with glucose<20 at 5:00 -HgbA1c: 7.7 -Will hold home amaryl -Reduce levemir to 6 U HS -Continue lispro 4 U ACTID -Continue low sliding scale insulin -Accuchecks ACHS -Continue with Consistent carbohydrate diet -Avoid hypoglycemia -Continue hypoglycemia protocol -Follow recommendations as per endocrinology, Dr. Altamirano. Hypothyroidism -TSH 10/11: 8.15. Increased from 5.36 -Free T4 10/11: 1.37 -Free T3 10/11: low at 2.73 -History of hypothermia and hypoglycemia -Continue synthroid 25 mcg daily Status post fall -Head CT 10/08: development of left cerebral convexity subdural hygroma with depth of 1.3 cm -EKG on admission: NSR with heart rate of 65 -Chest X ray on admission: no active disease -No signs of fracture or change in mental status -Dr. Goode, Neurology, and Dr. Brothers, Neurosurgery, consulted for recommen dations. History of hypertension -Normotensive at this time -Will hold off on antihypertensives History of COPD -Continue duonebs 3 Q4PRN for shortness of breath History of depression -Continue home mirtazapine History of constipation -Continue home milk of magnesia PRN History of GERD -Continue home maalox PRN and protonix daily GI prophylaxis: protonix DVT prophylaxis: SCD Patient plan discussed with Dr. Roche <Alida Roche - Last Filed: 10/15/18 11:04> Objective - Vital Signs/Intake and Output Vital Signs (last 24 hours): Temp Pulse Resp BP Pulse Ox 98.4 F 77 20 100/57 L 100 10/14/18 17:09 10/14/18 17:09 10/14/18 17:09 10/14/18 17:09 10/14/18 17:09 - Labs Labs: 10/14/18 09:30 10/14/18 09:30 PT 14.5 SECONDS (9.4-12.5) H 10/08/18 13:20 INR 1.28 10/08/18 13:20 APTT 22.2 Seconds (26.9-38.3) L 10/08/18 13:20 Attending/Attestation - Attestation I have personally seen and examined this patient.: Yes I have fully participated in the care of the patient.: Yes I have reviewed all pertinent clinical information, including history, physical exam and plan: Yes Notes (Text): 10/15/18 11:03 Medical record note made by the resident after discussion with my direction and input after the patient was personally seen and examined by me. I have reviewed the chart and agree that the record accurately reflects by personal performance of the history, physical exam, data review, and medical decision-making, in the course for the patient. I have also personally directed the plan of care.
--- NOTE | 2018-10-11 17:35 | CARD ---
APPROVED REPORT Date of service: 10/11/2018 EKG Measurement Heart [id number] <Conclusion> Atrial fibrillation with rapid ventricular response Low voltage QRS Nonspecific T wave abnormality, probably digitalis effect Abnormal ECG
--- NOTE | 2018-10-11 18:14 | CARD ---
APPROVED REPORT Date of service: 10/11/2018 EKG Measurement Heart [id number] <Conclusion> Normal sinus rhythm Low voltage QRS NDSTT abnormalities Borderline ECG
--- NOTE | 2018-10-11 19:01 | CARD ---
APPROVED REPORT Date of service: 10/11/2018 EXAM: Two-dimensional and M-mode echocardiogram with Doppler and color Doppler. INDICATION Atrial Fibrillation 2D DIMENSIONS Left Atrium (2D)2.9 (1.6-4.0cm)IVSd0.9 (0.7-1.1cm) LVDd3.7 (3.9-5.9cm)PWd1.0 (0.7-1.1cm) LVDs2.6 (2.5-4.0cm)FS (%) 29.0 % LVEF (%)56.6 (>50%) M-Mode DIMENSIONS Aortic Root2.40 (2.2-3.7cm)Aortic Cusp Exc.1.70 (1.5-2.0cm) Aortic Valve AoV Peak Askvlkty906.0cm/Abhijit Peak GR.8mmHg Mitral Valve MV E Esnwxgtj55.8cm/sMV A Dkogwjnk95.4cm/sE/A ratio0.8 TDI E/Lateral E'0.0E/Medial E'0.0 Tricuspid Valve TR Peak Lpnttmuu287ma/sRAP [id number] Peak Gr.34mmHg [id number] LEFT VENTRICLE The left ventricle is normal size. There is normal left ventricular wall thickness. The left ventricular function is normal.EF-55-60% There is normal LV segmental wall motion. Transmitral Doppler flow pattern is Grade III-reversible restrictive diastolic dysfunction. No left ventricle thrombus noted on this study. There is no ventricular septal defect visualized. There is no left ventricular aneurysm. There is no mass noted in the left ventricle. RIGHT VENTRICLE The right ventricle is normal size. There is normal right ventricular wall thickness. The right ventricular systolic function is normal. ATRIA The left atrium size is normal. The right atrium size is normal. The interatrial septum is intact with no evidence for an atrial septal defect. AORTIC VALVE The aortic valve is thickened but opens well. No aortic regurgitation is present. There is no aortic valvular stenosis. There is no aortic valvular vegetation. MITRAL VALVE The mitral valve is thickened but opens well. Mitral regurgitation is trace . There is no mitral valve stenosis. There is no evidence of mitral valve prolapse. TRICUSPID VALVE The tricuspid valve leaflets are thickened , but open well. There is mild tricuspid regurgitation.RVSP-44 mmof hg. There is no tricuspid valve stenosis. There is no tricuspid valve prolapse or vegetation. PULMONIC VALVE The pulmonary valve is normal in structure. GREAT VESSELS The aortic root is normal in size. The ascending aorta is normal in size. The pulmonary artery is normal. The IVC is normal in size and collapses >50% with inspiration. PERICARDIAL EFFUSION There is no pleural effusion. There is a trace pericardial effusion. <Conclusion> The left ventricle is normal size. There is normal left ventricular wall thickness. The left ventricular function is normal.EF-55-60% Mitral regurgitation is trace . There is mild tricuspid regurgitation.RVSP-44 mmof hg. The IVC is normal in size and collapses >50% with inspiration. There is a trace pericardial effusion. No vegetation or thrombus noted.
[2018-10-11] MEDS: Piperacill/Tazo 4.5gm in NS 4.5 GM/100 ML BAG IVPB SCH (21:16)
[2018-10-11] MEDS: levoFLOXacin 500 MG TAB PO SCH (21:16)
[2018-10-11] MEDS ORDERED: Insulin Detemir 100 units/ml Vial (Levemir) SC SCH (22:00)
--- NOTE | 2018-10-11 23:06 | CON ---
DATE: 10/11/2018 CONSULT SERVICE: Cardiology. REASON FOR CONSULTATION: Atrial fibrillation of new onset and Cardiology consult. BRIEF CLINICAL HISTORY: This is a 73-year-old female with a past medical history of diabetes, hypertension, COPD, and hypoglycemic episode, transferred from the [facility] because of the hypoglycemia and altered mental status. Meanwhile, the patient was in the floor, found to be in AFib, so Cardiology consult was called. The patient denies any chest pain, shortness of breath or any palpitation. PAST MEDICAL HISTORY: Diabetes, hypertension, and hyperlipidemia. SOCIAL HISTORY: A 89-qqft-dbyx of a quarter pack, history of prior EtOH abuse. Denies any history of illicit drug abuse. ALLERGIES: SHELLFISH. The patient has been admitted multiple times to [facility] [place] with hypoglycemia. The patient at this time is admitted with hypoglycemia and altered mental status. CURRENT MEDICATIONS: The patient at home was taking Protonix 40 mg, Remeron 7.5 mg, magnesium, insulin, glucagon, dextrose, albuterol, and acetaminophen. PREVIOUS CARDIAC WORKUP: As follows; the patient had an echocardiography on 02/15/2017 in the that shows ejection fraction of 65% to 70%, diastolic dysfunction, aortic, mitral, and tricuspid valves and pulmonary appears within the normal limit. No significant regurgitant valvular heart disease, read by Dr. Richard Tracye, dated 02/17/2017. The patient had a myocardial perfusion study done by Dr. Harris on 02/18/2017 at ; normal myocardial perfusion study. No reversible ischemia, dated 02/18/2017. REVIEW OF SYSTEMS: As per HPI. PHYSICAL EXAMINATION: GENERAL: As follows; height of the patient 5 feet 3 inches, weight of the patient 109 pounds, and body mass index 17.17 kg/m2. VITAL SIGNS: Temperature afebrile, heart rate 131, and blood pressure 126/70. HEENT: PERRLA. Extraocular muscles intact. NECK: Supple. No carotid bruits or thyromegaly. CHEST: Clear to auscultation. HEART: S1 and S2 regular. ABDOMEN: Soft. EXTREMITIES: Clubbing and cyanosis negative. LABORATORY DATA: EKG shows atrial fibrillation at rate of 130. On admitting, the patient had a normal sinus EKG, normal sinus rhythm dated 10/08/2018. Blood workup; WBC 6.3, hemoglobin 8, hematocrit 25.9, and platelet count 348. Chemistry shows sodium 135, potassium 3.5, chloride 109, carbon dioxide 24, anion gap of 6, BUN 3, creatinine 0.9, glucose 20, 20 multiple times. Albumin 1, and albumin-globulin ratio 0.7. IMPRESSION: A 73-year-old female with a past medical history significant for recurrent hypoglycemia, diabetes, hypertension, hyperlipidemia, and subdural hygroma without significant change in CT scan, admitted with hypoglycemia, went into atrial fibrillation. On admission, the patient had an echocardiography on 10/08/2018, normal echocardiogram sinus, now the patient went into atrial fibrillation. The patient has hygroma and recurrent fall, history of a stress test in 09/2016 in that was negative, history of echocardiogram was with preserved left ventricular function. No significant valvular heart disease. RECOMMENDATIONS: We will control the heart rate. In view of recurrent fall, subdural questionable hematoma as well as hygroma, we will hold off the anticoagulation. Further recommendations will depend upon the hospital course. We will get echo to assess LV function. We will follow with you. Thank you Dr. Manuel for providing us the opportunity in taking care of the patient, Krysten Hernandez. Alida Bray MD
[2018-10-12] MEDS ORDERED: Dextrose 50% SYRINGE Inj (50 ml) ONE ×3 (02:15→09:20)
[2018-10-12] MEDS: Levothyroxine 25 MCG TAB PO SCH (05:58)
[2018-10-12] MEDS: Pantoprazole 40 mg Susp UD PO SCH (05:58)
[2018-10-12] MEDS: Piperacill/Tazo 4.5gm in NS 4.5 GM/100 ML BAG IVPB SCH ×2 (06:49→13:07)
[2018-10-12 07:00] LABS: BASO # 0.02 K/mm3 (0.0-2.0); BASO % 0.3 % (0.0-3.0); EOS % 0.2 % (1.5-5.0); HEMOGLOBIN 8.6 g/dL (12.0-16.0); LYMPH # 1.9 (1.2-3.4); LYMPH % 31.6 % (22.0-35.0); MEAN CELL VOLUME 93.2 fl (80.0-105.0); MEAN CORPUSCULAR HEMOGLOBIN 30.6 pg (25.0-35.0); MEAN CORPUSCULAR HGB CONC 32.8 g/dl (31.0-37.0); MONO # 0.3 (0.1-0.6); MONO % 4.2 % (1.0-6.0); RBC 2.81 10^6/uL (3.5-6.1); RED CELL DISTRIBUTION WIDTH 13.9 % (11.5-14.5); WHITE BLOOD COUNT 6.1 10^3/uL (4.5-11.0)
[2018-10-12 07:25] LABS: ALB/GLOB RATIO 0.8 (1.1-1.8); ALBUMIN 1.8 g/dL (3.0-4.8); ALT/SGPT 27 U/L (7-56); AST/SGOT 24 U/L (14-36); BLOOD UREA NITROGEN 5 mg/dL (7-21); CALCIUM 7.2 mg/dL (8.4-10.5); GFR NON-AFRICAN AMERICAN > 60
--- NOTE | 2018-10-12 08:13 | PN ---
DATE: 10/11/2018 ENDOCRINOLOGY FOLLOWUP NOTE LOCATION: In room . SUBJECTIVE: This is a 73-year-old female with recent uncontrolled type 2 insulin-requiring diabetes, presenting here with symptomatic hypoglycemia related to her very poor oral intake and variable portions as noted. 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 Her glucose values otherwise today have ranged from 161 to 225 mg/dL. LABORATORY DATA: Her chemistry showed a BUN of 3, sodium 135, potassium 3.6, chloride 109, CO2 of 24, glucose 179, and creatinine 0.6. ASSESSMENT: This is a 73-year-old female with recent uncontrolled type 2 insulin-requiring diabetes with variable oral intake and extremes of glycemic fluctuations and is now being followed closely for metabolic management. PLAN OF MANAGEMENT: We will modify once again her overnight basal insulin and lower the Levemir to 6 units subcu at bedtime daily to start tonight. We do not carry the longer-acting basal insulin such as Toujeo or Lantus and even better is the Tresiba which is almost 36 hours as noted. However, the patient is on Lantus therapy at home as noted and this will be resumed upon discharge eventually as noted. We will continue also her Humalog given as 4 units subcu t.i.d. before meals as ordered. We will obtain serial chemistries and supplement accordingly as needed. We will follow. Maida Altamirano MD
[2018-10-12] MEDS ORDERED: Potassium Chloride 20 mEq ER Tab PO STA (08:24)
--- NOTE | 2018-10-12 09:16 | CP.PCM.CON ---
<Rosalio Thomson - Last Filed: 10/12/18 15:07> History of Present Illness - History of Present Illness History of Present Illness: Infectious disease consult note: 73-year-old female with past medical history of diabetes, COPD, hypertension, labile blood glucose presents from a assisted S/P fall. Patient was recently admitted for sepsis with unknown source and completed course of antibi otics. At that time she was also found to be hypothermic. She currently denies any pain. On this admission patient has been worked up for subdural hygroma, fluctuation in her blood glucose, and for paroxysmal atrial fibrillation Infectious disease was consulted for Sirs criteria with hypothermia and tachycardia. 12 point ROS performed negative other than stated above PMH: As above PSH: Denies Allergies: No known allergies Medications: Refer to [facility] SH: Patient states that she has smoked half a pack to 1/4 pack for the past 50 years, denies any drinking or recreational drug use FH: Denies Review of Systems - Review of Systems All systems: reviewed and no additional remarkable complaints except Past Patient History - Infectious Disease Hx of Infectious Diseases: None - Past Medical History & Family History Past Medical History?: Yes - Past Social History Smoking Status: Never Smoked - CARDIAC Hx Congestive Heart Failure: Yes Hx Hypertension: Yes - PULMONARY Hx Chronic Obstructive Pulmonary Disease (COPD): Yes - NEUROLOGICAL Hx Syncope: Yes - HEENT Hx HEENT Problems: No - RENAL Hx Chronic Kidney Disease: No - ENDOCRINE/METABOLIC Hx Diabetes Mellitus Type 2: Yes - HEMATOLOGICAL/ONCOLOGICAL Hx Blood Disorders: No - INTEGUMENTARY Hx Dermatological Problems: No - MUSCULOSKELETAL/RHEUMATOLOGICAL Hx Falls: Yes Hx Fractures: Yes (HX:Right distal tib/fib; HX: LEFT ANKLE FRACTURE) - GASTROINTESTINAL Hx Gastrointestinal Disorders: Yes Hx Gastroesophageal Reflux: Yes - GENITOURINARY/GYNECOLOGICAL Hx Genitourinary Disorders: No - PSYCHIATRIC Hx Substance Use: No - SURGICAL HISTORY Hx Orthopedic Surgery: Yes (Left ankle ORIF(02/19/17)) - ANESTHESIA Hx Anesthesia: Yes Meds Allergies/Adverse Reactions: Allergies Allergy/AdvReac Type Severity Reaction Status Date / Time Iodinated Contrast- Oral and Allergy Intermediate ANAPHYLAXIS Verified 10/08/18 15:13 IV Dye iodine Allergy ANAPHYLAXIS Verified 10/08/18 15:13 shellfish derived Allergy ANAPHYLAXIS Verified 10/08/18 15:13 - Medications Medications: Current Medications Acetaminophen (Tylenol 325mg Tab) 650 mg PO Q6H PRN PRN Reason: Fever >100.4 F Al Hydrox/Mg Hydrox/Simethicone (Maalox Plus 30 Ml) 30 ml PO DAILY PRN PRN Reason: Heartburn Albuterol/Ipratropium (Duoneb 3 Mg/0.5 Mg (3 Ml) Ud) 3 ml IH Q4H PRN PRN Reason: Shortness of Breath Last Admin: 10/09/18 13:35 Dose: 3 ml Dextrose (Dextrose 50% Inj) 0 ml IV STAT PRN; Protocol PRN Reason: Hypoglycemia Protocol Last Admin: 10/11/18 05:28 Dose: 50 ml Diltiazem HCl (Cardizem) 30 mg PO TID [facility]O Last Admin: 10/11/18 18:16 Dose: 30 mg Dextrose (Dextrose 5% In Water 1000 Ml) 1,000 mls @ 0 mls/hr IV .Q0M PRN; Protocol PRN Reason: Hypoglycemia Protocol Last Admin: 10/11/18 05:28 Dose: 100 mls/hr Vancomycin HCl (Vancomycin 1gm) 1 gm in 250 mls @ 167 mls/hr IVPB Q12H [facility]O; Protocol Last Admin: 10/11/18 22:07 Dose: 167 mls/hr Piperacillin Sod/Tazobactam Sod (Zosyn 4.5 Gm In Ns 100ml) 4.5 gm in 100 mls @ 25 mls/hr IVPB Q8 ALFREDO; Protocol Stop: 10/19/18 22:01 Last Admin: 10/12/18 06:49 Dose: 25 mls/hr Insulin Detemir (Levemir) 6 unit SC HS [facility] Last Admin: 10/11/18 22:05 Dose: 6 units Insulin Human Lispro (Humalog Low) 0 units SC ACHS [facility]; Protocol Last Admin: 10/11/18 21:44 Dose: Not Given Insulin Human Lispro (Humalog) 4 units SC ACTID [facility] Last Admin: 10/11/18 16:13 Dose: Not Given Levofloxacin (Levaquin) 500 mg PO DAILY [facility]; Protocol Stop: 10/16/18 19:35 Last Admin: 10/11/18 21:16 Dose: 500 mg Levothyroxine Sodium (Synthroid) 25 mcg PO 0600 [facility] Last Admin: 10/12/18 05:58 Dose: 25 mcg Magnesium Hydroxide (Milk Of Magnesia) 30 ml PO DAILY PRN PRN Reason: Constipation Mirtazapine (Remeron) 7.5 mg PO HS [facility] Last Admin: 10/11/18 21:16 Dose: 7.5 mg Pantoprazole Sodium (Protonix Susp) 40 mg PO 0600 [facility] Last Admin: 10/12/18 05:58 Dose: 40 mg Physical Exam - Constitutional Appears: No Acute Distress - Head Exam Head Exam: ATRAUMATIC, NORMOCEPHALIC - Eye Exam Eye Exam: EOMI, PERRL - ENT Exam ENT Exam: Mucous Membranes Moist - Respiratory Exam Respiratory Exam: Clear to Auscultation Bilateral, NORMAL BREATHING PATTERN. absent: Rales, Wheezes - Cardiovascular Exam Cardiovascular Exam: REGULAR RHYTHM, +S1, +S2 - GI/Abdominal Exam GI & Abdominal Exam: Normal Bowel Sounds, Soft. absent: Tenderness - Extremities Exam Extremities exam: Negative for: calf tenderness, pedal edema - Neurological Exam Neurological exam: Alert, Oriented x3 - Psychiatric Exam Psychiatric exam: Normal Mood - Skin Skin Exam: Dry, Warm Results - Vital Signs Recent Vital Signs: Last Vital Signs Temp 98.6 F 10/12/18 08:23 Pulse 72 10/12/18 08:23 Resp 20 10/12/18 08:23 BP 112/61 10/12/18 08:23 Pulse Ox 100 10/12/18 08:23 - Labs Result Diagrams: 10/12/18 06:30 10/12/18 06:30 Labs: Laboratory Results - last 24 hr 10/09/18 10/11/18 10/11/18 08:00 07:00 08:00 WBC RBC Hgb Hct MCV MCH MCHC RDW Plt Count MPV Neut % (Auto) Lymph % (Auto) [place] % (Auto) Eos % (Auto) Baso % (Auto) Lymph # (Auto) [place] # (Auto) Eos # (Auto) Baso # (Auto) Absolute Neuts (auto) pCO2 pO2 HCO3 ABG pH ABG Total CO2 ABG O2 Saturation ABG Base Excess ABG Potassium Sodium Chloride Glucose Lactate FiO2 Potassium Carbon Dioxide Anion Gap BUN Creatinine Est GFR ( Amer) Est GFR (Non-Af Amer) POC Glucose (mg/dL) Random Glucose Calcium Total Bilirubin AST ALT Alkaline Phosphatase Total Protein Albumin Globulin Albumin/Globulin Ratio Procalcitonin < 0.05 L Free T3 pg/mL TSH 3rd Generation Cortisol AM Sample 20.5 Arterial Blood Potassium Urine Color Urine Appearance Urine pH Ur Specific [place] Urine Protein Urine Glucose (UA) Urine Ketones Urine Blood Urine Nitrate Urine Bilirubin Urine Urobilinogen Ur Leukocyte Esterase Thyroperoxidase Ab <1 10/11/18 10/11/18 10/11/18 08:23 08:26 08:26 WBC RBC Hgb Hct MCV MCH MCHC RDW Plt Count MPV Neut % (Auto) Lymph % (Auto) [place] % (Auto) Eos % (Auto) Baso % (Auto) Lymph # (Auto) [place] # (Auto) Eos # (Auto) Baso # (Auto) Absolute Neuts (auto) pCO2 34 L pO2 115.0 H HCO3 23.1 ABG pH 7.44 ABG Total CO2 24.1 ABG O2 Saturation 99.6 H ABG Base Excess -0.5 ABG Potassium 3.3 L Sodium 134.0 Chloride 108.0 H Glucose 175 H Lactate 1.7 FiO2 21.0 Potassium Carbon Dioxide Anion Gap BUN Creatinine Est GFR ( Amer) Est GFR (Non-Af Amer) POC Glucose (mg/dL) Random Glucose Calcium Total Bilirubin AST ALT Alkaline Phosphatase Total Protein Albumin Globulin Albumin/Globulin Ratio Procalcitonin Free T3 pg/mL 2.73 L TSH 3rd Generation 8.15 H Cortisol AM Sample Arterial Blood Potassium 3.3 L Urine Color Urine Appearance Urine pH Ur Specific [place] Urine Protein Urine Glucose (UA) Urine Ketones Urine Blood Urine Nitrate Urine Bilirubin Urine Urobilinogen Ur Leukocyte Esterase Thyroperoxidase Ab 10/11/18 10/11/18 10/11/18 12:00 16:08 21:15 WBC RBC Hgb Hct MCV MCH MCHC RDW Plt Count MPV Neut % (Auto) Lymph % (Auto) [place] % (Auto) Eos % (Auto) Baso % (Auto) Lymph # (Auto) [place] # (Auto) Eos # (Auto) Baso # (Auto) Absolute Neuts (auto) pCO2 pO2 HCO3 ABG pH ABG Total CO2 ABG O2 Saturation ABG Base Excess ABG Potassium Sodium Chloride Glucose Lactate FiO2 Potassium Carbon Dioxide Anion Gap BUN Creatinine Est GFR ( Amer) Est GFR (Non-Af Amer) POC Glucose (mg/dL) 63 L 84 Random Glucose Calcium Total Bilirubin AST ALT Alkaline Phosphatase Total Protein Albumin Globulin Albumin/Globulin Ratio Procalcitonin Free T3 pg/mL TSH 3rd Generation Cortisol AM Sample Arterial Blood Potassium Urine Color Yellow Urine Appearance Clear Urine pH 6.0 Ur Specific [place] <= 1.005 Urine Protein Negative Urine Glucose (UA) Negative Urine Ketones Negative Urine Blood Negative Urine Nitrate Negative Urine Bilirubin Negative Urine Urobilinogen 0.2 Ur Leukocyte Esterase Negative Thyroperoxidase Ab 10/11/18 10/11/18 10/12/18 21:44 23:21 02:10 WBC RBC Hgb Hct MCV MCH MCHC RDW Plt Count MPV Neut % (Auto) Lymph % (Auto) [place] % (Auto) Eos % (Auto) Baso % (Auto) Lymph # (Auto) [place] # (Auto) Eos # (Auto) Baso # (Auto) Absolute Neuts (auto) pCO2 pO2 HCO3 ABG pH ABG Total CO2 ABG O2 Saturation ABG Base Excess ABG Potassium Sodium Chloride Glucose Lactate FiO2 Potassium Carbon Dioxide Anion Gap BUN Creatinine Est GFR ( Amer) Est GFR (Non-Af Amer) POC Glucose (mg/dL) 97 91 < 20 L* Random Glucose Calcium Total Bilirubin AST ALT Alkaline Phosphatase Total Protein Albumin Globulin Albumin/Globulin Ratio Procalcitonin Free T3 pg/mL TSH 3rd Generation Cortisol AM Sample Arterial Blood Potassium Urine Color Urine Appearance Urine pH Ur Specific [place] Urine Protein Urine Glucose (UA) Urine Ketones Urine Blood Urine Nitrate Urine Bilirubin Urine Urobilinogen Ur Leukocyte Esterase Thyroperoxidase Ab 10/12/18 10/12/18 10/12/18 02:48 04:40 05:08 WBC RBC Hgb Hct MCV MCH MCHC RDW Plt Count MPV Neut % (Auto) Lymph % (Auto) [place] % (Auto) Eos % (Auto) Baso % (Auto) Lymph # (Auto) [place] # (Auto) Eos # (Auto) Baso # (Auto) Absolute Neuts (auto) pCO2 pO2 HCO3 ABG pH ABG Total CO2 ABG O2 Saturation ABG Base Excess ABG Potassium Sodium Chloride Glucose Lactate FiO2 Potassium Carbon Dioxide Anion Gap BUN Creatinine Est GFR ( Amer) Est GFR (Non-Af Amer) POC Glucose (mg/dL) 146 H 27 L* 141 H Random Glucose Calcium Total Bilirubin AST ALT Alkaline Phosphatase Total Protein Albumin Globulin Albumin/Globulin Ratio Procalcitonin Free T3 pg/mL TSH 3rd Generation Cortisol AM Sample Arterial Blood Potassium Urine Color Urine Appearance Urine pH Ur Specific [place] Urine Protein Urine Glucose (UA) Urine Ketones Urine Blood Urine Nitrate Urine Bilirubin Urine Urobilinogen Ur Leukocyte Esterase Thyroperoxidase Ab 10/12/18 10/12/18 10/12/18 06:05 06:30 06:30 WBC 6.1 RBC 2.81 L Hgb 8.6 L Hct 26.2 L MCV 93.2 MCH 30.6 MCHC 32.8 RDW 13.9 Plt Count 353 MPV 9.0 Neut % (Auto) 63.7 Lymph % (Auto) 31.6 [place] % (Auto) 4.2 Eos % (Auto) 0.2 L Baso % (Auto) 0.3 Lymph # (Auto) 1.9 [place] # (Auto) 0.3 Eos # (Auto) 0.0 Baso # (Auto) 0.02 Absolute Neuts (auto) 3.91 pCO2 pO2 HCO3 ABG pH ABG Total CO2 ABG O2 Saturation ABG Base Excess ABG Potassium Sodium 137 Chloride 111 H Glucose Lactate FiO2 Potassium 3.5 L Carbon Dioxide 24 Anion Gap 6 L BUN 5 L Creatinine 0.7 Est GFR ( Amer) > 60 Est GFR (Non-Af Amer) > 60 POC Glucose (mg/dL) 83 Random Glucose 38 L* D Calcium 7.2 L Total Bilirubin 0.3 AST 24 ALT 27 Alkaline Phosphatase 69 Total Protein 4.1 L Albumin 1.8 L Globulin 2.3 Albumin/Globulin Ratio 0.8 L Procalcitonin Free T3 pg/mL TSH 3rd Generation Cortisol AM Sample Arterial Blood Potassium Urine Color Urine Appearance Urine pH Ur Specific [place] Urine Protein Urine Glucose (UA) Urine Ketones Urine Blood Urine Nitrate Urine Bilirubin Urine Urobilinogen Ur Leukocyte Esterase Thyroperoxidase Ab 10/12/18 07:21 WBC RBC Hgb Hct MCV MCH MCHC RDW Plt Count MPV Neut % (Auto) Lymph % (Auto) [place] % (Auto) Eos % (Auto) Baso % (Auto) Lymph # (Auto) [place] # (Auto) Eos # (Auto) Baso # (Auto) Absolute Neuts (auto) pCO2 pO2 HCO3 ABG pH ABG Total CO2 ABG O2 Saturation ABG Base Excess ABG Potassium Sodium Chloride Glucose Lactate FiO2 Potassium Carbon Dioxide Anion Gap BUN Creatinine Est GFR ( Amer) Est GFR (Non-Af Amer) POC Glucose (mg/dL) 309 H Random Glucose Calcium Total Bilirubin AST ALT Alkaline Phosphatase Total Protein Albumin Globulin Albumin/Globulin Ratio Procalcitonin Free T3 pg/mL TSH 3rd Generation Cortisol AM Sample Arterial Blood Potassium Urine Color Urine Appearance Urine pH Ur Specific [place] Urine Protein Urine Glucose (UA) Urine Ketones Urine Blood Urine Nitrate Urine Bilirubin Urine Urobilinogen Ur Leukocyte Esterase Thyroperoxidase Ab Assessment & Plan - Assessment and Plan (Free Text) Assessment: Sepsis with Right lower lobe HCAP S/P fall in assisted Paroxysmal atrial fibrillation Diabetes Hypertension Depression COPD Labile blood glucose levels Subdural hygroma Started Doxy and Cefepimefor 4 - 7 days of antibiotics D/c with vancomycin, Levaquin and Zosyn Follow-up septic work-up including MRSA, blood cultures, sputum cultures, urine culture Follow-up cardiology, endocrinology, neurology recommendations Continue monitor for any changes Case and plan to be reviewed and discussed with Dr. Perez <Pancho Perez - Last Filed: 10/12/18 15:09> Meds - Medications Medications: Current Medications Acetaminophen (Tylenol 325mg Tab) 650 mg PO Q6H PRN PRN Reason: Fever >100.4 F Al Hydrox/Mg Hydrox/Simethicone (Maalox Plus 30 Ml) 30 ml PO DAILY PRN PRN Reason: Heartburn Albuterol/Ipratropium (Duoneb 3 Mg/0.5 Mg (3 Ml) Ud) 3 ml IH Q4H PRN PRN Reason: Shortness of Breath Last Admin: 10/09/18 13:35 Dose: 3 ml Dextrose (Dextrose 50% Inj) 0 ml IV STAT PRN; Protocol PRN Reason: Hypoglycemia Protocol Last Admin: 10/11/18 05:28 Dose: 50 ml Diltiazem HCl (Cardizem) 30 mg PO TID [facility]EDO Last Admin: 10/12/18 13:08 Dose: Not Given Doxycycline Hyclate (Doryx) 100 mg PO Q12 [facility]; Protocol Dextrose (Dextrose 5% In Water 1000 Ml) 1,000 mls @ 0 mls/hr IV .Q0M PRN; Protocol PRN Reason: Hypoglycemia Protocol Last Admin: 10/11/18 05:28 Dose: 100 mls/hr Cefepime HCl (Maxipime 1gm) 1 gm in 100 mls @ 100 mls/hr IVPB Q8 [facility]; Protocol Insulin Human Lispro (Humalog Low) 0 units SC ACHS [facility]; Protocol Last Admin: 10/12/18 13:08 Dose: Not Given Levothyroxine Sodium (Synthroid) 25 mcg PO 0600 [facility] Last Admin: 10/12/18 05:58 Dose: 25 mcg Magnesium Hydroxide (Milk Of Magnesia) 30 ml PO DAILY PRN PRN Reason: Constipation Mirtazapine (Remeron) 7.5 mg PO HS [facility] Last Admin: 10/11/18 21:16 Dose: 7.5 mg Pantoprazole Sodium (Protonix Susp) 40 mg PO 0600 [facility] Last Admin: 10/12/18 05:58 Dose: 40 mg Results - Vital Signs Recent Vital Signs: Last Vital Signs Temp 98.4 F 10/12/18 11:30 Pulse 70 10/12/18 13:08 Resp 18 10/12/18 11:30 BP 100/55 L 10/12/18 13:08 Pulse Ox 97 10/12/18 11:30 - Labs Result Diagrams: 10/12/18 06:30 10/12/18 06:30 Labs: Laboratory Results - last 24 hr 10/09/18 10/11/18 10/11/18 08:00 07:00 08:00 WBC RBC Hgb Hct MCV MCH MCHC RDW Plt Count MPV Neut % (Auto) Lymph % (Auto) [place] % (Auto) Eos % (Auto) Baso % (Auto) Lymph # (Auto) [place] # (Auto) Eos # (Auto) Baso # (Auto) Absolute Neuts (auto) Sodium Potassium Chloride Carbon Dioxide Anion Gap BUN Creatinine Est GFR ( Amer) Est GFR (Non-Af Amer) POC Glucose (mg/dL) Random Glucose Calcium Total Bilirubin AST ALT Alkaline Phosphatase Total Protein Albumin Globulin Albumin/Globulin Ratio Procalcitonin < 0.05 L Cortisol AM Sample 20.5 Thyroperoxidase Ab <1 Ur L.pneumophila Ag 10/11/18 10/11/18 10/11/18 16:08 21:15 21:44 WBC RBC Hgb Hct MCV MCH MCHC RDW Plt Count MPV Neut % (Auto) Lymph % (Auto) [place] % (Auto) Eos % (Auto) Baso % (Auto) Lymph # (Auto) [place] # (Auto) Eos # (Auto) Baso # (Auto) Absolute Neuts (auto) Sodium Potassium Chloride Carbon Dioxide Anion Gap BUN Creatinine Est GFR ( Amer) Est GFR (Non-Af Amer) POC Glucose (mg/dL) 63 L 84 97 Random Glucose Calcium Total Bilirubin AST ALT Alkaline Phosphatase Total Protein Albumin Globulin Albumin/Globulin Ratio Procalcitonin Cortisol AM Sample Thyroperoxidase Ab Ur L.pneumophila Ag 10/11/18 10/12/18 10/12/18 23:21 02:10 02:48 WBC RBC Hgb Hct MCV MCH MCHC RDW Plt Count MPV Neut % (Auto) Lymph % (Auto) [place] % (Auto) Eos % (Auto) Baso % (Auto) Lymph # (Auto) [place] # (Auto) Eos # (Auto) Baso # (Auto) Absolute Neuts (auto) Sodium Potassium Chloride Carbon Dioxide Anion Gap BUN Creatinine Est GFR ( Amer) Est GFR (Non-Af Amer) POC Glucose (mg/dL) 91 < 20 L* 146 H Random Glucose Calcium Total Bilirubin AST ALT Alkaline Phosphatase Total Protein Albumin Globulin Albumin/Globulin Ratio Procalcitonin Cortisol AM Sample Thyroperoxidase Ab Ur L.pneumophila Ag 10/12/18 10/12/18 10/12/18 04:40 05:05 05:08 WBC RBC Hgb Hct MCV MCH MCHC RDW Plt Count MPV Neut % (Auto) Lymph % (Auto) [place] % (Auto) Eos % (Auto) Baso % (Auto) Lymph # (Auto) [place] # (Auto) Eos # (Auto) Baso # (Auto) Absolute Neuts (auto) Sodium Potassium Chloride Carbon Dioxide Anion Gap BUN Creatinine Est GFR ( Amer) Est GFR (Non-Af Amer) POC Glucose (mg/dL) 27 L* 141 H Random Glucose Calcium Total Bilirubin AST ALT Alkaline Phosphatase Total Protein Albumin Globulin Albumin/Globulin Ratio Procalcitonin Cortisol AM Sample Thyroperoxidase Ab Ur L.pneumophila Ag Negative 10/12/18 10/12/18 10/12/18 06:05 06:30 06:30 WBC 6.1 RBC 2.81 L Hgb 8.6 L Hct 26.2 L MCV 93.2 MCH 30.6 MCHC 32.8 RDW 13.9 Plt Count 353 MPV 9.0 Neut % (Auto) 63.7 Lymph % (Auto) 31.6 [place] % (Auto) 4.2 Eos % (Auto) 0.2 L Baso % (Auto) 0.3 Lymph # (Auto) 1.9 [place] # (Auto) 0.3 Eos # (Auto) 0.0 Baso # (Auto) 0.02 Absolute Neuts (auto) 3.91 Sodium 137 Potassium 3.5 L Chloride 111 H Carbon Dioxide 24 Anion Gap 6 L BUN 5 L Creatinine 0.7 Est GFR ( Amer) > 60 Est GFR (Non-Af Amer) > 60 POC Glucose (mg/dL) 83 Random Glucose 38 L* D Calcium 7.2 L Total Bilirubin 0.3 AST 24 ALT 27 Alkaline Phosphatase 69 Total Protein 4.1 L Albumin 1.8 L Globulin 2.3 Albumin/Globulin Ratio 0.8 L Procalcitonin Cortisol AM Sample Thyroperoxidase Ab Ur L.pneumophila Ag 10/12/18 10/12/18 10/12/18 07:21 09:10 10:05 WBC RBC Hgb Hct MCV MCH MCHC RDW Plt Count MPV Neut % (Auto) Lymph % (Auto) [place] % (Auto) Eos % (Auto) Baso % (Auto) Lymph # (Auto) [place] # (Auto) Eos # (Auto) Baso # (Auto) Absolute Neuts (auto) Sodium Potassium Chloride Carbon Dioxide Anion Gap BUN Creatinine Est GFR ( Amer) Est GFR (Non-Af Amer) POC Glucose (mg/dL) 309 H 32 L* 190 H Random Glucose Calcium Total Bilirubin AST ALT Alkaline Phosphatase Total Protein Albumin Globulin Albumin/Globulin Ratio Procalcitonin Cortisol AM Sample Thyroperoxidase Ab Ur L.pneumophila Ag 10/12/18 11:46 WBC RBC Hgb Hct MCV MCH MCHC RDW Plt Count MPV Neut % (Auto) Lymph % (Auto) [place] % (Auto) Eos % (Auto) Baso % (Auto) Lymph # (Auto) [place] # (Auto) Eos # (Auto) Baso # (Auto) Absolute Neuts (auto) Sodium Potassium Chloride Carbon Dioxide Anion Gap BUN Creatinine Est GFR ( Amer) Est GFR (Non-Af Amer) POC Glucose (mg/dL) 142 H Random Glucose Calcium Total Bilirubin AST ALT Alkaline Phosphatase Total Protein Albumin Globulin Albumin/Globulin Ratio Procalcitonin Cortisol AM Sample Thyroperoxidase Ab Ur L.pneumophila Ag Attending/Attestation - Attestation I have personally seen and examined this patient.: Yes I have fully participated in the care of the patient.: Yes I have reviewed all pertinent clinical information: Yes
[2018-10-12] MEDS: Insulin Lispro (humaLOG) LOW Coverage SC SCH ×4 (09:24→21:29)
[2018-10-12] MEDS: Insulin Lispro 1 UNITS/0.01 ML SC SCH (09:24)
[2018-10-12] MEDS: levoFLOXacin 500 MG TAB PO SCH (09:25)
[2018-10-12] MEDS: Vancomycin 1gm in NS 250ml 1 GM/250 ML BAG IVPB SCH (10:11)
--- NOTE | 2018-10-12 13:50 | CP.PCM.PN ---
<Lucía Salas - Last Filed: 10/12/18 13:47> Subjective - Date & Time of Evaluation Date of Evaluation: 10/12/18 Time of Evaluation: 13:47 - Subjective Subjective: Lucía Salas, PGY-1, Internal Medicine Progress Note for Dr. Roche Patient seen and evaluated at bedside. Patient had no acute overnight events. Patient was found to have glucose less than 20 at 2:00 and was given an amp of D50 with improvement. Patient was found to have glucose of 27 at 4:40 and given an amp of D50 with improvement to 141. Patient was found to have blood glucose of 38 at 6:30 and given an amp of D50 with improvement to 309. Patient was found to have glucose of 32 at 9:00 and was confused and lethargic and was given D5 amp with improvement to 190. This morning, patient was AAOx1 and confused. Patient had no acute complains except for chills. 12-point ROS was incomplete due to patient's mental status. Objective - Vital Signs/Intake and Output Vital Signs (last 24 hours): Temp Pulse Resp BP Pulse Ox 98.4 F 70 18 100/55 L 97 10/12/18 11:30 10/12/18 13:08 10/12/18 11:30 10/12/18 13:08 10/12/18 11:30 Intake and Output: 10/12/18 10/12/18 06:59 18:59 Intake Total 1140 Balance 1140 - Medications Medications: Current Medications Acetaminophen (Tylenol 325mg Tab) 650 mg PO Q6H PRN PRN Reason: Fever >100.4 F Al Hydrox/Mg Hydrox/Simethicone (Maalox Plus 30 Ml) 30 ml PO DAILY PRN PRN Reason: Heartburn Albuterol/Ipratropium (Duoneb 3 Mg/0.5 Mg (3 Ml) Ud) 3 ml IH Q4H PRN PRN Reason: Shortness of Breath Last Admin: 10/09/18 13:35 Dose: 3 ml Dextrose (Dextrose 50% Inj) 0 ml IV STAT PRN; Protocol PRN Reason: Hypoglycemia Protocol Last Admin: 10/11/18 05:28 Dose: 50 ml Diltiazem HCl (Cardizem) 30 mg PO TID [facility]FREDO Last Admin: 10/12/18 13:08 Dose: Not Given Dextrose (Dextrose 5% In Water 1000 Ml) 1,000 mls @ 0 mls/hr IV .Q0M PRN; Protocol PRN Reason: Hypoglycemia Protocol Last Admin: 10/11/18 05:28 Dose: 100 mls/hr Vancomycin HCl (Vancomycin 1gm) 1 gm in 250 mls @ 167 mls/hr IVPB Q12H ALFREDO; Protocol Last Admin: 10/12/18 10:11 Dose: 167 mls/hr Piperacillin Sod/Tazobactam Sod (Zosyn 4.5 Gm In Ns 100ml) 4.5 gm in 100 mls @ 25 mls/hr IVPB Q8 [facility]FR[facility]O; Protocol Stop: 10/19/18 22:01 Last Admin: 10/12/18 13:07 Dose: 25 mls/hr Insulin Human Lispro (Humalog Low) 0 units SC ACHS ALFREDO; Protocol Last Admin: 10/12/18 13:08 Dose: Not Given Levofloxacin (Levaquin) 500 mg PO DAILY [facility]; Protocol Stop: 10/16/18 19:35 Last Admin: 10/12/18 09:25 Dose: 500 mg Levothyroxine Sodium (Synthroid) 25 mcg PO 0600 [facility] Last Admin: 10/12/18 05:58 Dose: 25 mcg Magnesium Hydroxide (Milk Of Magnesia) 30 ml PO DAILY PRN PRN Reason: Constipation Mirtazapine (Remeron) 7.5 mg PO HS [facility] Last Admin: 10/11/18 21:16 Dose: 7.5 mg Pantoprazole Sodium (Protonix Susp) 40 mg PO 0600 [facility] Last Admin: 10/12/18 05:58 Dose: 40 mg - Labs Labs: 10/12/18 06:30 10/12/18 06:30 PT 14.5 SECONDS (9.4-12.5) H 10/08/18 13:20 INR 1.28 10/08/18 13:20 APTT 22.2 Seconds (26.9-38.3) L 10/08/18 13:20 - Constitutional Appears: Well, Non-toxic, No Acute Distress - Head Exam Head Exam: ATRAUMATIC, NORMAL INSPECTION, NORMOCEPHALIC - Eye Exam Eye Exam: EOMI, PERRL - ENT Exam ENT Exam: Mucous Membranes Moist - Neck Exam Neck exam: Positive for: Normal Inspection - Respiratory Exam Respiratory Exam: Clear to Auscultation Bilateral, NORMAL BREATHING PATTERN. absent: Rales, Rhonchi, Wheezes - Cardiovascular Exam Cardiovascular Exam: REGULAR RHYTHM, RRR, +S1, +S2. absent: Clicks, Gallop, Rubs - GI/Abdominal Exam GI & Abdominal Exam: Firm, Normal Bowel Sounds. absent: Distended, Guarding, Tenderness - Extremities Exam Extremities exam: Positive for: full ROM, pedal edema (+2), tenderness - Neurological Exam Additional comments: AAOx1, moving all extremities, CN II-XII grossly intact - Skin Skin Exam: Dry, Intact, Normal Color Assessment and Plan - Assessment and Plan (Free Text) Assessment: 73 year old female with past medical history of diabetes mellitus, COPD, hypertension, hypoglycemia presents status post fall at [facility]. Patient was admitted for evaluation status post fall and for subdural hygroma found on Head CT. Patient had atrial fibrillation on 10/11 and converted back to normal sinus rhythm after administration of cardizem. Patient was hypothermic on 10/11 with rectal temperature of 93.6. Hypothermia resolved. Plan: Sepsis with undetermined source -Patient was hypothermic and tachycardic on 10/11. Hypothermia and tachycardia resolved -CXR 10/11: Hazy opacity in RLL increased from prior study. Consistent with small to medium sized right effusion and right basilar atelectasis. Suspect minor left basilar atelectasis and questionable small left effusion -UA 10/11 shows no suspicion of UTI -Procal: <0.05 -Blood culture negative since 10/11 -Urine culture negative -Follow up sputum and MRSA culture -Follow up abdominal and pelvis CT -Continue vancomycin and zosyn for empiric coverage started on 10/11 -Start levaquin for empiric coverage started on 10/11 Paroxysmal atrial fibrillation -Atrial fibrillation seen on 10/11 and converted to NSR after administration of cardizem 10 mg IV -Echocardiogram 10/11: LVEF 56.6%, LV normal size -Continue cardizem 30 mg TID -Will hold off on anticoagulation due to subdural hygroma Hypothermia -Rectal temperature 93.6 on 10/11. Hypothermia now resolved -TSH 10/11: 8.15. Increased from 5.36 -Free T4 10/11: 1.37 -Free T3 10/11: low at 2.73 -Cortisol 10/11: 20.5 -Continue synthroid 25 mcg daily Subdural hygroma and status post fall -Head CT 10/08: left cerebral convexity subdural hygroma with maximum depth of 1.3 cm -Head CT 10/09: stable appearance of left cerebral convexity subdural hygroma without significant change. -As per Neurosurgery and Neurology, patient should have repeat head CT in few weeks for reevaluation -Avoid anticoagulation at this time -Neurology, Dr. Goode, and Neurosurgery, Dr. Brothers, consulted for further recommendations. Diabetes mellitus -Patient has history of hypoglycemia mixed with periods of severe hyperglycemia -Patient had blood glucose of 80s at custodial and on admission had blood glucose of 43 -Multiple episodes of hypoglycemia and hyperglycemia overnight -HgbA1c: 7.7 -Will hold amaryl, levemir, and lispro due to brittle diabetes -Continue low sliding scale insulin -Accuchecks ACHS -Continue with Consistent carbohydrate diet -Avoid hypoglycemia -Continue hypoglycemia protocol -Follow recommendations as per endocrinology, Dr. Altamirano. Hypothyroidism -TSH 10/11: 8.15. Increased from 5.36 -Free T4 10/11: 1.37 -Free T3 10/11: low at 2.73 -History of hypothermia and hypoglycemia -Continue synthroid 25 mcg daily History of hypertension -Normotensive at this time -Will hold off on antihypertensives History of COPD -Continue duonebs 3 Q4PRN for shortness of breath History of depression -Continue home mirtazapine History of constipation -Continue home milk of magnesia PRN History of GERD -Continue home maalox PRN and protonix daily GI prophylaxis: protonix DVT prophylaxis: SCD Patient plan discussed with Dr. Roche <Alida Roche - Last Filed: 10/15/18 11:03> Objective - Vital Signs/Intake and Output Vital Signs (last 24 hours): Temp Pulse Resp BP Pulse Ox 98.4 F 77 20 100/57 L 100 10/14/18 17:09 10/14/18 17:09 10/14/18 17:09 10/14/18 17:09 10/14/18 17:09 - Labs Labs: 10/14/18 09:30 10/14/18 09:30 PT 14.5 SECONDS (9.4-12.5) H 10/08/18 13:20 INR 1.28 10/08/18 13:20 APTT 22.2 Seconds (26.9-38.3) L 10/08/18 13:20 Attending/Attestation - Attestation I have personally seen and examined this patient.: Yes I have fully participated in the care of the patient.: Yes I have reviewed all pertinent clinical information, including history, physical exam and plan: Yes Notes (Text): 10/15/18 11:03 Medical record note made by the resident after discussion with my direction and input after the patient was personally seen and examined by me. I have reviewed the chart and agree that the record accurately reflects by personal performance of the history, physical exam, data review, and medical decision-making, in the course for the patient. I have also personally directed the plan of care.
--- NOTE | 2018-10-12 15:30 | PN ---
DATE: 10/12/2018 REASON FOR CONSULTATION AND FOLLOWUP: Atrial fibrillation new onset, cardiology consult converted to normal sinus. SUBJECTIVE: The patient denies any chest pain, shortness of breath, or any palpitation. OBJECTIVE: GENERAL: Not in apparent distress. VITAL SIGNS: Temperature afebrile, heart rate 76, blood pressure 106/63. HEENT: PERRLA. Extraocular muscles intact. NECK: Supple. No carotid bruits. No thyromegaly. CHEST: Clear to auscultation. HEART: S1 and S2, regular. ABDOMEN: Soft. EXTREMITIES: Clubbing and cyanosis negative. LABORATORY DATA: Blood workup as follows. WBC 6.8, hemoglobin 8.6, hematocrit 26.2, platelet count 353. Chemistry shows sodium 137, potassium 3.5, chloride 101, carbon dioxide 24, anion gap of 6, BUN 5, creatinine 0.7. 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 Total protein 5.1, albumin 1.8, albumin and globulin ratio 0.8. IMPRESSION: A 73-year-old female with past medical history significant for recurrent hypoglycemia, diabetes, hypertension, hyperlipidemia, and subdural hygroma without significant change in CT scan, admitted with hypoglycemia, went into atrial fibrillation. On admission, converted to normal sinus. The patient has last echocardiogram on 10/08/2018, normal echocardiogram, now the patient was here because after hypoglycemia went into atrial fibrillation, now converted to normal sinus. The patient has hygroma and recent history of recurrent fall, stress test in 09/2016 in [facility] that was negative. History of echocardiogram essentially negative. RECOMMENDATIONS: Questionable history of hygroma, questionable hematoma, we will hold anticoagulation. The patient converted to normal sinus with 10 mg of IV Cardizem. Recommendation, we will put Cardizem 30 mg three times a day, aggressive re-supplement potassium. CVS status is stable. Further cardiac workup is planned. Discharged telemetry and discharged planning. We will sign off and would like to follow up p.r.n. Increase nutritional support. The patient severely have severe protein-calorie malnutrition. We will increase supplement. We will put one can Ensure Clear per day four times a day one can. We will supplement of protein and continue Cardizem 30 mg three times a day. CVS status is stable. Okay to be discharged from Cardiology point of view. We will sign off and would like to follow up p.r.n. Thank you Dr. Manuel for providing us the opportunity in taking care of the patient, Mary Bashir. Alida Bray MD
--- NOTE | 2018-10-12 16:50 | PN ---
DATE: 10/12/2018 ENDO FOLLOWUP NOTE LOCATION: Room 372. SUBJECTIVE: This is a 73-year-old female with recent uncontrolled type 2 insulin-requiring diabetes with recent symptomatic bouts of hypoglycemia related to very poor and variable oral intake at this time. Her glycemic levels today have ranged from 32 early this morning to 142 and 190 and 309 mg/dL. LABORATORY DATA: Her chemistry showed a BUN of 5, sodium 137, potassium 3.5, chloride 111, CO2 of 24, glucose 38 and creatinine 0.7. Her bedtime glucose was 141 mg/dL. 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 PLAN OF MANAGEMENT: We will modify her current insulin regimen and actually discontinue all the basal and bolus insulin regimen as previously given. She was only on the very low dose of Humalog given as 4 units t.i.d. and Levemir at 6 units at bedtime. We will obtain serial chemistries and supplement accordingly as needed. We will continue the low-dose correction scale using Humalog insulin as given. We will consider the addition of oral hypoglycemic drug therapy if hyperglycemic levels supervene over the next day or so. We will follow and advise accordingly. Maiad Altamirano MD
--- NOTE | 2018-10-12 20:34 | CARD ---
APPROVED REPORT Date of service: 10/12/2018 EKG Measurement Heart [id number] <Conclusion> Normal sinus rhythm Low voltage QRS NDSTT abnormalities Borderline ECG
[2018-10-12] MEDS: Cefepime 1gm in NS 100ml 1 GM/100 ML BAG IVPB SCH (22:04)
[2018-10-13] MEDS: Levothyroxine 25 MCG TAB PO SCH (05:25)
[2018-10-13] MEDS: Pantoprazole 40 mg Susp UD PO SCH (05:25)
[2018-10-13] MEDS: Cefepime 1gm in NS 100ml 1 GM/100 ML BAG IVPB SCH ×3 (05:26→21:54)
[2018-10-13 06:25] LABS: BASO # 0.05 K/mm3 (0.0-2.0); BASO % 0.8 % (0.0-3.0); EOS # 0.1 (0.0-0.7); EOS % 1.8 % (1.5-5.0); HEMOGLOBIN 8.4 g/dL (12.0-16.0); LYMPH # 2.8 (1.2-3.4); LYMPH % 45.3 % (22.0-35.0); MEAN CELL VOLUME 93.7 fl (80.0-105.0); MEAN CORPUSCULAR HGB CONC 33.1 g/dl (31.0-37.0); MEAN PLATELET VOLUME 9.1 fl (7.0-11.0); MONO # 0.3 (0.1-0.6); MONO % 5.5 % (1.0-6.0); RBC 2.71 10^6/uL (3.5-6.1); RED CELL DISTRIBUTION WIDTH 14.1 % (11.5-14.5); WHITE BLOOD COUNT 6.2 10^3/uL (4.5-11.0)
[2018-10-13 07:34] LABS: ALB/GLOB RATIO 0.7 (1.1-1.8); ALBUMIN 1.7 g/dL (3.0-4.8); ALT/SGPT 33 U/L (7-56); AST/SGOT 28 U/L (14-36); BLOOD UREA NITROGEN 6 mg/dL (7-21); CALCIUM 7.4 mg/dL (8.4-10.5); GFR NON-AFRICAN AMERICAN > 60
--- NOTE | 2018-10-13 07:49 | CP.PCM.PN ---
<Rosalio Thomson - Last Filed: 10/13/18 12:29> Subjective - Date & Time of Evaluation Date of Evaluation: 10/13/18 Time of Evaluation: 08:55 - Subjective Subjective: Infectious disease progress note: Pt seen and examined at bedside. No acute events overnight. Still is coughing. No fevers or chills. No complaints. 12 Point ROS performed and neg other than stated above Objective - Vital Signs/Intake and Output Vital Signs (last 24 hours): Temp Pulse Resp BP Pulse Ox 97.7 F 59 L 18 118/65 100 10/12/18 16:14 10/13/18 06:00 10/12/18 16:14 10/12/18 17:43 10/12/18 16:14 - Medications Medications: Current Medications Acetaminophen (Tylenol 325mg Tab) 650 mg PO Q6H PRN PRN Reason: Fever >100.4 F Al Hydrox/Mg Hydrox/Simethicone (Maalox Plus 30 Ml) 30 ml PO DAILY PRN PRN Reason: Heartburn Albuterol/Ipratropium (Duoneb 3 Mg/0.5 Mg (3 Ml) Ud) 3 ml IH Q4H PRN PRN Reason: Shortness of Breath Last Admin: 10/09/18 13:35 Dose: 3 ml Dextrose (Dextrose 50% Inj) 0 ml IV STAT PRN; Protocol PRN Reason: Hypoglycemia Protocol Last Admin: 10/11/18 05:28 Dose: 50 ml Diltiazem HCl (Cardizem) 30 mg PO TID ALFREDO Last Admin: 10/12/18 17:43 Dose: 30 mg Doxycycline Hyclate (Doryx) 100 mg PO Q12 ALFREDO; Protocol Last Admin: 10/12/18 22:04 Dose: 100 mg Dextrose (Dextrose 5% In Water 1000 Ml) 1,000 mls @ 0 mls/hr IV .Q0M PRN; Protocol PRN Reason: Hypoglycemia Protocol Last Admin: 10/11/18 05:28 Dose: 100 mls/hr Cefepime HCl (Maxipime 1gm) 1 gm in 100 mls @ 100 mls/hr IVPB Q8 ALFREDO; Protocol Last Admin: 10/13/18 05:26 Dose: 100 mls/hr Insulin Human Lispro (Humalog Low) 0 units SC ACHS ALFREDO; Protocol Last Admin: 10/12/18 21:29 Dose: Not Given Levothyroxine Sodium (Synthroid) 25 mcg PO 0600 [facility] Last Admin: 10/13/18 05:25 Dose: 25 mcg Magnesium Hydroxide (Milk Of Magnesia) 30 ml PO DAILY PRN PRN Reason: Constipation Mirtazapine (Remeron) 7.5 mg PO HS [facility] Last Admin: 10/12/18 22:04 Dose: 7.5 mg Pantoprazole Sodium (Protonix Susp) 40 mg PO 0600 [facility] Last Admin: 10/13/18 05:25 Dose: 40 mg - Labs Labs: 10/13/18 06:00 10/13/18 06:00 PT 14.5 SECONDS (9.4-12.5) H 10/08/18 13:20 INR 1.28 10/08/18 13:20 APTT 22.2 Seconds (26.9-38.3) L 10/08/18 13:20 - Constitutional Appears: No Acute Distress - Head Exam Head Exam: ATRAUMATIC, NORMOCEPHALIC - Eye Exam Eye Exam: EOMI - ENT Exam ENT Exam: Mucous Membranes Moist - Respiratory Exam Respiratory Exam: Clear to Ausculation Bilateral, Rhonchi (R side ). absent: Rales, Wheezes - Cardiovascular Exam Cardiovascular Exam: REGULAR RHYTHM, +S1, +S2 - GI/Abdominal Exam GI & Abdominal Exam: Soft. absent: Tenderness - Extremities Exam Extremities Exam: absent: Calf Tenderness, Pedal Edema - Neurological Exam Neurological Exam: Alert, Awake, Oriented x3 Assessment and Plan - Assessment and Plan (Free Text) Assessment: Sepsis with Right lower lobe HCAP S/P fall in halfway Paroxysmal atrial fibrillation Diabetes Hypertension Depression COPD Labile blood glucose levels Subdural hygroma Cont Doxy day 2 and Cefepime day 2 for 4 - 7 days of antibiotics D/c vancomycin, Levaquin and Zosyn Procal neg, leigonella neg Follow-up septic work-up including MRSA, blood cultures, sputum cultures, urine culture - thus far neg Follow-up cardiology, endocrinology, neurology recommendations Continue monitor for any changes Case and plan to be reviewed and discussed with Dr. Perez <Pancho Perez - Last Filed: 10/13/18 12:33> Objective - Vital Signs/Intake and Output Vital Signs (last 24 hours): Temp Pulse Resp BP Pulse Ox 97.8 F 71 20 112/60 99 10/13/18 06:00 10/13/18 06:00 10/13/18 06:00 10/13/18 06:00 10/13/18 06:00 - Medications Medications: Current Medications Acetaminophen (Tylenol 325mg Tab) 650 mg PO Q6H PRN PRN Reason: Fever >100.4 F Al Hydrox/Mg Hydrox/Simethicone (Maalox Plus 30 Ml) 30 ml PO DAILY PRN PRN Reason: Heartburn Albuterol/Ipratropium (Duoneb 3 Mg/0.5 Mg (3 Ml) Ud) 3 ml IH Q4H PRN PRN Reason: Shortness of Breath Last Admin: 10/09/18 13:35 Dose: 3 ml Dextrose (Dextrose 50% Inj) 0 ml IV STAT PRN; Protocol PRN Reason: Hypoglycemia Protocol Last Admin: 10/11/18 05:28 Dose: 50 ml Diltiazem HCl (Cardizem) 30 mg PO TID ALFREDO Last Admin: 10/13/18 09:16 Dose: 30 mg Doxycycline Hyclate (Doryx) 100 mg PO Q12 [facility]; Protocol Last Admin: 10/13/18 09:16 Dose: 100 mg Dextrose (Dextrose 5% In Water 1000 Ml) 1,000 mls @ 0 mls/hr IV .Q0M PRN; Protocol PRN Reason: Hypoglycemia Protocol Last Admin: 10/11/18 05:28 Dose: 100 mls/hr Cefepime HCl (Maxipime 1gm) 1 gm in 100 mls @ 100 mls/hr IVPB Q8 [facility]; Protocol Last Admin: 10/13/18 05:26 Dose: 100 mls/hr Insulin Human Lispro (Humalog Low) 0 units SC ACHS [facility]; Protocol Last Admin: 10/13/18 09:16 Dose: 1 units Levothyroxine Sodium (Synthroid) 25 mcg PO 0600 [facility] Last Admin: 10/13/18 05:25 Dose: 25 mcg Magnesium Hydroxide (Milk Of Magnesia) 30 ml PO DAILY PRN PRN Reason: Constipation Mirtazapine (Remeron) 7.5 mg PO HS [facility] Last Admin: 10/12/18 22:04 Dose: 7.5 mg Pantoprazole Sodium (Protonix Susp) 40 mg PO 0600 [facility] Last Admin: 10/13/18 05:25 Dose: 40 mg - Labs Labs: 10/13/18 06:00 10/13/18 06:00 PT 14.5 SECONDS (9.4-12.5) H 10/08/18 13:20 INR 1.28 10/08/18 13:20 APTT 22.2 Seconds (26.9-38.3) L 10/08/18 13:20 Attending/Attestation - Attestation I have personally seen and examined this patient.: Yes I have fully participated in the care of the patient.: Yes I have reviewed all pertinent clinical information, including history, physical exam and plan: Yes
[2018-10-13] MEDS: Insulin Lispro (humaLOG) LOW Coverage SC SCH ×5 (09:16→21:41)
--- NOTE | 2018-10-13 14:48 | CP.PCM.PN ---
<Lucía Salas - Last Filed: 10/13/18 14:41> Subjective - Date & Time of Evaluation Date of Evaluation: 10/13/18 Time of Evaluation: 14:41 - Subjective Subjective: Lucía Salas, PGY-1, Internal Medicine Progress Note for Dr. Roche Patient seen and evaluated at bedside. Patient had no acute overnight events. Patient was euglycemic and normothermic overnight. Patient is AAOx1 at bedside and has chills but no other complaints. 12-point ROS was incomplete due to patient's mental status. Objective - Vital Signs/Intake and Output Vital Signs (last 24 hours): Temp Pulse Resp BP Pulse Ox 97.8 F 71 20 112/60 99 10/13/18 06:00 10/13/18 06:00 10/13/18 06:00 10/13/18 06:00 10/13/18 06:00 - Medications Medications: Current Medications Acetaminophen (Tylenol 325mg Tab) 650 mg PO Q6H PRN PRN Reason: Fever >100.4 F Al Hydrox/Mg Hydrox/Simethicone (Maalox Plus 30 Ml) 30 ml PO DAILY PRN PRN Reason: Heartburn Albuterol/Ipratropium (Duoneb 3 Mg/0.5 Mg (3 Ml) Ud) 3 ml IH Q4H PRN PRN Reason: Shortness of Breath Last Admin: 10/09/18 13:35 Dose: 3 ml Dextrose (Dextrose 50% Inj) 0 ml IV STAT PRN; Protocol PRN Reason: Hypoglycemia Protocol Last Admin: 10/11/18 05:28 Dose: 50 ml Diltiazem HCl (Cardizem) 30 mg PO TID ALFREDO Last Admin: 10/13/18 13:21 Dose: 30 mg Doxycycline Hyclate (Doryx) 100 mg PO Q12 ALFREDO; Protocol Last Admin: 10/13/18 09:16 Dose: 100 mg Dextrose (Dextrose 5% In Water 1000 Ml) 1,000 mls @ 0 mls/hr IV .Q0M PRN; Protocol PRN Reason: Hypoglycemia Protocol Last Admin: 10/11/18 05:28 Dose: 100 mls/hr Cefepime HCl (Maxipime 1gm) 1 gm in 100 mls @ 100 mls/hr IVPB Q8 ALFREDO; Protocol Last Admin: 10/13/18 13:22 Dose: 100 mls/hr Insulin Human Lispro (Humalog Low) 0 units SC ACHS [facility]; Protocol Last Admin: 10/13/18 13:25 Dose: Not Given Levothyroxine Sodium (Synthroid) 25 mcg PO 0600 [facility] Last Admin: 10/13/18 05:25 Dose: 25 mcg Magnesium Hydroxide (Milk Of Magnesia) 30 ml PO DAILY PRN PRN Reason: Constipation Mirtazapine (Remeron) 7.5 mg PO HS [facility] Last Admin: 10/12/18 22:04 Dose: 7.5 mg Pantoprazole Sodium (Protonix Susp) 40 mg PO 0600 [facility] Last Admin: 10/13/18 05:25 Dose: 40 mg - Labs Labs: 10/13/18 06:00 10/13/18 06:00 PT 14.5 SECONDS (9.4-12.5) H 10/08/18 13:20 INR 1.28 10/08/18 13:20 APTT 22.2 Seconds (26.9-38.3) L 10/08/18 13:20 - Constitutional Appears: Well, Non-toxic, No Acute Distress - Head Exam Head Exam: ATRAUMATIC, NORMAL INSPECTION, NORMOCEPHALIC - Eye Exam Eye Exam: EOMI, PERRL - ENT Exam ENT Exam: Mucous Membranes Moist - Neck Exam Neck exam: Positive for: Normal Inspection - Respiratory Exam Respiratory Exam: Clear to Auscultation Bilateral, NORMAL BREATHING PATTERN. absent: Rales, Rhonchi, Wheezes - Cardiovascular Exam Cardiovascular Exam: REGULAR RHYTHM, RRR, +S1, +S2. absent: Clicks, Gallop, Rubs - GI/Abdominal Exam GI & Abdominal Exam: Firm, Normal Bowel Sounds. absent: Distended, Guarding, Tenderness - Extremities Exam Extremities exam: Positive for: full ROM, pedal edema (+2), tenderness - Neurological Exam Additional comments: AAOx1, moving all extremities, CN II-XII grossly intact - Skin Skin Exam: Dry, Intact, Normal Color Assessment and Plan - Assessment and Plan (Free Text) Assessment: 73 year old female with past medical history of diabetes mellitus, COPD, hypertension, hypoglycemia presents status post fall at [facility]. Patient was admitted for evaluation status post fall and for subdural hygroma found on Head CT. Patient had atrial fibrillation on 10/11 and converted back to normal sinus rhythm after administration of cardizem. Patient was hypothermic on 10/11 with rectal temperature of 93.6. Hypothermia resolved. Plan: Sepsis with undetermined source -Patient was hypothermic and tachycardic on 10/11. Hypothermia and tachycardia resolved -CXR 10/11: Hazy opacity in RLL increased from prior study. Consistent with small to medium sized right effusion and right basilar atelectasis. Suspect minor left basilar atelectasis and questionable small left effusion -UA 10/11 shows no suspicion of UTI -Procal: <0.05 -Blood culture negative since 10/11 -Urine culture negative -MRSA negative -Follow up sputum culture -Follow up abdominal and pelvis CT -Continue cefepime and doxycycline started on 10/11 -Stopped vanc, zosyn, levaquin Paroxysmal atrial fibrillation -Atrial fibrillation seen on 10/11 and converted to NSR after administration of cardizem 10 mg IV -Echocardiogram 10/11: LVEF 56.6%, LV normal size -Continue cardizem 30 mg TID -Will hold off on anticoagulation due to subdural hygroma Hypothermia -Rectal temperature 93.6 on 10/11. Hypothermia now resolved -TSH 10/11: 8.15. Increased from 5.36 -Free T4 10/11: 1.37 -Free T3 10/11: low at 2.73 -Cortisol 10/11: 20.5 -Continue synthroid 25 mcg daily Subdural hygroma and status post fall -Head CT 10/08: left cerebral convexity subdural hygroma with maximum depth of 1.3 cm -Head CT 10/09: stable appearance of left cerebral convexity subdural hygroma without significant change. -As per Neurosurgery and Neurology, patient should have repeat head CT in few we eks for reevaluation -Avoid anticoagulation at this time -Neurology, Dr. Goode, and Neurosurgery, Dr. Brothers, consulted for further recommendations. Diabetes mellitus -Patient has history of hypoglycemia mixed with periods of severe hyperglycemia -Patient had blood glucose of 80s at longterm and on admission had blood glucose of 43 -No episodes of hypoglycemia and hyperglycemia overnight -HgbA1c: 7.7 -Will hold amaryl, levemir, and lispro due to brittle diabetes -Continue low sliding scale insulin -Accuchecks ACHS -Continue with Consistent carbohydrate diet -Avoid hypoglycemia -Continue hypoglycemia protocol -Follow recommendations as per endocrinology, Dr. Altamirano. Hypothyroidism -TSH 10/11: 8.15. Increased from 5.36 -Free T4 10/11: 1.37 -Free T3 10/11: low at 2.73 -History of hypothermia and hypoglycemia -Continue synthroid 25 mcg daily History of hypertension -Normotensive at this time -Will hold off on antihypertensives History of COPD -Continue duonebs 3 Q4PRN for shortness of breath History of depression -Continue home mirtazapine History of constipation -Continue home milk of magnesia PRN History of GERD -Continue home maalox PRN and protonix daily GI prophylaxis: protonix DVT prophylaxis: SCD Patient plan discussed with Dr. Roche <Alida Roche - Last Filed: 10/15/18 11:02> Objective - Vital Signs/Intake and Output Vital Signs (last 24 hours): Temp Pulse Resp BP Pulse Ox 98.4 F 77 20 100/57 L 100 10/14/18 17:09 10/14/18 17:09 10/14/18 17:09 10/14/18 17:09 10/14/18 17:09 - Labs Labs: 10/14/18 09:30 10/14/18 09:30 PT 14.5 SECONDS (9.4-12.5) H 10/08/18 13:20 INR 1.28 10/08/18 13:20 APTT 22.2 Seconds (26.9-38.3) L 10/08/18 13:20 Attending/Attestation - Attestation I have personally seen and examined this patient.: Yes I have fully participated in the care of the patient.: Yes I have reviewed all pertinent clinical information, including history, physical exam and plan: Yes Notes (Text): 10/15/18 11:02 Medical record note made by the resident after discussion with my direction and input after the patient was personally seen and examined by me. I have reviewed the chart and agree that the record accurately reflects by personal performance of the history, physical exam, data review, and medical decision-making, in the course for the patient. I have also personally directed the plan of care.
--- NOTE | 2018-10-13 16:45 | PN ---
DATE: 10/13/2018 ENDOCRINOLOGY FOLLOWUP NOTE LOCATION: In room 372. SUBJECTIVE: This is a 73-year-old female with recent uncontrolled type 2 insulin-requiring diabetes, developing supervening episodic bouts of symptomatic hypoglycemia and has been taken off all insulin therapy at this time, especially with the variability of her oral intake as noted. Her glucose values today have ranged from 161-180 mg/dL. LABORATORY DATA: Her chemistry showed a BUN of 6, sodium 139, potassium 4.5, chloride 112, CO2 of 25, glucose 95, and creatinine 0.8. ASSESSMENT: This is a 73-year-old female with uncontrolled type 2 diabetes, previously insulin-requiring and developing supervening symptomatic hypoglycemic episodes with associated neuroglycopenic and hyperadrenergic manifestations of the same. PLAN OF MANAGEMENT: The patient has been taken off all insulin therapy both the basal and bolus insulin drug combination as previously given and her glycemic profile have so far remained near optimal overnight as noted. If hyperglycemic levels supervene, then may decide to give her a low dose of oral hypoglycemic therapy as indicated. We will obtain serial chemistries and supplement accordingly as needed. We will follow. Maida Altamirano MD
--- NOTE | 2018-10-13 18:32 | CP.PCM.DIS ---
<Lucía Salas - Last Filed: 10/14/18 16:40> Provider - Provider Date of Admission: 10/08/18 14:22 Attending physician: Alida Roche MD Primary care physician: Raymond Almeida MD Consults: 10/08/18 14:30 Consult [Physician Consult] Routine Comment: Consulting Provider: Maida Altamirano Consulting Physician: Maida Altamirano Reason for Consult: hypoglycemia 10/08/18 14:44 Physician Consult Routine Comment: Consulting Provider: Renetta Goode Consulting Physician: Renetta Goode Reason for Consult: subdural hygroma 10/08/18 15:24 Physician Consult Routine Comment: Consulting Provider: Macho Brothers Consulting Physician: Macho Brothers Reason for Consult: subdural hygroma 10/08/18 18:32 Nursing Referral for Palliative Care Routine Comment: Physician Instructions: Reason For Exam: EVALUATION Social Work Ref[facility] Routine Comment[facility] Physician Instructions: Reason For Exam: EVALUATION 10/11/18 10:46 Cardiology Consult Routine Comment: Consulting Provider: Alida Bray Consulting Physician: Alida Bray Reason for Consult: new onset afib 10/11/18 11:41 Infectious Disease Consult Routine Comment: Consulting Provider: Cory Ruffni Consulting Physician: Cory Ruffin Reason for Consult: hypothermia, tachycardia no source of infection Time Spent in preparation of Discharge (in minutes): 45 Hospital Course - Lab Results Lab Results: Micro Results 10/11/18 11:15 Blood Blood Culture - Preliminary NO GROWTH AFTER 48 HOURS 10/11/18 11:00 Blood Blood Culture - Preliminary NO GROWTH AFTER 48 HOURS 10/11/18 21:38 Naris MRSA Culture (Admit) - Final MRSA NOT DETECTED 10/11/18 12:00 Urine,Catheterized Urine Culture - Final No Growth (<1,000 CFU/ML) 10/08/18 15:00 Urine Random Urine Culture - Final <10,000 CFU/ML. MULTIPLE SPECIES. PROBABLE CONTAMINATION. Most Recent Lab Values WBC 6.2 10^3/uL (4.5-11.0) 10/13/18 06:00 RBC 2.71 10^6/uL (3.5-6.1) L 10/13/18 06:00 Hgb 8.4 g/dL (12.0-16.0) L 10/13/18 06:00 Hct 25.4 % (36.0-48.0) L 10/13/18 06:00 MCV 93.7 fl (80.0-105.0) 10/13/18 06:00 MCH 31.0 pg (25.0-35.0) 10/13/18 06:00 MCHC 33.1 g/dl (31.0-37.0) 10/13/18 06:00 RDW 14.1 % (11.5-14.5) 10/13/18 06:00 Plt Count 347 10^3/uL (120.0-450.0) 10/13/18 06:00 MPV 9.1 fl (7.0-11.0) 10/13/18 06:00 Neut % (Auto) 46.6 % (50.0-68.0) L 10/13/18 06:00 Lymph % (Auto) 45.3 % (22.0-35.0) H 10/13/18 06:00 [place] % (Auto) 5.5 % (1.0-6.0) 10/13/18 06:00 Eos % (Auto) 1.8 % (1.5-5.0) 10/13/18 06:00 Baso % (Auto) 0.8 % (0.0-3.0) 10/13/18 06:00 Lymph # (Auto) 2.8 (1.2-3.4) 10/13/18 06:00 [place] # (Auto) 0.3 (0.1-0.6) 10/13/18 06:00 Eos # (Auto) 0.1 (0.0-0.7) 10/13/18 06:00 Baso # (Auto) 0.05 K/mm3 (0.0-2.0) 10/13/18 06:00 Absolute Neuts (auto) 2.88 (1.4-6.5) 10/13/18 06:00 PT 14.5 SECONDS (9.4-12.5) H 10/08/18 13:20 INR 1.28 10/08/18 13:20 APTT 22.2 Seconds (26.9-38.3) L 10/08/18 13:20 pCO2 34 mm/Hg (35-45) L 10/11/18 08:23 pO2 115.0 mm/Hg (80-100) H 10/11/18 08:23 HCO3 23.1 mmol/L (21-28) 10/11/18 08:23 ABG pH 7.44 (7.35-7.45) 10/11/18 08:23 ABG Total CO2 24.1 mmol.L (22-28) 10/11/18 08:23 ABG O2 Saturation 99.6 % (95-98) H 10/11/18 08:23 ABG Base Excess -0.5 mmol/L (-2.0-3.0) 10/11/18 08:23 ABG Potassium 3.3 mmol/L (3.6-5.2) L 10/11/18 08:23 VBG pH 7.38 (7.32-7.43) 10/08/18 13:00 VBG pCO2 48.0 (40-60) 10/08/18 13:00 VBG HCO3 28.4 mmol/l (21-28) H 10/08/18 13:00 VBG Total CO2 29.9 mmol.L (22-28) H 10/08/18 13:00 VBG O2 Sat (Calc) 38.3 % (40-65) L 10/08/18 13:00 VBG Base Excess 2.5 mmol/L (0.0-2.0) H 10/08/18 13:00 VBG Potassium 4.5 mmol/L (3.6-5.2) 10/08/18 13:00 Sodium 134.0 mmol/L (132-148) 10/11/18 08:23 Chloride 108.0 mmol/L (98-107) H 10/11/18 08:23 Glucose 175 mg/dl (65-105) H 10/11/18 08:23 Lactate 1.7 mmol/L (0.7-2.1) 10/11/18 08:23 FiO2 21.0 % 10/11/18 08:23 Crit Value Called To Felicia johnson 10/08/18 13:00 Crit Value Called By Sharan rae 10/08/18 13:00 Blood Gas Notified Time 1312 10/08/18 13:00 Sodium 139 mmol/L (132-148) 10/13/18 06:00 Potassium 4.5 mmol/L (3.6-5.0) 10/13/18 06:00 Chloride 112 mmol/L (98-107) H 10/13/18 06:00 Carbon Dioxide 25 mmol/L (21-33) 10/13/18 06:00 Anion Gap 6 (10-20) L 10/13/18 06:00 BUN 6 mg/dL (7-21) L 10/13/18 06:00 Creatinine 0.8 mg/dl (0.7-1.2) 10/13/18 06:00 Est GFR ( Amer) > 60 10/13/18 06:00 Est GFR (Non-Af Amer) > 60 10/13/18 06:00 POC Glucose (mg/dL) 302 mg/dL (65-110) H 10/13/18 18:12 Random Glucose 95 mg/dL (70-110) 10/13/18 06:00 Hemoglobin A1c 7.7 % (4.2-6.5) H 10/08/18 13:20 Calcium 7.4 mg/dL (8.4-10.5) L 10/13/18 06:00 Phosphorus 3.6 mg/dL (2.5-4.5) 10/12/18 06:30 Magnesium 1.7 mg/dL (1.7-2.2) 10/12/18 06:30 Iron 67 ug/dL (45-180) 10/09/18 07:00 TIBC 113 ug/dL (265-497) L 10/09/18 07:00 % Saturation 59 % (20-55) H 10/09/18 07:00 Ferritin 255.0 ng/mL 10/09/18 07:00 Total Bilirubin 0.4 mg/dL (0.2-1.3) 10/13/18 06:00 AST 28 U/L (14-36) 10/13/18 06:00 ALT 33 U/L (7-56) 10/13/18 06:00 Alkaline Phosphatase 73 U/L (38-126) 10/13/18 06:00 Lactate Dehydrogenase 559 U/L (333-699) 10/08/18 13:20 Total Creatine Kinase < 20 U/L (35-230) L 10/08/18 13:20 Troponin I < 0.01 ng/mL 10/08/18 13:20 Total Protein 4.1 g/dL (5.8-8.3) L 10/13/18 06:00 Albumin 1.7 g/dL (3.0-4.8) L 10/13/18 06:00 Globulin 2.4 gm/dL 10/13/18 06:00 Albumin/Globulin Ratio 0.7 (1.1-1.8) L 10/13/18 06:00 Triglycerides 47 mg/dL (35-160) 10/09/18 08:00 Cholesterol 62 mg/dL (130-200) L 10/09/18 08:00 LDL Cholesterol Direct 37 mg/dL (0-129) 10/09/18 08:00 HDL Cholesterol 31 mg/dL (29-60) 10/09/18 08:00 Vitamin B12 > 1000 pg/mL (239-931) H 10/09/18 07:00 Folate 15.6 ng/mL 10/09/18 07:00 Procalcitonin < 0.05 NG/ML (0.19-0.49) L 10/13/18 06:00 Free T4 1.37 ng/dL (0.78-2.19) 10/11/18 08:26 Thyroxine (T4) 3.3 ug/dL (5.5-11.0) L 10/09/18 08:00 Free T3 pg/mL 2.73 pg/mL (2.77-5.27) L 10/11/18 08:26 TSH 3rd Generation 8.15 mIU/mL (0.46-4.68) H 10/11/18 08:26 Cortisol AM Sample 20.5 ug/dL (4.46-22.7) 10/11/18 07:00 Arterial Blood Potassium 3.3 mmol/L (3.6-5.2) L 10/11/18 08:23 Venous Blood Potassium 4.5 mmol/L (3.6-5.2) 10/08/18 13:00 Urine Color Yellow (YELLOW) 10/11/18 12:00 Urine Appearance Clear (CLEAR) 10/11/18 12:00 Urine pH 6.0 (4.7-8.0) 10/11/18 12:00 Ur Specific [place] <= 1.005 (1.005-1.035) 10/11/18 12:00 Urine Protein Negative mg/dL (<30 mg/dL) 10/11/18 12:00 Urine Glucose (UA) Negative mg/dL (NEGATIVE) 10/11/18 12:00 Urine Ketones Negative mg/dL (NEGATIVE) 10/11/18 12:00 Urine Blood Negative (NEGATIVE) 10/11/18 12:00 Urine Nitrate Negative (NEGATIVE) 10/11/18 12:00 Urine Bilirubin Negative (NEGATIVE) 10/11/18 12:00 Urine Urobilinogen 0.2 E.U./dL (<1 E.U./dL) 10/11/18 12:00 Ur Leukocyte Esterase Negative [place]oya/uL (NEGATIVE) 10/11/18 12:00 Urine RBC None /hpf (0-2) 10/08/18 15:00 Urine WBC 2 - 5 /hpf (0-6) 10/08/18 15:00 Ur Epithelial Cells 10 - 12 /hpf (0-5) H 10/08/18 15:00 Urine Bacteria Mod /hpf (NONE) 10/08/18 15:00 Thyroperoxidase Ab <1 IU/mL (<9) 10/09/18 08:00 Ur L.pneumophila Ag Negative (NEGATIVE) 10/12/18 05:05 - Hospital Course Hospital Course: Lucía Salas, PGY-1, Internal Medicine Discharge Summary for Dr. Roche 73 year old female with past medical history of diabetes mellitus, COPD, hypertension, hypoglycemia presented status post fall at [facility] from bed and had possibly hit head. History was limited due to patient's mental status. In addition, patient had recently been treated for UTI with augmentin, but as patient was asymptomatic and patient had received 4 days of antibiotics upon admission, no further antibiotics were recommended. Patient's blood glucose was found to be 43 prior to arrival to ED and was in 80s upon arrival at emergency department. Upon admission, Head CT was performed which showed subdural hygroma of left cerebral convexity with depth 1.3 cm. Chest X ray showed no active disease and EKG showed normal sinus rhythm with heart rate of 65. Neurology and Neurosurgery were consulted. Neurology recommended repeat head CT in the AM the next day which showed stable subdural hygroma. Both Neurology and Neurosurgery recommended repeat head CT in few weeks post discharge to monitor for stability. For patient's diabetes mellitus, patient's glucose was initially controlled but as patient's glucose increased, patient was started on levemir 10 and lispro 4 AC for coverage. Patient unfortunately became hypoglycemia subsequently with D50 boluses given on 10/11. Levemir was decreased to 6 HS. Patient continued to have hypoglycemic episodes on 10/12. Levemir and lispro were discontinued and patient was continued on low sliding scale insulin which initially controlled blood glucose well but today, patient's blood glucose has been in 300s. As a result, Dr. Altamirano, recommended that patient should be on glargine 8 U HS upon discharge as glargine does not have a peak unlike levemir. Patient had atrial fibrillation on 10/11 which resolved after 1 cardizem 10 mg IV bolus. As a result, patient was started on cardizem [address] Bray. No anticoagulation was started due to patient's subdural hygroma. Patient was hypothermic on 10/11 with temperature at 93 degrees and 95 degrees. Sepsis workup was performed and right lower lobe infiltrate was seen on Chest CT. No acute abdominal pathology was seen. UA was negative. Blood culture and urine culture were negative. Last TSH was 8.15 with normal free T4. Patient was found to be stable and ready for discharge. Patient was told to take all home medications as prescribed. Patient was told to follow up with primary care physician within 3-5 days. Patient was told to return to the emergency department if she had any new or concerning symptoms. This is a brief summary of the events that transpired at this hospital visit. For more information, please refer to hospital documentation Discharge Diagnosis Hypothermia Sepsis with undetermined source Paroxysmal atrial fibrillation Subdural hygroma Diabetes Mellitus Hypothyroidism - Date & Time of H&P Date of H&P: 10/08/18 Time of H&P: 15:15 Discharge Exam - Head Exam Head Exam: ATRAUMATIC, NORMOCEPHALIC - Eye Exam Eye Exam: EOMI Pupil Exam: PERRL - Respiratory Exam Respiratory Exam: Clear to PA & Lateral, NORMAL BREATHING PATTERN - Cardiovascular Exam Cardiovascular Exam: REGULAR RHYTHM, RRR, +S1, +S2. absent: Clicks, Gallop, Rubs - GI/Abdominal Exam GI & Abdominal Exam: Normal Bowel Sounds, Soft. absent: Distended, Firm, Guarding, Tenderness - Neurological Exam Neurological exam: Alert, CN II-XII Intact, Normal Gait Additional comments: AAOx1 - Psychiatric Exam Psychiatric exam: Normal Affect, Normal Mood - Skin Skin Exam: Dry, Intact, Normal Color Discharge Plan - Discharge Medications Prescriptions: Cefpodoxime [Vantin] 200 mg PO Q12 5 Days #10 tab Insulin Glargine, Recombina [Lantus] 8 unit SC HS #1 vial RX: Insulin Lispro-LOW [humALOG LOW] See Protocol SC DAILY #1 vial - Follow Up Plan Condition: SERIOUS Disposition: NURSING FACILITY MEDICAID CERT Additional Instructions: Please follow up with primary care doctor within 3-5 days. Please take all medications as prescribed. Please take vantin and doxycycline as prescribed for 5 days for pneumonia. Please take lantus 8 U HS and [facility] Please monitor blood glucose and temperature every 4 hours and as needed to monitor for hypoglycemia and hypothermia. If this occurs, please contact physician. Please return to the emergency department if you have any new or concerning symptoms. Referrals: Willie Almeida MD [Primary Care Provider] - <Alida Roche - Last Filed: 10/15/18 11:01> Provider - Provider Date of Admission: 10/08/18 14:22 Attending physician: Alida Roche MD Primary care physician: Raymond Almeida MD Consults: 10/08/18 14:30 Consult [Physician Consult] Routine Comment: Consulting Provider: Maida Altamirano Consulting Physician: Maida Altamirano Reason for Consult: hypoglycemia 10/08/18 14:44 Physician Consult Routine Comment: Consulting Provider: Renetta Goode Consulting Physician: Renetta Goode Reason for Consult: subdural hygroma 10/08/18 15:24 Physician Consult Routine Comment: Consulting Provider: Macho Brothers Consulting Physician: Macho Brothers Reason for Consult: subdural hygroma 10/08/18 18:32 Nursing Referral for Palliative Care Routine Comment: Physician Instructions: Reason For Exam: EVALUATION Social Work Referral Routine Comment: [facility] Physician Instructions: Reason For Exam: EVALUATION 10/11/18 10:46 Cardiology Consult Routine Comment: Consulting Provider: Alida Bray Consulting Physician: Asa,Mohammad Reason for Consult: new onset afib 10/11/18 11:41 Infectious Disease Consult Routine Comment: Consulting Provider: Cory Ruffin Consulting Physician: Cory Ruffin Reason for Consult: hypothermia, tachycardia no source of infection Hospital Course - Lab Results Lab Results: Micro Results 10/11/18 11:15 Blood Blood Culture - Preliminary NO GROWTH AFTER 3 DAYS 10/11/18 11:00 Blood Blood Culture - Preliminary NO GROWTH AFTER 3 DAYS 10/11/18 21:38 Naris MRSA Culture (Admit) - Final MRSA NOT DETECTED 10/11/18 12:00 Urine,Catheterized Urine Culture - Final No Growth (<1,000 CFU/ML) 10/08/18 15:00 Urine Random Urine Culture - Final <10,000 CFU/ML. MULTIPLE SPECIES. PROBABLE CONTAMINATION. Most Recent Lab Values WBC 6.2 10^3/uL (4.5-11.0) 10/14/18 09:30 RBC 3.05 10^6/uL (3.5-6.1) L 10/14/18 09:30 Hgb 9.6 g/dL (12.0-16.0) L 10/14/18 09:30 Hct 28.7 % (36.0-48.0) L 10/14/18 09:30 MCV 94.1 fl (80.0-105.0) 10/14/18 09:30 MCH 31.5 pg (25.0-35.0) 10/14/18 09:30 MCHC 33.4 g/dl (31.0-37.0) 10/14/18 09:30 RDW 14.0 % (11.5-14.5) 10/14/18 09:30 Plt Count 376 10^3/uL (120.0-450.0) 10/14/18 09:30 MPV 9.0 fl (7.0-11.0) 10/14/18 09:30 Neut % (Auto) 56.6 % (50.0-68.0) 10/14/18 09:30 Lymph % (Auto) 38.3 % (22.0-35.0) H 10/14/18 09:30 [place] % (Auto) 3.1 % (1.0-6.0) 10/14/18 09:30 Eos % (Auto) 1.4 % (1.5-5.0) L 10/14/18 09:30 Baso % (Auto) 0.6 % (0.0-3.0) 10/14/18 09:30 Lymph # (Auto) 2.4 (1.2-3.4) 10/14/18 09:30 [place] # (Auto) 0.2 (0.1-0.6) 10/14/18 09:30 Eos # (Auto) 0.1 (0.0-0.7) 10/14/18 09:30 Baso # (Auto) 0.04 K/mm3 (0.0-2.0) 10/14/18 09:30 Absolute Neuts (auto) 3.52 (1.4-6.5) 10/14/18 09:30 PT 14.5 SECONDS (9.4-12.5) H 10/08/18 13:20 INR 1.28 10/08/18 13:20 APTT 22.2 Seconds (26.9-38.3) L 10/08/18 13:20 pCO2 34 mm/Hg (35-45) L 10/11/18 08:23 pO2 115.0 mm/Hg (80-100) H 10/11/18 08:23 HCO3 23.1 mmol/L (21-28) 10/11/18 08:23 ABG pH 7.44 (7.35-7.45) 10/11/18 08:23 ABG Total CO2 24.1 mmol.L (22-28) 10/11/18 08:23 ABG O2 Saturation 99.6 % (95-98) H 10/11/18 08:23 ABG Base Excess -0.5 mmol/L (-2.0-3.0) 10/11/18 08:23 ABG Potassium 3.3 mmol/L (3.6-5.2) L 10/11/18 08:23 VBG pH 7.38 (7.32-7.43) 10/08/18 13:00 VBG pCO2 48.0 (40-60) 10/08/18 13:00 VBG HCO3 28.4 mmol/l (21-28) H 10/08/18 13:00 VBG Total CO2 29.9 mmol.L (22-28) H 10/08/18 13:00 VBG O2 Sat (Calc) 38.3 % (40-65) L 10/08/18 13:00 VBG Base Excess 2.5 mmol/L (0.0-2.0) H 10/08/18 13:00 VBG Potassium 4.5 mmol/L (3.6-5.2) 10/08/18 13:00 Sodium 134.0 mmol/L (132-148) 10/11/18 08:23 Chloride 108.0 mmol/L (98-107) H 10/11/18 08:23 Glucose 175 mg/dl (65-105) H 10/11/18 08:23 Lactate 1.7 mmol/L (0.7-2.1) 10/11/18 08:23 FiO2 21.0 % 10/11/18 08:23 Crit Value Called To Felicia johnson 10/08/18 13:00 Crit Value Called By Sharan rae 10/08/18 13:00 Blood Gas Notified Time 1312 10/08/18 13:00 Sodium 136 mmol/L (132-148) 10/14/18 09:30 Potassium 4.4 mmol/L (3.6-5.0) 10/14/18 09:30 Chloride 109 mmol/L (98-107) H 10/14/18 09:30 Carbon Dioxide 25 mmol/L (21-33) 10/14/18 09:30 Anion Gap 6 (10-20) L 10/14/18 09:30 BUN 6 mg/dL (7-21) L 10/14/18 09:30 Creatinine 0.8 mg/dl (0.7-1.2) 10/14/18 09:30 Est GFR ( Amer) > 60 10/14/18 09:30 Est GFR (Non-Af Amer) > 60 10/14/18 09:30 POC Glucose (mg/dL) 159 mg/dL (65-110) H 10/14/18 16:05 Random Glucose 183 mg/dL (70-110) H 10/14/18 09:30 Hemoglobin A1c 7.7 % (4.2-6.5) H 10/08/18 13:20 Calcium 7.7 mg/dL (8.4-10.5) L 10/14/18 09:30 Phosphorus 3.0 mg/dL (2.5-4.5) 10/14/18 09:30 Magnesium 1.6 mg/dL (1.7-2.2) L 10/14/18 09:30 Iron 67 ug/dL (45-180) 10/09/18 07:00 TIBC 113 ug/dL (265-497) L 10/09/18 07:00 % Saturation 59 % (20-55) H 10/09/18 07:00 Ferritin 255.0 ng/mL 10/09/18 07:00 Total Bilirubin 0.5 mg/dL (0.2-1.3) 10/14/18 09:30 AST 33 U/L (14-36) 10/14/18 09:30 ALT 26 U/L (7-56) 10/14/18 09:30 Alkaline Phosphatase 76 U/L (38-126) 10/14/18 09:30 Lactate Dehydrogenase 559 U/L (333-699) 10/08/18 13:20 Total Creatine Kinase < 20 U/L (35-230) L 10/08/18 13:20 Troponin I < 0.01 ng/mL 10/08/18 13:20 Total Protein 4.7 g/dL (5.8-8.3) L 10/14/18 09:30 Albumin 2.0 g/dL (3.0-4.8) L 10/14/18 09:30 Globulin 2.7 gm/dL 10/14/18 09:30 Albumin/Globulin Ratio 0.8 (1.1-1.8) L 10/14/18 09:30 Triglycerides 47 mg/dL (35-160) 10/09/18 08:00 Cholesterol 62 mg/dL (130-200) L 10/09/18 08:00 LDL Cholesterol Direct 37 mg/dL (0-129) 10/09/18 08:00 HDL Cholesterol 31 mg/dL (29-60) 10/09/18 08:00 Vitamin B12 > 1000 pg/mL (239-931) H 10/09/18 07:00 Folate 15.6 ng/mL 10/09/18 07:00 Procalcitonin < 0.05 NG/ML (0.19-0.49) L 10/13/18 06:00 Free T4 1.37 ng/dL (0.78-2.19) 10/11/18 08:26 Thyroxine (T4) 3.3 ug/dL (5.5-11.0) L 10/09/18 08:00 Free T3 pg/mL 2.73 pg/mL (2.77-5.27) L 10/11/18 08:26 TSH 3rd Generation 8.15 mIU/mL (0.46-4.68) H 10/11/18 08:26 Cortisol AM Sample 20.5 ug/dL (4.46-22.7) 10/11/18 07:00 Arterial Blood Potassium 3.3 mmol/L (3.6-5.2) L 10/11/18 08:23 Venous Blood Potassium 4.5 mmol/L (3.6-5.2) 10/08/18 13:00 Urine Color Yellow (YELLOW) 10/11/18 12:00 Urine Appearance Clear (CLEAR) 10/11/18 12:00 Urine pH 6.0 (4.7-8.0) 10/11/18 12:00 Ur Specific [place] <= 1.005 (1.005-1.035) 10/11/18 12:00 Urine Protein Negative mg/dL (<30 mg/dL) 10/11/18 12:00 Urine Glucose (UA) Negative mg/dL (NEGATIVE) 10/11/18 12:00 Urine Ketones Negative mg/dL (NEGATIVE) 10/11/18 12:00 Urine Blood Negative (NEGATIVE) 10/11/18 12:00 Urine Nitrate Negative (NEGATIVE) 10/11/18 12:00 Urine Bilirubin Negative (NEGATIVE) 10/11/18 12:00 Urine Urobilinogen 0.2 E.U./dL (<1 E.U./dL) 10/11/18 12:00 Ur Leukocyte Esterase Negative Zoya/uL (NEGATIVE) 10/11/18 12:00 Urine RBC None /hpf (0-2) 10/08/18 15:00 Urine WBC 2 - 5 /hpf (0-6) 10/08/18 15:00 Ur Epithelial Cells 10 - 12 /hpf (0-5) H 10/08/18 15:00 Urine Bacteria Mod /hpf (NONE) 10/08/18 15:00 Thyroperoxidase Ab <1 IU/mL (<9) 10/09/18 08:00 Ur L.pneumophila Ag Negative (NEGATIVE) 10/12/18 05:05 Attending/Attestation - Attestation I have personally seen and examined this patient.: Yes I have fully participated in the care of the patient.: Yes I have reviewed all pertinent clinical information, including history, physical exam and plan: Yes Notes (Text): 10/15/18 11:00 Medical record note made by the resident after discussion with my direction and input after the patient was personally seen and examined by me. I have reviewed the chart and agree that the record accurately reflects by personal performance of the history, physical exam, data review, and medical decision-making, in the course for the patient. I have also personally directed the plan of care. 73 year old female with past medical history of diabetes, hypertension and COPD who was sent from [place] after a fall from her bed. She was found to have hypoglycemia on labs and subdural hygroma on CT head. . Repeat CT head was stable. Patient did not has any focal deficit. Both Neurology and Neurosurgery recommended repeat head CT in two weeks post discharge to monitor for stability. For patient's diabetes mellitus, patient's glucose was initially controlled but as patient's glucose increased, patient was started on levemir 10 and lispro 4 AC for coverage. Patient unfortunately became hypoglycemia subsequently with D50 boluses given on 10/11. Levemir was decreased to 6 HS. Patient continued to have hypoglycemic episodes on 10/12. Levemir and lispro were discontinued and patient was continued on low sliding scale insulin which initially controlled blood glucose well but today, patient's blood glucose has been in 300s. As a result, Dr. Altamirano, recommended that patient should be on glargine 8 U HS upon discharge as glargine does not have a peak unlike levemir. Patient had proximal atrial fibrillation on 10/11 which resolved after 1 cardizem 10 mg IV bolus.Patient was evaluated by cardiology and was started on on cardizem [address] Bray. No anticoagulation was started due to patien t's subdural hygroma.Echo showed normal systolic function. Patient was hypothermic on 10/11 with temperature at 93 degrees and 95 degrees. Sepsis workup was performed and right lower lobe infiltrate was seen on Chest CT. No acute abdominal pathology was seen. UA was negative. Blood culture and urine culture were negative. Last TSH was 8.15 with normal free T4.Patient hypothermia has resolved.She is at her base line. She will be discharged to [facility]. Prognosis is guarded.
[2018-10-14] MEDS: Levothyroxine 25 MCG TAB PO SCH (05:29)
[2018-10-14] MEDS: Pantoprazole 40 mg Susp UD PO SCH (05:29)
[2018-10-14] MEDS: Cefepime 1gm in NS 100ml 1 GM/100 ML BAG IVPB SCH ×2 (05:29→13:48)
--- NOTE | 2018-10-14 07:45 | CP.PCM.PN ---
Subjective - Date & Time of Evaluation Date of Evaluation: 10/14/18 Time of Evaluation: 09:40 - Subjective Subjective: Infectious disease progress note: Pt seen and examined at bedside. No acute events overnight. Patient still complaining of some cough however states that has improved. No fevers or chills. No complaints. 12 Point ROS performed and neg other than stated above Objective - Vital Signs/Intake and Output Vital Signs (last 24 hours): Temp Pulse Resp BP Pulse Ox 98 F 60 20 127/68 97 10/13/18 17:24 10/14/18 06:00 10/13/18 17:24 10/13/18 17:24 10/13/18 17:24 - Medications Medications: Current Medications Acetaminophen (Tylenol 325mg Tab) 650 mg PO Q6H PRN PRN Reason: Fever >100.4 F Al Hydrox/Mg Hydrox/Simethicone (Maalox Plus 30 Ml) 30 ml PO DAILY PRN PRN Reason: Heartburn Albuterol/Ipratropium (Duoneb 3 Mg/0.5 Mg (3 Ml) Ud) 3 ml IH Q4H PRN PRN Reason: Shortness of Breath Last Admin: 10/09/18 13:35 Dose: 3 ml Dextrose (Dextrose 50% Inj) 0 ml IV STAT PRN; Protocol PRN Reason: Hypoglycemia Protocol Last Admin: 10/11/18 05:28 Dose: 50 ml Diltiazem HCl (Cardizem) 30 mg PO TID ALFREDO Last Admin: 10/13/18 17:49 Dose: 30 mg Doxycycline Hyclate (Doryx) 100 mg PO Q12 ALFREDO; Protocol Last Admin: 10/13/18 21:54 Dose: 100 mg Dextrose (Dextrose 5% In Water 1000 Ml) 1,000 mls @ 0 mls/hr IV .Q0M PRN; Protocol PRN Reason: Hypoglycemia Protocol Last Admin: 10/11/18 05:28 Dose: 100 mls/hr Cefepime HCl (Maxipime 1gm) 1 gm in 100 mls @ 100 mls/hr IVPB Q8 ALFREDO; Protocol Last Admin: 10/14/18 05:29 Dose: 100 mls/hr Insulin Human Lispro (Humalog Low) 0 units SC ACHS ALFREDO; Protocol Last Admin: 10/13/18 21:41 Dose: Not Given Levothyroxine Sodium (Synthroid) 25 mcg PO 0600 [facility] Last Admin: 10/14/18 05:29 Dose: 25 mcg Magnesium Hydroxide (Milk Of Magnesia) 30 ml PO DAILY PRN PRN Reason: Constipation Mirtazapine (Remeron) 7.5 mg PO HS [facility] Last Admin: 10/13/18 21:54 Dose: 7.5 mg Pantoprazole Sodium (Protonix Susp) 40 mg PO 0600 [facility] Last Admin: 10/14/18 05:29 Dose: 40 mg - Labs Labs: 10/13/18 06:00 10/13/18 06:00 PT 14.5 SECONDS (9.4-12.5) H 10/08/18 13:20 INR 1.28 10/08/18 13:20 APTT 22.2 Seconds (26.9-38.3) L 10/08/18 13:20 - Constitutional Appears: No Acute Distress - Head Exam Head Exam: ATRAUMATIC, NORMOCEPHALIC - Eye Exam Eye Exam: EOMI - Respiratory Exam Respiratory Exam: Clear to Ausculation Bilateral. absent: Rales, Wheezes - Cardiovascular Exam Cardiovascular Exam: REGULAR RHYTHM, +S1, +S2 - GI/Abdominal Exam GI & Abdominal Exam: Soft. absent: Tenderness - Extremities Exam Extremities Exam: absent: Calf Tenderness, Pedal Edema - Neurological Exam Neurological Exam: Alert, Awake - Psychiatric Exam Psychiatric exam: Normal Mood - Skin Skin Exam: Dry, Warm Assessment and Plan - Assessment and Plan (Free Text) Assessment: Sepsis with Right lower lobe HCAP S/P fall in [facility]cc Paroxysmal atrial fibrillation Diabetes Hypertension Depression COPD Labile blood glucose levels Subdural hygroma Cont Doxy day 3 and Cefepime day 3 for 4 - 7 days of antibiotics F/u CT of the abdomen/pelvis f/u report Procal neg, leigonella neg Follow-up septic work-up including MRSA, blood cultures, sputum cultures, urine culture - thus far neg Follow-up cardiology, endocrinology, neurology recommendations Continue monitor for any changes Case and plan to be reviewed and discussed with Dr. Perez
[2018-10-14 08:20] VITALS: O2SAT 100
[2018-10-14] MEDS: Insulin Lispro (humaLOG) LOW Coverage SC SCH ×3 (08:47→17:46)
[2018-10-14 09:45] LABS: BASO # 0.04 K/mm3 (0.0-2.0); BASO % 0.6 % (0.0-3.0); EOS # 0.1 (0.0-0.7); EOS % 1.4 % (1.5-5.0); HEMOGLOBIN 9.6 g/dL (12.0-16.0); LYMPH # 2.4 (1.2-3.4); LYMPH % 38.3 % (22.0-35.0); MEAN CELL VOLUME 94.1 fl (80.0-105.0); MEAN CORPUSCULAR HEMOGLOBIN 31.5 pg (25.0-35.0); MEAN CORPUSCULAR HGB CONC 33.4 g/dl (31.0-37.0); MONO # 0.2 (0.1-0.6); MONO % 3.1 % (1.0-6.0); RBC 3.05 10^6/uL (3.5-6.1); WHITE BLOOD COUNT 6.2 10^3/uL (4.5-11.0)
[2018-10-14 09:54] LABS: ALB/GLOB RATIO 0.8 (1.1-1.8); ALT/SGPT 26 U/L (7-56); AST/SGOT 33 U/L (14-36); BLOOD UREA NITROGEN 6 mg/dL (7-21); CALCIUM 7.7 mg/dL (8.4-10.5); GFR NON-AFRICAN AMERICAN > 60
--- NOTE | 2018-10-14 11:16 | CT ---
Date of service: 10/13/2018 PROCEDURE: CT Abdomen and Pelvis without intravenous contrast HISTORY: rule out source of infection COMPARISON: 09/15/2018 TECHNIQUE: Technique. Contrast dose: Radiation dose: Total exam DLP = 238.43 mGy-cm. This CT exam was performed using one or more of the following dose reduction techniques: Automated exposure control, adjustment of the mA and/or kV according to patient size, and/or use of iterative reconstruction technique. FINDINGS: LOWER THORAX: Bilateral pleural effusions, right greater than left with increase in size of right pleural effusion with associated new significant compressive atelectasis at the right base. LIVER: Hepatomegaly and diffuse fatty infiltration of the liver. GALLBLADDER AND BILE DUCTS: Gallstones. PANCREAS: Pancreatic calcifications consistent with chronic pancreatitis. SPLEEN: Unremarkable. ADRENALS: Unremarkable. No mass. KIDNEYS AND URETERS: Unremarkable. No hydronephrosis. No solid mass. VASCULATURE: Unremarkable. No aortic aneurysm. No aortic atherosclerotic calcification or mural plaque present. BOWEL: Unremarkable. No obstruction. No gross mural thickening. APPENDIX: Unremarkable. Normal appendix. PERITONEUM: Moderate pelvic free fluid. LYMPH NODES: Unremarkable. No enlarged lymph nodes. BLADDER: Unremarkable. REPRODUCTIVE: Unremarkable. BONES: No acute fracture. OTHER FINDINGS: Anasarca. IMPRESSION: Bilateral pleural effusions, right greater than left with increase in size of right pleural effusion with associated new significant compressive atelectasis at the right base. Anasarca and pelvic free fluid. Gallstones and evidence of chronic pancreatitis. Paddle megaly with fatty infiltration of the liver.
[2018-10-14 17:12] VITALS: BP 100/57; PULSE 77; RESP 20; TEMP 98.4
--- NOTE | 2018-10-14 17:45 | PN ---
DATE: 10/14/2018 In room 372. SUBJECTIVE: This is a 73-year-old female with recent uncontrolled type 2 insulin-requiring diabetes, now being followed closely for metabolic management. Her glycemic levels are fluctuating once again as noted overnight and the glucose values have ranged from 245-330 mg/dL, it was 301 at bedtime last night. Her chemistry showed a BUN of 6, sodium 136, potassium 4.4, chloride 109, CO2 of 25, glucose 183 and creatinine 0.8. 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 PLAN OF MANAGEMENT: We will modify once again her bit her current insulin regimen and resume and start her back on a low-dose basal insulin with Levemir given as 8 units subcu at bedtime daily as given. We will titrate incrementally as indicated to optimize metabolic control. We will also continue the low-dose correction scale using Humalog insulin as given. We will obtain serial chemistries and supplement accordingly needed. We will follow. Maida Altamirano MD
[2018-10-14] MEDS ORDERED: Insulin Detemir 100 units/ml Vial (Levemir) SC SCH (22:00)
== END 2018-10-14 19:45 | DRG 871 ==
LOC: ED 12:17 → ERH 14:22 → 3RSO 16:17
PROVIDERS: ADMIT Internal Medicine Nephrology; ATTEND Internal Medicine
DX: A41.9 Sepsis, unspecified organism (principal); J18.9 Pneumonia, unspecified organism; E43 Unspecified severe protein-calorie malnutrition; G96.0 Cerebrospinal fluid leak; J44.0 Chronic obstructive pulmonary disease with (acute) lower respiratory infection; J98.11 Atelectasis; Z68.1 Body mass index [BMI] 19.9 or less, adult; E11.649 Type 2 diabetes mellitus with hypoglycemia without coma; I11.0 Hypertensive heart disease with heart failure; I50.9 Heart failure, unspecified; F03.90 Unspecified dementia, unspecified severity, without behavioral disturbance, psychotic disturbance, mood disturbance, and anxiety; K21.9 Gastro-esophageal reflux disease without esophagitis; I48.0 Paroxysmal atrial fibrillation; E78.5 Hyperlipidemia, unspecified; F32.9 Major depressive disorder, single episode, unspecified; F41.1 Generalized anxiety disorder; D64.9 Anemia, unspecified; F10.11 Alcohol abuse, in remission; R68.0 Hypothermia, not associated with low environmental temperature; E06.3 Autoimmune thyroiditis; K59.00 Constipation, unspecified; Z87.891 Personal history of nicotine dependence; Y95 Nosocomial condition; Z79.4 Long term (current) use of insulin